=== PATIENT | female | born 1960 | race Caucasian/White ===

== ENCOUNTER 2016-05-26 11:54 | Emergency (ER) | payer OTHER ==
[2016-05-26 12:03] VITALS: RESP 18
[2016-05-26] MEDS ORDERED: MECLIZINE 12.5 MG TAB PO STA (12:47)
[2016-05-26] MEDS ORDERED: LORazepam 2 MG/ML SYRINGE IV STA (12:47)
[2016-05-26] MEDS ORDERED: SODIUM CHLORIDE 0.9% 500 ML IV STA (12:47)
--- NOTE | 2016-05-26 13:03 | ED ---
General Adult HPI - General Chief complaint: Dizziness Stated complaint: DIZZINESS, NAUSEA, BLURRY VISION Time Seen by Provider: 05/26/16 12:35 Source: patient, family, RN notes reviewed, old records reviewed Mode of arrival: ambulatory - History of Present Illness Initial comments: Chief complaint and history of present illness a 56-year-old female who reports that when she awakened this morning she was dizzy and felt spinning she gets that it isn't fuzzy nauseated and vomits. No headache or visual acuity changes no stiff neck. No injuries. Denies any recent problems with nasal congestion or sinusitis. She's never had vertigo in the past. - Related Data Home Medications Medication Instructions Recorded Confirmed Atorvastatin [Lipitor] 80 mg PO HS 05/26/16 05/26/16 Enalapril [Vasotec] 20 mg PO DAILY 05/26/16 05/26/16 Gluc/Joe-MSM#1/C/Eleazar/Eduardo/Bor 1 tab PO BID 05/26/16 05/26/16 [Glucosamine-Chondroitin Tablet] Loratadine [Claritin] 10 mg PO DAILY 05/26/16 05/26/16 Metoprolol Tartrate [Lopressor] 25 mg PO BID 05/26/16 05/26/16 Nitroglycerin Sl Tabs [Nitrostat] 0.4 mg SUBLINGUAL Q5M PRN 05/26/16 05/26/16 Blythe-3 Fatty Acids/Fish Oil [Fish 1 cap PO DAILY 05/26/16 05/26/16 Oil 1,000 mg Softgel] Ubidecarenone [Coenzyme Q10] 20 mg PO QAM 05/26/16 05/26/16 Previous Rx's Medication Instructions Recorded Meclizine [Antivert] 25 mg PO TID #30 tab 05/26/16 Allergies Allergy/AdvReac Type Severity Reaction Status Date / Time Penicillins Allergy Rash/Hives Verified 05/26/16 12:37 Review of Systems ROS Statement: Those systems with pertinent positive or pertinent negative responses have been documented in the HPI. Review of systems. No headache but when she moves her head she does get dizzy when she closes her eyes sits still she feels better. No stiff neck no chest pain no palpitations no GI/ problems other than that associated with the dizziness and nausea. No neuro deficits complained of. All systems were otherwise reviewed. Past medical problems significant for coronary artery disease and [place], hyperlipidemia. Her surgeries include 5 stents to the heart. She had an appendectomy tonsillectomy and tubal ligation. The patient's family history unknown she is adopted. She has ALLERGIES to penicillin. She quit smoking 3 years ago. Drinks 1 beer per night while cooking her dinner. ROS Other: All systems not noted in ROS Statement are negative. Past Medical History Past Medical History: Coronary Artery Disease (CAD), Hyperlipidemia, Myocardial Infarction ([place]) History of Any Multi-Drug Resistant Organisms: None Reported Past Surgical History: Appendectomy, Heart Catheterization With Stent, Tonsillectomy, Tubal Ligation Past Psychological History: No Psychological Hx Reported Smoking Status: Former smoker Past Alcohol Use History: Daily Past Drug Use History: None Reported General Exam - General Exam Comments Initial Comments: General: The patient is awake and alert, becomes dizzy when she moves quickly. This morning she had nausea and vomiting associated with it. No pain. Vital signs shows temperature 96.8 pulse 48 she is on Lopressor and enalapril., Her respiratory rate is 18 pulse ox 94% room air blood pressure elevated at 195/88. The patient is mildly distressed. This be repeated. Eye: Pupils are equal, round and reactive to light, extra-ocular movements are intact ; there is normal conjunctiva bilaterally. No signs of icterus. Ears, nose, mouth and throat: There are moist mucous membranes and no oral lesions. No headache Neck: The neck is supple, there is no tenderness , no carotid bruit, no stiff neck. Cardiovascular: Bradycardic rate proximally 50. No murmur, rub or gallop is appreciated. Respiratory: Lungs are clear to auscultation, respirations are non-labored, breath sounds are equal. No wheezes, stridor, rales, or rhonchi. Gastrointestinal: Soft, non-distended, non-tender abdomen without masses or organomegaly noted. There is no rebound or guarding present. No CVA tenderness. Bowel sounds are unremarkable. Back: There is no tenderness to palpation in the midline. There is no obvious deformity. No rashes noted. Musculoskeletal: Normal ROM, no tenderness, There is no pedal edema. There is no calf tenderness or swelling. Sensation intact. Neurological: CN II-XII intact, There are no obvious motor or sensory deficits. Coordination appears grossly intact. Speech is normal. No neuro deficits. Dizziness with rapid head movement and changes of position. Skin: Skin is warm and dry and no rashes or lesions are noted. Course Vital Signs 05/26/16 05/26/16 05/26/16 12:00 13:25 13:58 Temperature 96.8 F L 98.4 F Pulse Rate 48 L 50 L 45 L Respiratory 18 18 18 Rate Blood Pressure 195/88 186/79 153/72 O2 Sat by Pulse 94 L 94 L 98 Oximetry Medical Decision Making - Medical Decision Making The patient's feeling better. Blood pressure 130/80. Rate 55. We did discuss not taking Lopressor. This evening should be checking her blood pressure heart rate. Continues to remain low she's not to take her Lopressor. She'll call and follow up with family physician tomorrow. Told to recheck tomorrow. She' ll be given a prescription for meclizine 25 mg 3 times a day. Disposition Clinical Impression: Vertigo Disposition: HOME SELF-CARE Condition: Stable Instructions: Dizziness (ED), Vertigo (ED) Additional Instructions: Check a blood pressure and heart rate several times today , if you heart rate still low such as below 55 do not take your Lopressor. All your physician in the morning. Take meclizine 25 mg 3 times daily for dizziness and vertigo. Change positions slowly. Prescriptions: Meclizine [Antivert] 25 mg PO TID #30 tab Time of Disposition: 14:54
[2016-05-26 15:13] VITALS: BP 132/66; PULSE 47; TEMP 96.8
== END 2016-05-26 15:20 | disposition home or self-care (01) ==
LOC: EC 11:54
DX: R42 Dizziness and giddiness (principal); E78.5 Hyperlipidemia, unspecified; I25.2 Old myocardial infarction; I25.10 Atherosclerotic heart disease of native coronary artery without angina pectoris; Z95.5 Presence of coronary angioplasty implant and graft; Z88.0 Allergy status to penicillin; Z87.891 Personal history of nicotine dependence; Z79.899 Other long term (current) drug therapy
CPT/HCPCS: 99284; 96374; 96361; 93005; J2060

== ENCOUNTER → 2020-01-13 | Outpatient (CLI) | payer MEDICAID, OTHER ==
--- NOTE | 2020-01-13 08:57 | US ---
EXAMINATION TYPE: US venous doppler duplex LE RT DATE OF EXAM: 01/13/2020 8:41 AM COMPARISON: NONE CLINICAL HISTORY: I71.4 Abdominal aortic aneurysm. SIDE PERFORMED: Right TECHNIQUE: The lower extremity deep venous system is examined utilizing real time linear array sonog phuong with graded compression, doppler sonography and color-flow sonography. VESSELS IMAGED: External Iliac Vein (EIV) Common Femoral Vein Deep Femoral Vein Greater Saphenous Vein * Femoral Vein Popliteal Vein Small Saphenous Vein * Proximal Calf Veins (* superficial vessels) Right Leg: Negative for DVT IMPRESSION: Grayscale, color doppler, spectral doppler imaging performed of the deep veins of the lo wer extremities. There is normal flow, compressibility, vascular waveforms.
--- NOTE | 2020-01-13 09:05 | US ---
EXAMINATION TYPE: US duplex aorta DATE OF EXAM: 01/13/2020 COMPARISON: NONE CLINICAL HISTORY: I71.4 Abdominal aortic aneurysm. EXAM MEASUREMENTS: Abdominal Aorta: Proximal: 3.8cm Mid: 5.0 x 5.2 x 4.1cm aortic aneurysm Distal: 3.8cm Bifurcation: obscured by bowel gas/obesity atherosclerotic changes noted Patient of large body habitus, technically difficult study. Results phoned to Alexus Castillo H[employer] OPERATIONS DIRECTOR- immediately following exam. IMPRESSION: 1. Large 5.2 cm aortic aneurysm extending to at least the aortic bifurcation. Below aortic bifurcatio n obscured by bowel gas. Results called to referring clinician.
== END | disposition home or self-care (01) ==
LOC: RADUSWWP 07:47
PROVIDERS: ATTEND Nurse Practitioner Family
DX: I71.4 Abdominal aortic aneurysm, without rupture (principal); M25.561 Pain in right knee; G89.29 Other chronic pain; M25.461 Effusion, right knee; R60.0 Localized edema
CPT/HCPCS: 93979

== ENCOUNTER → 2020-02-21 | Outpatient (CLI) | payer OTHER, MEDICAID ==
--- NOTE | 2020-02-21 16:37 | MR ---
EXAMINATION TYPE: MR knee RT wo con DATE OF EXAM: 02/21/2020 COMPARISON: None HISTORY: RT knee pain TECHNIQUE: Multiplanar, multisequence imaging of the right knee is performed without IV contrast. FINDINGS: MEDIAL MENISCUS: Sterile horn of the medial meniscus shows diffuse abnormal signal consistent with co mplex tear, the posterior horn is attenuated. LATERAL MENISCUS: Anterior and posterior horns are intact without tear. CRUCIATE LIGAMENTS: The anterior and posterior cruciate ligaments are intact and unremarkable. COLLATERAL LIGAMENTS: The medial collateral ligament and lateral collateral ligament complex are inta ct and unremarkable. EXTENSOR MECHANISM: Visualized quadriceps and patellar tendons are intact. EFFUSION: Suprapatellar joint effusion is present POPLITEAL CYST: Small Quarles's cyst is present TRICOMPARTMENT SPACES: Joint space is decreased greatest in the medial compartment and marginal spurr ing is present in the medial and lateral compartments, patellofemoral joint CARTILAGE: Grade III chondromalacia present in the medial compartment, grade 3 to grade IV chondromal acia posterior patella. BONE MARROW SIGNAL: There are possible intraosseous geodes near the insertion of the posterior crucia te ligament, multilocular T2 bright foci are present, intermediate signal on T1 sequence weighted seq uences OTHER: Small loose bodies are present within a fluid collection posterior to the proximal fibula and tibia, sagittal image #21, axial image #8 suggesting synovial osteochondromatosis. Subcutaneous rivera a changes are present. IMPRESSION: Osteoarthritis. Probably chronic complex tear the posterior horn of the medial meniscus. Findings sug gest synovial ostial chondromatosis.
== END | disposition home or self-care (01) ==
LOC: RADMRIMAIN 15:10
PROVIDERS: ATTEND Orthopaedic Surgery
DX: M17.11 Unilateral primary osteoarthritis, right knee (principal); M23.91 Unspecified internal derangement of right knee

== ENCOUNTER 2021-09-28 21:01 | Inpatient (IN) | payer MEDICAID, OTHER ==
[2021-09-28 21:36] LABS: Basophils % (A) 0 %; Eosinophils # (A) 0.2 k/uL (0-0.7); Eosinophils % (A) 2 %; HCT 46.3 % (34.0-46.0); HGB 15.4 gm/dL (11.4-16.0); Lymphocytes # (A) 2.8 k/uL (1.0-4.8); Lymphocytes % (A) 22 %; MCH 29.5 pg (25.0-35.0); MCHC 33.3 g/dL (31.0-37.0); MCV 88.5 fL (80.0-100.0); Mean Platelet Volume 9.3; Monocytes # (A) 0.5 k/uL (0-1.0); Monocytes % (A) 4 %; Neutrophils # (A) 8.8 k/uL (1.3-7.7); Neutrophils % (A) 70 %; Platelet Count 212 k/uL (150-450); RBC 5.24 m/uL (3.80-5.40); RDW 14.8 % (11.5-15.5); WBC 12.5 k/uL (3.8-10.6)
[2021-09-28 21:38] LABS: ALT 27 U/L (4-34); AST 54 U/L (14-36); African American GFR (CKD) >90 (>60 ml/min/1.73 sqM); Albumin 4.5 g/dL (3.5-5.0); Alkaline Phosphatase 103 U/L (38-126); Anion Gap 9 mmol/L; Blood Urea Nitrogen 13 mg/dL (7-17); Calcium 9.5 mg/dL (8.4-10.2); Carbon Dioxide 26 mmol/L (22-30); Chloride 104 mmol/L (98-107); Glucose 139 mg/dL (74-99); INR 0.9 (<1.2); Magnesium 1.8 mg/dL (1.6-2.3); Non-African American GFR(CKD) >90 (>60 ml/min/1.73 sqM); Partial Thromboplastin Time 28.1 sec (22.0-30.0); Potassium 3.9 mmol/L (3.5-5.1); Prothrombin Time 10.2 sec (9.0-12.0); Sodium 139 mmol/L (137-145); Total Bilirubin 0.9 mg/dL (0.2-1.3); Total Protein 7.7 g/dL (6.3-8.2)
--- NOTE | 2021-09-28 21:53 | XR ---
EXAMINATION TYPE: XR chest 2V DATE OF EXAM: 09/28/2021 9:36 PM COMPARISON: None TECHNIQUE: XR chest 2V Frontal and lateral views of the chest. CLINICAL INDICATION:Female, 61 years old with history of Chest Pain; FINDINGS: Lungs/Pleura: Increased opacities projecting over the heart and lingula. No acute pneumothorax or ple ural effusion. Pulmonary vascularity: Unremarkable. Heart/mediastinum: Cardiomediastinal silhouette is unremarkable. Musculoskeletal: No acute osseous pathology. IMPRESSION: Opacities projecting over the heart/lingula and may represent atelectasis and/or pneumonia. No additi onal finding to correlate with patient's chest pain.
[2021-09-28] MEDS ORDERED: NITROGLYCERIN-D5W PMX 50 MG in DEXTROSE/WATER 1 250ML.BAG IV ONE (22:08)
--- NOTE | 2021-09-28 22:08 | ED ---
Chest Pain HPI - General Chief Complaint: Chest Pain Stated Complaint: high blood pressure Time Seen by Provider: 09/28/21 21:54 Source: patient Mode of arrival: ambulatory Limitations: no limitations - History of Present Illness Initial Comments: Leti is a pleasant 61-year-old female with known history of coronary artery disease status post stenting 5 most recent stent in 2012. Patient presents the ER today with complaint of 2 days of chest pain. Pain is pressure-like sensation across her chestassociated diaphoresis or lightheadedness. Mild sh ortness of breath reported. Patient reports she has been taking nitro multiple times over the past 2 days and does get transient relief of her pain. No recent fevers chills or coughs. 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 - Related Data Home Medications Medication Instructions Recorded Confirmed Atorvastatin [Lipitor] 80 mg PO HS 05/26/16 09/28/21 Glucosam/Joe-Msm1/C/Eleazar/Bosw 1 tab PO DAILY 05/26/16 09/28/21 [Glucosamine-Chondroitin Tablet] Loratadine [Claritin] 10 mg PO DAILY 05/26/16 09/28/21 Metoprolol Tartrate [Lopressor] 25 mg PO HS 05/26/16 09/28/21 Nitroglycerin Sl Tabs [Nitrostat] 0.4 mg SUBLINGUAL Q5M PRN 05/26/16 09/28/21 Aspirin EC [Ecotrin Low Dose] 81 mg PO BID 09/28/21 09/28/21 Ibuprofen [Motrin Ib] 400 mg PO BID 09/28/21 09/28/21 Turmeric Root Extract [Turmeric] 500 mg PO DAILY 09/28/21 09/28/21 lisinopriL [Zestril] 20 mg PO DAILY 09/28/21 09/28/21 Allergies Allergy/AdvReac Type Severity Reaction Status Date / Time Penicillins Allergy Rash/Hives Verified 09/28/21 22:38 Review of Systems ROS Statement: Those systems with pertinent positive or pertinent negative responses have been documented in the HPI. ROS Other: All systems not noted in ROS Statement are negative. EKG Findings - EKG Comments: EKG Findings:: Initial EKG obtained at 2105, rate is 78 rhythm is sinus there is a leftward axis, normal intervals, MT 167, QRS 99 QTC 432 there are no acute ST elevations or depressions no evidence of acute ischemia or infarction. Repeat EKG was obtained at 2205 rate is 58 rhythm is sinus bradycardia with left axis deviation, no acute ST elevations or depressions no evidence of acute ischemia or infarction. Past Medical History Past Medical History: Coronary Artery Disease (CAD), Hyperlipidemia, Myocardial Infarction ([place]) History of Any Multi-Drug Resistant Organisms: None Reported Past Surgical History: Appendectomy, Heart Catheterization With Stent, Tonsillectomy, Tubal Ligation Past Psychological History: No Psychological Hx Reported Smoking Status: Current every day smoker Past Alcohol Use History: Daily Past Drug Use History: None Reported General Exam - General Exam Comments Initial Comments: Physical Exam GENERAL: Patient is well-developed and well-nourished. Patient is nontoxic and well- hydrated and is in no distress. HENT: Normocephalic, Atraumatic. EYES: PERRL, EOMI PULMONARY: Unlabored respirations. No audible rales rhonchi or wheezing was noted. CARDIOVASCULAR: There is a regular rate and rhythm without any murmurs gallops or rubs. ABDOMEN: Soft and nontender with normal bowel sounds. SKIN: Skin is clear with no lesions or rashes and otherwise unremarkable. : Deferred NEUROLOGIC: Patient is alert and oriented x3. Moving all extremities spontaneously MUSCULOSKELETAL: Normal extremities with adequate strength and full range of motion. No lower extremity swelling or edema. No calf tenderness. PSYCHIATRIC: Normal psychiatric evaluation. Limitations: no limitations Course Vital Signs 09/28/21 21:04 Temperature 98 F Pulse Rate 79 Respiratory 18 Rate Blood Pressure 210/106 O2 Sat by Pulse 96 Oximetry Chest Pain [facility] Patient was seen and evaluated, history is obtained from patient, labs resulted with elevated troponin I suspect this is secondary to hypertension as there is profound hypertension and no ischemic changes on EKG Repeat EKG again had no ischemic changes Patient was started on nitro and heparin Patient care was discussed with cardiology Dr. Henry agrees with plan for nitro and heparin, admission to hospital and cardiology consult Patient care was discussed with Dr. Schwarz who accepts admission Disposition Clinical Impression: Acute non-ST elevation myocardial infarction (NSTEMI), Hypertensive emergency Disposition: ADMITTED IP TO THIS HOSP Condition: Serious
[2021-09-28] MEDS ORDERED: HEPARIN SODIUM 1,000 UN/ML (10ML VL) IV ONE (22:14)
[2021-09-28] MEDS ORDERED: HEPARIN SODIUM 1,000 UN/ML (10ML VL) IV PRN (22:14)
[2021-09-28] MEDS ORDERED: MORPHINE SULFATE 4 MG/ML SYRINGE IV PRN (22:15)
[2021-09-28] MEDS ORDERED: ASPIRIN 81 MG PO STA (22:15)
[2021-09-28] MEDS ORDERED: AZITHROMYCIN 500 MG TAB PO STA (22:19)
[2021-09-28] MEDS: NITROGLYCERIN-D5W PMX 50 MG in DEXTROSE/WATER 1 250ML.BAG IV SCH (23:35)
[2021-09-28] MEDS: HEPARIN SOD,PORK IN 0.45% NACL 25,000 UNIT in 0.45% NACL 1 250ML.BAG IV SCH (23:44)
[2021-09-29 05:13] LABS: Basophils # (A) 0.1 k/uL (0-0.2); Basophils % (A) 1 %; Eosinophils # (A) 0.2 k/uL (0-0.7); Eosinophils % (A) 2 %; HCT 44.7 % (34.0-46.0); HGB 14.2 gm/dL (11.4-16.0); Lymphocytes # (A) 2.6 k/uL (1.0-4.8); Lymphocytes % (A) 24 %; MCH 28.7 pg (25.0-35.0); MCHC 31.7 g/dL (31.0-37.0); MCV 90.4 fL (80.0-100.0); Mean Platelet Volume 9.6; Monocytes # (A) 0.6 k/uL (0-1.0); Monocytes % (A) 6 %; Neutrophils # (A) 7.3 k/uL (1.3-7.7); Neutrophils % (A) 66 %; Platelet Count 183 k/uL (150-450); RBC 4.94 m/uL (3.80-5.40); RDW 14.4 % (11.5-15.5)
[2021-09-29 05:35] LABS: Partial Thromboplastin Time 83.6 sec (22.0-30.0); Prothrombin Time 10.4 sec (9.0-12.0)
[2021-09-29] MEDS: lisinopriL 10 MG TAB PO SCH (08:55)
[2021-09-29] MEDS: METOPROLOL TARTRATE 50 MG TAB PO SCH ×2 (08:55→19:47)
[2021-09-29] MEDS ORDERED: ASPIRIN 325 MG TAB PO SCH (09:00)
--- NOTE | 2021-09-29 09:32 | P.CRDCN ---
History of Present Illness Consult date: 09/29/21 Chief complaint: Chest discomfort History of present illness: The patient is a pleasant 61-year-old female patient with a past medical history significant for coronary artery disease and prior angioplasty and stenting multiple times with the last one in 2012 the details on that are unavailable at this point and also she does have history of smoking where she continues to smoke as well as hypertension and dyslipidemia presented to the emergency department complaining of chest discomfort. The symptoms started about a week ago where she is describing a pressure kind of discomfort in the middle of the chest with radiation to both arms associated with shortness of breath and sweating. No dizziness or lightheadedness and no presyncope or syncope. She was ruled in for acute coronary syndrome with EKG showing ST changes inferiorly and cardiac enzymes consistent with acute coronary syndrome. Beside that she underwent a chest x-ray that came in to be unremarkable. Her pressure was severely elevated when she presented but currently her pressure has improved after she was started on nitro drip. She stated that she has been compliant with her medications but unfortunately she continues to smoke until yesterday. The rest of her blood work including CBC and BMP came in to be unremarkable and the chest x-ray did not show any acute abnormalities. I informed the patient that we need to pursue with a coronary angiogram to rule out severe CAD giving her multiple risk factors and a history as well as the workup. The patient is in full understanding and agreement. The procedure in details including the risks as well as benefits as well as of the length of discussed with the patient in details. Past Medical History Past Medical History: Coronary Artery Disease (CAD), Hyperlipidemia, Myocardial Infarction ([place]) Additional Past Medical History / Comment(s): AAA 08/2012 Last Myocardial Infarction Date:: 07/2007 History of Any Multi-Drug Resistant Organisms: None Reported Past Surgical History: Appendectomy, Heart Catheterization With Stent, Tonsillectomy, Tubal Ligation Date of Last Stent Placement:: 2007 Past Psychological History: No Psychological Hx Reported Smoking Status: Current every day smoker Past Alcohol Use History: Daily Past Drug Use History: None Reported - Past Family History Father Family Medical History: Unable to Obtain Additional Family Medical History / Comment(s): pt was adopted Mother Family Medical History: Unable to Obtain Additional Family Medical History / Comment(s): pt was adopted Medications and Allergies Home Medications Medication Instructions Recorded Confirmed Type Atorvastatin [Lipitor] 80 mg PO HS 05/26/16 09/28/21 History Glucosam/Joe-Msm1/C/Eleazar/Bosw 1 tab PO DAILY 05/26/16 09/28/21 History [Glucosamine-Chondroitin Tablet] Loratadine [Claritin] 10 mg PO DAILY 05/26/16 09/28/21 History Metoprolol Tartrate [Lopressor] 25 mg PO HS 05/26/16 09/28/21 History Nitroglycerin Sl Tabs [Nitrostat] 0.4 mg SUBLINGUAL Q5M PRN 05/26/16 09/28/21 History Aspirin EC [Ecotrin Low Dose] 81 mg PO BID 09/28/21 09/28/21 History Ibuprofen [Motrin Ib] 400 mg PO BID 09/28/21 09/28/21 History Turmeric Root Extract [Turmeric] 500 mg PO DAILY 09/28/21 09/28/21 History lisinopriL [Zestril] 20 mg PO DAILY 09/28/21 09/28/21 History Allergies Allergy/AdvReac Type Severity Reaction Status Date / Time Penicillins Allergy Rash/Hives Verified 09/28/21 22:38 Physical Exam Vitals: Vital Signs Temp Pulse Pulse Resp BP BP Pulse Ox 09/29/21 08:00 98 F 58 L 18 138/63 09/29/21 05:50 61 167/81 93 L 09/29/21 03:10 93 L 09/29/21 03:00 60 18 135/71 88 L 09/29/21 02:00 64 18 09/29/21 01:00 97.9 F 64 18 198/116 92 L 09/28/21 23:49 66 18 158/85 99 09/28/21 21:04 98 F 79 18 210/106 96 Intake and Output 09/28/21 09/29/21 09/29/21 22:59 06:59 14:59 Intake Total 64.292 Balance 64.292 Intake: Intake, IV Titration 64.292 Amount Heparin Sod,Pork in 0.45% 59.167 NaCl 25,000 unit In 0.45 % NaCl 1 250ml.bag @ 9. 5853 UNITS/KG/HR 10 mls/ hr IV .Q24H [facility] Rx#: [id number] Nitroglycerin-D5w Pmx 50 5.125 mg In Dextrose/Water 1 250ml.bag @ 5 MCG/MIN 1.5 mls/hr IV .Q24H [facility] Rx#: [id number] Other: Voiding Method Toilet # Voids 1 Weight 104.326 kg 104.326 kg - Constitutional General appearance: no acute distress - Respiratory Respiratory: bilateral: CTA - Cardiovascular Rhythm: regular Heart sounds: normal: S1, S2 Abnormal Heart Sounds: systolic murmur Results 09/29/21 04:05 09/28/21 21:08 Cardiac Enzymes 09/28/21 09/28/21 09/29/21 Range/Units 21:08 21:08 00:25 AST 54 H (14-36) U/L Troponin I 1.550 H* 2.140 H* (0.000-0.034) ng/mL 09/29/21 Range/Units 04:05 AST (14-36) U/L Troponin I 2.020 H* (0.000-0.034) ng/mL Coagulation 09/28/21 09/29/21 Range/Units 21:08 04:05 PT 10.2 10.4 (9.0-12.0) sec APTT 28.1 83.6 H (22.0-30.0) sec CBC 09/28/21 09/29/21 Range/Units 21:08 04:05 WBC 12.5 H 11.0 H (3.8-10.6) k/uL RBC 5.24 4.94 (3.80-5.40) m/uL Hgb 15.4 14.2 (11.4-16.0) gm/dL Hct 46.3 H 44.7 (34.0-46.0) % Plt Count 212 183 (150-450) k/uL Comprehensive Metabolic Panel 09/28/21 Range/Units 21:08 Sodium 139 (137-145) mmol/L Potassium 3.9 (3.5-5.1) mmol/L Chloride 104 (98-107) mmol/L Carbon Dioxide 26 (22-30) mmol/L BUN 13 (7-17) mg/dL Creatinine 0.65 (0.52-1.04) mg/dL Glucose 139 H (74-99) mg/dL Calcium 9.5 (8.4-10.2) mg/dL AST 54 H (14-36) U/L ALT 27 (4-34) U/L Alkaline Phosphatase 103 (38-126) U/L Total Protein 7.7 (6.3-8.2) g/dL Albumin 4.5 (3.5-5.0) g/dL Current Medications Generic Name Dose Route Start Last Admin Trade Name Freq PRN Reason Stop Dose Admin Aspirin 325 mg 09/29/21 09:00 09/29/21 08:55 Aspirin 325 Mg Tab PO 325 mg DAILY [facility] Administration Atorvastatin Calcium 40 mg 09/29/21 21:00 Atorvastatin 40 Mg Tab PO HS [facility] Heparin Sodium (Porcine) 0 unit 09/28/21 22:14 Heparin Sodium 1,000 Un/Ml (10ml Vl) IV PER PROTOCOL PRN Low PTT Protocol Heparin Sodium/Sodium Chloride 250 mls @ 10 mls/hr 09/28/21 22:15 09/29/21 05:39 25,000 unit/ Sodium Chloride IV 7.59 units/kg/hr .Q24H [facility] 7.918 mls/hr Titration Protocol 9.5853 UNITS/KG/HR Nitroglycerin/Dextrose 50 mg/ 250 mls @ 1.5 mls/hr 09/28/21 23:30 09/29/21 06:09 IV Solution IV 5 mcg/min .Q24H [facility] 1.5 mls/hr Titration Protocol 5 MCG/MIN Lisinopril 10 mg 09/29/21 09:00 09/29/21 08:55 Lisinopril 10 Mg Tab PO 10 mg DAILY [facility] Administration Metoprolol Tartrate 50 mg 09/29/21 09:00 09/29/21 08:55 Metoprolol Tartrate 50 Mg Tab PO 50 mg BID [facility] Administration Morphine Sulfate 4 mg 09/28/21 22:15 Morphine Sulfate 4 Mg/Ml Syringe IV Q5M PRN Chest Pain Intake and Output 09/28/21 09/29/21 09/29/21 22:59 06:59 14:59 Intake Total 64.292 Balance 64.292 Intake: Intake, IV Titration 64.292 Amount Heparin Sod,Pork in 0.45% 59.167 NaCl 25,000 unit In 0.45 % NaCl 1 250ml.bag @ 9. 5853 UNITS/KG/HR 10 mls/ hr IV .Q24H [facility] Rx#: [id number] Nitroglycerin-D5w Pmx 50 5.125 mg In Dextrose/Water 1 250ml.bag @ 5 MCG/MIN 1.5 mls/hr IV .Q24H [facility] Rx#: [id number] Other: Voiding Method Toilet # Voids 1 Weight 104.326 kg 104.326 kg 09/29/21 04:05 09/28/21 21:08 Assessment and Plan Assessment: Assessment #1 acute coronary syndrome #2 coronary artery disease with prior stenting #3 hypertension #4 dyslipidemia #5 hypertension emergency #6 history of smoking Plan #1 continue the current medical regimen #2 proceed with coronary angiogram #3 obtain an echocardiogram was Doppler #4 follow-up with the patient
[2021-09-29] MEDS ORDERED: IV FLUID CONTINUATION 900 ML IV ONE (10:32)
[2021-09-29] MEDS ORDERED: VERAPAMIL 2.5 MG/ML 2 ML AMP ONE (10:38)
[2021-09-29] MEDS ORDERED: HEPARIN SODIUM 1,000 UN/ML (10ML VL) ONE (10:38)
[2021-09-29] MEDS ORDERED: MIDAZOLAM 2 MG/2 ML VIAL IV ONE (10:45)
[2021-09-29] MEDS ORDERED: LIDOCAINE 1% INJ 10MG/ML (5 ML VIAL-PF) SQ ONE (10:50)
[2021-09-29] MEDS: VERAPAMIL SYRINGE (5 MG/10 ML) INTRAARTER ONE ×2 (10:52→11:05)
[2021-09-29 10:58] LABS: Chol/HDL Ratio 4.73 Ratio; LDL Cholesterol,Calculated 102.2 mg/dL (0.0-131.0)
[2021-09-29] MEDS ORDERED: IOPAMIDOL-370 125ML BTL INJ ONE (11:05)
[2021-09-29] MEDS ORDERED: SODIUM CHLORIDE 0.9% 1,000 ML IV SCH (11:15)
[2021-09-29] MEDS ORDERED: RX INFO: IV CONTRAST WAS GIVEN 1 EACH MISC MISCELLANE PRN (11:15)
--- NOTE | 2021-09-29 11:20 | P.PCN ---
Date of Procedure: 09/29/21 Operative Findings: CARDIAC CATHETERIZATION PERFORMING PHYSICIAN: Carl Maxwell MD, RPVI PROCEDURE PERFORMED: 1. Selective right and left coronary angiogram 2. Left heart catheterization INDICATION: Acute coronary syndrome this 61-year-old female patient with CAD and prior stenting in the past. COMPLICATION: None APPROACH: Right radial artery LEVEL OF SEDATION: Moderate with a sedation length of 20 minutes PROCEDURE DESCRIPTION: After obtaining an informed consent, the patient was brought to cardiac engineer geophysical laboratory. Local anesthesia was performed using lidocaine subcutaneously. The right radial artery was cannulated using Seldinger technique, the guidewire passed easily, following that we advanced a 5-Maltese sheath dilator assembly, the wire and dilator were removed and sheath was flushed. Following that, 2 mg of verapamil Selective right and left coronary angiogram using a 6-Maltese JR4 and JL 3.5 catheters. Following that we did left heart catheterization using 6-Maltese pigtail catheter. The procedure was completed there was no complication. SELECTIVE CORONARY ANGIOGRAM: The right coronary artery: Is a large caliber vessel and a dominant vessel. The RCA in the midportion has a critical lesion in the range of 90-95% with post stenotic aneurysmal dilated elevation. The RCA distally is chronically occluded and fills by collateral from the left coronary system. The RCA distally is a stented. Left main: Is a large caliber vessel. It has mild disease only. The left main appeared to be also mildly aneurysmal. Bifurcates into all CX and LAD The left circumflex: Is a large caliber vessel. The proximal LCx gives rises into a large OM branch which has long tubular lesion appears to be in the range of 90-95%. The left circumflex in the AV groove appears to have critical lesion distally. The LCx is diffusely diseased. The left anterior descending artery: The LAD is a large caliber vessel. The very proximal LAD appeared to have a tight lesion in the range of 80%. After that the LAD either aneurysmal or gives rises into a large diagonal branch which seems to be occluded. The LAD has mild disease in the mid and distal portion. HEMODYNAMICS: The LVEDP is elevated at 20 mmHg CONCLUSION: 1. Chronic total occlusion of the RCA distally with aneurysmal dilation of the RCA in the midportion 2. Critical disease with a long tubular lesion involving the first OM of the LCx 3. Severe disease with a focal lesion involving the proximal LAD 4. Elevated left-sided filling pressure POSTPROCEDURE MANAGEMENT: With the above anatomy I advised the patient to be seen by cardiothoracic surgeon to be evaluated for coronary artery bypass grafting
--- NOTE | 2021-09-29 13:35 | US ---
EXAMINATION TYPE: US carotid duplex BILAT DATE OF EXAM: 09/29/2021 COMPARISON: NONE CLINICAL HISTORY: preop cardiac surgery. Pre-OP CABG EXAM MEASUREMENTS: RIGHT: Peak Systolic Velocity (PSV) cm/sec ----- Right CCA: 73.5 ----- Right ICA: 462.0 ----- Right ECA: 151.6 ICA/CCA ratio: 6.3 RIGHT: End Diastole cm/sec ----- Right CCA: 16.4 ----- Right ICA: 186.8 ----- Right ECA: 19.5 LEFT: Peak Systolic Velocity (PSV) cm/sec ----- Left CCA: 75.7 ----- Left ICA: 114.1 ----- Left ECA: 287.4 ICA/CCA ratio: 1.5 LEFT: End Diastole cm/sec ----- Left CCA: 21.9 ----- Left ICA: 31.3 ----- Left ECA: 25.5 VERTEBRALS (direction of flow): Right Vertebral: Antegrade Left Vertebral: Antegrade Rhythm: Normal Heterogeneous plaque bilaterally- elevated velocities bilateral ECA's/ Significant stenosis with hi gh velocities and abnormal ratio right ICA IMPRESSION: 1. Severe right internal carotid artery stenosis, greater than 70%. 2. Mild, less than 50% stenosis of the left internal carotid artery. Criteria for Assigning % of Stenosis / Diameter reduction (Estimation based on the indirect measurements of the internal carotid artery velocities (ICA PSV). 1. Normal (no stenosis)=ICA PSV < 125 cm/s: ratio < 2.0: ICA EDV<40 cm/s. 2. Less than 50% stenosis=ICA PSV < 125 cm/s: ratio < 2.0: ICA EDV<40 cm/s. 3. 50 to 69% stenosis=ICA PSV of 125 to 230 cm/s: ration 2.0 ? 4.0: ICA EDV 40-100 cm/s. 4. Greater than 70% stenosis to near occlusion= ICA PSV > 230 cm/s: ratio > 4.0: ICA EDV > 100 cm/s. 5. Near occlusion= ICA PSV velocities may be low or undetectable: variable ratio and ICA EDV. 6. Total occlusion=unable to detect flow.
--- NOTE | 2021-09-29 14:56 | CA ---
Transthoracic Echo Report Name: Leti Lacy Age: 61 Gender: F : 1960 Exam Date: 09/29/2021 08:38 Exam Location: [facility] Ht (in): 63 Wt (lb): 230 Ordering Physician: Larisa Kiran DO Attending/Referring Phys: [id number], Magno Sorter Packer Екатерина Adan, IWONA Procedure CPT: Indications: hypertensive emergency Cardiac Hx: Technical Quality: Fair Contrast 1: Total Dose (mL): Contrast 2: Total Dose (mL): MEASUREMENTS (Male / Female) Normal Values 2D ECHO LV Diastolic Diameter PLAX 4.5 cm 4.2 - 5.9 / 3.9 - 5.3 cm LV Systolic Diameter PLAX 2.8 cm IVS Diastolic Thickness 1.5 cm 0.6 - 1.0 / 0.6 - 0.9 cm LVPW Diastolic Thickness 1.4 cm 0.6 - 1.0 / 0.6 - 0.9 cm LV Relative Wall Thickness 0.7 RV Internal Dim ED PLAX 3.1 cm LA Systolic Diameter LX 3.8 cm 3.0 - 4.0 / 2.7 - 3.8 cm LA Volume 42.3 cm??? 18 - 58 / 22 - 52 cm??? M-MODE Aortic Root Diameter MM 3.5 cm MV E Point Septal Separation 1.0 cm AV Cusp Separation MM 1.9 cm DOPPLER AV Peak Velocity 131.0 cm/s AV Peak Gradient 6.9 mmHg AI Peak Velocity 342.1 cm/s AI Peak Gradient 46.8 mmHg AI Pressure Half Time 1456.4 ms MV Area PHT 3.6 cm??? Mitral E Point Velocity 91.8 cm/s Mitral A Point Velocity 69.7 cm/s Mitral E to A Ratio 1.3 MV Deceleration Time 212.5 ms FINDINGS Left Ventricle Left ventricular ejection fraction is estimated at 50-55 %. Left ventricular cavity size normal. Moderate concentric left ventricular hypertrophy. Infero basel wall hypokinesis Right Ventricle Normal right ventricular size. Unable to estimate the right ventricular systolic pressure. Right Atrium Normal right atrial size. Left Atrium Normal left atrial size. No evidence for an atrial septal defect. Mitral Valve Structurally normal mitral valve. No mitral stenosis, regurgitation or prolapse. Aortic Valve Trileaflet aortic valve. Thickened aortic valve without stenosis. Mild aortic regurgitation. Tricuspid Valve Structurally normal tricuspid valve. Pulmonic Valve Pulmonic valve not well visualized. Pericardium Normal pericardium. Aorta Aortic annulus normal. CONCLUSIONS Normal left ventricular dimension and systolic function. Moderate concentric LVH. Inferobasal hypokinesia Poorly visualized aortic valve. Mild aortic regurgitation without stenosis Normal mitral valve leaflets with mild MR Previewed by: Dr. Carl Maxwell MD (Electronically Signed) Final Date: 29 Sep 2021 14:55
[2021-09-29 17:19] LABS: Appearance,Urine Clear (Clear); Bilirubin,Urine Negative (Negative); Blood,Urine Negative (Negative); Color,Urine Light Yellow; Glucose,Urine (UA) Negative (Negative); Ketones,Urine Negative (Negative); Leukocyte Esterase,Urine Negative (Negative); Nitrite,Urine Negative (Negative); PH, Urine 5.5 (5.0-8.0); Protein,Urine Negative (Negative); Specific Gravity,Urine 1.011 (1.001-1.035); Urobilinogen,Urine <2.0 mg/dL (<2.0)
--- NOTE | 2021-09-29 19:30 | P.HPIM ---
History of Present Illness H&P Date: 09/29/21 Chief Complaint: Chest pain 61-year-old female patient with a past medical history significant for coronary artery disease and prior angioplasty and stenting multiple times with the last one in 2012 the details on that are unavailable at this point and also she does have history of smoking where she continues to smoke as well as hypertension and dyslipidemia presented to the emergency department complaining of chest discomfort. The symptoms started about a week ago where she is describing a pressure kind of discomfort in the middle of the chest with radiation to both arms associated with shortness of breath and sweating. No dizziness or lightheadedness and no presyncope or syncope. Lab review shows a WBC of 11.0, hemoglobin of 14.2). Count of 183, sodium 139, potassium 3.9, BUN/creatinine of 13/0.6; troponin is elevated at 1.55 trending up to 2.02 Review of Systems REVIEW OF SYSTEMS: CONSTITUTIONAL: No fever, no malaise, no fatigue. HEENT: No recent visual problems or hearing problems. Denied any sore throat. CARDIOVASCULAR: No chest pain, orthopnea, PND, no palpitations, no syncope. PULMONARY: No shortness of breath, no cough, no hemoptysis. GASTROINTESTINAL: No diarrhea, no nausea, no vomiting, no abdominal pain. NEUROLOGICAL: No headaches, no weakness, no numbness. HEMATOLOGICAL: Denies any bleeding or petechiae. GENITOURINARY: Denies any burning micturition, frequency, or urgency. MUSCULOSKELETAL/RHEUMATOLOGICAL: Denies any joint pain, swelling, or any muscle pain. ENDOCRINE: Denies any polyuria or polydipsia. The rest of the 14-point review of systems is negative. . Past Medical History Past Medical History: Coronary Artery Disease (CAD), Hyperlipidemia, Myocardial Infarction ([place]) Additional Past Medical History / Comment(s): AAA 08/2012 Last Myocardial Infarction Date:: 07/2007 History of Any Multi-Drug Resistant Organisms: None Reported Past Surgical History: Appendectomy, Heart Catheterization With Stent, [place]ons[place] ctomy, Tubal Ligation Date of Last Stent Placement:: 2007 Past Psychological History: No Psychological Hx Reported Smoking Status: Current every day smoker Past Alcohol Use History: Daily Past Drug Use History: None Reported - Past Family History Father Family Medical History: Unable to Obtain Additional Family Medical History / Comment(s): pt was adopted Mother Family Medical History: Unable to Obtain Additional Family Medical History / Comment(s): pt was adopted Medications and Allergies Home Medications Medication Instructions Recorded Confirmed Type Atorvastatin [Lipitor] 80 mg PO HS 05/26/16 09/28/21 History Glucosam/Joe-Msm1/C/Eleazar/Bosw 1 tab PO DAILY 05/26/16 09/28/21 History [Glucosamine-Chondroitin Tablet] Loratadine [Claritin] 10 mg PO DAILY 05/26/16 09/28/21 History Metoprolol Tartrate [Lopressor] 25 mg PO HS 05/26/16 09/28/21 History Nitroglycerin Sl Tabs [Nitrostat] 0.4 mg SUBLINGUAL Q5M PRN 05/26/16 09/28/21 History Aspirin EC [Ecotrin Low Dose] 81 mg PO BID 09/28/21 09/28/21 History Ibuprofen [Motrin Ib] 400 mg PO BID 09/28/21 09/28/21 History Turmeric Root Extract [Turmeric] 500 mg PO DAILY 09/28/21 09/28/21 History lisinopriL [Zestril] 20 mg PO DAILY 09/28/21 09/28/21 History Allergies Allergy/AdvReac Type Severity Reaction Status Date / Time Penicillins Allergy Rash/Hives Verified 09/28/21 22:38 Physical Exam Vitals: Vital Signs Temp Pulse Pulse Resp BP BP Pulse Ox 09/29/21 08:00 98 F 58 L 18 138/63 09/29/21 05:50 61 167/81 93 L 09/29/21 03:10 93 L 09/29/21 03:00 60 18 135/71 88 L 09/29/21 02:00 64 18 09/29/21 01:00 97.9 F 64 18 198/116 92 L 09/28/21 23:49 66 18 158/85 99 09/28/21 21:04 98 F 79 18 210/106 96 Intake and Output 09/28/21 09/29/21 09/29/21 22:59 06:59 14:59 Intake Total 64.292 Balance 64.292 Intake: Intake, IV Titration 64.292 Amount Heparin Sod,Pork in 0.45% 59.167 NaCl 25,000 unit In 0.45 % NaCl 1 250ml.bag @ 9. 5853 UNITS/KG/HR 10 mls/ hr IV .Q24H [facility] Rx#: [id number] Nitroglycerin-D5w Pmx 50 5.125 mg In Dextrose/Water 1 250ml.bag @ 5 MCG/MIN 1.5 mls/hr IV .Q24H [facility] Rx#: [id number] Other: Voiding Method Toilet # Voids 1 Weight 104.326 kg 104.326 kg PHYSICAL EXAMINATION: GENERAL: The patient is alert and oriented x3, not in any acute distress. Well developed, well nourished. HEENT: Pupils are round and equally reacting to light. EOMI. No scleral icterus. No conjunctival pallor. Normocephalic, atraumatic. No pharyngeal erythema. No thyromegaly. CARDIOVASCULAR: S1 and S2 present. No murmurs, rubs, or gallops. PULMONARY: Chest is clear to auscultation, no wheezing or crackles. ABDOMEN: Soft, nontender, nondistended, normoactive bowel sounds. No palpable organomegaly. MUSCULOSKELETAL: No joint swelling or deformity. EXTREMITIES: No cyanosis, clubbing, or pedal edema. NEUROLOGICAL: Gross neurological examination did not reveal any focal deficits. SKIN: No rashes Results CBC & Chem 7: 09/29/21 04:05 09/28/21 21:08 Labs: Abnormal Lab Results - Last 24 Hours (Table) 09/28/21 09/28/21 09/28/21 Range/Units 21:08 21:08 21:08 WBC 12.5 H (3.8-10.6) k/uL Hct 46.3 H (34.0-46.0) % Neutrophils # 8.8 H (1.3-7.7) k/uL APTT (22.0-30.0) sec Glucose 139 H (74-99) mg/dL AST 54 H (14-36) U/L Troponin I 1.550 H* (0.000-0.034) ng/mL 09/29/21 09/29/21 09/29/21 Range/Units 00:25 04:05 04:05 WBC 11.0 H (3.8-10.6) k/uL Hct (34.0-46.0) % Neutrophils # (1.3-7.7) k/uL APTT 83.6 H (22.0-30.0) sec Glucose (74-99) mg/dL AST (14-36) U/L Troponin I 2.140 H* (0.000-0.034) ng/mL 09/29/21 Range/Units 04:05 WBC (3.8-10.6) k/uL Hct (34.0-46.0) % Neutrophils # (1.3-7.7) k/uL APTT (22.0-30.0) sec Glucose (74-99) mg/dL AST (14-36) U/L Troponin I 2.020 H* (0.000-0.034) ng/mL Thrombosis Risk Factor Assmnt - Choose All That Apply Each Factor Represents 1 point: Age 41-60 years Thrombosis Risk Factor Assessment Total Risk Factor Score: 1 Thrombosis Risk Factor Assessment Level: Low Risk Assessment and Plan Assessment: 1. Non-ST elevation [place]; patient has history of coronary artery disease with prior stenting - We will monitor EKG and trend troponin; 2-D echo; patient has been evaluated and is recommended cardiac catheterization 2. Hypertension/hypertensive emergency; patient has been placed on IV nitroglycerin infusion resulting in blood pressure improved since admission; continue with lisinopril 20 mg daily and metoprolol 25 mg by mouth daily at bedtime 3. Hyperlipidemia; Lipitor 80 mg by mouth daily at bedtime 4. Seasonal ALLERGY; loratadine 10 mg daily DVT prophylaxis SCDs CODE STATUS; full code
[2021-09-29] MEDS: FUROSEMIDE 10 MG/ML 2 ML VIAL IV SCH (19:47)
[2021-09-29] MEDS: ATORVASTATIN 80 MG TAB PO SCH (19:47)
[2021-09-29] MEDS ORDERED: ATORVASTATIN 40 MG TAB PO SCH (21:00)
[2021-09-29] MEDS: NICOTINE 14MG/24HR PATCH TRANSDERM SCH (21:26)
[2021-09-30] MEDS: HEPARIN SOD,PORK IN 0.45% NACL 25,000 UNIT in 0.45% NACL 1 250ML.BAG IV SCH ×2 (00:12→04:08)
[2021-09-30 04:10] LABS: Basophils % (A) 1 %; Eosinophils # (A) 0.2 k/uL (0-0.7); Eosinophils % (A) 3 %; HCT 45.3 % (34.0-46.0); HGB 14.4 gm/dL (11.4-16.0); Lymphocytes # (A) 2.3 k/uL (1.0-4.8); Lymphocytes % (A) 27 %; MCH 28.9 pg (25.0-35.0); MCHC 31.9 g/dL (31.0-37.0); MCV 90.7 fL (80.0-100.0); Mean Platelet Volume 9.5; Monocytes # (A) 0.4 k/uL (0-1.0); Monocytes % (A) 5 %; Neutrophils # (A) 5.2 k/uL (1.3-7.7); Neutrophils % (A) 63 %; Platelet Count 167 k/uL (150-450); RBC 4.99 m/uL (3.80-5.40); RDW 14.5 % (11.5-15.5); WBC 8.3 k/uL (3.8-10.6)
[2021-09-30 04:22] LABS: INR 0.9 (<1.2); Partial Thromboplastin Time 73.4 sec (22.0-30.0); Prothrombin Time 10.2 sec (9.0-12.0)
[2021-09-30 04:38] LABS: ALT 23 U/L (4-34); AST 41 U/L (14-36); African American GFR (CKD) >90 (>60 ml/min/1.73 sqM); Albumin 3.5 g/dL (3.5-5.0); Alkaline Phosphatase 96 U/L (38-126); Anion Gap 4 mmol/L; Blood Urea Nitrogen 12 mg/dL (7-17); Calcium 8.6 mg/dL (8.4-10.2); Carbon Dioxide 29 mmol/L (22-30); Chloride 107 mmol/L (98-107); Glucose 92 mg/dL (74-99); Magnesium 1.9 mg/dL (1.6-2.3); Non-African American GFR(CKD) >90 (>60 ml/min/1.73 sqM); Potassium 3.9 mmol/L (3.5-5.1); Sodium 140 mmol/L (137-145); Total Bilirubin 0.8 mg/dL (0.2-1.3); Total Protein 6.3 g/dL (6.3-8.2)
[2021-09-30] MEDS: NITROGLYCERIN-D5W PMX 50 MG in DEXTROSE/WATER 1 250ML.BAG IV SCH (05:49)
--- NOTE | 2021-09-30 08:08 | P.GSCN ---
History of Present Illness Consult date: 09/30/21 Reason for Consult: Triple-vessel coronary artery disease Requesting physician: Carl Maxwell History of present illness: This is a 61-year-old female patient who follows on an outpatient basis with Dr. Conn for primary care. She has a previous medical history of coronary artery disease with myocardial infarction and stent placement to the distal RCA in 2007, hypertension, hyperlipidemia, obesity, AAA last measured at 3.4 cm here in 2013, daily EtOH use, and current tobacco dependence. The patient reports th at she has been noticing her blood pressure climbing over the last week which she has been medicating with sublingual nitroglycerin. On Friday she noticed that she was having chest tightness that was across her entire chest and was not relieved with sublingual nitro, she decided to present to [facility] for evaluation and treatment. In the emergency room her blood pressure was noted to be 210/106. Lab work revealed WBC 12.5, hemoglobin 15.4, creatinine 0.65, troponin 1.55. Chest x-ray was unremarkable. EKG demonstrated ST changes inferiorly and patient was ruled in for non-STEMI. She was placed on IV heparin and nitro and admitted for cardiology workup. She had a transthoracic echocardiogram demonstrating EF 50-55% with mild aortic insufficiency. Yesterday she underwent heart catheterization demonstrating right dominant system with mid RCA 90-95% occluded, distal RCA with chronic total occlusion with previous stent present, obtuse marginal branch of the circumflex coronary artery with 90-95% stenosis, and proximal LAD stenosis 80%. Due to these findings consultation was placed to Dr. Morse from cardiothoracic surgery for surgical revascularization recommendations. Review of Systems - Cardiovascular Reports as per HPI, Reports chest pain, Reports high blood pressure Past Medical History Past Medical History: Coronary Artery Disease (CAD), Chest Pain / Angina, Hyperlipidemia, Hypertension, Myocardial Infarction ([place]) Additional Past Medical History / Comment(s): AAA 11/2013 measuring 3.4 cm Last Myocardial Infarction Date:: 07/2007 History of Any Multi-Drug Resistant Organisms: None Reported Past Surgical History: Appendectomy, Heart Catheterization With Stent, Tons illectomy, Tubal Ligation Date of Last Stent Placement:: 2007 Past Psychological History: No Psychological Hx Reported Smoking Status: Current every day smoker Past Alcohol Use History: Daily Past Drug Use History: None Reported - Past Family History Father Family Medical History: Unable to Obtain Additional Family Medical History / Comment(s): pt was adopted Mother Family Medical History: Unable to Obtain Additional Family Medical History / Comment(s): pt was adopted Medications and Allergies Home Medications Medication Instructions Recorded Confirmed Type Atorvastatin [Lipitor] 80 mg PO HS 05/26/16 09/28/21 History Glucosam/Joe-Msm1/C/Eleazar/Bosw 1 tab PO DAILY 05/26/16 09/28/21 History [Glucosamine-Chondroitin Tablet] Loratadine [Claritin] 10 mg PO DAILY 05/26/16 09/28/21 History Metoprolol Tartrate [Lopressor] 25 mg PO HS 05/26/16 09/28/21 History Nitroglycerin Sl Tabs [Nitrostat] 0.4 mg SUBLINGUAL Q5M PRN 05/26/16 09/28/21 History Aspirin EC [Ecotrin Low Dose] 81 mg PO BID 09/28/21 09/28/21 History Ibuprofen [Motrin Ib] 400 mg PO BID 09/28/21 09/28/21 History Turmeric Root Extract [Turmeric] 500 mg PO DAILY 09/28/21 09/28/21 History lisinopriL [Zestril] 20 mg PO DAILY 09/28/21 09/28/21 History Allergies Allergy/AdvReac Type Severity Reaction Status Date / Time Penicillins Allergy Rash/Hives Verified 09/28/21 22:38 Surgical - Exam Vital Signs Temp Pulse Resp BP Pulse Ox 98 F 79 18 210/106 96 09/28/21 21:04 09/28/21 21:04 09/28/21 21:04 09/28/21 21:04 09/28/21 21:04 CONSTITUTIONAL: Awake and alert, appears comfortable, cooperative, well- developed, well-nourished, no pain, no acute distress EYES: Pupils equal, round, reactive to light, normal ocular movement ENT: Moist mucous membranes without oral lesions present NECK: No masses, no bruits, trachea midline RESPIRATORY: Lungs sounds clear to auscultation bilaterally. Respirations even, nonlabored. Currently on room air with oxygen saturation 95%. Strong cough. No chest wall deformities. No clubbing or cyanosis present CARDIOVASCULAR: S1, S2 present. Regular rate and rhythm, sinus rhythm on telemetry. Palpable peripheral pulses bilaterally. No edema present. No calf pain or tenderness noted. No significant lower extremity varicosities noted. Left radial Nuno's test less than 8 seconds. GASTROINTESTINAL: Abdomen soft, nontender, nondistended, obese without masses or organomegaly noted. There is no rebound or guarding present. Active bowel sounds present 4 quadrants. GENITOURINARY: Deferred INTEGUMENTARY: Skin is warm and dry with evidence of good perfusion. NEUROLOGIC: Cranial nerves II through XII intact, normal coordination, no obvious motor or sensory deficits, speech is normal MUSKULOSKELETAL: Able to move all extremities, strength equal bilaterally, normal posture PSYCHIATRIC: Alert and oriented to person place and time, appropriate affect, intact judgment and insight Results - Labs 10/02/21 06:13 10/02/21 06:13 Abnormal Lab Results - Last 24 Hours (Table) 09/29/21 09/29/21 09/30/21 Range/Units 04:05 20:43 03:32 APTT 42.0 H 73.4 H (22.0-30.0) sec AST (14-36) U/L Triglycerides 175.00 H (0.00-149.00) mg/dL HDL Cholesterol 36.80 L (40.00-60.00) mg/dL 09/30/21 Range/Units 03:32 APTT (22.0-30.0) sec AST 41 H (14-36) U/L Triglycerides (0.00-149.00) mg/dL HDL Cholesterol (40.00-60.00) mg/dL Diabetes panel 09/29/21 09/30/21 Range/Units 04:05 03:32 Sodium 140 (137-145) mmol/L Potassium 3.9 (3.5-5.1) mmol/L Chloride 107 (98-107) mmol/L Carbon Dioxide 29 (22-30) mmol/L BUN 12 (7-17) mg/dL Creatinine 0.59 (0.52-1.04) mg/dL Glucose 92 (74-99) mg/dL Calcium 8.6 (8.4-10.2) mg/dL AST 41 H (14-36) U/L ALT 23 (4-34) U/L Alkaline Phosphatase 96 (38-126) U/L Total Protein 6.3 (6.3-8.2) g/dL Albumin 3.5 (3.5-5.0) g/dL Triglycerides 175.00 H (0.00-149.00) mg/dL HDL Cholesterol 36.80 L (40.00-60.00) mg/dL Thyroid panel 09/30/21 Range/Units 03:32 TSH 2.260 (0.465-4.680) mIU/L Calcium panel 09/30/21 Range/Units 03:32 Calcium 8.6 (8.4-10.2) mg/dL Albumin 3.5 (3.5-5.0) g/dL Pituitary panel 09/30/21 Range/Units 03:32 Sodium 140 (137-145) mmol/L Potassium 3.9 (3.5-5.1) mmol/L Chloride 107 (98-107) mmol/L Carbon Dioxide 29 (22-30) mmol/L BUN 12 (7-17) mg/dL Creatinine 0.59 (0.52-1.04) mg/dL Glucose 92 (74-99) mg/dL Calcium 8.6 (8.4-10.2) mg/dL TSH 2.260 (0.465-4.680) mIU/L Adrenal panel 09/30/21 Range/Units 03:32 Sodium 140 (137-145) mmol/L Potassium 3.9 (3.5-5.1) mmol/L Chloride 107 (98-107) mmol/L Carbon Dioxide 29 (22-30) mmol/L BUN 12 (7-17) mg/dL Creatinine 0.59 (0.52-1.04) mg/dL Glucose 92 (74-99) mg/dL Calcium 8.6 (8.4-10.2) mg/dL Total Bilirubin 0.8 (0.2-1.3) mg/dL AST 41 H (14-36) U/L ALT 23 (4-34) U/L Alkaline Phosphatase 96 (38-126) U/L Total Protein 6.3 (6.3-8.2) g/dL Albumin 3.5 (3.5-5.0) g/dL - Imaging Chest x-ray: report reviewed, image reviewed EKG: image reviewed Additional studies: Her catheterization films reviewed, results of carotid Doppler/pulmonary function test, echocardiogram reviewed Assessment and Plan Assessment: 1. Triple-vessel coronary artery disease, previous myocardial infarction and stent placement to the distal RCA in 2008, non-STEMI this admission 2. Hypertension with hypertensive urgency upon admission 3. Hyperlipidemia, treated, cholesterol 174, LDL 102, triglycerides 175 4. Obesity 5. AAA last measured at 3.4 cm here in 2013, measured 4.8 cm with suspicion of impending rupture in 2020 according to Josefina's report 6. Daily EtOH use 7. Current tobacco dependence with current FEV1 44% of predicted 8. Right internal carotid stenosis greater than 70% Plan: The patient was seen and examined in the cardiac stepdown unit sitting up in bed in no acute distress. Chart/diagnostics reviewed and discussed with Dr. Maxwell and Dr. Morse. The usual perioperative course of coronary artery bypass surgery was discussed in detail with the patient, risks and benefits were reviewed, all questions were answered. In order to complete workup due to her history of AAA as well as newly found right ICA stenosis patient will need CT of the chest/abdomen/pelvis with contrast as well as extracerebral CTA of the head and neck. Continue aspirin, statin, beta tierney therapy. Encourage incentive spirometry use. Smoking cessation counseling offered and encouraged. Increase activity as tolerated, will complete 5 m walk test. Pulmonology consulted for preop clearance and recommendations. Medical management of other comorbidities per primary care service. More recommendations to follow. Thank you Dr. Maxwell for this consult, we look forward to working with you in the care of your patient. I have personally seen and examined the patient, performed the documentation and the assessment and plan as written. Number of minutes spent on the visit: 30. MARTÍN Nguyen I have personally seen and examined the patient, reviewed the documentation and agree with the assessment and plan as written. Number of minutes spent on the visit: 35. Huang Morse MD
[2021-09-30] MEDS: METOPROLOL TARTRATE 50 MG TAB PO SCH ×2 (08:18→20:46)
[2021-09-30] MEDS: lisinopriL 10 MG TAB PO SCH (08:18)
[2021-09-30] MEDS: NICOTINE 14MG/24HR PATCH TRANSDERM SCH (08:18)
[2021-09-30] MEDS: FUROSEMIDE 10 MG/ML 2 ML VIAL IV SCH ×2 (08:18→20:46)
[2021-09-30] MEDS: ISOSORBIDE MONONITRATE ER 30 MG TAB.ER.24H PO SCH (08:18)
[2021-09-30] MEDS: ASPIRIN 81 MG PO SCH (08:18)
[2021-09-30 09:27] LABS: Hepatitis A Antibody IgM Nonreactive (Nonreactive); Hepatitis B Core IgM Nonreactive (Nonreactive); Hepatitis B Surface Antigen Nonreactive (Nonreactive); Hepatitis C IgG Antibody Nonreactive (Nonreactive)
--- NOTE | 2021-09-30 10:16 | P.PN ---
Subjective Progress Note Date: 09/30/21 Principal diagnosis: Acute coronary syndrome The patient is a 61-year-old female patient with CAD and prior stenting of the RCA as well as hypertension and dyslipidemia and smoking presented to the emergency department complaining of chest discomfort and she was ruled in for acute coronary syndrome beach she underwent a heart catheterization and that revealed severe triple-vessel CAD. Cardiothoracic surgical consult was placed for an evaluation for CABG The patient was seen this morning. She is chest pain-free. The pressure continues to be severely elevated. I'm going to add oral nitrates to the current medical regimen and increase the dose of lisinopril. She underwent an echo which revealed overall preserved left ventricular systolic function. Surgical consult still pending. She underwent an investigation for her carotid and she was found to have severe disease involving the right internal carotid artery. Beside that the patient is antiplatelet with aspirin and she is on high intensity statin and also she is on beta tierney. Objective - Vital Signs Vital signs: Vital Signs Temp 98.3 F 09/30/21 08:00 Pulse 85 09/30/21 08:00 Resp 18 09/30/21 08:00 BP 204/128 09/30/21 08:00 Pulse Ox 94 L 09/30/21 08:00 Intake & Output 09/29/21 09/30/21 09/30/21 18:59 06:59 18:59 Intake Total 418 314.836 Balance 418 314.836 Weight 108.4 kg Intake: IV 300 Intake, IV Titration 196.836 Amount Heparin Sod,Pork in 0.45% 196.836 NaCl 25,000 unit In 0.45 % NaCl 1 250ml.bag @ 9. 5853 UNITS/KG/HR 10 mls/ hr IV .Q24H [facility] Rx#: [id number] Oral 118 118 Other: Voiding Method Toilet Toilet # Voids 5 - Constitutional General appearance: Present: no acute distress - Respiratory Respiratory: bilateral: diminished - Cardiovascular Rhythm: regular Heart sounds: normal: S1, S2 - Labs CBC & Chem 7: 09/30/21 03:32 09/30/21 03:32 Labs: Abnormal Lab Results - Last 24 Hours (Table) 09/29/21 09/29/21 09/30/21 Range/Units 04:05 20:43 03:32 APTT 42.0 H 73.4 H (22.0-30.0) sec AST (14-36) U/L Triglycerides 175.00 H (0.00-149.00) mg/dL HDL Cholesterol 36.80 L (40.00-60.00) mg/dL 09/30/21 Range/Units 03:32 APTT (22.0-30.0) sec AST 41 H (14-36) U/L Triglycerides (0.00-149.00) mg/dL HDL Cholesterol (40.00-60.00) mg/dL Assessment and Plan Assessment: Assessment #1 acute coronary syndrome #2 severe triple-vessel CAD #3 preserved LV function #4 hypertension emergency #5 carotid disease #6 infrarenal abdominal aortic aneurysm Plan #1 continue the current medical regimen #2 continue heparin for additional 24 hours #3 continue high intensity statin #4 continue aspirin #5 increase the dose of lisinopril #6 add oral nitrates to the current medical regimen #7 follow-up with the patient after the surgical consult
--- NOTE | 2021-09-30 13:24 | P.CNPUL ---
History of Present Illness Consult date: 09/30/21 Requesting physician: Abraham Garcia Reason for consult: COPD Chief complaint: Chest discomfort, shortness of breath History of present illness: This is a very pleasant 61-year-old female patient who has a known history of chronic and ongoing tobacco dependence, daily alcohol use, abdominal aortic aneurysm, hypertension, hyperlipidemia, coronary artery disease with previous stent placement to the RCA in 2007. She had presented to the emergency room on 09/28/2021 with complaints of increasing shortness of breath, chest discomfort and achy feeling with a pain of about a 3. She is also states her blood pressure was reading greater than 200 at home. She was using sublingual nitroglycerin without much improvement and presented here to the emergency room for the same. She was found to have an acute coronary syndrome and had undergone cardiac catheterization and was found to have a chronic total occlusion of the RCA distally with aneurysmal dilatation of the RCA in the midportion. Critical disease with a long tubular lesion involving the first OM of the left circumflex. Severe disease with a focal lesion involving the proximal LAD and elevated left-sided filling pressures. Echocardiogram revealed preserved left ventricular systolic function with ejection fraction 50-55%. No significant valvular disease. She was advised coronary artery bypass grafting. We're consulted for postop management. She is seen today in consultation on the selective care unit. She's been up ambulating in the hallway. No further chest discomfort. No worsening shortness of breath cough or congestion. Pulmonary function testing reveals an FEV1 value of 44% of predicted. She has been smoki ng a pack per day for 40 years. She has not been seen by a ventilator specialist in the past. Not on home oxygen. Not on any inhalers. Asked x-ray revealed opacities projecting over the hard/lingula may represent atelectasis. She is maintaining O2 saturation in the 90s on room air. She's been afebrile. Remains hypertensive. White count 8.3. Hemoglobin 14.4. Platelet count 167. INR 0.9. Sodium 140. Potassium 3.9. BUN 12. Creatinine 0.59. TSH 2.26. Urinalysis negative. Hepatitis screen negative. She remains on a heparin drip. She's been initiated on statins, aspirin, beta blockers. She was receiving Lasix 20 mg IV every [address] patch and place. Review of Systems REVIEW OF SYSTEMS: CONSTITUTIONAL: Denies any recent significant weight loss or weight gain. EYES: Denies change in vision. EARS, NOSE, MOUTH, THROAT: Denies headaches, denies sore throat. CARDIOVASCULAR: Positive for chest pressure, no palpitations or syncopal episodes. RESPIRATORY: Denies shortness of breath, cough, congestion or hemoptysis. GASTROINTESTINAL: Denies change in appetite, denies abdominal pain GENITOURINARY: Denies hematuria, denies infections. MUSKULOSKELETAL: Denies pain, denies swelling. INTEGUMENTARY: Denies rash, denies eczema. NEUROLOGICAL: Denies recent memory loss, no recent seizure activity. PSYCHIATRIC: Denies anxiety, denies depression. HEMATOLOGIC/LYMPHATIC: Denies anemia, denies enlarged lymph nodes. Past Medical History Past Medical History: Coronary Artery Disease (CAD), Chest Pain / Angina, Hyp erlipidemia, Hypertension, Myocardial Infarction (SD) Additional Past Medical History / Comment(s): AAA 11/2013 measuring 3.4 cm Last Myocardial Infarction Date:: 07/2007 History of Any Multi-Drug Resistant Organisms: None Reported Past Surgical History: Appendectomy, Heart Catheterization With Stent, Tonsillectomy, Tubal Ligation Date of Last Stent Placement:: 2007 Past Psychological History: No Psychological Hx Reported Smoking Status: Current every day smoker Past Alcohol Use History: Daily Past Drug Use History: None Reported - Past Family History Father Family Medical History: Unable to Obtain Additional Family Medical History / Comment(s): pt was adopted Mother Family Medical History: Unable to Obtain Additional Family Medical History / Comment(s): pt was adopted Medications and Allergies Home Medications Medication Instructions Recorded Confirmed Type Atorvastatin [Lipitor] 80 mg PO HS 05/26/16 09/28/21 History Glucosam/Joe-Msm1/C/Eleazar/Bosw 1 tab PO DAILY 05/26/16 09/28/21 History [Glucosamine-Chondroitin Tablet] Loratadine [Claritin] 10 mg PO DAILY 05/26/16 09/28/21 History Metoprolol Tartrate [Lopressor] 25 mg PO HS 05/26/16 09/28/21 History Nitroglycerin Sl Tabs [Nitrostat] 0.4 mg SUBLINGUAL Q5M PRN 05/26/16 09/28/21 History Aspirin EC [Ecotrin Low Dose] 81 mg PO BID 09/28/21 09/28/21 History Ibuprofen [Motrin Ib] 400 mg PO BID 09/28/21 09/28/21 History Turmeric Root Extract [Turmeric] 500 mg PO DAILY 09/28/21 09/28/21 History lisinopriL [Zestril] 20 mg PO DAILY 09/28/21 09/28/21 History Allergies Allergy/AdvReac Type Severity Reaction Status Date / Time Penicillins Allergy Rash/Hives Verified 09/28/21 22:38 Physical Exam Vitals: Vital Signs Temp Pulse Resp BP Pulse Ox 09/30/21 12:00 98.1 F 59 L 18 203/95 94 L 09/30/21 10:19 85 18 09/30/21 08:00 98.3 F 85 18 204/128 94 L 09/30/21 07:37 95 09/30/21 04:00 98.1 F 58 L 14 164/71 93 L 09/30/21 00:00 98.1 F 47 L 12 118/70 98 09/29/21 22:07 172/80 09/29/21 20:40 190/92 09/29/21 19:52 97.9 F 60 14 192/101 93 L 09/29/21 16:00 98.2 F 56 L 18 164/92 09/29/21 14:00 18 Intake and Output 09/29/21 09/30/21 09/30/21 22:59 06:59 14:59 Intake Total 360.049 72.787 Balance 360.049 72.787 Intake: Intake, IV Titration 124.049 72.787 Amount Heparin Sod,Pork in 0.45% 124.049 72.787 NaCl 25,000 unit In 0.45 % NaCl 1 250ml.bag @ 9. 5853 UNITS/KG/HR 10 mls/ hr IV .Q24H [facility] Rx#: [id number] Oral 236 Other: Voiding Method Toilet Toilet Toilet # Voids 4 5 Weight 108.4 kg GENERAL EXAM: Alert, active, very pleasant 61-year-old female patient, on room air, comfortable in no apparent distress. HEAD: Normocephalic. EYES: Normal reaction of pupils, equal size. NOSE: Clear with pink turbinates. THROAT: No erythema or exudates. NECK: No masses, no JVD. CHEST: No chest wall deformity. LUNGS: Equal air entry with no crackles, wheeze, rhonchi or dullness. Diminished. CVS: S1 and S2 normal with no audible murmur, regular rhythm. ABDOMEN: No hepatosplenomegaly, normal bowel sounds, no guarding or rigidity. SPINE: No scoliosis or deformity SKIN: No rashes CENTRAL NERVOUS SYSTEM: No focal deficits, tone is normal in all 4 extremities. EXTREMITIES: There is no peripheral edema. No clubbing, no cyanosis. Peripheral pulses are intact. Results - Laboratory Findings CBC and BMP: 09/30/21 03:32 09/30/21 03:32 PT/INR, D-dimer PT 10.2 sec (9.0-12.0) 09/30/21 03:32 INR 0.9 (<1.2) 09/30/21 03:32 Abnormal lab findings: Abnormal Labs 09/28/21 09/28/21 09/28/21 21:08 21:08 21:08 WBC 12.5 H Hct 46.3 H Neutrophils # 8.8 H APTT Glucose 139 H AST 54 H Troponin I 1.550 H* Triglycerides HDL Cholesterol 09/29/21 09/29/21 09/29/21 00:25 04:05 04:05 WBC 11.0 H Hct Neutrophils # APTT 83.6 H Glucose AST Troponin I 2.140 H* Triglycerides HDL Cholesterol 09/29/21 09/29/21 09/29/21 04:05 04:05 20:43 WBC Hct Neutrophils # APTT 42.0 H Glucose AST Troponin I 2.020 H* Triglycerides 175.00 H HDL Cholesterol 36.80 L 09/30/21 09/30/21 09/30/21 03:32 03:32 10:00 WBC Hct Neutrophils # APTT 73.4 H 51.2 H Glucose AST 41 H Troponin I Triglycerides HDL Cholesterol - Diagnostic Findings Chest x-ray: image reviewed Assessment and Plan Assessment: 1 Acute coronary syndrome, non-ST segment elevation myocardial infarction. Found to have severe triple-vessel coronary artery disease and the plan is for coronary artery bypass grafting 2 Prior history of coronary artery disease with previous stent placement to the RCA in 2007 3 Chronic and ongoing tobacco dependence 4 Daily alcohol use 5 Chronic obstructive pulmonary disease with an FEV1 value 44% of predicted, not on treatment in the outpatient setting 6 Hypertensive emergency on presentation 7 History of hypertension 8 History of abdominal aortic aneurysm 9 Right carotid stenosis greater than 70% Plan: The patient was seen and evaluated Chest x-ray, labs and medications reviewed FEV1 value of 44% of predicted Initiate Symbicort, albuterol inhalations Cleared for surgery with an increased operative risk Educated regarding the importance of complete smoking cessation Educated regarding the importance of the incentive spirometer Remains on heparin drip for now Initiated on aspirin and statin beta blockers CTA of the head and neck pending CT chest abdomen pelvis pending We will continue to follow and make further recommendations based on her clinical status I have personally seen and examined the patient, performed the documentation and the assessment and plan as written. Number of minutes spent on the visit: 20.
[2021-09-30] MEDS ORDERED: ALBUTEROL NEBULIZED 2.5 MG/3 ML INHALATION PRN (13:25)
[2021-09-30] MEDS: hydrALAZINE HCL 50 MG TAB PO SCH ×3 (14:41→20:46)
--- NOTE | 2021-09-30 17:02 | P.PN ---
Subjective Progress Note Date: 09/30/21 Principal diagnosis: Chest pain/NSTEMI; status post cardiac catheterization Triple-vessel coronary artery disease 61-year-old female patient with a past medical history significant for coronary artery disease and prior angioplasty and stenting multiple times with the last one in 2012 the details on that are unavailable at this point and also she does have history of smoking where she continues to smoke as well as hypertension and dyslipidemia presented to the emergency department complaining of chest discomfort. The symptoms started about a week ago where she is describing a pressure kind of discomfort in the middle of the chest with radiation to both arms associated with shortness of breath and sweating. No dizziness or lightheadedness and no presyncope or syncope. Lab review shows a WBC of 11.0, hemoglobin of 14.2). Count of 183, sodium 139, potassium 3.9, BUN/creatinine of 13/0.6; troponin is elevated at 1.55 trending up to 2.02 She had a transthoracic echocardiogram demonstrating EF 50-55% with mild aortic insufficiency. Yesterday she underwent heart catheterization demonstrating right dominant system with mid RCA 90-95% occluded, distal RCA with chronic total occlusion with previous stent present, obtuse marginal branch of the circumflex coronary artery with 90-95% stenosis, and proximal LAD stenosis 80%. Due to these findings consultation was placed to Dr. Morse from cardiothoracic surgery for surgical revascularization recommendations. Objective - Vital Signs Vital signs: Vital Signs Temp 98.3 F 09/30/21 08:00 Pulse 85 09/30/21 10:19 Resp 18 09/30/21 10:19 BP 204/128 09/30/21 08:00 Pulse Ox 94 L 09/30/21 08:00 Intake & Output 09/29/21 09/30/21 09/30/21 18:59 06:59 18:59 Intake Total 418 314.836 Balance 418 314.836 Weight 108.4 kg Intake: IV 300 Intake, IV Titration 196.836 Amount Heparin Sod,Pork in 0.45% 196.836 NaCl 25,000 unit In 0.45 % NaCl 1 250ml.bag @ 9. 5853 UNITS/KG/HR 10 mls/ hr IV .Q24H [facility] Rx#: [id number] Oral 118 118 Other: Voiding Method Toilet Toilet # Voids 5 - Exam PHYSICAL EXAMINATION: GENERAL: The patient is alert and oriented x3, not in any acute distress. Well developed, well nourished. HEENT: Pupils are round and equally reacting to light. EOMI. No scleral icterus. No conjunctival pallor. Normocephalic, atraumatic. No pharyngeal erythema. No thyromegaly. CARDIOVASCULAR: S1 and S2 present. No murmurs, rubs, or gallops. PULMONARY: Chest is clear to auscultation, no wheezing or crackles. ABDOMEN: Soft, nontender, nondistended, normoactive bowel sounds. No palpable organomegaly. MUSCULOSKELETAL: No joint swelling or deformity. EXTREMITIES: No cyanosis, clubbing, or pedal edema. NEUROLOGICAL: Gross neurological examination did not reveal any focal deficits. SKIN: No rashes. - Labs CBC & Chem 7: 09/30/21 03:32 09/30/21 03:32 Labs: Abnormal Lab Results - Last 24 Hours (Table) 09/29/21 09/30/21 09/30/21 Range/Units 20:43 03:32 03:32 APTT 42.0 H 73.4 H (22.0-30.0) sec AST 41 H (14-36) U/L 09/30/21 Range/Units 10:00 APTT 51.2 H (22.0-30.0) sec AST (14-36) U/L Assessment and Plan Assessment: 1. Non-ST elevation MT; patient has history of coronary artery disease with prior stenting - We will monitor EKG and trend troponin; 2-D echo; patient has been evaluated and is recommended cardiac catheterization 2. Hypertension/hypertensive emergency; patient has been placed on IV nitroglycerin infusion resulting in blood pressure improved since admission; continue with lisinopril 20 mg daily and metoprolol 25 mg by mouth daily at bedt jason 3. Hyperlipidemia; Lipitor 80 mg by mouth daily at bedtime 4. Seasonal ALLERGY; loratadine 10 mg daily DVT prophylaxis SCDs CODE STATUS; full code
[2021-09-30] MEDS: SYMBICORT 160-4.5 MCG INHALER INHALATION SCH (20:19)
[2021-09-30] MEDS: ATORVASTATIN 80 MG TAB PO SCH (20:46)
[2021-10-01] MEDS: hydrALAZINE HCL 20 MG/ML 1 ML VIAL IV PRN ×2 (04:03→23:41)
[2021-10-01 08:28] LABS: HCT 45.1 % (34.0-46.0); HGB 14.8 gm/dL (11.4-16.0); MCH 29.4 pg (25.0-35.0); MCHC 32.8 g/dL (31.0-37.0); MCV 89.4 fL (80.0-100.0); Mean Platelet Volume 9.5; Platelet Count 208 k/uL (150-450); RBC 5.05 m/uL (3.80-5.40); RDW 14.9 % (11.5-15.5); WBC 9.2 k/uL (3.8-10.6)
[2021-10-01 08:45] LABS: African American GFR (CKD) >90 (>60 ml/min/1.73 sqM); Anion Gap 9 mmol/L; Blood Urea Nitrogen 14 mg/dL (7-17); Calcium 9.4 mg/dL (8.4-10.2); Carbon Dioxide 28 mmol/L (22-30); Chloride 103 mmol/L (98-107); Glucose 92 mg/dL (74-99); Non-African American GFR(CKD) >90 (>60 ml/min/1.73 sqM); Potassium 4.2 mmol/L (3.5-5.1); Sodium 140 mmol/L (137-145)
[2021-10-01] MEDS ORDERED: lisinopriL 20 MG TAB PO SCH (09:00)
[2021-10-01] MEDS: METOPROLOL TARTRATE 50 MG TAB PO SCH ×2 (09:02→21:19)
[2021-10-01] MEDS: hydrALAZINE HCL 50 MG TAB PO SCH ×4 (09:02→21:19)
[2021-10-01] MEDS: ASPIRIN 81 MG PO SCH (09:02)
[2021-10-01] MEDS: ISOSORBIDE MONONITRATE ER 30 MG TAB.ER.24H PO SCH (09:03)
[2021-10-01] MEDS: FUROSEMIDE 10 MG/ML 2 ML VIAL IV SCH (09:03)
[2021-10-01] MEDS: NICOTINE 14MG/24HR PATCH TRANSDERM SCH (09:04)
[2021-10-01] MEDS: SYMBICORT 160-4.5 MCG INHALER INHALATION SCH (09:09)
--- NOTE | 2021-10-01 09:59 | CT ---
EXAMINATION TYPE: CT ChestAbdPelvis w con DATE OF EXAM: 10/01/2021 COMPARISON: CT dated 11/24/2013 HISTORY: History of AAA CT DLP: 2399.3 mGycm Automated exposure control for dose reduction was used. CONTRAST: CT scan of the chest, abdomen and pelvis is performed without Oral Contrast and with IV Contrast, pat ient injected with 65 ml mL of Isovue 370. FINDINGS: CTA angiogram was not performed. LUNGS: Bilateral basal subsegmental pulmonary atelectasis with left upper lobe linear pulmonary atele ctasis. Right lower lobe dependent densities and subpleural reticulations. Patent trachea and main br onchi. No pleural effusion. MEDIASTINUM: The ascending aorta measures 4 cm. Extensive arterial atherosclerotic calcifications and atheromatous plaques most evident involving the descending aorta. The pulmonary trunk measures 3.3 c m. Aortic valve and coronary calcifications. Slightly increased cardiac transverse diameter, please c orrelate with echocardiographic results. No pericardial effusion. Subcentimeter mediastinal and axill jacqueline lymph nodes. No pathologically enlarged lymph nodes in the chest. OTHER: Degenerative changes of the thoracic spine. No aggressive bone lesion. LIVER/GB: No significant abnormality is appreciated. PANCREAS: No significant abnormality is seen. SPLEEN: No significant abnormality is seen. ADRENALS: No significant abnormality is seen. KIDNEYS: No significant abnormality is seen. BOWEL: Unremarkable nondistended stomach. Small second part of the duodenum diverticulum. Grossly un remarkable small bowel. No gross colonic mass. REPRODUCTIVE ORGANS: No gross uterine or adnexal mass yet suboptimally assessed. LYMPH NODES: No greater than 1 cm abdominal or pelvic lymph nodes are appreciated. OSSEOUS STRUCTURES: Bilateral L5 pars break with grade 1 anterolisthesis of L5 over S1. Degenerative changes of the lumbar spine most evident at L5-S1 level. No aggressive bone lesion. OTHER: Interval enlargement of the previously seen infrarenal abdominal aortic aneurysm measuring up to 5.3 cm compared to 4 cm previously. The surrounding soft tissue thickening has improved in the int erim yet still appreciated. Progressive atheromatous plaques and calcifications within the abdominal aorta causing about 50-60% stenosis just inferior to the origins of the renal arteries yet the aorta is patent distally. No extension of aneurysm into the common iliac arteries. Dilated upper abdominal aorta measuring up to 3.6 cm compared to 3.1 cm previously. Retroaortic renal vein. Fat-containing um bilical hernia. No sizable ascites. IMPRESSION: Interval progression of the abdominal aortic aneurysm with progressive atheromatous plaques and calci fications as detailed above. Recommend vascular surgery consultation. Other interval changes and inci dental findings as detailed above.
[2021-10-01] MEDS ORDERED: IPRATROPIUM-ALBUTEROL 3 ML NEB INHALATION PRN (10:34)
--- NOTE | 2021-10-01 10:39 | CT ---
EXAMINATION TYPE: CT angio head neck DATE OF EXAM: 10/01/2021 HISTORY: History of AAA COMPARISON: None available CT DLP: 1864.3 mGycm. Automated Exposure Control for Dose Reduction was Utilized. TECHNIQUE: CTA scan of the head and neck is performed without and with IV Contrast, patient injected with 65 ml mL of Isovue 370, axial images are obtained, coronal and sagittal reformatted images are reviewed. 3D reconstructed images are created on an independent workstation and reviewed. FINDINGS: Carotid/Vascular Structures: Suboptimal CTA. Scattered arterial atherosclerotic calcifications. Media lization of the common carotid arteries seen posterior to the pharynx. Severe focal stenosis of the o rigin of the right internal carotid artery by a partially calcified atheromatous plaque yet patent di stally. Otherwise normal caliber and enhancement of the neck arteries and intracranial arteries witho ut other significant stenosis, occlusion, dissection, aneurysm or AV malformation. Other: 2 mm right parieto-occipital cortical calcification, nonspecific. No acute intracranial hemorr malinda or gross acute cortical infarct. No midline shift, herniation or ventriculomegaly. Unremarkable basal cisterns, sella and CP angles. No gross space-occupying lesion, vasogenic edema or mass effect. Unremarkable orbits. Clear visualized paranasal sinuses and mastoid air cells. Degenerative changes of the cervical spine. IMPRESSION: Suboptimal CTA. Severe stenosis of the origin of the right internal carotid artery as described above . No other significant arterial stenosis, occlusion, dissection or aneurysm. Incidental findings as d escribed above.
--- NOTE | 2021-10-01 10:49 | P.PN ---
Subjective Progress Note Date: 10/01/21 Principal diagnosis: Chest pain, shortness of breath This is a very pleasant 61-year-old female patient who has a known history of chronic and ongoing tobacco dependence, daily alcohol use, abdominal aortic aneurysm, hypertension, hyperlipidemia, coronary artery disease with previous stent placement to the RCA in 2007. She had presented to the emergency room on 09/28/2021 with complaints of increasing shortness of breath, chest discomfort and achy feeling with a pain of about a 3. She is also states her blood pressure was reading greater than 200 at home. She was using sublingual nitroglycerin without much improvement and presented here to the emergency room for the same. She was found to have an acute coronary syndrome and had undergone cardiac catheterization and was found to have a chronic total occlusion of the RCA distally with aneurysmal dilatation of the RCA in the midportion. Critical disease with a long tubular lesion involving the first OM of the left circumflex. Severe disease with a focal lesion involving the proximal LAD and elevated left-sided filling pressures. Echocardiogram revealed preserved left ventricular systolic function with ejection fraction 50-55%. No significant valvular disease. She was advised coronary artery bypass grafting. We're consulted for postop management. She is seen today in consultation on the selective care unit. She's been up ambulating in the hallway. No further chest discomfort. No worsening shortness of breath cough or congestion. Pulmonary function testing reveals an FEV1 value of 44% of predicted. She has been smoking a pack per day for 40 years. She has not been seen by a ham smoker in the past. Not on home oxygen. Not on any inhalers. Asked x-ray revealed opacities projecting over the hard/lingula may represent atelectasis. She is maintaining O2 saturation in the 90s on room air. She's been afebrile. Remains hypertensive. White count 8.3. Hemoglobin 14.4. Platelet count 167. INR 0.9. Sodium 140. Potassium 3.9. BUN 12. Creatinine 0.59. TSH 2.26. Urinalysis negative. Hepatitis screen negative. She remains on a heparin drip. She's been initiated on statins, aspirin, beta blockers. She was receiving Lasix 20 mg IV every [address] patch and place. On 10/01/2021 patient is seen in follow-up on selective care unit. Patient sitting up in bed, does not appear to be in any acute distress. She is on room air pulse ox of 91%, afebrile, breathing is nonlabored. Denies any chest discomfort, no cough, lung sounds are diminished. She is on heparin infusion. She is undergoing preop evaluation for triple-vessel coronary artery disease. Her preop FEV1 was 1.09 L or 44% of predicted, with MVV of 40.9, consistent with moderate surgical risk. Patient will be started on Pulmicort and Perforomist, she'll be started on IV steroids. CT of the chest, abdomen and pelvis showed interval progression of the abdominal aortic aneurysm with progressive at heromatous plaque and calcifications with a recommendation of vascular surgery consultation. Patient was also found to have carotid artery stenosis that showed severe right ICA stenosis of greater than 70%, and mild less than 50% stenosis of the left ICA. Echocardiogram showed EF of 50-55%. There was moderate concentric LVH, inferobasilar hypokinesia. Mild aortic regurgitation, normal mitral valve with mild MR Objective - Vital Signs Vital signs: Vital Signs Temp 98.1 F 10/01/21 08:00 Pulse 73 10/01/21 08:00 Resp 17 10/01/21 08:00 BP 189/88 10/01/21 08:00 Pulse Ox 91 L 10/01/21 08:00 Intake & Output 09/30/21 10/01/21 10/01/21 18:59 06:59 18:59 Intake Total 240 Balance 240 Weight 107.3 kg Intake: Oral 240 Other: Voiding Method Toilet Toilet Toilet # Voids 2 - Exam GENERAL EXAM: Alert, very pleasant, 61-year-old white female, on room air with a pulse ox of 91% comfortable in no apparent distress. HEAD: Normocephalic/atraumatic. EYES: Normal reaction of pupils, equal size. Conjunctiva pink, sclera white. NOSE: Clear with pink turbinates. THROAT: No erythema or exudates. NECK: No masses, no JVD, no thyroid enlargement, no adenopathy. CHEST: No chest wall deformity. Symmetrical expansion. LUNGS: Equal air entry with no crackles, wheeze, rhonchi or dullness. CVS: Regular rate and rhythm, normal S1 and S2, no gallops, no murmurs, no rubs ABDOMEN: Soft, nontender. No hepatosplenomegaly, normal bowel sounds, no guarding or rigidity. EXTREMITIES: No clubbing, no edema, no cyanosis, 2+ pulses and upper and lower extremities. MUSCULOSKELETAL: Muscle strength and tone normal. SPINE: No scoliosis or deformity SKIN: No rashes CENTRAL NERVOUS SYSTEM: Alert and oriented -3. No focal deficits, tone is normal in all 4 extremities. PSYCHIATRIC: Alert and oriented -3. Appropriate affect. Intact judgment and insight. - Labs CBC & Chem 7: 10/01/21 06:53 10/01/21 06:53 Labs: Abnormal Lab Results - Last 24 Hours (Table) 10/01/21 Range/Units 06:53 APTT 42.0 H (22.0-30.0) sec Microbiology - Last 24 Hours (Table) 09/29/21 17:00 Nasal Screen MRSA/MSSA - Preliminary Nasal Swab Assessment and Plan Plan: Assessment: #1. Acute coronary syndrome, acute non-ST elevated myocardial infarction #2. Severe triple-vessel coronary artery disease undergoing evaluation for coronary artery bypass grafting #3. COPD, stage III, with preop FEV1 of 1.09 L or 44% of predicted, and MVV of 40 L/m, consistent with moderate operative risk #4. Right carotid stenosis of 70% #5. History of abdominal aortic aneurysm, with interval enlargement of the pr eviously seen infrarenal abdominal aortic aneurysm measuring up to 5.3 cm compared to 4 cm previously on the follow-up computed tomography scan of the chest abdomen and pelvis on 10/01/2021 #6. Daily alcohol use and chronic and ongoing tobacco dependence #7. Hypertension Plan: We'll add Pulmicort and Perforomist breathing treatments Continue DuoNeb We'll add IV Solu-Medrol Optimize pulmonary status for surgery, we'll do follow-up PFT later on this week Preop FEV1 reviewed and is consistent with moderate increase in operative risk Continue to follow I have personally seen and examined the patient, performed the documentation and the assessment and plan as written. Number of minutes spent on the visit: [10] Time with Patient: Less than 30
--- NOTE | 2021-10-01 10:56 | P.PN ---
Subjective Progress Note Date: 10/01/21 Principal diagnosis: Triple-vessel coronary artery disease, NSTEMI, hypertensive urgency. History of previous myocardial infarction and stent placement to the distal RCA in 2007, hypertension, hyperlipidemia, obesity, AAA, daily EtOH use, current tobacco dependence, severe COPD, right internal carotid stenosis The patient was seen and examined this morning on the cardiac step-down unit sitting up in bed in no acute distress. Denies chest pain/discomfort/shortness of breath currently. Does admit to feeling stressed about her financial situation and the possibility of losing her house and car if she's not able to work due to her disease process. Her films were reviewed with Dr. Olivares. STS risk for mortality was calculated to be 3.324%. Despite her increased risk she is recommended to undergo coronary bypass surgery although she will need some time for pulmonary optimization. In addition she will need carotid stenting prior to surgery which may be completed the morning of surgery, this was discussed between Dr. Olivares and Dr. Maxwell. All plans were discussed with the patient and she is in agreement. Patient has been ambulatory in the hallway without difficulty, 5 meter walk test was completed this morning, 3.67 sec, 4.07 sec, 3.78 sec. No other new concerns. Objective - Vital Signs Vital signs: Vital Signs Temp 98.1 F 10/01/21 08:00 Pulse 73 10/01/21 08:00 Resp 17 10/01/21 08:00 BP 189/88 10/01/21 08:00 Pulse Ox 91 L 10/01/21 08:00 Intake & Output 09/30/21 10/01/21 10/01/21 18:59 06:59 18:59 Intake Total 240 Balance 240 Weight 107.3 kg Intake: Oral 240 Other: Voiding Method Toilet Toilet Toilet # Voids 2 - Exam CONSTITUTIONAL: Awake and alert, appears comfortable, cooperative, well- developed, well-nourished, no pain, no acute distress RESPIRATORY: Lungs sounds clear to auscultation bilaterally. Respirations even, nonlabored. Currently on room air with oxygen saturation 91%. Strong loose cough. Able to achieve 1500 mL on incentive spirometry CARDIOVASCULAR: S1, S2 present. Regular rate and rhythm, sinus rhythm on telemetry with heart rate in the 70s. Palpable peripheral pulses bilaterally. No edema present. No calf pain or tenderness noted. GASTROINTESTINAL: Abdomen soft, nontender, nondistended, obese. Active bowel sounds present 4 quadrants. GENITOURINARY: Continues to void INTEGUMENTARY: Skin is warm and dry with evidence of good perfusion. NEUROLOGIC: Cranial nerves II through XII intact MUSKULOSKELETAL: Able to move all extremities, strength equal bilaterally PSYCHIATRIC: Alert and oriented to person place and time, appropriate affect, intact judgment and insight - Allied health notes Allied health notes reviewed: nursing - Labs CBC & Chem 7: 10/01/21 06:53 10/01/21 06:53 Labs: Abnormal Lab Results - Last 24 Hours (Table) 09/30/21 10/01/21 Range/Units 10:00 06:53 APTT 51.2 H 42.0 H (22.0-30.0) sec Microbiology - Last 24 Hours (Table) 09/29/21 17:00 Nasal Screen MRSA/MSSA - Preliminary Nasal Swab - Imaging and Cardiology Chest x-ray: report reviewed, image reviewed CT scan - abdomen: report reviewed, image reviewed CT scan - chest: report reviewed, image reviewed CT Scan - head: report reviewed, image reviewed CTA of head and neck reviewed Assessment and Plan Assessment: 1. Triple-vessel coronary artery disease, previous myocardial infarction and stent placement to the distal RCA in 2007, non-STEMI this admission 2. Hypertension with hypertensive urgency upon admission 3. Hyperlipidemia, treated, cholesterol 174, LDL 102, triglycerides 175 4. Obesity 5. AAA last measured at 3.4 cm here in 2013, measured 4.8 cm with suspicion of impending rupture in 2020 according to [place]'s report, measures 5.3 cm on today's CTA 6. Daily EtOH use 7. Current tobacco dependence 8. Severe COPD with current FEV1 44% of predicted 9. Right internal carotid stenosis greater than 70% by doppler, severe focal stenosis at the origin per today's CTA Plan: 1. Continue to optimize medical management with ASA, statin, beta tierney and other anti-hypertensives. Patient still needs better blood pressure control 2. Increase activity as tolerated 3. Bronchodilators, pulmonary optimization per Dr. Aguirre. Encouraged incentive spirometry use 4. Our plan is for coronary artery bypass surgery once medically optimized. Patient will need right carotid stenting prior 5. Smoking cessation again encouraged 6. Case management updated with patient's financial concerns for possible community resources 7. Medical management of other comorbidities per primary care 8. More recommendations to follow. Will call this afternoon to update the patient's son per her request
[2021-10-01] MEDS: IPRATROPIUM-ALBUTEROL 3 ML NEB INHALATION SCH ×3 (12:31→19:22)
[2021-10-01] MEDS: methylPREDNISolone SOD SUCCI 40 MG/ML 1 ML VIAL IV SCH ×3 (13:07→23:38)
[2021-10-01] MEDS: hydroCHLOROthiazide 25 MG TAB PO SCH (13:07)
[2021-10-01] MEDS: HEPARIN SOD,PORK IN 0.45% NACL 25,000 UNIT in 0.45% NACL 1 250ML.BAG IV SCH (13:08)
--- NOTE | 2021-10-01 14:30 | US ---
EXAMINATION TYPE: US vein mapping BIL DATE OF EXAM: 09/29/2021 12:54 PM COMPARISON: NONE CLINICAL HISTORY: preop cardiac surgery. Pre-Op CABG SIDE PERFORMED: Bilateral TECHNIQUE: Lower extremity saphenous vein is examined and measured utilizing real time linear array sonography. Patient History: Smoker: Yes Heart Disease: Yes Previous DVT: No Vascular Surgery: Prev Heart Stent x 5 Discoloration: No Hypertension: Yes Diabetes: No Paralysis: No Varicosities: No Edema: No DUPLEX FINDINGS: Greater Saphenous: Color flow seen Lesser Saphenous: Color flow seen Measurements in mm: Right Greater Saphenous: Groin: 5.2 x 6.2 mm High Thigh: 4.8 x 5.0 mm Mid Thigh: 4.6 x 4.4 mm Above Knee: 4.6 x 4.5 mm Knee: 3.0 x 3.5 mm Below Knee: 2.9 x 3.5 mm Mid Calf: 3.2 x 2.7 mm At Ankle: 2.9 x 3.2 mm Left Greater Saphenous: Groin: 4.7 x 5.4 mm High Thigh: 4.9 x 4.5 mm Mid Thigh: 4.1 x 4.5 mm Above Knee: 4.1 x 4.4 mm Knee: 3.7 x 3.5 mm Below Knee: 3.6 x 3.8 mm Mid Calf: 2.8 x 3.9 mm At Ankle: 3.7 x 3.6 mm IMPRESSION: 1. Bilateral GSV measurements listed above. 2. Performing surgeon to determine viability as conduit.
--- NOTE | 2021-10-01 14:31 | US ---
EXAMINATION TYPE: Pre-Operative Non-Invasive Evaluation of the hand for Potential Radial Artery Kayleigh taveras, Measurements only DATE OF EXAM: 09/30/2021 9:07 AM CLINICAL HISTORY: preop cabg. SIDE PERFORMED: Left TECHNIQUE: Radial artery is measured utilizing real time linear array sonography. Radial Artery: Color flow seen Measurements in mm, transverse view: Left Radial: mm Proximal: 3.6 x 3.5 mm Mid: 3.7 x 2.8 mm Distal: 3.8 x 3.8 mm IMPRESSION: 1. Performing surgeon to determine viability as conduit.
--- NOTE | 2021-10-01 14:48 | P.PN ---
Subjective This is a 61-year-old female with a past medical history of coronary artery disease with myocardial infarction, coronary artery disease status post prior PCI to the distal and proximal RCA in 2007, hypertension, hyperlipidemia, obesity, abdominal aortic aneurysm, daily EtOH use, and current tobacco dependence. She did fall in the office with Dr. Johnson, last seen in 2019. She presents to the emergency department with chest Discomfort and hypertension, Diagnosed with non-STEMI. 2D echocardiogram revealed EF 50-55% with mild aortic insufficiency. On 09/29/2021 She underwent cardiac catheterization with Dr. Maxwell which revealed right dominant system with mid RCA 90-95% occluded, distal RCA with chronic total occlusion with previous stent present, obtuse marginal branch of the circumflex coronary artery with 90-95% stenosis, and proximal LAD stenosis 80%. CT Surgery was consulted for surgical revascularization recommendations. Patient seen and examined at bedside, no acute distress. She denies chest pain or shortness of breath. Blood pressure 189/88, heart rate 73, afebrile, saturations 92% on room air. Labs, WBC 9.2, hemoglobin 14.8, platelets 208, sodium 140, potassium 4.6, BUN 14, serum crit 0.6 She's currently maintained on aspirin 80 mg daily, atorvastatin 80 mg nightly, IV heparin, hydralazine 50 mg 4 times a day, hydrochlorothiazide 25 mg daily, Imdur 30 mg daily, lisinopril 20 mg daily, metoprolol titrate 50 mg twice a day GENERAL: Well-appearing, well-nourished and in no acute distress. NECK: Supple without JVD or thyromegaly. LUNGS: Breath sounds clear to auscultation bilaterally. Respiration equal and unlabored. No wheezes, rales or rhonchi. HEART: Regular rate and rhythm without murmurs, rubs or gallops. S1 and S2 heard. EXTREMITIES: Normal range of motion, no edema. No clubbing or cyanosis. Peripheral pulses intact. ASSESSMENT NSTEMI Severe triple-vessel coronary artery disease Prior PCI to distal and proximal RCA in 2007 Hypertension Hyperlipidemia Severe COPD Carotid disease, Right internal carotid stenosis >70% by doppler, severe focal stenosis seen on CTA Infrarenal abdominal aortic aneurysm Daily alcohol use Chronic nicotine dependence PLAN Continue IV Heparin drio Increase lisinopril 40mg daily Continue aspirin, statin, beta tierney Pulmonary following CT Surgery following, plan for coronary artery bypass surgery once medically optimized Smoking and alcohol cessation discussed and encouraged. Further recommendations based on clinical course Nurse Practitioner note has been reviewed, I agree with a documented findings and plan of care. Patient was seen and examined. Objective - Vital Signs Vital signs: Vital Signs Temp 97.8 F 10/01/21 11:50 Pulse 64 10/01/21 11:50 Resp 18 10/01/21 11:50 BP 124/75 10/01/21 11:50 Pulse Ox 92 L 10/01/21 11:50 Intake & Output 09/30/21 10/01/21 10/01/21 18:59 06:59 18:59 Intake Total 240 243.997 Balance 240 243.997 Weight 107.3 kg Intake: Intake, IV Titration 243.997 Amount Heparin Sod,Pork in 0.45% 243.997 NaCl 25,000 unit In 0.45 % NaCl 1 250ml.bag @ 9. 5853 UNITS/KG/HR 10 mls/ hr IV .Q24H [facility] Rx#: [id number] Oral 240 Other: Voiding Method Toilet Toilet Toilet # Voids 2 - Labs CBC & Chem 7: 10/01/21 06:53 10/01/21 06:53 Labs: Abnormal Lab Results - Last 24 Hours (Table) 10/01/21 Range/Units 06:53 APTT 42.0 H (22.0-30.0) sec Microbiology - Last 24 Hours (Table) 09/29/21 17:00 Nasal Screen MRSA/MSSA - Preliminary Nasal Swab
--- NOTE | 2021-10-01 18:44 | P.PN ---
Subjective 61-year-old female patient with a past medical history significant for coronary artery disease and prior angioplasty and stenting multiple times with the last one in 2013 the details on that are unavailable at this point and also she does have history of smoking where she continues to smoke as well as hypertension and dyslipidemia presented to the emergency department complaining of chest discomfort. The symptoms started about a week ago where she is describing a pressure kind of discomfort in the middle of the chest with radiation to both a avelina associated with shortness of breath and sweating. No dizziness or lightheadedness and no presyncope or syncope. Lab review shows a WBC of 11.0, hemoglobin of 14.2). Count of 183, sodium 139, potassium 3.9, BUN/creatinine of 13/0.6; troponin is elevated at 1.55 trending up to 2.02 She had a transthoracic echocardiogram demonstrating EF 50-55% with mild aortic insufficiency. Yesterday she underwent heart catheterization demonstrating right dominant system with mid RCA 90-95% occluded, distal RCA with chronic total occlusion with previous stent present, obtuse marginal branch of the circ umflex coronary artery with 90-95% stenosis, and proximal LAD stenosis 80%. Due to these findings consultation was placed to Dr. Morse from cardiothoracic surgery for surgical revascularization recommendations. 10/01/2021 Apparently patient with none STEMI and cardiac catheterization showing triple coronary artery disease. Patient has been evaluated by cardiothoracic surgery with planned to undergo bypass surgery later on during this admission. Also cartilage and pulmonary team of the case. Patient currently on heparin drip, Solu-Medrol 60 mg, inhaled steroids. Aspirin. Hydralazine, Imdur, lisinopril and metoprolol and hydrochlorothiazide. Also she tells abdomen showing increased aortic aneurysm 4 cm up to 5.3 cm. While CTA of the head and neck showing severe stenosis of the right internal carotid artery Objective - Vital Signs Vital signs: Vital Signs Temp 98.1 F 10/01/21 08:00 Pulse 73 10/01/21 08:00 Resp 17 10/01/21 08:00 BP 189/88 10/01/21 08:00 Pulse Ox 91 L 10/01/21 08:00 Intake & Output 09/30/21 10/01/21 10/01/21 18:59 06:59 18:59 Intake Total 240 Balance 240 Weight 107.3 kg Intake: Oral 240 Other: Voiding Method Toilet Toilet Toilet # Voids 2 - Exam - GENERAL: The patient is alert and oriented x3, not in any acute distress. Morbidly obese HEENT: Pupils are round and equally reacting to light. EOMI. No scleral icterus. No conjunctival pallor. Normocephalic, atraumatic. No pharyngeal erythema. No thyromegaly. CARDIOVASCULAR: S1 and S2 present. No murmurs, rubs, or gallops. PULMONARY: Chest is clear to auscultation, no wheezing or crackles. ABDOMEN: Soft, nontender, nondistended, normoactive bowel sounds. No palpable organomegaly. MUSCULOSKELETAL: No joint swelling or deformity. EXTREMITIES: No cyanosis, clubbing, or pedal edema. NEUROLOGICAL: Gross neurological examination did not reveal any focal deficits. SKIN: No rashes. no petechiae. - Labs CBC & Chem 7: 10/01/21 06:53 10/01/21 06:53 Labs: Abnormal Lab Results - Last 24 Hours (Table) 10/01/21 Range/Units 06:53 APTT 42.0 H (22.0-30.0) sec Microbiology - Last 24 Hours (Table) 09/29/21 17:00 Nasal Screen MRSA/MSSA - Preliminary Nasal Swab Assessment and Plan Assessment: Non-ST elevation myocardial infarction secondary to severe triple coronary artery disease on cardiac cath planned for bypass surgery Right internal carotid artery stenosis A large aortic abdominal aneurysm 4 cm up to 5.3 cm COPD exacerbation Hypertensive urgency, breast on admission improved Morbid obesity Plan: This is a pleasant 61 years old female with triple coronary artery disease, COPD. Continue with steroids Continue with heparin drip Continue with aspirin and other blood pressure medication. [facility] Cardiology and pulmonary team on the case. Cardiothoracic surgery team planned for bypass surgery Labs and medication were reviewed.. Continue same treatment. Continue with symptomatic treatment. Resume home medication. Monitor lytes and vitals. DVT and GI prophylaxis. Further recommendations as per clinical course of the patient DVT prophylaxis: Subcutaneous heparin GI Prophylaxis: pepcid Prognosis is guarded
[2021-10-01] MEDS: FORMOTEROL FUMARATE 20 MCG/2 ML NEBU INHALATION SCH (19:22)
[2021-10-01] MEDS: BUDESONIDE 1 MG/2 ML NEBU INHALATION SCH (19:22)
[2021-10-01] MEDS: ATORVASTATIN 80 MG TAB PO SCH (21:19)
[2021-10-01] MEDS: FAMOTIDINE 20 MG/2 ML VIAL IV SCH (21:19)
[2021-10-02] MEDS: hydrALAZINE HCL 20 MG/ML 1 ML VIAL IV PRN (05:53)
[2021-10-02] MEDS: methylPREDNISolone SOD SUCCI 40 MG/ML 1 ML VIAL IV SCH ×4 (05:53→23:40)
[2021-10-02 07:55] LABS: HCT 46.3 % (34.0-46.0); HGB 14.8 gm/dL (11.4-16.0); MCH 28.8 pg (25.0-35.0); Mean Platelet Volume 10.8; Platelet Count 224 k/uL (150-450); RBC 5.15 m/uL (3.80-5.40); RDW 14.3 % (11.5-15.5); WBC 14.5 k/uL (3.8-10.6)
[2021-10-02 08:09] LABS: Calcium 9.7 mg/dL (8.4-10.2); Potassium 4.1 mmol/L (3.5-5.1)
[2021-10-02] MEDS: IPRATROPIUM-ALBUTEROL 3 ML NEB INHALATION SCH ×4 (08:34→19:23)
[2021-10-02] MEDS: FORMOTEROL FUMARATE 20 MCG/2 ML NEBU INHALATION SCH ×2 (08:34→19:34)
[2021-10-02] MEDS: BUDESONIDE 1 MG/2 ML NEBU INHALATION SCH ×2 (08:34→19:23)
[2021-10-02] MEDS: ISOSORBIDE MONONITRATE ER 30 MG TAB.ER.24H PO SCH (08:55)
[2021-10-02] MEDS: FAMOTIDINE 20 MG/2 ML VIAL IV SCH (08:55)
[2021-10-02] MEDS: hydroCHLOROthiazide 25 MG TAB PO SCH (08:55)
[2021-10-02] MEDS: METOPROLOL TARTRATE 50 MG TAB PO SCH ×2 (08:55→20:33)
[2021-10-02] MEDS: NICOTINE 14MG/24HR PATCH TRANSDERM SCH (08:55)
[2021-10-02] MEDS: hydrALAZINE HCL 50 MG TAB PO SCH ×4 (08:56→20:33)
[2021-10-02] MEDS: ASPIRIN 81 MG PO SCH (08:56)
[2021-10-02] MEDS: lisinopriL 20 MG TAB PO SCH (08:56)
--- NOTE | 2021-10-02 09:06 | P.PN ---
Subjective Progress Note Date: 10/02/21 Principal diagnosis: Triple-vessel coronary artery disease, NSTEMI, hypertensive urgency. History of previous myocardial infarction and stent placement to the distal RCA in 2007, hypertension, hyperlipidemia, obesity, AAA, daily EtOH use, current tobacco dependence, severe COPD, right internal carotid stenosis The patient was seen and examined this morning on the cardiac step-down unit sitting up in bed in no acute distress. Denies chest pain/discomfort/shortness of breath currently. Undergoing pulmonary optimization in anticipation for carotid stenting and CABG soon. Discussed plan in detail with patient and family and they are in agreement. No other new concerns Objective - Vital Signs Vital signs: Vital Signs Temp 98.3 F 10/02/21 08:00 Pulse 70 10/02/21 08:55 Resp 18 10/02/21 08:00 BP 152/79 10/02/21 08:00 Pulse Ox 93 L 10/02/21 08:00 Intake & Output 10/01/21 10/02/21 10/02/21 18:59 06:59 18:59 Intake Total 284.247 67.65 240 Balance 284.247 67.65 240 Weight 107.6 kg Intake: Intake, IV Titration 284.247 67.65 Amount Heparin Sod,Pork in 0.45% 284.247 67.65 NaCl 25,000 unit In 0.45 % NaCl 1 250ml.bag @ 9. 5853 UNITS/KG/HR 10 mls/ hr IV .Q24H [facility] Rx#: [id number] Oral 240 Other: Voiding Method Toilet Toilet Toilet # Voids 5 2 - Exam CONSTITUTIONAL: Awake and alert, appears comfortable, cooperative, well- developed, well-nourished, no pain, no acute distress RESPIRATORY: Lungs sounds clear to auscultation bilaterally. Respirations even, nonlabored. Currently on room air with oxygen saturation 93%. Strong loose cough. Able to achieve 5031-2877 mL on incentive spirometry CARDIOVASCULAR: S1, S2 present. Regular rate and rhythm, sinus rhythm on telemetry with heart rate in the 70s. Palpable peripheral pulses bilaterally. No edema present. No calf pain or tenderness noted. GASTROINTESTINAL: Abdomen soft, nontender, nondistended, obese. Active bowel sounds present 4 quadrants. GENITOURINARY: Continues to void INTEGUMENTARY: Skin is warm and dry with evidence of good perfusion. NEUROLOGIC: Cranial nerves II through XII intact MUSKULOSKELETAL: Able to move all extremities, strength equal bilaterally PSYCHIATRIC: Alert and oriented to person place and time, appropriate affect, intact judgment and insight - Allied health notes Allied health notes reviewed: nursing - Labs CBC & Chem 7: 10/02/21 06:13 10/02/21 06:13 Labs: Abnormal Lab Results - Last 24 Hours (Table) 10/02/21 10/02/21 10/02/21 Range/Units 00:25 06:13 06:13 WBC 14.5 H (3.8-10.6) k/uL Hct 46.3 H (34.0-46.0) % APTT 55.8 H (22.0-30.0) sec Carbon Dioxide 20 L (22-30) mmol/L BUN 21 H (7-17) mg/dL Glucose 185 H (74-99) mg/dL 10/02/21 Range/Units 06:13 WBC (3.8-10.6) k/uL Hct (34.0-46.0) % APTT 57.3 H (22.0-30.0) sec Carbon Dioxide (22-30) mmol/L BUN (7-17) mg/dL Glucose (74-99) mg/dL Assessment and Plan Assessment: 1. Triple-vessel coronary artery disease, previous myocardial infarction and stent placement to the distal RCA in 2007, non-STEMI this admission 2. Hypertension with hypertensive urgency upon admission 3. Hyperlipidemia, treated, cholesterol 174, LDL 102, triglycerides 175 4. Obesity 5. AAA last measured at 3.4 cm here in 2013, measured 4.8 cm with suspicion of impending rupture in 2020 according to [place]'s report, measures 5.3 cm on today's CTA 6. Daily EtOH use 7. Current tobacco dependence 8. Severe COPD with current FEV1 44% of predicted 9. Right internal carotid stenosis greater than 70% by doppler, severe focal stenosis at the origin per today's CTA Plan: 1. Continue to optimize medical management with ASA, statin, beta tierney and other anti-hypertensives. Patient still needs better blood pressure control 2. Increase activity as tolerated 3. Bronchodilators, steroids, pulmonary optimization per Dr. Aguirre. Encouraged incentive spirometry use. Patient to have repeat bedside spirometry tomorrow 4. Our plan is for coronary artery bypass surgery once medically optimized. Patient will need right carotid stenting prior 5. Smoking cessation again encouraged 6. Case management updated with patient's financial concerns for possible community resources 7. Medical management of other comorbidities per primary care 8. More recommendations to follow.
--- NOTE | 2021-10-02 10:51 | P.PN ---
Subjective This is a 61-year-old female with a past medical history of coronary artery disease with myocardial infarction, coronary artery disease status post prior PCI to the distal and proximal RCA in 2007, hypertension, hyperlipidemia, obesity, abdominal aortic aneurysm, daily EtOH use, and current tobacco dependence. She did fall in the office with Dr. Johnson, last seen in 2019. She presents to the emergency department with chest Discomfort and hypertension, Diagnosed with non-STEMI. 2D echocardiogram revealed EF 50-55% with mild aortic insufficiency. On 09/29/2021 She underwent cardiac catheterization with Dr. Maxwell which revealed right dominant system with mid RCA 90-95% occluded, distal RCA with chronic total occlusion with previous stent present, obtuse marginal branch of the circumflex coronary artery with 90-95% stenosis, and proximal LAD stenosis 80%. CT Surgery was consulted for surgical revascularization recommendations. 10/02/2021 Patient seen and examined at bedside, no acute distress. She denies chest pain or shortness of breath. BP has improved, Blood pressure 152/79, heart rate 61, afebrile, saturations 93% on room air. Labs, WBC 14.5, hemoglobin 14.8, platelets 224, sodium 137, potassium 4.1, BUN 21, serum creatinine 0.8 She's currently maintained on aspirin 81 mg daily, atorvastatin 80 mg nightly, IV heparin, hydralazine 50 mg QID, hydrochlorothiazide 25 mg daily, Imdur 30 mg daily, lisinopril 40 mg daily, metoprolol tartrate 50 mg twice a day GENERAL: Well-appearing, well-nourished and in no acute distress. NECK: Supple without JVD or thyromegaly. LUNGS: Breath sounds clear to auscultation bilaterally. Respiration equal and unlabored. No wheezes, rales or rhonchi. HEART: Regular rate and rhythm without murmurs, rubs or gallops. S1 and S2 heard. EXTREMITIES: Normal range of motion, no edema. No clubbing or cyanosis. Peripheral pulses intact. ASSESSMENT NSTEMI Severe triple-vessel coronary artery disease Prior PCI to distal and proximal RCA in 2007 Hypertension Hyperlipidemia Severe COPD Carotid disease, Right internal carotid stenosis >70% by doppler, severe focal stenosis seen on CTA Infrarenal abdominal aortic aneurysm Daily alcohol use Chronic nicotine dependence PLAN Continue IV Heparin drip Continue lisinopril 40mg daily, aspirin, statin, beta tierney Pulmonary following CT Surgery following, plan for coronary artery bypass surgery once medically optimized Patient will need right carotid stenting prior Smoking and alcohol cessation discussed and encouraged. Further recommendations based on clinical course Nurse Practitioner note has been reviewed, I agree with a documented findings and plan of care. Patient was seen and examined. Objective - Vital Signs Vital signs: Vital Signs Temp 98.3 F 10/02/21 08:00 Pulse 70 10/02/21 08:55 Resp 18 10/02/21 08:00 BP 152/79 10/02/21 08:00 Pulse Ox 93 L 10/02/21 08:00 Intake & Output 10/01/21 10/02/21 10/02/21 18:59 06:59 18:59 Intake Total 284.247 67.65 240 Balance 284.247 67.65 240 Weight 107.6 kg Intake: Intake, IV Titration 284.247 67.65 Amount Heparin Sod,Pork in 0.45% 284.247 67.65 NaCl 25,000 unit In 0.45 % NaCl 1 250ml.bag @ 9. 5853 UNITS/KG/HR 10 mls/ hr IV .Q24H [facility] Rx#: [id number] Oral 240 Other: Voiding Method Toilet Toilet Toilet # Voids 5 2 - Labs CBC & Chem 7: 10/02/21 06:13 10/02/21 06:13 Labs: Abnormal Lab Results - Last 24 Hours (Table) 10/02/21 10/02/21 10/02/21 Range/Units 00:25 06:13 06:13 WBC 14.5 H (3.8-10.6) k/uL Hct 46.3 H (34.0-46.0) % APTT 55.8 H (22.0-30.0) sec Carbon Dioxide 20 L (22-30) mmol/L BUN 21 H (7-17) mg/dL Glucose 185 H (74-99) mg/dL 10/02/21 Range/Units 06:13 WBC (3.8-10.6) k/uL Hct (34.0-46.0) % APTT 57.3 H (22.0-30.0) sec Carbon Dioxide (22-30) mmol/L BUN (7-17) mg/dL Glucose (74-99) mg/dL
--- NOTE | 2021-10-02 13:38 | P.PN ---
Subjective Progress Note Date: 10/02/21 Principal diagnosis: Coronary artery disease. This is a very pleasant 61-year-old female patient who has a known history of chronic and ongoing tobacco dependence, daily alcohol use, abdominal aortic aneurysm, hypertension, hyperlipidemia, coronary artery disease with previous s tent placement to the RCA in 2007. She had presented to the emergency room on 09/28/2021 with complaints of increasing shortness of breath, chest discomfort and achy feeling with a pain of about a 3. She is also states her blood pressure was reading greater than 200 at home. She was using sublingual nitroglycerin without much improvement and presented here to the emergency room for the same. She was found to have an acute coronary syndrome and had undergone cardiac catheterization and was found to have a chronic total occlusion of the RCA distally with aneurysmal dilatation of the RCA in the midportion. Critical disease with a long tubular lesion involving the first OM of the left circumflex. Severe disease with a focal lesion involving the proximal LAD and elevated left-sided filling pressures. Echocardiogram revealed preserved left ventricular systolic function with ejection fraction 50-55%. No significant valvular disease. She was advised coronary artery bypass grafting. We're consulted for postop management. She is seen today in consultation on the selective care unit. She's been up ambulating in the hallway. No further chest discomfort. No worsening shortness of breath cough or congestion. Pulmonary function testing reveals an FEV1 value of 44% of predicted. She has been smoking a pack per day for 40 years. She has not been seen by a [employer] in the past. Not on home oxygen. Not on any inhalers. Asked x-ray revealed opacities projecting over the hard/lingula may represent atelectasis. She is maintaining O2 saturation in the 90s on room air. She's been afebrile. Remains hypertensive. White count 8.3. Hemoglobin 14.4. Platelet count 167. INR 0.9. Sodium 140. Potassium 3.9. BUN 12. Creatinine 0.59. TSH 2.26. Urinalysis negative. Hepatitis screen negative. She remains on a heparin drip. She's been initiated on statins, aspirin, beta blockers. She was receiving Lasix 20 mg IV every [address] patch and place. On 10/01/2021 patient is seen in follow-up on selective care unit. Patient sitting up in bed, does not appear to be in any acute distress. She is on room air pulse ox of 91%, afebrile, breathing is nonlabored. Denies any chest discomfort, no cough, lung sounds are diminished. She is on heparin infusion. She is undergoing preop evaluation for triple-vessel coronary artery disease. Her preop FEV1 was 1.09 L or 44% of predicted, with MVV of 40.9, consistent with moderate surgical risk. Patient will be started on Pulmicort and Perforomist, she'll be started on IV steroids. CT of the chest, abdomen and pelvis showed interval progression of the abdominal aortic aneurysm with progressive atheromat ous plaque and calcifications with a recommendation of vascular surgery consultation. Patient was also found to have carotid artery stenosis that showed severe right ICA stenosis of greater than 70%, and mild less than 50% stenosis of the left ICA. Echocardiogram showed EF of 50-55%. There was mo derate concentric LVH, inferobasilar hypokinesia. Mild aortic regurgitation, normal mitral valve with mild MR Progress note dated 10/02/2021. The patient will have a repeat breathing test tomorrow. We placed the patient on DuoNeb, Pulmicort, formoterol, and corticosteroids. The hope is that her lung function are improved, and she can undergo surgery more safely. On her initial bedside spirometry, her FEV1 was 1.09 L which is 44% of predicted. Her MVV was 41 L/m. Clinically, she states that she's feeling much better. She continues on IV heparin. White count 14.5, hemoglobin 14.8, hematocrit 46.3, and platelet count 224,000. PTT is 57.3. Sodium 137, potassium 4.1, chlorides 103, CO2 20, anion gap 14, BUN 21, creatinine 0.83. Objective - Vital Signs Vital signs: Vital Signs Temp 98.3 F 10/02/21 08:00 Pulse 72 10/02/21 12:02 Resp 18 10/02/21 08:00 BP 152/79 10/02/21 08:00 Pulse Ox 93 L 10/02/21 08:00 Intake & Output 10/01/21 10/02/21 10/02/21 18:59 06:59 18:59 Intake Total 284.247 67.65 240 Balance 284.247 67.65 240 Weight 107.6 kg Intake: Intake, IV Titration 284.247 67.65 Amount Heparin Sod,Pork in 0.45% 284.247 67.65 NaCl 25,000 unit In 0.45 % NaCl 1 250ml.bag @ 9. 5853 UNITS/KG/HR 10 mls/ hr IV .Q24H [facility] Rx#: [id number] Oral 240 Other: Voiding Method Toilet Toilet Toilet # Voids 5 2 - Exam No acute distress, oriented 3. Currently on room air. No respiratory distress. HEENT examination is grossly unremarkable. Neck supple. Full range of motion. No adenopathy thyromegaly or neck vein distention. Cardiovascular examination reveals regular rhythm rate. S1-S2 normal. No S3 or S4. No discernible murmur noted. Heart rate 72 bpm. Lungs reveal mild scattered rhonchi. No wheezes. No crackles. Breath sounds equal bilaterally. Room air saturation 93%. Abdomen soft bowel sounds are heard. No masses or tenderness. Extremities are intact. No cyanosis clubbing or edema. Skin is without rash or lesion. Neurologic examination is brief but nonfocal. - Labs CBC & Chem 7: 10/02/21 06:13 10/02/21 06:13 Labs: Abnormal Lab Results - Last 24 Hours (Table) 10/02/21 10/02/21 10/02/21 Range/Units 00:25 06:13 06:13 WBC 14.5 H (3.8-10.6) k/uL Hct 46.3 H (34.0-46.0) % APTT 55.8 H (22.0-30.0) sec Carbon Dioxide 20 L (22-30) mmol/L BUN 21 H (7-17) mg/dL Glucose 185 H (74-99) mg/dL 10/02/21 Range/Units 06:13 WBC (3.8-10.6) k/uL Hct (34.0-46.0) % APTT 57.3 H (22.0-30.0) sec Carbon Dioxide (22-30) mmol/L BUN (7-17) mg/dL Glucose (74-99) mg/dL Assessment and Plan Assessment: Acute coronary syndrome, acute non-ST segment elevation myocardial infarction. Severe triple-vessel coronary disease, currently being evaluated for bypass grafting. Stage III COPD, with a preoperative FEV1 of 1.09 L or 44% of predicted, an MVV of 40 L/m, consistent with a moderate increased operative risk. Right carotid stenosis, 70%. History of abdominal aortic aneurysm. Daily alcohol use. Chronic and ongoing tobacco dependence. History of hypertension. Plan: Plan dated 10/02/2021. The patient will have a repeat breathing test tomorrow. Additional recommendations and suggestions are forthcoming. I'm hoping that her lung function are improved with the treatments that we have been giving her. She certainly clinically feels much better. Additional recommendations and sugges tions are forthcoming. We will communicate with the surgeons after the test tomorrow. Time with Patient: Less than 30
[2021-10-02] MEDS: HEPARIN SOD,PORK IN 0.45% NACL 25,000 UNIT in 0.45% NACL 1 250ML.BAG IV SCH (17:17)
[2021-10-02 18:10] LABS: Glucose,Whole Blood 232 mg/dL (75-99)
--- NOTE | 2021-10-02 18:42 | P.PN ---
Subjective 61-year-old female patient with a past medical history significant for coronary artery disease and prior angioplasty and stenting multiple times with the last one in 2013 the details on that are unavailable at this point and also she does have history of smoking where she continues to smoke as well as hypertension and dyslipidemia presented to the emergency department complaining of chest discomfort. The symptoms started about a week ago where she is describing a pressure kind of discomfort in the middle of the chest with radiation to both a avelina associated with shortness of breath and sweating. No dizziness or lightheadedness and no presyncope or syncope. Lab review shows a WBC of 11.0, hemoglobin of 14.2). Count of 183, sodium 139, potassium 3.9, BUN/creatinine of 13/0.6; troponin is elevated at 1.55 trending up to 2.02 She had a transthoracic echocardiogram demonstrating EF 50-55% with mild aortic insufficiency. Yesterday she underwent heart catheterization demonstrating right dominant system with mid RCA 90-95% occluded, distal RCA with chronic total occlusion with previous stent present, obtuse marginal branch of the circ umflex coronary artery with 90-95% stenosis, and proximal LAD stenosis 80%. Due to these findings consultation was placed to Dr. Morse from cardiothoracic surgery for surgical revascularization recommendations. 10/01/2021 Apparently patient with none STEMI and cardiac catheterization showing triple coronary artery disease. Patient has been evaluated by cardiothoracic surgery with planned to undergo bypass surgery later on during this admission. Also cartilage and pulmonary team of the case. Patient currently on heparin drip, Solu-Medrol 60 mg, inhaled steroids. Aspirin. Hydralazine, Imdur, lisinopril and metoprolol and hydrochlorothiazide. Also she tells abdomen showing increased aortic aneurysm 4 cm up to 5.3 cm. While CTA of the head and neck showing severe stenosis of the right internal carotid artery 10/02/2021 Patient is a started on steroids and breathing treatment. She is sitting in chair fully awake and oriented, no chest pain or dyspnea at rest. 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 Currently she is chest pain-free. Continue with heparin drip. Also she is on aspirin. Plan for bypass by surgery team Objective - Vital Signs Vital signs: Vital Signs Temp 98.3 F 10/02/21 08:00 Pulse 72 10/02/21 12:02 Resp 18 10/02/21 08:00 BP 152/79 10/02/21 08:00 Pulse Ox 93 L 10/02/21 08:00 Intake & Output 10/01/21 10/02/21 10/02/21 18:59 06:59 18:59 Intake Total 284.247 67.65 240 Balance 284.247 67.65 240 Weight 107.6 kg Intake: Intake, IV Titration 284.247 67.65 Amount Heparin Sod,Pork in 0.45% 284.247 67.65 NaCl 25,000 unit In 0.45 % NaCl 1 250ml.bag @ 9. 5853 UNITS/KG/HR 10 mls/ hr IV .Q24H [facility] Rx#: [id number] Oral 240 Other: Voiding Method Toilet Toilet Toilet # Voids 5 2 - Exam - GENERAL: The patient is alert and oriented x3, not in any acute distress. Morbidly obese HEENT: Pupils are round and equally reacting to light. EOMI. No scleral icterus. No conjunctival pallor. Normocephalic, atraumatic. No pharyngeal erythema. No thyromegaly. CARDIOVASCULAR: S1 and S2 present. No murmurs, rubs, or gallops. PULMONARY: Chest is clear to auscultation, no wheezing or crackles. ABDOMEN: Soft, nontender, nondistended, normoactive bowel sounds. No palpable organomegaly. MUSCULOSKELETAL: No joint swelling or deformity. EXTREMITIES: No cyanosis, clubbing, or pedal edema. NEUROLOGICAL: Gross neurological examination did not reveal any focal deficits. SKIN: No rashes. no petechiae. - Labs CBC & Chem 7: 10/02/21 06:13 10/02/21 06:13 Labs: Abnormal Lab Results - Last 24 Hours (Table) 10/02/21 10/02/21 10/02/21 Range/Units 00:25 06:13 06:13 WBC 14.5 H (3.8-10.6) k/uL Hct 46.3 H (34.0-46.0) % APTT 55.8 H (22.0-30.0) sec Carbon Dioxide 20 L (22-30) mmol/L BUN 21 H (7-17) mg/dL Glucose 185 H (74-99) mg/dL 10/02/21 Range/Units 06:13 WBC (3.8-10.6) k/uL Hct (34.0-46.0) % APTT 57.3 H (22.0-30.0) sec Carbon Dioxide (22-30) mmol/L BUN (7-17) mg/dL Glucose (74-99) mg/dL Assessment and Plan Assessment: Non-ST elevation myocardial infarction secondary to severe triple coronary artery disease on cardiac cath planned for bypass surgery Right internal carotid artery stenosis A large aortic abdominal aneurysm 4 cm up to 5.3 cm COPD exacerbation Hypertensive urgency, breast on admission improved Morbid obesity Plan: This is a pleasant 61 years old female with triple coronary artery disease, COPD. Continue with steroids Continue with heparin drip Continue with aspirin and other blood pressure medication. [employer] Cardiology and pulmonary team on the case. Cardiothoracic surgery team planned for bypass surgery Labs and medication were reviewed.. Continue same treatment. Continue with symptomatic treatment. Resume home medication. Monitor lytes and vitals. DVT and GI prophylaxis. Further recommendations as per clinical course of the patient DVT prophylaxis: Subcutaneous heparin GI Prophylaxis: pepcid Prognosis is guarded
[2021-10-02 20:30] LABS: Glucose,Whole Blood 205 mg/dL (75-99)
[2021-10-02] MEDS: INSULIN ASPART (NovoLOG) 100 UNIT/ML VIAL SQ SCH (20:33)
[2021-10-02] MEDS: FAMOTIDINE 20 MG TAB PO SCH (20:33)
[2021-10-02] MEDS: ATORVASTATIN 80 MG TAB PO SCH (20:33)
[2021-10-03] MEDS: hydrALAZINE HCL 20 MG/ML 1 ML VIAL IV PRN (05:14)
[2021-10-03 06:18] LABS: Glucose,Whole Blood 158 mg/dL (75-99)
[2021-10-03] MEDS: methylPREDNISolone SOD SUCCI 40 MG/ML 1 ML VIAL IV SCH (06:20)
[2021-10-03] MEDS: INSULIN ASPART (NovoLOG) 100 UNIT/ML VIAL SQ SCH ×4 (06:41→20:35)
--- NOTE | 2021-10-03 08:12 | XR ---
EXAMINATION TYPE: XR chest 2V DATE OF EXAM: 10/03/2021 COMPARISON: X-ray dated 09/28/2021 HISTORY: Preoperative TECHNIQUE: Frontal and lateral views of the chest are obtained. FINDINGS: Right basal linear pulmonary atelectasis. Grossly unremarkable lungs otherwise. No sizable pleural ef fusion or definite pneumothorax. Slightly increased cardiac transverse diameter. Tortuous descending thoracic aorta. Degenerative perez ges of the thoracic spine. IMPRESSION: As above.
[2021-10-03] MEDS: NICOTINE 14MG/24HR PATCH TRANSDERM SCH (08:46)
[2021-10-03] MEDS: FAMOTIDINE 20 MG TAB PO SCH ×2 (08:46→20:35)
[2021-10-03] MEDS: lisinopriL 20 MG TAB PO SCH (08:46)
[2021-10-03] MEDS: ASPIRIN 81 MG PO SCH (08:46)
[2021-10-03] MEDS: hydroCHLOROthiazide 25 MG TAB PO SCH (08:46)
[2021-10-03] MEDS: ISOSORBIDE MONONITRATE ER 30 MG TAB.ER.24H PO SCH (08:46)
[2021-10-03] MEDS: hydrALAZINE HCL 50 MG TAB PO SCH ×4 (08:46→20:35)
[2021-10-03] MEDS: METOPROLOL TARTRATE 50 MG TAB PO SCH ×2 (08:46→20:35)
[2021-10-03] MEDS: IPRATROPIUM-ALBUTEROL 3 ML NEB INHALATION SCH ×4 (09:43→21:23)
[2021-10-03] MEDS: BUDESONIDE 1 MG/2 ML NEBU INHALATION SCH ×2 (09:43→21:22)
--- NOTE | 2021-10-03 10:39 | P.PN ---
Subjective 61-year-old female patient with a past medical history significant for coronary artery disease and prior angioplasty and stenting multiple times with the last one in 2013 the details on that are unavailable at this point and also she does have history of smoking where she continues to smoke as well as hypertension and dyslipidemia presented to the emergency department complaining of chest discomfort. The symptoms started about a week ago where she is describing a pressure kind of discomfort in the middle of the chest with radiation to both a avelina associated with shortness of breath and sweating. No dizziness or lightheadedness and no presyncope or syncope. Lab review shows a WBC of 11.0, hemoglobin of 14.2). Count of 183, sodium 139, potassium 3.9, BUN/creatinine of 13/0.6; troponin is elevated at 1.55 trending up to 2.02 She had a transthoracic echocardiogram demonstrating EF 50-55% with mild aortic insufficiency. Yesterday she underwent heart catheterization demonstrating right dominant system with mid RCA 90-95% occluded, distal RCA with chronic total occlusion with previous stent present, obtuse marginal branch of the circ umflex coronary artery with 90-95% stenosis, and proximal LAD stenosis 80%. Due to these findings consultation was placed to Dr. Morse from cardiothoracic surgery for surgical revascularization recommendations. 10/01/2021 Apparently patient with none STEMI and cardiac catheterization showing triple coronary artery disease. Patient has been evaluated by cardiothoracic surgery with planned to undergo bypass surgery later on during this admission. Also cartilage and pulmonary team of the case. Patient currently on heparin drip, Solu-Medrol 60 mg, inhaled steroids. Aspirin. Hydralazine, Imdur, lisinopril and metoprolol and hydrochlorothiazide. Also she tells abdomen showing increased aortic aneurysm 4 cm up to 5.3 cm. While CTA of the head and neck showing severe stenosis of the right internal carotid artery 10/02/2021 Patient is a started on steroids and breathing treatment. She is sitting in chair fully awake and oriented, no chest pain or dyspnea at rest. 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 Currently she is chest pain-free. Continue with heparin drip. Also she is on aspirin. Plan for bypass by surgery team 10/03/2021 Patient with no chest pain or dyspnea today. No other complaints. She feels little congested with little headache and flushing to the face. Patient remains on heparin drip and IV Solu-Medrol Patient planned to get cardiac bypass surgery We will check for viral testing included an influenza , Covid and SVT Objective - Vital Signs Vital signs: Vital Signs Temp 97.8 F 10/03/21 04:50 Pulse 59 L 10/03/21 04:50 Resp 20 10/03/21 04:50 BP 159/60 10/03/21 06:42 Pulse Ox 92 L 10/03/21 04:50 Intake & Output 10/02/21 10/03/21 10/03/21 18:59 06:59 18:59 Intake Total 1942.1 240 Balance 1942.1 240 Weight 109.3 kg Intake: Intake, IV Titration 142.1 Amount Heparin Sod,Pork in 0.45% 142.1 NaCl 25,000 unit In 0.45 % NaCl 1 250ml.bag @ 9. 5853 UNITS/KG/HR 10 mls/ hr IV .Q24H [facility] Rx#: [id number] Oral 1800 240 Other: Voiding Method Toilet Toilet # Voids 3 1 - Exam - GENERAL: The patient is alert and oriented x3, not in any acute distress. Morbidly obese HEENT: Pupils are round and equally reacting to light. EOMI. No scleral icterus. No conjunctival pallor. Normocephalic, atraumatic. No pharyngeal erythema. No thyromegaly. CARDIOVASCULAR: S1 and S2 present. No murmurs, rubs, or gallops. PULMONARY: Chest is clear to auscultation, no wheezing or crackles. ABDOMEN: Soft, nontender, nondistended, normoactive bowel sounds. No palpable organomegaly. MUSCULOSKELETAL: No joint swelling or deformity. EXTREMITIES: No cyanosis, clubbing, or pedal edema. NEUROLOGICAL: Gross neurological examination did not reveal any focal deficits. SKIN: No rashes. no petechiae. - Labs CBC & Chem 7: 10/02/21 06:13 10/02/21 06:13 Labs: Abnormal Lab Results - Last 24 Hours (Table) 10/02/21 10/02/21 10/03/21 Range/Units 18:07 20:30 05:48 APTT 61.2 H (22.0-30.0) sec POC Glucose (mg/dL) 232 H 205 H (75-99) mg/dL 10/03/21 Range/Units 06:16 APTT (22.0-30.0) sec POC Glucose (mg/dL) 158 H (75-99) mg/dL Microbiology - Last 24 Hours (Table) 09/29/21 17:00 Nasal Screen MRSA/MSSA - Final Nasal Swab Assessment and Plan Assessment: Non-ST elevation myocardial infarction secondary to severe triple coronary artery disease on cardiac cath planned for bypass surgery Right internal carotid artery stenosis A large aortic abdominal aneurysm 4 cm up to 5.3 cm COPD exacerbation Hypertensive urgency, breast on admission improved Morbid obesity Plan: This is a pleasant 61 years old female with triple coronary artery disease, COPD. Continue with steroids Continue with heparin drip Continue with aspirin and other blood pressure medication. [facility] Coordinator Cardiology and pulmonary team on the case. Cardiothoracic surgery team planned for bypass surgery Labs and medication were reviewed.. Continue same treatment. Continue with symptomatic treatment. Resume home medication. Monitor lytes and vitals. DVT and GI prophylaxis. Further recommendations as per clinical course of the patient DVT prophylaxis: Subcutaneous heparin GI Prophylaxis: pepcid Prognosis is guarded
[2021-10-03 12:17] LABS: Glucose,Whole Blood 91 mg/dL (75-99)
--- NOTE | 2021-10-03 12:21 | P.PN ---
Subjective This is a 61-year-old female with a past medical history of coronary artery disease with myocardial infarction, coronary artery disease status post prior PCI to the distal and proximal RCA in 2007, hypertension, hyperlipidemia, obesity, abdominal aortic aneurysm, daily EtOH use, and current tobacco dependence. She did fall in the office with Dr. Johnson, last seen in 2019. She presents to the emergency department with chest Discomfort and hypertension, Diagnosed with non-STEMI. 2D echocardiogram revealed EF 50-55% with mild aortic insufficiency. On 09/29/2021 She underwent cardiac catheterization with Dr. Maxwell which revealed right dominant system with mid RCA 90-95% occluded, distal RCA with chronic total occlusion with previous stent present, obtuse marginal branch of the circumflex coronary artery with 90-95% stenosis, and proximal LAD stenosis 80%. CT Surgery was consulted for surgical revascularization recommendations. 10/03/2021 Patient seen and examined at bedside, no acute distress. She denies chest pain or shortness of breath. BP has improved, Blood pressure 159/81, heart rate 73, afebrile, saturations 96% on room air. Labs From yesterday: WBC 14.5, hemoglobin 14.8, platelets 224, sodium 137, p otassium 4.1, BUN 21, serum creatinine 0.8 She's currently maintained on aspirin 81 mg daily, atorvastatin 80 mg nightly, IV heparin, hydralazine 50 mg QID, hydrochlorothiazide 25 mg daily, Imdur 30 mg daily, lisinopril 40 mg daily, metoprolol tartrate 50 mg twice a day GENERAL: Well-appearing, well-nourished and in no acute distress. NECK: Supple without JVD or thyromegaly. LUNGS: Breath sounds clear to auscultation bilaterally. Respiration equal and unlabored. No wheezes, rales or rhonchi. HEART: Regular rate and rhythm without murmurs, rubs or gallops. S1 and S2 heard. EXTREMITIES: Normal range of motion, no edema. No clubbing or cyanosis. Peripheral pulses intact. ASSESSMENT NSTEMI Severe triple-vessel coronary artery disease Prior PCI to distal and proximal RCA in 2007 Hypertension Hyperlipidemia Severe COPD Carotid disease, Right internal carotid stenosis >70% by doppler, severe focal stenosis seen on CTA Infrarenal abdominal aortic aneurysm Daily alcohol use Chronic nicotine dependence PLAN Continue IV Heparin drip Continue lisinopril 40mg daily, aspirin, statin, beta tierney Pulmonary following CT Surgery following, plan for coronary artery bypass surgery once medically optimized Patient will need right carotid stenting prior Smoking and alcohol cessation discussed and encouraged. Further recommendations based on clinical course Nurse Practitioner note has been reviewed, I agree with a documented findings and plan of care. Patient was seen and examined. Objective - Vital Signs Vital signs: Vital Signs Temp 97.9 F 10/03/21 08:00 Pulse 73 10/03/21 08:00 Resp 18 10/03/21 08:00 BP 159/81 10/03/21 08:00 Pulse Ox 96 10/03/21 08:00 Intake & Output 10/02/21 10/03/21 10/03/21 18:59 06:59 18:59 Intake Total 1942.1 240 Balance 1942.1 240 Weight 109.3 kg Intake: Intake, IV Titration 142.1 Amount Heparin Sod,Pork in 0.45% 142.1 NaCl 25,000 unit In 0.45 % NaCl 1 250ml.bag @ 9. 5853 UNITS/KG/HR 10 mls/ hr IV .Q24H [facility] Rx#: [id number] Oral 1800 240 Other: Voiding Method Toilet Toilet Toilet # Voids 3 1 - Labs CBC & Chem 7: 10/02/21 06:13 10/02/21 06:13 Labs: Abnormal Lab Results - Last 24 Hours (Table) 10/02/21 10/02/21 10/03/21 Range/Units 18:07 20:30 05:48 APTT 61.2 H (22.0-30.0) sec POC Glucose (mg/dL) 232 H 205 H (75-99) mg/dL 10/03/21 Range/Units 06:16 APTT (22.0-30.0) sec POC Glucose (mg/dL) 158 H (75-99) mg/dL Microbiology - Last 24 Hours (Table) 09/29/21 17:00 Nasal Screen MRSA/MSSA - Final Nasal Swab
[2021-10-03] MEDS: FORMOTEROL FUMARATE 20 MCG/2 ML NEBU INHALATION SCH ×2 (12:57→21:22)
--- NOTE | 2021-10-03 13:18 | P.PN ---
Subjective Progress Note Date: 10/03/21 Principal diagnosis: Triple-vessel coronary artery disease, NSTEMI, hypertensive urgency. History of previous myocardial infarction and stent placement to the distal RCA in 2007, hypertension, hyperlipidemia, obesity, AAA, daily EtOH use, current tobacco dependence, severe COPD, right internal carotid stenosis The patient was seen and examined on the cardiac step-down unit ambulating in her room in no acute distress. Denies chest pain/discomfort/shortness of breath currently. Repeat pulmonary function test shows improvement, patient cleared for surgery by Dr. Aguirre. Plan for surgery this Friday. Discussed with patient and she is in agreement. No other new concerns Objective - Vital Signs Vital signs: Vital Signs Temp 97.9 F 10/03/21 08:00 Pulse 64 10/03/21 13:08 Resp 18 10/03/21 08:00 BP 159/81 10/03/21 08:00 Pulse Ox 96 10/03/21 08:00 Intake & Output 10/02/21 10/03/21 10/03/21 18:59 06:59 18:59 Intake Total 1942.1 240 Balance 1942.1 240 Weight 109.3 kg Intake: Intake, IV Titration 142.1 Amount Heparin Sod,Pork in 0.45% 142.1 NaCl 25,000 unit In 0.45 % NaCl 1 250ml.bag @ 9. 5853 UNITS/KG/HR 10 mls/ hr IV .Q24H [facility] Rx#: [id number] Oral 1800 240 Other: Voiding Method Toilet Toilet Toilet # Voids 3 1 - Exam CONSTITUTIONAL: Awake and alert, appears comfortable, cooperative, well- developed, well-nourished, no pain, no acute distress RESPIRATORY: Lungs sounds clear to auscultation bilaterally. Respirations even, nonlabored. Currently on room air with oxygen saturation 96%. Strong loose cough. Able to achieve 1500 mL on incentive spirometry CARDIOVASCULAR: S1, S2 present. Regular rate and rhythm, sinus rhythm on telemetry with heart rate in the 70s. Palpable peripheral pulses bilaterally. No edema present. No calf pain or tenderness noted. GASTROINTESTINAL: Abdomen soft, nontender, nondistended, obese. Active bowel sounds present 4 quadrants. GENITOURINARY: Continues to void INTEGUMENTARY: Skin is warm and dry with evidence of good perfusion. NEUROLOGIC: Cranial nerves II through XII intact MUSKULOSKELETAL: Able to move all extremities, strength equal bilaterally PSYCHIATRIC: Alert and oriented to person place and time, appropriate affect, intact judgment and insight - Allied health notes Allied health notes reviewed: nursing - Labs CBC & Chem 7: 10/02/21 06:13 10/02/21 06:13 Labs: Abnormal Lab Results - Last 24 Hours (Table) 10/02/21 10/02/21 10/03/21 Range/Units 18:07 20:30 05:48 APTT 61.2 H (22.0-30.0) sec POC Glucose (mg/dL) 232 H 205 H (75-99) mg/dL 10/03/21 Range/Units 06:16 APTT (22.0-30.0) sec POC Glucose (mg/dL) 158 H (75-99) mg/dL Microbiology - Last 24 Hours (Table) 09/29/21 17:00 Nasal Screen MRSA/MSSA - Final Nasal Swab Assessment and Plan Assessment: 1. Triple-vessel coronary artery disease, previous myocardial infarction and stent placement to the distal RCA in 2007, non-STEMI this admission 2. Hypertension with hypertensive urgency upon admission 3. Hyperlipidemia, treated, cholesterol 174, LDL 102, triglycerides 175 4. Obesity 5. AAA last measured at 3.4 cm here in 2013, measured 4.8 cm with suspicion of impending rupture in 2019 according to Josefina's report, measures 5.3 cm on CTA from 10/01/21 6. Daily EtOH use 7. Current tobacco dependence 8. Severe COPD with current FEV1 44% of predicted 9. Right internal carotid stenosis greater than 70% by doppler, severe focal stenosis at the origin per CTA 10/01/21 Plan: 1. Continue to optimize medical management with ASA, statin, beta tierney, anti-hypertensives 2. Increase activity as tolerated 3. Bronchodilators, steroids, pulmonary optimization per Dr. Aguirre. Encouraged incentive spirometry use. 4. Our plan is for coronary artery bypass surgery with left internal mammary artery, endoscopic vein harvest, left radial artery harvest, ligation of left atrial appendage on Friday10/05/[address] Morse, patient will have right carotid stenting immediately prior to surgery by Dr. Maxwell in the microbiology lab manager 5. Smoking cessation again encouraged 6. Case management updated with patient's financial concerns for possible community resources 7. Medical management of other comorbidities per primary care 8. More recommendations to follow.
[2021-10-03 14:38] VITALS: BMI 42.7
--- NOTE | 2021-10-03 14:54 | P.PN ---
Subjective Progress Note Date: 10/03/21 Principal diagnosis: Coronary artery disease. This is a very pleasant 61-year-old female patient who has a known history of chronic and ongoing tobacco dependence, daily alcohol use, abdominal aortic aneurysm, hypertension, hyperlipidemia, coronary artery disease with previous s tent placement to the RCA in 2007. She had presented to the emergency room on 09/28/2021 with complaints of increasing shortness of breath, chest discomfort and achy feeling with a pain of about a 3. She is also states her blood pressure was reading greater than 200 at home. She was using sublingual nitroglycerin without much improvement and presented here to the emergency room for the same. She was found to have an acute coronary syndrome and had undergone cardiac catheterization and was found to have a chronic total occlusion of the RCA distally with aneurysmal dilatation of the RCA in the midportion. Critical disease with a long tubular lesion involving the first OM of the left circumflex. Severe disease with a focal lesion involving the proximal LAD and elevated left-sided filling pressures. Echocardiogram revealed preserved left ventricular systolic function with ejection fraction 50-55%. No significant valvular disease. She was advised coronary artery bypass grafting. We're consulted for postop management. She is seen today in consultation on the selective care unit. She's been up ambulating in the hallway. No further chest discomfort. No worsening shortness of breath cough or congestion. Pulmonary function testing reveals an FEV1 value of 44% of predicted. She has been smoking a pack per day for 40 years. She has not been seen by a windows mobile developer in the past. Not on home oxygen. Not on any inhalers. Asked x-ray revealed opacities projecting over the hard/lingula may represent atelectasis. She is maintaining O2 saturation in the 90s on room air. She's been afebrile. Remains hypertensive. White count 8.3. Hemoglobin 14.4. Platelet count 167. INR 0.9. Sodium 140. Potassium 3.9. BUN 12. Creatinine 0.59. TSH 2.26. Urinalysis negative. Hepatitis screen negative. She remains on a heparin drip. She's been initiated on statins, aspirin, beta blockers. She was receiving Lasix 20 mg IV every [address] patch and place. On 10/01/2021 patient is seen in follow-up on selective care unit. Patient sitting up in bed, does not appear to be in any acute distress. She is on room air pulse ox of 91%, afebrile, breathing is nonlabored. Denies any chest discomfort, no cough, lung sounds are diminished. She is on heparin infusion. She is undergoing preop evaluation for triple-vessel coronary artery disease. Her preop FEV1 was 1.09 L or 44% of predicted, with MVV of 40.9, consistent with moderate surgical risk. Patient will be started on Pulmicort and Perforomist, she'll be started on IV steroids. CT of the chest, abdomen and pelvis showed interval progression of the abdominal aortic aneurysm with progressive atheromat ous plaque and calcifications with a recommendation of vascular surgery consultation. Patient was also found to have carotid artery stenosis that showed severe right ICA stenosis of greater than 70%, and mild less than 50% stenosis of the left ICA. Echocardiogram showed EF of 50-55%. There was mo derate concentric LVH, inferobasilar hypokinesia. Mild aortic regurgitation, normal mitral valve with mild MR Progress note dated 10/02/2021. The patient will have a repeat breathing test tomorrow. We placed the patient on DuoNeb, Pulmicort, formoterol, and corticosteroids. The hope is that her lung function are improved, and she can undergo surgery more safely. On her initial bedside spirometry, her FEV1 was 1.09 L which is 44% of predicted. Her MVV was 41 L/m. Clinically, she states that she's feeling much better. She continues on IV heparin. White count 14.5, hemoglobin 14.8, hematocrit 46.3, and platelet count 224,000. PTT is 57.3. Sodium 137, potassium 4.1, chlorides 103, CO2 20, anion gap 14, BUN 21, creatinine 0.83. Progress note dated 10/03/2021. The patient did much better on her repeat pulmonary function test. In my opinion, she has been optimized for surgery. I did discontinue the corticosteroids today. She remains on DuoNeb, Pulmicort, and formoterol. Her FEV1 was 1.57 L, compared to 1.09 L. In addition, her FEV1 and MVV, were much improved. Clinically, she's feeling much improved. No new laboratory data today other than a PTT of 61.2, and a glucose of 91. Chest x-ray shows some minimal atelectasis at the bases, right greater than left. Objective - Vital Signs Vital signs: Vital Signs Temp 97.9 F 10/03/21 08:00 Pulse 66 10/03/21 13:15 Resp 18 10/03/21 08:00 BP 159/81 10/03/21 08:00 Pulse Ox 96 10/03/21 08:00 Intake & Output 10/02/21 10/03/21 10/03/21 18:59 06:59 18:59 Intake Total 1942.1 240 Balance 1942.1 240 Weight 109.3 kg Intake: Intake, IV Titration 142.1 Amount Heparin Sod,Pork in 0.45% 142.1 NaCl 25,000 unit In 0.45 % NaCl 1 250ml.bag @ 9. 5853 UNITS/KG/HR 10 mls/ hr IV .Q24H [facility] Rx#: [id number] Oral 1800 240 Other: Voiding Method Toilet Toilet Toilet # Voids 3 1 - Exam No acute distress, oriented 3. Currently on room air. No respiratory distress. HEENT examination is grossly unremarkable. Neck supple. Full range of motion. No adenopathy thyromegaly or neck vein distention. Cardiovascular examination reveals regular rhythm rate. S1-S2 normal. No S3 or S4. No discernible murmur noted. Heart rate 66 bpm. Lungs reveal mild scattered rhonchi. No wheezes. No crackles. Breath sounds equal bilaterally. Room air saturation 96%. Abdomen soft bowel sounds are heard. No masses or tenderness. Extremities are intact. No cyanosis clubbing or edema. Skin is without rash or lesion. Neurologic examination is brief but nonfocal. - Labs CBC & Chem 7: 10/02/21 06:13 10/02/21 06:13 Labs: Abnormal Lab Results - Last 24 Hours (Table) 10/02/21 10/02/21 10/03/21 Range/Units 18:07 20:30 05:48 APTT 61.2 H (22.0-30.0) sec POC Glucose (mg/dL) 232 H 205 H (75-99) mg/dL 10/03/21 Range/Units 06:16 APTT (22.0-30.0) sec POC Glucose (mg/dL) 158 H (75-99) mg/dL Microbiology - Last 24 Hours (Table) 09/29/21 17:00 Nasal Screen MRSA/MSSA - Final Nasal Swab Assessment and Plan Assessment: Acute coronary syndrome, acute non-ST segment elevation myocardial infarction. Severe triple-vessel coronary disease, currently being evaluated for bypass grafting. Stage III COPD, with a preoperative FEV1 of 1.09 L or 44% of predicted, an MVV of 40 L/m, consistent with a moderate increased operative risk. Right carotid stenosis, 70%. History of abdominal aortic aneurysm. Daily alcohol use. Chronic and ongoing tobacco dependence. History of hypertension. Plan: Plan dated 10/02/2021. The patient will have a repeat breathing test tomorrow. Additional recommendations and suggestions are forthcoming. I'm hoping that her lung function are improved with the treatments that we have been giving her. She certainly clinically feels much better. Additional recommendations and suggestions are forthcoming. We will communicate with the surgeons after the test tomorrow. Plan dated 10/03/2021. The patient's repeat lung function much improved. The patient's operative risk category went from moderately increased operative risk, to low increased operative risk, based on the changes in the FEV1, and MVV. The patient is clinically feeling much better. We will continue to follow make recommendations were appropriate. Surgery will decide when in if to do the surgery. We will continue to follow. Prognosis is guarded. Time with Patient: Less than 30
[2021-10-03 16:36] LABS: Glucose,Whole Blood 124 mg/dL (75-99)
[2021-10-03 20:08] LABS: Glucose,Whole Blood 202 mg/dL (75-99)
[2021-10-03] MEDS: ATORVASTATIN 80 MG TAB PO SCH (20:35)
[2021-10-03] MEDS: MUPIROCIN 2% OINT 22 GM TUBE NASAL SCH (20:35)
[2021-10-03] MEDS: HEPARIN SOD,PORK IN 0.45% NACL 25,000 UNIT in 0.45% NACL 1 250ML.BAG IV SCH (23:24)
[2021-10-04 06:02] LABS: Glucose,Whole Blood 136 mg/dL (75-99)
[2021-10-04] MEDS: INSULIN ASPART (NovoLOG) 100 UNIT/ML VIAL SQ SCH ×4 (06:43→20:28)
[2021-10-04] MEDS: FORMOTEROL FUMARATE 20 MCG/2 ML NEBU INHALATION SCH ×2 (07:39→20:31)
[2021-10-04] MEDS: BUDESONIDE 1 MG/2 ML NEBU INHALATION SCH ×2 (07:39→20:31)
[2021-10-04] MEDS: IPRATROPIUM-ALBUTEROL 3 ML NEB INHALATION SCH ×4 (07:39→20:31)
[2021-10-04 08:04] LABS: INR 0.9 (<1.2); Partial Thromboplastin Time 68.8 sec (22.0-30.0); Prothrombin Time 10.2 sec (9.0-12.0)
[2021-10-04 08:10] LABS: Albumin 4.2 g/dL (3.5-5.0); Calcium 9.5 mg/dL (8.4-10.2); Potassium 4.3 mmol/L (3.5-5.1); Total Bilirubin 0.7 mg/dL (0.2-1.3)
[2021-10-04 08:41] LABS: Basophils % (A) 0 %; Eosinophils % (A) 0 %; HCT 45.9 % (34.0-46.0); HGB 14.8 gm/dL (11.4-16.0); Lymphocytes % (A) 21 %; MCH 29.3 pg (25.0-35.0); MCHC 32.2 g/dL (31.0-37.0); MCV 91.1 fL (80.0-100.0); Mean Platelet Volume 10.7; Monocytes # (A) 0.8 k/uL (0-1.0); Monocytes % (A) 6 %; Neutrophils # (A) 10.1 k/uL (1.3-7.7); Neutrophils % (A) 71 %; Platelet Count 232 k/uL (150-450); RBC 5.04 m/uL (3.80-5.40); RDW 15.5 % (11.5-15.5); WBC 14.2 k/uL (3.8-10.6)
[2021-10-04] MEDS: NICOTINE 14MG/24HR PATCH TRANSDERM SCH (09:36)
[2021-10-04] MEDS: hydrALAZINE HCL 50 MG TAB PO SCH ×4 (09:37→20:30)
[2021-10-04] MEDS: FAMOTIDINE 20 MG TAB PO SCH ×2 (09:37→20:30)
[2021-10-04] MEDS: ISOSORBIDE MONONITRATE ER 30 MG TAB.ER.24H PO SCH (09:37)
[2021-10-04] MEDS: METOPROLOL TARTRATE 50 MG TAB PO SCH ×2 (09:37→20:30)
[2021-10-04] MEDS: lisinopriL 20 MG TAB PO SCH (09:37)
[2021-10-04] MEDS: ASPIRIN 81 MG PO SCH (09:37)
[2021-10-04] MEDS: hydroCHLOROthiazide 25 MG TAB PO SCH (09:37)
[2021-10-04] MEDS: MUPIROCIN 2% OINT 22 GM TUBE NASAL SCH ×2 (09:41→20:30)
--- NOTE | 2021-10-04 10:16 | P.PN ---
Subjective Progress Note Date: 10/04/21 Principal diagnosis: Triple-vessel coronary artery disease, NSTEMI, hypertensive urgency. History of previous myocardial infarction and stent placement to the distal RCA in 2007, hypertension, hyperlipidemia, obesity, AAA, daily EtOH use, current tobacco dependence, COPD, right internal carotid stenosis The patient was seen and examined on the cardiac step-down sitting up in bed in no acute distress. Denies chest pain/discomfort/shortness of breath currently. Repeat pulmonary function test shows improvement, patient cleared for surgery by Dr. Aguirre. Plan for surgery this Friday. Discussed with patient and she is in agreement. She asked appropriate questions about discharge planning, lifestyle modifications. Answered her questions to the best of my ability. No other new concerns Objective - Vital Signs Vital signs: Vital Signs Temp 97.9 F 10/04/21 04:30 Pulse 62 10/04/21 07:58 Resp 18 10/04/21 04:30 BP 118/70 10/04/21 04:30 Pulse Ox 93 L 10/04/21 04:30 Intake & Output 10/03/21 10/04/21 10/04/21 18:59 06:59 18:59 Intake Total 830 480 Balance 830 480 Weight 109.3 kg 108.4 kg Intake: Intake, IV Titration 250 Amount Heparin Sod,Pork in 0.45% 250 NaCl 25,000 unit In 0.45 % NaCl 1 250ml.bag @ 9. 5853 UNITS/KG/HR 10 mls/ hr IV .Q24H [facility] Rx#: [id number] Oral 580 480 Other: Voiding Method Toilet Toilet # Voids 1 - Exam CONSTITUTIONAL: Awake and alert, appears comfortable, cooperative, well- developed, well-nourished, no pain, no acute distress RESPIRATORY: Lungs sounds clear to auscultation bilaterally. Respirations even, nonlabored. Currently on room air with oxygen saturation 97%. Strong loose cough. Able to achieve 2750 mL this morning on incentive spirometry CARDIOVASCULAR: S1, S2 present. Regular rate and rhythm, sinus rhythm on telemetry with heart rate in the 60s. Palpable peripheral pulses bilaterally. No edema present. No calf pain or tenderness noted. GASTROINTESTINAL: Abdomen soft, nontender, nondistended, obese. Active bowel sounds present 4 quadrants. GENITOURINARY: Continues to void INTEGUMENTARY: Skin is warm and dry with evidence of good perfusion. NEUROLOGIC: Cranial nerves II through XII intact MUSKULOSKELETAL: Able to move all extremities, strength equal bilaterally PSYCHIATRIC: Alert and oriented to person place and time, appropriate affect, intact judgment and insight - Labs CBC & Chem 7: 10/04/21 07:04 10/04/21 07:04 Labs: Abnormal Lab Results - Last 24 Hours (Table) 10/03/21 10/03/21 10/04/21 Range/Units 16:34 20:07 06:00 WBC (3.8-10.6) k/uL Neutrophils # (1.3-7.7) k/uL APTT (22.0-30.0) sec BUN (7-17) mg/dL POC Glucose (mg/dL) 124 H 202 H 136 H (75-99) mg/dL AST (14-36) U/L ALT (4-34) U/L Crossmatch 10/04/21 10/04/21 10/04/21 Range/Units 07:04 07:04 07:04 WBC 14.2 H (3.8-10.6) k/uL Neutrophils # 10.1 H (1.3-7.7) k/uL APTT 68.8 H (22.0-30.0) sec BUN (7-17) mg/dL POC Glucose (mg/dL) (75-99) mg/dL AST (14-36) U/L ALT (4-34) U/L Crossmatch See Detail 10/04/21 Range/Units 07:04 WBC (3.8-10.6) k/uL Neutrophils # (1.3-7.7) k/uL APTT (22.0-30.0) sec BUN 31 H (7-17) mg/dL POC Glucose (mg/dL) (75-99) mg/dL AST 37 H (14-36) U/L ALT 68 H (4-34) U/L Crossmatch Assessment and Plan Assessment: 1. Triple-vessel coronary artery disease, previous myocardial infarction and stent placement to the distal RCA in 2007, non-STEMI this admission 2. Hypertension with hypertensive urgency upon admission 3. Hyperlipidemia, treated, cholesterol 174, LDL 102, triglycerides 175 4. Obesity 5. AAA last measured at 3.4 cm here in 2013, measured 4.8 cm with suspicion of impending rupture in 2020 according to Josefina's report, measures 5.3 cm on CTA from 10/01/21 6. Daily EtOH use 7. Current tobacco dependence 8. COPD with initial FEV1 44% of predicted, improved to 64% of predicted 9. Right internal carotid stenosis greater than 70% by doppler, severe focal stenosis at the origin per CTA 10/01/21 Plan: 1. Continue to optimize medical management with ASA, statin, beta tierney, anti-hypertensives 2. Increase activity as tolerated 3. Bronchodilators, steroids, pulmonary optimization per Dr. Aguirre. Encouraged incentive spirometry use. 4. Our plan is for coronary artery bypass surgery with left internal mammary artery, endoscopic vein harvest, left radial artery harvest, ligation of left atrial appendage on Friday10/05/[address] Morse, patient will have right carotid stenting immediately prior to surgery by Dr. 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 Smoking cessation again encouraged 6. Medical management of other comorbidities per primary care 7. More recommendations to follow.
[2021-10-04] MEDS ORDERED: MD COMMUNICATION TO PHARMACY 1 EACH MISC PO ONE (10:23)
--- NOTE | 2021-10-04 10:52 | P.PN ---
Subjective 61-year-old female patient with a past medical history significant for coronary artery disease and prior angioplasty and stenting multiple times with the last one in 2013 the details on that are unavailable at this point and also she does have history of smoking where she continues to smoke as well as hypertension and dyslipidemia presented to the emergency department complaining of chest discomfort. The symptoms started about a week ago where she is describing a pressure kind of discomfort in the middle of the chest with radiation to both a avelina associated with shortness of breath and sweating. No dizziness or lightheadedness and no presyncope or syncope. Lab review shows a WBC of 11.0, hemoglobin of 14.2). Count of 183, sodium 139, potassium 3.9, BUN/creatinine of 13/0.6; troponin is elevated at 1.55 trending up to 2.02 She had a transthoracic echocardiogram demonstrating EF 50-55% with mild aortic insufficiency. Yesterday she underwent heart catheterization demonstrating right dominant system with mid RCA 90-95% occluded, distal RCA with chronic total occlusion with previous stent present, obtuse marginal branch of the circ umflex coronary artery with 90-95% stenosis, and proximal LAD stenosis 80%. Due to these findings consultation was placed to Dr. Morse from cardiothoracic surgery for surgical revascularization recommendations. 10/01/2021 Apparently patient with none STEMI and cardiac catheterization showing triple coronary artery disease. Patient has been evaluated by cardiothoracic surgery with planned to undergo bypass surgery later on during this admission. Also cartilage and pulmonary team of the case. Patient currently on heparin drip, Solu-Medrol 60 mg, inhaled steroids. Aspirin. Hydralazine, Imdur, lisinopril and metoprolol and hydrochlorothiazide. Also she tells abdomen showing increased aortic aneurysm 4 cm up to 5.3 cm. While CTA of the head and neck showing severe stenosis of the right internal carotid artery 10/02/2021 Patient is a started on steroids and breathing treatment. She is sitting in chair fully awake and oriented, no chest pain or dyspnea at rest. 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 Currently she is chest pain-free. Continue with heparin drip. Also she is on aspirin. Plan for bypass by surgery team 10/03/2021 Patient with no chest pain or dyspnea today. No other complaints. She feels little congested with little headache and flushing to the face. Patient remains on heparin drip and IV Solu-Medrol Patient planned to get cardiac bypass surgery We will check for viral testing included an influenza , Covid and SVT 10/04/2021 Patient still with no chest pain or dyspnea. Sitting in bed with no distress. She remains on heparin drip Sinusitis symptoms improving. Patient is getting a workup by surgery team, with planned to undergo bypass surgery. We will follow up with surgery team about when to do surgery Objective - Vital Signs Vital signs: Vital Signs Temp 97.9 F 10/04/21 04:30 Pulse 62 10/04/21 07:58 Resp 18 10/04/21 04:30 BP 118/70 10/04/21 04:30 Pulse Ox 93 L 10/04/21 04:30 Intake & Output 10/03/21 10/04/21 10/04/21 18:59 06:59 18:59 Intake Total 830 480 Balance 830 480 Weight 109.3 kg 108.4 kg Intake: Intake, IV Titration 250 Amount Heparin Sod,Pork in 0.45% 250 NaCl 25,000 unit In 0.45 % NaCl 1 250ml.bag @ 9. 5853 UNITS/KG/HR 10 mls/ hr IV .Q24H [facility] Rx#: [id number] Oral 580 480 Other: Voiding Method Toilet Toilet # Voids 1 - Exam - GENERAL: The patient is alert and oriented x3, not in any acute distress. Morbidly obese HEENT: Pupils are round and equally reacting to light. EOMI. No scleral icterus. No conjunctival pallor. Normocephalic, atraumatic. No pharyngeal erythema. No thyromegaly. CARDIOVASCULAR: S1 and S2 present. No murmurs, rubs, or gallops. PULMONARY: Chest is clear to auscultation, no wheezing or crackles. ABDOMEN: Soft, nontender, nondistended, normoactive bowel sounds. No palpable organomegaly. MUSCULOSKELETAL: No joint swelling or deformity. EXTREMITIES: No cyanosis, clubbing, or pedal edema. NEUROLOGICAL: Gross neurological examination did not reveal any focal deficits. SKIN: No rashes. no petechiae. - Labs CBC & Chem 7: 10/04/21 07:04 10/04/21 07:04 Labs: Abnormal Lab Results - Last 24 Hours (Table) 10/03/21 10/03/21 10/04/21 Range/Units 16:34 20:07 06:00 WBC (3.8-10.6) k/uL Neutrophils # (1.3-7.7) k/uL APTT (22.0-30.0) sec BUN (7-17) mg/dL POC Glucose (mg/dL) 124 H 202 H 136 H (75-99) mg/dL AST (14-36) U/L ALT (4-34) U/L Crossmatch 10/04/21 10/04/21 10/04/21 Range/Units 07:04 07:04 07:04 WBC 14.2 H (3.8-10.6) k/uL Neutrophils # 10.1 H (1.3-7.7) k/uL APTT 68.8 H (22.0-30.0) sec BUN (7-17) mg/dL POC Glucose (mg/dL) (75-99) mg/dL AST (14-36) U/L ALT (4-34) U/L Crossmatch See Detail 10/04/21 Range/Units 07:04 WBC (3.8-10.6) k/uL Neutrophils # (1.3-7.7) k/uL APTT (22.0-30.0) sec BUN 31 H (7-17) mg/dL POC Glucose (mg/dL) (75-99) mg/dL AST 37 H (14-36) U/L ALT 68 H (4-34) U/L Crossmatch Assessment and Plan Assessment: Non-ST elevation myocardial infarction secondary to severe triple coronary artery disease on cardiac cath planned for bypass surgery Right internal carotid artery stenosis A large aortic abdominal aneurysm 4 cm up to 5.3 cm COPD exacerbation Hypertensive urgency, breast on admission improved Morbid obesity Plan: This is a pleasant 61 years old female with triple coronary artery disease, COPD. Continue with steroids Continue with heparin drip Continue with aspirin and other blood pressure medication. [employer] Cardiology and pulmonary team on the case. Cardiothoracic surgery team planned for bypass surgery Labs and medication were reviewed.. Continue same treatment. Continue with symptomatic treatment. Resume home medication. Monitor lytes and vitals. DVT and GI prophylaxis. Further recommendations as per clinical course of the patient DVT prophylaxis: Subcutaneous heparin GI Prophylaxis: pepcid Prognosis is guarded
[2021-10-04 11:42] LABS: Glucose,Whole Blood 104 mg/dL (75-99)
--- NOTE | 2021-10-04 12:09 | P.PN ---
Subjective This is a 61-year-old female with a past medical history of coronary artery disease with myocardial infarction, coronary artery disease status post prior PCI to the distal and proximal RCA in 2007, hypertension, hyperlipidemia, obesity, abdominal aortic aneurysm, daily EtOH use, and current tobacco dependence. She did fall in the office with Dr. Johnson, last seen in 2019. She presents to the emergency department with chest Discomfort and hypertension, Diagnosed with non-STEMI. 2D echocardiogram revealed EF 50-55% with mild aortic insufficiency. On 09/29/2021 She underwent cardiac catheterization with Dr. Maxwell which revealed right dominant system with mid RCA 90-95% occluded, distal RCA with chronic total occlusion with previous stent present, obtuse marginal branch of the circumflex coronary artery with 90-95% stenosis, and proximal LAD stenosis 80%. CT Surgery was consulted for surgical revascularization recommendations. 10/04/2021 Patient seen and examined at bedside, Sitting in the bedside chair. No acute distress. She denies chest pain or shortness of breath. BP has improved, Blood pressure 125/77, heart rate 53, afebrile, saturations 89-94% on room air. Telemetry reviewed, patient in sinus mechanism HR 50-60s, PVCs noted on 10/03. Labs WBC 14.2, hemoglobin 14.8, platelets 232, sodium 138, potassium 4.3, BUN 31, serum creatinine 0.9, AST 37, ALT 68 She's currently maintained on aspirin 81 mg daily, atorvastatin 80 mg nightly, IV heparin, hydralazine 50 mg QID, hydrochlorothiazide 25 mg daily, Imdur 30 mg daily, lisinopril 40 mg daily, metoprolol tartrate 50 mg twice a day GENERAL: Well-appearing, well-nourished and in no acute distress. NECK: Supple without JVD or thyromegaly. LUNGS: Breath sounds clear to auscultation bilaterally. Respiration equal and unlabored. No wheezes, rales or rhonchi. HEART: Regular rate and rhythm without murmurs, rubs or gallops. S1 and S2 heard. EXTREMITIES: Normal range of motion, no edema. No clubbing or cyanosis. Peripheral pulses intact. ASSESSMENT NSTEMI Severe triple-vessel coronary artery disease Prior PCI to distal and proximal RCA in 2007 Hypertension Hyperlipidemia Severe COPD Carotid disease, Right internal carotid stenosis >70% by doppler, severe focal stenosis seen on CTA Infrarenal abdominal aortic aneurysm Daily alcohol use Chronic nicotine dependence PLAN Continue IV Heparin drip Continue lisinopril 40mg daily, aspirin, statin, beta tierney Pulmonary following CT Surgery following, plan is for coronary artery bypass surgery with left internal mammary artery, endoscopic vein harvest, left radial artery harvest, ligation of left atrial appendage tomorrow, on Friday10/05/[address] Morse Patient will have right carotid stenting immediately prior to surgery by Dr. 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 Patient was seen and examined. Objective - Vital Signs Vital signs: Vital Signs Temp 97.9 F 10/04/21 04:30 Pulse 62 10/04/21 07:58 Resp 18 10/04/21 04:30 BP 118/70 10/04/21 04:30 Pulse Ox 93 L 10/04/21 04:30 Intake & Output 10/03/21 10/04/21 10/04/21 18:59 06:59 18:59 Intake Total 830 480 Balance 830 480 Weight 109.3 kg 108.4 kg Intake: Intake, IV Titration 250 Amount Heparin Sod,Pork in 0.45% 250 NaCl 25,000 unit In 0.45 % NaCl 1 250ml.bag @ 9. 5853 UNITS/KG/HR 10 mls/ hr IV .Q24H [facility] Rx#: [id number] Oral 580 480 Other: Voiding Method Toilet Toilet # Voids 1 - Labs CBC & Chem 7: 10/04/21 07:04 10/04/21 07:04 Labs: Abnormal Lab Results - Last 24 Hours (Table) 10/03/21 10/03/21 10/04/21 Range/Units 16:34 20:07 06:00 WBC (3.8-10.6) k/uL Neutrophils # (1.3-7.7) k/uL APTT (22.0-30.0) sec BUN (7-17) mg/dL POC Glucose (mg/dL) 124 H 202 H 136 H (75-99) mg/dL AST (14-36) U/L ALT (4-34) U/L Crossmatch 10/04/21 10/04/21 10/04/21 Range/Units 07:04 07:04 07:04 WBC 14.2 H (3.8-10.6) k/uL Neutrophils # 10.1 H (1.3-7.7) k/uL APTT 68.8 H (22.0-30.0) sec BUN (7-17) mg/dL POC Glucose (mg/dL) (75-99) mg/dL AST (14-36) U/L ALT (4-34) U/L Crossmatch See Detail 10/04/21 Range/Units 07:04 WBC (3.8-10.6) k/uL Neutrophils # (1.3-7.7) k/uL APTT (22.0-30.0) sec BUN 31 H (7-17) mg/dL POC Glucose (mg/dL) (75-99) mg/dL AST 37 H (14-36) U/L ALT 68 H (4-34) U/L Crossmatch
--- NOTE | 2021-10-04 13:00 | P.PN ---
Subjective Progress Note Date: 10/04/21 Principal diagnosis: Coronary artery disease. This is a very pleasant 61-year-old female patient who has a known history of chronic and ongoing tobacco dependence, daily alcohol use, abdominal aortic aneurysm, hypertension, hyperlipidemia, coronary artery disease with previous s tent placement to the RCA in 2007. She had presented to the emergency room on 09/28/2021 with complaints of increasing shortness of breath, chest discomfort and achy feeling with a pain of about a 3. She is also states her blood pressure was reading greater than 200 at home. She was using sublingual nitroglycerin without much improvement and presented here to the emergency room for the same. She was found to have an acute coronary syndrome and had undergone cardiac catheterization and was found to have a chronic total occlusion of the RCA distally with aneurysmal dilatation of the RCA in the midportion. Critical disease with a long tubular lesion involving the first OM of the left circumflex. Severe disease with a focal lesion involving the proximal LAD and elevated left-sided filling pressures. Echocardiogram revealed preserved left ventricular systolic function with ejection fraction 50-55%. No significant valvular disease. She was advised coronary artery bypass grafting. We're consulted for postop management. She is seen today in consultation on the selective care unit. She's been up ambulating in the hallway. No further chest discomfort. No worsening shortness of breath cough or congestion. Pulmonary function testing reveals an FEV1 value of 44% of predicted. She has been smoking a pack per day for 40 years. She has not been seen by a auto service dispatcher in the past. Not on home oxygen. Not on any inhalers. Asked x-ray revealed opacities projecting over the hard/lingula may represent atelectasis. She is maintaining O2 saturation in the 90s on room air. She's been afebrile. Remains hypertensive. White count 8.3. Hemoglobin 14.4. Platelet count 167. INR 0.9. Sodium 140. Potassium 3.9. BUN 12. Creatinine 0.59. TSH 2.26. Urinalysis negative. Hepatitis screen negative. She remains on a heparin drip. She's been initiated on statins, aspirin, beta blockers. She was receiving Lasix 20 mg IV every [address] patch and place. On 10/01/2021 patient is seen in follow-up on selective care unit. Patient sitting up in bed, does not appear to be in any acute distress. She is on room air pulse ox of 91%, afebrile, breathing is nonlabored. Denies any chest discomfort, no cough, lung sounds are diminished. She is on heparin infusion. She is undergoing preop evaluation for triple-vessel coronary artery disease. Her preop FEV1 was 1.09 L or 44% of predicted, with MVV of 40.9, consistent with moderate surgical risk. Patient will be started on Pulmicort and Perforomist, she'll be started on IV steroids. CT of the chest, abdomen and pelvis showed interval progression of the abdominal aortic aneurysm with progressive atheromat ous plaque and calcifications with a recommendation of vascular surgery consultation. Patient was also found to have carotid artery stenosis that showed severe right ICA stenosis of greater than 70%, and mild less than 50% stenosis of the left ICA. Echocardiogram showed EF of 50-55%. There was mo derate concentric LVH, inferobasilar hypokinesia. Mild aortic regurgitation, normal mitral valve with mild MR Progress note dated 10/02/2021. The patient will have a repeat breathing test tomorrow. We placed the patient on DuoNeb, Pulmicort, formoterol, and corticosteroids. The hope is that her lung function are improved, and she can undergo surgery more safely. On her initial bedside spirometry, her FEV1 was 1.09 L which is 44% of predicted. Her MVV was 41 L/m. Clinically, she states that she's feeling much better. She continues on IV heparin. White count 14.5, hemoglobin 14.8, hematocrit 46.3, and platelet count 224,000. PTT is 57.3. Sodium 137, potassium 4.1, chlorides 103, CO2 20, anion gap 14, BUN 21, creatinine 0.83. Progress note dated 10/03/2021. The patient did much better on her repeat pulmonary function test. In my opinion, she has been optimized for surgery. I did discontinue the corticosteroids today. She remains on DuoNeb, Pulmicort, and formoterol. Her FEV1 was 1.57 L, compared to 1.09 L. In addition, her FEV1 and MVV, were much improved. Clinically, she's feeling much improved. No new laboratory data today other than a PTT of 61.2, and a glucose of 91. Chest x-ray shows some minimal atelectasis at the bases, right greater than left. Progress note dated 10/04/2021. 61-year-old female, who is planning to undergo surgery, possibly tomorrow. The patient is to have a right carotid artery stent placed. Her lung function is much improved. She's on room air. She's feeling much better. Breathing medications are continued. Corticosteroids were discontinued. Her white count was 14.2, hemoglobin 14.8, hematocrit 45.9, platelet count 232,000. Sodium 138, potassium 4.3, chlorides 103, CO2 29, BUN 31, and creatinine 0.91. Labs, x- rays, medications are all reviewed. Objective - Vital Signs Vital signs: Vital Signs Temp 97.9 F 10/04/21 04:30 Pulse 48 L 10/04/21 12:00 Resp 18 10/04/21 08:00 BP 134/76 10/04/21 12:00 Pulse Ox 92 L 10/04/21 12:00 Intake & Output 10/03/21 10/04/21 10/04/21 18:59 06:59 18:59 Intake Total 830 480 Balance 830 480 Weight 109.3 kg 108.4 kg Intake: Intake, IV Titration 250 Amount Heparin Sod,Pork in 0.45% 250 NaCl 25,000 unit In 0.45 % NaCl 1 250ml.bag @ 9. 5853 UNITS/KG/HR 10 mls/ hr IV .Q24H [facility] Rx#: [id number] Oral 580 480 Other: Voiding Method Toilet Toilet Toilet # Voids 1 - Exam No acute distress, oriented 3. Currently on room air. No respiratory dist ress. HEENT examination is grossly unremarkable. Neck supple. Full range of motion. No adenopathy thyromegaly or neck vein distention. Cardiovascular examination reveals regular rhythm rate. S1-S2 normal. No S3 or S4. No discernible murmur noted. Heart rate 53 bpm. Lungs reveal mild scattered rhonchi. No wheezes. No crackles. Breath sounds equal bilaterally. Room air saturation 95%. Abdomen soft bowel sounds are heard. No masses or tenderness. Extremities are intact. No cyanosis clubbing or edema. Skin is without rash or lesion. Neurologic examination is brief but nonfocal. - Labs CBC & Chem 7: 10/04/21 07:04 10/04/21 07:04 Labs: Abnormal Lab Results - Last 24 Hours (Table) 10/03/21 10/03/21 10/04/21 Range/Units 16:34 20:07 06:00 WBC (3.8-10.6) k/uL Neutrophils # (1.3-7.7) k/uL APTT (22.0-30.0) sec BUN (7-17) mg/dL POC Glucose (mg/dL) 124 H 202 H 136 H (75-99) mg/dL AST (14-36) U/L ALT (4-34) U/L Crossmatch 10/04/21 10/04/21 10/04/21 Range/Units 07:04 07:04 07:04 WBC 14.2 H (3.8-10.6) k/uL Neutrophils # 10.1 H (1.3-7.7) k/uL APTT 68.8 H (22.0-30.0) sec BUN (7-17) mg/dL POC Glucose (mg/dL) (75-99) mg/dL AST (14-36) U/L ALT (4-34) U/L Crossmatch See Detail 10/04/21 10/04/21 Range/Units 07:04 11:41 WBC (3.8-10.6) k/uL Neutrophils # (1.3-7.7) k/uL APTT (22.0-30.0) sec BUN 31 H (7-17) mg/dL POC Glucose (mg/dL) 104 H (75-99) mg/dL AST 37 H (14-36) U/L ALT 68 H (4-34) U/L Crossmatch Assessment and Plan Assessment: Acute coronary syndrome, acute non-ST segment elevation myocardial infarction. Severe triple-vessel coronary disease, currently being evaluated for bypass grafting. Stage III COPD, with a preoperative FEV1 of 1.09 L or 44% of predicted, an MVV of 40 L/m, consistent with a moderate increased operative risk. Repeat lung function were much improved, with the use of bronchodilators, and corticosteroids. Right carotid stenosis, 70%. History of abdominal aortic aneurysm. Daily alcohol use. Chronic and ongoing tobacco dependence. History of hypertension. Plan: Plan dated 10/02/2021. The patient will have a repeat breathing test tomorrow. Additional recommendations and suggestions are forthcoming. I'm hoping that her lung function are improved with the treatments that we have been giving her. She certainly clinically feels much better. Additional recommendations and suggestions are forthcoming. We will communicate with the surgeons after the test tomorrow. Plan dated 10/03/2021. The patient's repeat lung function much improved. The patient's operative risk category went from moderately increased operative risk, to low increased operative risk, based on the changes in the FEV1, and MVV. The patient is clinically feeling much better. We will continue to follow make recommendations were appropriate. Surgery will decide when in if to do the surgery. We will continue to follow. Prognosis is guarded. Plan dated 10/04/2021. I believe the plan for the patient to undergo open heart surgery tomorrow. She apparently is going to have a right carotid stent placed today. Lung function are much improved. She continues on bronchodilators. Corticosteroids were discontinued. Additional recommendations and suggestions are forthcoming. Prognosis is guarded. We will continue to follow make recommendations where appropriate. Labs, and x-rays are all reviewed. Time with Patient: Less than 30
[2021-10-04] MEDS ORDERED: SODIUM CHLORIDE 0.9% 1,000 ML in EMPTY BAG 1 BAG IV ONE (14:55)
[2021-10-04] MEDS ORDERED: ALPRAZolam 0.5 MG TAB PO PRN (14:55)
[2021-10-04] MEDS ORDERED: ALPRAZolam 0.25 MG TAB PO PRN (14:55)
[2021-10-04] MEDS ORDERED: NITROGLYCERIN SL TABS 0.4 MG TAB SUBLINGUAL PRN (14:55)
[2021-10-04 16:35] LABS: Glucose,Whole Blood 103 mg/dL (75-99)
[2021-10-04 20:09] LABS: Glucose,Whole Blood 110 mg/dL (75-99)
[2021-10-04] MEDS: ATORVASTATIN 80 MG TAB PO SCH (20:30)
[2021-10-05] MEDS ORDERED: PHENYLEPHRINE 10 MG/ML VIAL IV ONE (05:00)
[2021-10-05] MEDS ORDERED: DILTIAZEM 125 MG in SODIUM CHLORIDE 0.9% 100 ML IV SCH (05:00)
[2021-10-05] MEDS ORDERED: METOPROLOL TARTRATE 12.5 MG TAB PO ONE (05:00)
[2021-10-05] MEDS ORDERED: TRANEXAMIC ACID 2,000 MG in SODIUM CHLORIDE 0.9% 80 ML IV ONE ×2 (05:00→06:00)
[2021-10-05] MEDS ORDERED: MAGNESIUM SULFATE 16.24 MEQ in EMPTY SYRINGE 1 SYR IV ONE (05:00)
[2021-10-05] MEDS ORDERED: PROTAMINE SULFATE 250 MG in EMPTY BAG 1 BAG IV ONE (05:00)
[2021-10-05] MEDS ORDERED: NITROGLYCERIN-D5W PMX 50 MG in DEXTROSE/WATER 1 250ML.BAG IV SCH ×2 (05:00→17:00)
[2021-10-05] MEDS ORDERED: PHENYLEPHRINE 40 MG in SODIUM CHLORIDE 0.9% 250 ML IV ONE (05:00)
[2021-10-05] MEDS ORDERED: NOREPINEPHRINE 4 MG in SODIUM CHLORIDE 0.9% 250 ML IV SCH (05:00)
[2021-10-05] MEDS ORDERED: HEPARIN SODIUM,PORCINE 5,000 UNIT in SODIUM CHLORIDE 0.9% 500 ML 500 ML IV ONE (05:00)
[2021-10-05] MEDS ORDERED: ceFAZolin 1,000 MG in SODIUM CHLORIDE 0.9% IRRIGATIO 1,000 ML IRRIGATION ONE (05:00)
[2021-10-05] MEDS ORDERED: LACTATED RINGERS 1,000 ML IV SCH (05:00)
[2021-10-05] MEDS ORDERED: ELECTROLYTE-A SOLUTION 1,000 ML with POTASSIUM CHLORIDE 100 MEQ, MAGNESIUM SULFATE 16 M... IV SCH ×5 (05:00)
[2021-10-05] MEDS ORDERED: MANNITOL 25% 12.5 GM/50 ML VIAL IV ONE ×2 (05:00)
[2021-10-05] MEDS ORDERED: ASPIRIN 325 MG TAB PO ONE (05:00)
[2021-10-05] MEDS ORDERED: CLEVIDIPINE BUTYRATE 25 MG in EMPTY BAG 1 BAG IV SCH ×2 (05:00→16:41)
[2021-10-05] MEDS ORDERED: PAPAVERINE 360 MG in SODIUM CHLORIDE 0.9% 90 ML IV ONE ×2 (05:00→11:33)
[2021-10-05] MEDS ORDERED: SODIUM BICARB 8.4% 50 ML SYR (1 MEQ/ML) IV ONE (05:00)
[2021-10-05] MEDS ORDERED: HEPARIN SODIUM 1,000 UN/ML (10ML VL) IV ONE ×2 (05:00→07:55)
[2021-10-05] MEDS ORDERED: NITROGLYCERIN-D5W PMX 25 MG/250 ML BTL IV ONE (05:00)
[2021-10-05] MEDS ORDERED: CALCIUM CHLORIDE 100 MG/ML 10 ML SYRINGE IVP ONE (05:00)
[2021-10-05] MEDS ORDERED: INSULIN REGULAR 100 UNIT in SODIUM CHLORIDE 0.9% 100 ML IV SCH ×2 (05:00→17:15)
[2021-10-05] MEDS ORDERED: ALBUMIN HUMAN 25% 50 ML in EMPTY BAG 1 BAG IVPB ONE (05:00)
[2021-10-05] MEDS ORDERED: ATORVASTATIN 10 MG TAB PO ONE (05:00)
[2021-10-05] MEDS ORDERED: CHLORHEXIDINE GLUCONATE 15 ML CUP MUCOUS MEM ONE (05:00)
[2021-10-05] MEDS ORDERED: ALBUMIN HUMAN 5% 500 ML in EMPTY BAG 1 BAG IVPB ONE ×6 (05:00)
[2021-10-05] MEDS ORDERED: PROTAMINE SULFATE 10 MG/ML 25 ML VIAL IV ONE ×2 (05:00→10:20)
[2021-10-05] MEDS ORDERED: ELECTROLYTE-A SOLUTION 1,000 ML with POTASSIUM CHLORIDE 40 MEQ, MAGNESIUM SULFATE 16 ME... IV SCH ×5 (05:00)
[2021-10-05 05:33] LABS: Glucose,Whole Blood 110 mg/dL (75-99)
[2021-10-05] MEDS: ISOSORBIDE MONONITRATE ER 30 MG TAB.ER.24H PO SCH (05:34)
[2021-10-05] MEDS: FAMOTIDINE 20 MG TAB PO SCH (05:34)
[2021-10-05] MEDS: hydroCHLOROthiazide 25 MG TAB PO SCH (05:34)
[2021-10-05] MEDS: lisinopriL 20 MG TAB PO SCH (05:35)
[2021-10-05] MEDS: hydrALAZINE HCL 50 MG TAB PO SCH (05:35)
[2021-10-05] MEDS: MUPIROCIN 2% OINT 22 GM TUBE NASAL SCH (05:36)
[2021-10-05] MEDS ORDERED: IV FLUID CONTINUATION 1,000 ML IV ONE ×2 (07:37→09:30)
[2021-10-05] MEDS ORDERED: LIDOCAINE 1% INJ 10MG/ML (5 ML VIAL-PF) SQ ONE (07:39)
[2021-10-05] MEDS ORDERED: HEPARIN SODIUM 1,000 UN/ML (10ML VL) ONE (07:41)
[2021-10-05] MEDS: BUDESONIDE 1 MG/2 ML NEBU INHALATION SCH ×2 (07:51→18:31)
[2021-10-05] MEDS: FORMOTEROL FUMARATE 20 MCG/2 ML NEBU INHALATION SCH (07:51)
[2021-10-05] MEDS: IPRATROPIUM-ALBUTEROL 3 ML NEB INHALATION SCH ×2 (07:51→12:12)
[2021-10-05] MEDS ORDERED: ATROPINE SULFATE 0.1 MG/ML 10ML SYRINGE IV ONE (08:35)
[2021-10-05] MEDS ORDERED: CLOPIDOGREL 75 MG TAB ONE ×2 (08:38→08:39)
[2021-10-05] MEDS ORDERED: CLOPIDOGREL 75 MG TAB PO ONE (08:45)
[2021-10-05] MEDS ORDERED: PHENYLEPHRINE-0.9% NACL SYG 1,000 MCG/10 ML SYRINGE IV ONE (08:45)
[2021-10-05] MEDS ORDERED: NOREPINEPHRINE 4 MG in SODIUM CHLORIDE 0.9% 250 ML IV ONE (09:00)
[2021-10-05] MEDS ORDERED: IOPAMIDOL-370 100ML BTL INJ ONE (09:11)
--- NOTE | 2021-10-05 09:26 | IR ---
EXAMINATION TYPE: IR angio carotid cereb RT DATE OF EXAM: 10/05/2021 CLINICAL HISTORY: Carotid stenosis. TECHNIQUE: Fluoroscopy. COMPARISON: None. FINDINGS: Fluoroscopic guidance was provided during carotid angiogram procedure performed by Dr. Celine camacho. A total of 26.8 minutes of fluoroscopic time was utilized during the procedure and 234 spot image s was acquired. Please refer to procedure note for further details as I was not present nor performed procedure. IMPRESSION: As Above.
[2021-10-05 10:05] LABS: Glucose,Whole Blood 109 mg/dL (75-99)
[2021-10-05] MEDS ORDERED: SODIUM CHLORIDE 0.9% 100 ML BAG ONE (10:20)
[2021-10-05] MEDS ORDERED: MAGNESIUM SULFATE 4 MEQ/ML 10ML VIAL ONE (10:20)
[2021-10-05] MEDS ORDERED: LIDOCAINE 2% SYG (PF) 100 MG/5 ML ONE (10:20)
[2021-10-05] MEDS ORDERED: TRANEXAMIC ACID IN NACL,ISO-OS 1,000 MG/100 ML BAG ONE (10:20)
[2021-10-05] MEDS ORDERED: VECURONIUM 10 MG VIAL IV ONE (10:20)
[2021-10-05] MEDS ORDERED: SODIUM CHLORIDE 0.9% IRRIG 1,000 ML BTL IRRIGATION ONE (10:20)
[2021-10-05] MEDS ORDERED: ALBUMIN HUMAN 5% (25gm) 500 ML VIAL IVPB ONE (10:20)
[2021-10-05] MEDS ORDERED: INSULIN REGULAR 100 UNIT/ML VIAL (IV) ONE (10:20)
[2021-10-05] MEDS ORDERED: SUCCINYLCHOLINE CHLORIDE 100 MG/5 ML SYR IV ONE (10:20)
[2021-10-05] MEDS ORDERED: WATER FOR INJECTION, STERILE 10 ML VIAL IV ONE (10:20)
[2021-10-05] MEDS ORDERED: fentaNYL (PF) 50 MCG/ML 50 ML VIAL ONE (10:20)
[2021-10-05] MEDS ORDERED: ETOMIDATE 2 MG/ML 10 ML VIAL ONE (10:20)
[2021-10-05] MEDS ORDERED: PHENYLEPHRINE-0.9% NACL SYG 1,000 MCG/10 ML SYRINGE ONE (10:20)
[2021-10-05] MEDS ORDERED: ELECTROLYTE-R (PH 7.4) 1,000 ML IV.SOLN IV ONE (10:20)
[2021-10-05] MEDS ORDERED: ceFAZolin 1,000 MG VIAL ONE (10:20)
[2021-10-05] MEDS ORDERED: HEPARIN SODIUM,PORCINE 10,000 UNIT/ML 1 ML VIAL ONE (10:20)
[2021-10-05] MEDS ORDERED: MIDAZOLAM HCL 10 MG/10 ML VIAL ONE (10:20)
[2021-10-05] MEDS ORDERED: CALCIUM CHLORIDE 100 MG/ML 10 ML SYRINGE ONE (10:20)
[2021-10-05] MEDS ORDERED: ePHEDrine 50 MG/ML 1 ML VIAL ONE (10:20)
[2021-10-05 10:55] LABS: ABG Glucose Whole Blood 104 mg/dL (75-99); ABG Hematocrit 40 % (34.0-46.0); ABG Ionized Calcium 4.7 mg/dL (4.5-5.3); ABG Lactic Acid Whole Blood 1.8 mmol/L (0.5-1.6); ABG Oxygen Saturation 99.8 % (94-97); ABG PCO2 41 mmHg (35-45); ABG PO2 252 mmHg (83-108); ABG Potassium Whole Blood 4.8 mmol/L (3.4-4.5); ABG Sodium Whole Blood 138 mmol/L (135-146)
[2021-10-05] MEDS ORDERED: SODIUM CHLORIDE 0.9% 500 ML 500 ML with HEPARIN SODIUM,PORCINE 5,000 UNIT IV ONE ×2 (11:33)
[2021-10-05] MEDS ORDERED: ceFAZolin 1,000 MG in SODIUM CHLORIDE 0.9% 1,000 ML IRRIGATION ONE (11:33)
--- NOTE | 2021-10-05 11:49 | P.PN ---
Subjective 61-year-old female patient with a past medical history significant for coronary artery disease and prior angioplasty and stenting multiple times with the last one in 2013 the details on that are unavailable at this point and also she does have history of smoking where she continues to smoke as well as hypertension and dyslipidemia presented to the emergency department complaining of chest discomfort. The symptoms started about a week ago where she is describing a pressure kind of discomfort in the middle of the chest with radiation to both a avelina associated with shortness of breath and sweating. No dizziness or lightheadedness and no presyncope or syncope. Lab review shows a WBC of 11.0, hemoglobin of 14.2). Count of 183, sodium 139, potassium 3.9, BUN/creatinine of 13/0.6; troponin is elevated at 1.55 trending up to 2.02 She had a transthoracic echocardiogram demonstrating EF 50-55% with mild aortic insufficiency. Yesterday she underwent heart catheterization demonstrating right dominant system with mid RCA 90-95% occluded, distal RCA with chronic total occlusion with previous stent present, obtuse marginal branch of the circ umflex coronary artery with 90-95% stenosis, and proximal LAD stenosis 80%. Due to these findings consultation was placed to Dr. Morse from cardiothoracic surgery for surgical revascularization recommendations. 10/01/2021 Apparently patient with none STEMI and cardiac catheterization showing triple coronary artery disease. Patient has been evaluated by cardiothoracic surgery with planned to undergo bypass surgery later on during this admission. Also cartilage and pulmonary team of the case. Patient currently on heparin drip, Solu-Medrol 60 mg, inhaled steroids. Aspirin. Hydralazine, Imdur, lisinopril and metoprolol and hydrochlorothiazide. Also she tells abdomen showing increased aortic aneurysm 4 cm up to 5.3 cm. While CTA of the head and neck showing severe stenosis of the right internal carotid artery 10/02/2021 Patient is a started on steroids and breathing treatment. She is sitting in chair fully awake and oriented, no chest pain or dyspnea at rest. 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 Currently she is chest pain-free. Continue with heparin drip. Also she is on aspirin. Plan for bypass by surgery team 10/03/2021 Patient with no chest pain or dyspnea today. No other complaints. She feels little congested with little headache and flushing to the face. Patient remains on heparin drip and IV Solu-Medrol Patient planned to get cardiac bypass surgery We will check for viral testing included an influenza , Covid and SVT 10/04/2021 Patient still with no chest pain or dyspnea. Sitting in bed with no distress. She remains on heparin drip Sinusitis symptoms improving. Patient is getting a workup by surgery team, with planned to undergo bypass surgery. We will follow up with surgery team about when to do surgery 10/04/2021 Patient is going for bypass surgery today. Her Vitas looks stable with temperature 97.3, heart rate 64, blood pressure 96/51, she is saturating 92% on 2 L oxygen. Glucose is controlled. WBC is 14.2, hemoglobin 14.8. Creatinine 0.9, AST 37 and ALT 68, bilirubin is normal at 0.7. Most likely patient will be moved to the ICU after the procedure, we will follow up Objective - Vital Signs Vital signs: Vital Signs Temp 97.3 F L 10/05/21 09:37 Pulse 58 L 10/05/21 10:10 Resp 16 10/05/21 09:37 BP 113/55 10/05/21 10:10 Pulse Ox 92 L 10/05/21 09:37 Intake & Output 10/04/21 10/05/21 10/05/21 18:59 06:59 18:59 Intake Total 820 255 Balance 820 255 Weight 108 kg Intake: IV 255 Oral 820 Other: Voiding Method Toilet Toilet - Exam - GENERAL: The patient is alert and oriented x3, not in any acute distress. Morbidly obese HEENT: Pupils are round and equally reacting to light. EOMI. No scleral icterus. No conjunctival pallor. Normocephalic, atraumatic. No pharyngeal erythema. No thyromegaly. CARDIOVASCULAR: S1 and S2 present. No murmurs, rubs, or gallops. PULMONARY: Chest is clear to auscultation, no wheezing or crackles. ABDOMEN: Soft, nontender, nondistended, normoactive bowel sounds. No palpable organomegaly. MUSCULOSKELETAL: No joint swelling or deformity. EXTREMITIES: No cyanosis, clubbing, or pedal edema. NEUROLOGICAL: Gross neurological examination did not reveal any focal deficits. SKIN: No rashes. no petechiae. - Labs CBC & Chem 7: 10/04/21 07:04 10/04/21 07:04 Labs: Abnormal Lab Results - Last 24 Hours (Table) 10/04/21 10/04/21 10/04/21 Range/Units 07:04 11:41 16:33 POC Glucose (mg/dL) 104 H 103 H (75-99) mg/dL Crossmatch See Detail 10/04/21 10/05/21 10/05/21 Range/Units 20:08 05:26 10:03 POC Glucose (mg/dL) 110 H 110 H 109 H (75-99) mg/dL Crossmatch Assessment and Plan Assessment: Non-ST elevation myocardial infarction secondary to severe triple coronary artery disease on cardiac cath planned for bypass surgery Right internal carotid artery stenosis A large aortic abdominal aneurysm 4 cm up to 5.3 cm COPD exacerbation Hypertensive urgency, breast on admission improved Morbid obesity Plan: This is a pleasant 61 years old female with triple coronary artery disease, COPD. Patient is going for bypass surgery on 10/05 Continue with steroids Continue with heparin drip Continue with aspirin and other blood pressure medication. Rippler on the case Cardiology and pulmonary team on the case. Cardiothoracic surgery team planned for bypass surgery Labs and medication were reviewed.. Continue same treatment. Continue with symptomatic treatment. Resume home medication. Monitor lytes and vitals. DVT and GI prophylaxis. Further recommendations as per clinical course of the patient DVT prophylaxis: Subcutaneous heparin GI Prophylaxis: pepcid Prognosis is guarded
[2021-10-05 12:12] LABS: ABG Glucose Whole Blood 117 mg/dL (75-99); ABG Hematocrit 37 % (34.0-46.0); ABG Ionized Calcium 4.7 mg/dL (4.5-5.3); ABG Lactic Acid Whole Blood 1.7 mmol/L (0.5-1.6); ABG Oxygen Saturation 94.5 % (94-97); ABG PCO2 42 mmHg (35-45); ABG PO2 73 mmHg (83-108); ABG Potassium Whole Blood 4.4 mmol/L (3.4-4.5); ABG Sodium Whole Blood 139 mmol/L (135-146)
[2021-10-05 12:37] LABS: ABG Glucose Whole Blood 115 mg/dL (75-99); ABG Hematocrit 26 % (34.0-46.0); ABG Ionized Calcium 4.1 mg/dL (4.5-5.3); ABG Lactic Acid Whole Blood 1.6 mmol/L (0.5-1.6); ABG Oxygen Saturation 99.8 % (94-97); ABG PCO2 41 mmHg (35-45); ABG PH 7.39 (7.35-7.45); ABG PO2 304 mmHg (83-108); ABG Potassium Whole Blood 4.2 mmol/L (3.4-4.5); ABG Sodium Whole Blood 135 mmol/L (135-146)
[2021-10-05] MEDS: HEPARIN SOD,PORK IN 0.45% NACL 25,000 UNIT in 0.45% NACL 1 250ML.BAG IV SCH (12:59)
[2021-10-05 13:27] LABS: ABG Glucose Whole Blood 165 mg/dL (75-99); ABG Hematocrit 25 % (34.0-46.0); ABG Ionized Calcium 4.1 mg/dL (4.5-5.3); ABG Oxygen Saturation 99.8 % (94-97); ABG PCO2 41 mmHg (35-45); ABG PH 7.38 (7.35-7.45); ABG PO2 303 mmHg (83-108); ABG Potassium Whole Blood 5.6 mmol/L (3.4-4.5); ABG Sodium Whole Blood 136 mmol/L (135-146)
[2021-10-05 14:06] LABS: ABG Glucose Whole Blood 203 mg/dL (75-99); ABG Hematocrit 25 % (34.0-46.0); ABG Ionized Calcium 4.1 mg/dL (4.5-5.3); ABG Oxygen Saturation 99.9 % (94-97); ABG PCO2 39 mmHg (35-45); ABG PH 7.38 (7.35-7.45); ABG PO2 359 mmHg (83-108); ABG Potassium Whole Blood 5.5 mmol/L (3.4-4.5); ABG Sodium Whole Blood 136 mmol/L (135-146)
[2021-10-05 14:43] LABS: ABG Glucose Whole Blood 204 mg/dL (75-99); ABG Ionized Calcium 4.1 mg/dL (4.5-5.3); ABG Oxygen Saturation 99.7 % (94-97); ABG PCO2 40 mmHg (35-45); ABG PH 7.35 (7.35-7.45); ABG PO2 355 mmHg (83-108); ABG Potassium Whole Blood 5.4 mmol/L (3.4-4.5); ABG Sodium Whole Blood 136 mmol/L (135-146)
[2021-10-05] MEDS ORDERED: ALBUMIN HUMAN 5% 250 ML IVPB ONE (15:05)
[2021-10-05 15:19] LABS: ABG Glucose Whole Blood 190 mg/dL (75-99); ABG Oxygen Saturation 99.5 % (94-97); ABG PCO2 45 mmHg (35-45); ABG PH 7.31 (7.35-7.45); ABG PO2 241 mmHg (83-108); ABG Potassium Whole Blood 4.9 mmol/L (3.4-4.5); ABG Sodium Whole Blood 138 mmol/L (135-146)
[2021-10-05 16:02] LABS: ABG Base Excess 0.8 mmol/L; ABG HCO3 25 mmol/L (21-25)
[2021-10-05 16:03] LABS: ABG Base Excess 0.9 mmol/L; ABG HCO3 25 mmol/L (21-25); ABG TCO2 42 mmol/L (19-24)
[2021-10-05 16:04] LABS: ABG Base Excess -0.5 mmol/L; ABG HCO3 24 mmol/L (21-25); ABG TCO2 41 mmol/L (19-24)
[2021-10-05 16:05] LABS: ABG Base Excess -0.4 mmol/L; ABG HCO3 24 mmol/L (21-25); ABG TCO2 41 mmol/L (19-24)
[2021-10-05 16:06] LABS: ABG Base Excess -1.8 mmol/L; ABG HCO3 23 mmol/L (21-25); ABG Lactic Acid Whole Blood 3.7 mmol/L (0.5-1.6); ABG TCO2 39 mmol/L (19-24)
[2021-10-05 16:07] LABS: ABG Base Excess -3.1 mmol/L; ABG HCO3 22 mmol/L (21-25); ABG Hematocrit 24 % (34.0-46.0); ABG Lactic Acid Whole Blood 4.5 mmol/L (0.5-1.6); ABG TCO2 40 mmol/L (19-24)
[2021-10-05 16:08] LABS: ABG Base Excess -3.3 mmol/L; ABG HCO3 22 mmol/L (21-25); ABG Hematocrit 22 % (34.0-46.0); ABG Lactic Acid Whole Blood 5.2 mmol/L (0.5-1.6); ABG TCO2 45 mmol/L (19-24)
[2021-10-05 16:11] LABS: ABG Glucose Whole Blood 186 mg/dL (75-99); ABG Hematocrit 29 % (34.0-46.0); ABG Ionized Calcium 4.5 mg/dL (4.5-5.3); ABG Oxygen Saturation 98.2 % (94-97); ABG PCO2 53 mmHg (35-45); ABG PH 7.25 (7.35-7.45); ABG PO2 128 mmHg (83-108); ABG Potassium Whole Blood 4.1 mmol/L (3.4-4.5); ABG Sodium Whole Blood 141 mmol/L (135-146)
[2021-10-05 16:27] LABS: ABG Glucose Whole Blood 152 mg/dL (75-99); ABG Hematocrit 30 % (34.0-46.0); ABG Ionized Calcium 4.6 mg/dL (4.5-5.3); ABG PCO2 47 mmHg (35-45); ABG PH 7.34 (7.35-7.45); ABG PO2 104 mmHg (83-108); ABG Potassium Whole Blood 3.8 mmol/L (3.4-4.5); ABG Sodium Whole Blood 142 mmol/L (135-146)
[2021-10-05 16:34] LABS: ABG Lactic Acid Whole Blood 5.2 mmol/L (0.5-1.6)
[2021-10-05 16:35] LABS: ABG HCO3 21 mmol/L (21-25); ABG TCO2 53 mmol/L (19-24)
[2021-10-05 16:36] LABS: ABG Base Excess -0.6 mmol/L; ABG HCO3 24 mmol/L (21-25); ABG Lactic Acid Whole Blood 4.9 mmol/L (0.5-1.6); ABG TCO2 47 mmol/L (19-24)
[2021-10-05] MEDS ORDERED: METOCLOPRAMIDE 5 MG/ML 2 ML VIAL IVP PRN (16:41)
[2021-10-05] MEDS ORDERED: AMIODARONE 360 MG in DEXTROSE 5% IN WATER 200 ML IV PRN ×2 (16:41)
[2021-10-05] MEDS ORDERED: Magnesium Replacement Protocol 1 EACH MISC MISCELLANE PRN (16:41)
[2021-10-05] MEDS ORDERED: hydrALAZINE HCL 20 MG/ML 1 ML VIAL IVP PRN (16:41)
[2021-10-05] MEDS ORDERED: Phosphorus Replacement Protoco 1 EACH MISC MISCELLANE PRN (16:41)
[2021-10-05] MEDS ORDERED: BENZOCAINE/MENTHOL LOZENG 1 EACH LOZENGE MUCOUS MEM PRN (16:41)
[2021-10-05] MEDS ORDERED: Potassium Replacement Protocol 1 EACH MISC MISCELLANE PRN ×2 (16:41→19:24)
[2021-10-05] MEDS ORDERED: DEXTROSE 5% IN WATER 100 ML with AMIODARONE 150 MG IV PRN (16:41)
[2021-10-05] MEDS ORDERED: ONDANSETRON 4 MG/2 ML VIAL IVP PRN (16:41)
[2021-10-05] MEDS ORDERED: DEXMEDETOMIDINE/0.9% NACL(PMX) 400 MCG in EMPTY BAG 1 BAG IV SCH (16:41)
[2021-10-05] MEDS ORDERED: MORPHINE SULFATE 2 MG/ML SYRINGE IVP PRN (16:41)
[2021-10-05] MEDS ORDERED: CALCIUM GLUCONATE IN NACL 2 GM in SALINE 1 100ML.BAG IVPB PRN (16:41)
[2021-10-05] MEDS ORDERED: AMIODARONE 450 MG in DEXTROSE 5% IN WATER 250 ML IV PRN ×2 (16:41)
[2021-10-05] MEDS: NICOTINE 14MG/24HR PATCH TRANSDERM SCH (16:56)
[2021-10-05] MEDS ORDERED: SODIUM CHLORIDE 0.9% 1,000 ML IV SCH (17:00)
[2021-10-05] MEDS: NOREPINEPHRINE 4 MG in SODIUM CHLORIDE 0.9% 250 ML IV SCH (17:30)
[2021-10-05 17:46] LABS: Glucose,Whole Blood 99 mg/dL (75-99)
[2021-10-05 17:57] LABS: Ionized Calcium 5.2 mg/dL (4.5-5.3)
--- NOTE | 2021-10-05 18:05 | XR ---
EXAMINATION TYPE: XR chest 1V portable DATE OF EXAM: 10/05/2021 COMPARISON: 10/03/2021 HISTORY: Postop heart surgery TECHNIQUE: FINDINGS: The endotracheal tube is 3 cm from the pretty. There is nasogastric tube and the tip is not well seen. Tip is probably at the gastroesophageal junction. There is right central venous catheter and tip is probably in the right ventricle. There is patchy at electasis in the lower lung ibarra. No pneumothorax. There are chest leads. IMPRESSION: There is some mild atelectasis in the lower lung ibarra. No obvious heart failure.
[2021-10-05 18:14] LABS: Basophils % (A) 0 %; Eosinophils # (A) 0.1 k/uL (0-0.7); Eosinophils % (A) 1 %; HCT 26.1 % (34.0-46.0); Lymphocytes % (A) 21 %; MCHC 32.1 g/dL (31.0-37.0); MCV 93.3 fL (80.0-100.0); Mean Platelet Volume 10.6; Monocytes # (A) 0.4 k/uL (0-1.0); Monocytes % (A) 3 %; Neutrophils # (A) 10.5 k/uL (1.3-7.7); Neutrophils % (A) 75 %; RDW 15.5 % (11.5-15.5)
[2021-10-05 18:17] LABS: HGB 8.4 gm/dL (11.4-16.0)
[2021-10-05 18:19] LABS: Glucose,Whole Blood 77 mg/dL (75-99)
[2021-10-05 18:20] LABS: ABG Base Excess 0.7 mmol/L; ABG HCO3 28 mmol/L (21-25); ABG PCO2 60 mmHg (35-45); ABG PH 7.27 (7.35-7.45); ABG PO2 181 mmHg (83-108); ABG TCO2 29 mmol/L (19-24); Allen Test Performed? Yes
[2021-10-05 18:20] LABS: INR 1.7 (<1.2); Prothrombin Time 17.7 sec (9.0-12.0)
[2021-10-05 18:22] LABS: Albumin 2.6 g/dL (3.5-5.0); Calcium 8.4 mg/dL (8.4-10.2); Magnesium 2.6 mg/dL (1.6-2.3); Partial Thromboplastin Time 117.7 sec (22.0-30.0); Platelet Count 92 k/uL (150-450); Total Bilirubin 1.1 mg/dL (0.2-1.3); Total Protein 4.2 g/dL (6.3-8.2)
[2021-10-05 18:24] LABS: Potassium 3.8 mmol/L (3.5-5.1)
[2021-10-05] MEDS: ACETAMINOPHEN IV (For NPO) 1,000 MG in EMPTY BAG 1 BAG IVPB SCH (18:50)
[2021-10-05 18:59] LABS: Glucose,Whole Blood 78 mg/dL (75-99)
[2021-10-05] MEDS: ALBUMIN HUMAN 5% 250 ML in EMPTY BAG 1 BAG IVPB PRN ×2 (19:32→20:39)
[2021-10-05] MEDS ORDERED: IPRATROPIUM-ALBUTEROL 3 ML NEB INHALATION SCH (20:00)
[2021-10-05 20:26] LABS: Glucose,Whole Blood 102 mg/dL (75-99)
--- NOTE | 2021-10-05 20:28 | OP ---
OPERATIVE REPORT DATE OF SURGERY: 10/05/2021. SURGEON: Dr. Huang Morse. TUBE INSPECTOR: 1. Bhanu Mello, Physician Nascar Racer. 2. Yamini Dawn, Nurse Practitioner. PREOPERATIVE DIAGNOSIS: 1. Triple-vessel coronary artery disease with [id number] myocardial infarction. 2. Severe right internal carotid artery stenosis. 3. Known abdominal aortic aneurysm. 4. Obesity. 5. Tobacco abuse. 6. Hypertension. 7. Hyperlipidemia. POSTOPERATIVE DIAGNOSIS: 1. Triple-vessel coronary artery disease with [id number]-FV-brpihbdym myocardial infarction. 2. Severe right internal carotid artery stenosis. 3. Known abdominal aortic aneurysm. 4. Obesity. 5. Tobacco abuse. 6. Hypertension. 7. Hyperlipidemia. 8. Diffuse coronary artery disease. PROCEDURE: 1. Triple-vessel coronary artery bypass grafting using the left internal mammary artery to the left anterior descending artery, reverse saphenous vein graft from the aorta to the first diagonal artery, reverse saphenous vein graft from the aorta to the ramus intermedius artery. 2. Exclusion of the left atrial appendage using a 35 mm AtriClip. 3. Endoscopic harvesting of the right greater saphenous vein. 4. Intraoperative graft flow measurements using the Carmolex,stim system. 5. Intraoperative transesophageal echocardiogram and epiaortic scanning. INDICATION FOR SURGERY: Patient is a 61-year-old lady who has not been seeking medical attention for a couple of years now. She had a known abdominal aortic aneurysm, being followed last in the [facility]. She was admitted and ruled in for wmg-ZS-pdzxojijj myocardial infarction. Cardiac catheterization followed and that showed a totally occluded right coronary artery that had been stented in the past as well as severe disease of left anterior descending artery, ramus and diagonal arteries. Her EF fraction was abnormality. Carotid duplex followed by a CTA of the neck showed severe stenosis of the right internal carotid artery. A CT scan of the abdomen and pelvis showed a known intrarenal abdominal aortic aneurysm that is around 5 to 5.2 cm with a calcific rim. Extensive discussion followed with Cardiology and decision was made to proceed with a plan of stenting of the right internal carotid artery stenosis followed by Plavix load and immediate coronary artery bypass grafting to follow. The increased STS risk was discussed with her. She understood it and agreed to proceed. DESCRIPTION OF THE PROCEDURE: The patient underwent right internal carotid artery stenosis stenting by Dr. Maxwell via the right femoral arterial approach. The patient neurologically remained intact. We identified severe stenosis of the common femoral artery distal to the insertion of the sheath that was left in place in view of the open-heart surgery that was going to follow. The patient was loaded with 600 mg of Plavix in the laboratory cureman and was brought to the recovery room, where she underwent insertion of a right radial arterial line and right internal jugular [place]-Magda catheter. PA pressure was 40/20. Cardiac index was 2.3. Subsequently general endotracheal anesthesia was induced uneventfully. A Alston catheter was inserted. The chest, abdomen and both lower extremities were prepped and draped using ChloraPrep. Ioban was used to cover the skin. The patient had a positive modified Nuno's test on the left side and the radial artery would not be used. Transesophageal echocardiogram confirmed the preoperative finding of mild left ventricular dysfunction with inferior hypokinesia. No significant valvular abnormality. Midline sternotomy was performed and the bone was reasonably dense. No bone wax was used. There was perfuse bleeding and Ostene was used along with Fibrillar to control it. Both pleura were opened and a 19-[place] Arthur drain was used on either side. The left hemisternum was elevated and the left internal mammary artery was harvested in a somewhat skeletonized fashion. The patient was given 5000 units of heparin. The mammary artery was double-clipped distally and transected. It had an excellent pulsatile flow in it and was around 1.75 mm in diameter. In the same setting, the right greater saphenous vein was harvested endoscopically from groin to above-ankle level after administration of 1000 units of heparin, as the patient's baseline ACT was 180 seconds. The branches were tied. The leg incisions were closed over a drain. Ankeney retractor was used. Mediastinal fat was transected between two ties and epiaortic scanning revealed a soft proximal and mid ascending aorta with no plaques. There was a known plaque posteriorly in the distal ascending aorta seen on CT scan and we would be clamping below that. There were no protruding atheromas. Pericardium was opened in an inverted T-fashion and a pericardial cradle was created. Findings included a normal soft aorta with good length in it and a normal-sized heart. There was palpable and visible diffuse sclerotic disease on a fatty heart. After systemic heparinization, after placement of respective pledgeted pursestrings, aortic cannulation with a 21-Tanz[place] Softflow cannula and venous cannulation with a three-stage transcannula via the right atrial appendage were performed. Antegrade as well as retrograde cardioplegia strategies were implemented via respective catheters in the ascending aorta and in the coronary sinus. Cardiopulmonary bypass was initiated, and with the heart empty and beating we looked at the target. Initially the atrial wall was exposed and the right coronary artery which was totally occluded and stented could not be directly bypassed. We looked at the tributaries and it appeared that the PDA as well as the posterolateral branch were very small, less than 1 mm in diameter, and non-bypassable. The posterior wall had a distal circumflex artery that also was less than 1 mm and non-bypassable. The high diagonal artery as well as ramus intermedius artery were identified. The ramus had a stent up to its mid aspect and beyond it. There was a second diagonal artery that was smaller, not seen on cath and non-bypassable. It took us a while to find the LAD. We were helped with the epiaortic ultrasound and I was able to locate the LAD, which was of good size, intramyocardially below a deep layer of fat in its mid aspect. At this point the aorta was clamped and myocardial protection was achieved with an initial dose of 1 liter of antegrade cold blood cardioplegia followed by 400 mL of retrograde cold blood cardioplegia. All subsequent doses were given retrograde at 15- minute intervals. We started first by excluding the left atrial appendage with a 35 mm AtriClip deployed at its base. The first distal anastomosis was between a segment of vein and the ramus intermedius artery beyond the stent where it was around 1.5 cm in diameter after insertion of 1 mm using a running Prolene 7-0 in continuous fashion. The second distal anastomosis was between another segment of vein, and both were of good quality and the 1.4 mm first diagonal artery after insertion of a 1 mm shunt using Prolene 7-0 in continuous fashion. Evidently the shunt was removed before completing the respective anastomosis. The third and last distal anastomosis was between the left internal mammary artery and the mid aspect of the left anterior descending artery, which again was an intramyocardial vessel in diameter using Prolene 7-0 in continuous fashion. Satisfied with the distal anastomoses, rewarming was started as we punched out two buttons of the ascending aorta. The ascending aorta had a thickened wall. We performed the two proximal anastomoses using running Prolene 6-0, taking care to include the whole wall in each bite. The patient was given lidocaine and magnesium. De-airing maneuvers were followed before unclamping the aorta with the aortic vent on maximum and the patient in Trendelenburg position. The patient regained spontaneous sinus rhythm. After around 15 to 20 minutes of reperfusion, we were able to wean off cardiopulmonary bypass with the need of Levophed, which had been started after the carotid stenting in view of ic reaction to the stenting. The cardiac index was 2.4, and the URMILA showed reasonable LV function and we did not need inotropes. Two monopolar atrial pacing wires were affixed to the respective pursestrings of the right atrium and one bipolar ventricular pacing wire was driven via the inferior aspect of the right ventricle. The deep trench made to find a left anterior descending artery intramyocardially required several 6-0 sutures to control venous bleeds, and we placed FloSeal with good results. We proceeded at this point with graft flow measurements, and all three grafts had excellent flow in them and parameters. With that, test-dose then full-dose protamine was given. Decannulation followed. The venous cannulation site was reinforced with a running 4-0 Prolene. Two 19-T[place] Arthur drains were left substernally. Pericardial fat and mediastinal fat were approximated over the aorta and the grafts. That was done after achieving hemostasis, which took a while in view of the patient's Plavix load. However, we did not need to infuse any platelets or blood. After ensuring adequate hemostasis and hemodynamics and after correct sponge, instrument and needle counts, the sternum was closed using 5 [id number]-pt-[id number] [place] cables after interposing Fibrillar between the sternal edges. Thorough irrigation with cefazolin followed. The rest of the closure proceeded in layers. Skin glue was applied. Patient did not receive any blood bank products but received around 600 mL of Cell Saver blood. She was transferred to the ICU, atrially paced at 84 with good conduction on Levophed low-dose with a mean arterial pressure of 75, PA pressure of 30/17, and a cardiac index of 2.2. MMODL / IJN: [id number] /
[2021-10-05 20:55] LABS: Basophils # (A) 0.1 k/uL (0-0.2); Basophils % (A) 0 %; Eosinophils # (A) 0.1 k/uL (0-0.7); Eosinophils % (A) 1 %; HCT 24.2 % (34.0-46.0); HGB 7.7 gm/dL (11.4-16.0); Lymphocytes # (A) 2.4 k/uL (1.0-4.8); Lymphocytes % (A) 16 %; MCH 29.3 pg (25.0-35.0); MCHC 31.8 g/dL (31.0-37.0); MCV 92.4 fL (80.0-100.0); Mean Platelet Volume 10.6; Monocytes # (A) 0.8 k/uL (0-1.0); Monocytes % (A) 5 %; Neutrophils # (A) 12.1 k/uL (1.3-7.7); Neutrophils % (A) 78 %; RBC 2.61 m/uL (3.80-5.40); RDW 15.1 % (11.5-15.5); WBC 15.6 k/uL (3.8-10.6)
[2021-10-05 20:56] LABS: Platelet Count 64 k/uL (150-450)
[2021-10-05 21:04] LABS: Glucose,Whole Blood 107 mg/dL (75-99)
[2021-10-05 21:14] LABS: ABG Base Excess -0.1 mmol/L; ABG HCO3 26 mmol/L (21-25); ABG Oxygen Saturation 97.1 % (94-97); ABG PCO2 52 mmHg (35-45); ABG PH 7.31 (7.35-7.45); ABG PO2 98 mmHg (83-108); ABG TCO2 28 mmol/L (19-24)
[2021-10-05 21:16] LABS: Allen Test Performed? No
[2021-10-05] MEDS: ATORVASTATIN 80 MG TAB PO SCH (21:34)
[2021-10-05] MEDS: POTASSIUM CHLORIDE 10 MEQ in WATER FOR INJECTION 1 100ML.BAG IVPB SCH ×2 (21:35→22:41)
[2021-10-05 22:26] LABS: Glucose,Whole Blood 116 mg/dL (75-99)
[2021-10-05 22:38] LABS: Basophils % (A) 0 %; Eosinophils % (A) 0 %; HCT 22.2 % (34.0-46.0); HGB 7.3 gm/dL (11.4-16.0); Lymphocytes # (A) 2.1 k/uL (1.0-4.8); Lymphocytes % (A) 15 %; MCH 30.5 pg (25.0-35.0); MCHC 32.8 g/dL (31.0-37.0); MCV 93.1 fL (80.0-100.0); Mean Platelet Volume 11.6; Monocytes # (A) 0.5 k/uL (0-1.0); Monocytes % (A) 4 %; Neutrophils # (A) 11.2 k/uL (1.3-7.7); Neutrophils % (A) 80 %; RBC 2.39 m/uL (3.80-5.40); RDW 15.6 % (11.5-15.5); WBC 13.9 k/uL (3.8-10.6)
[2021-10-05 22:44] LABS: ABG Base Excess -1.5 mmol/L; ABG HCO3 25 mmol/L (21-25); ABG Oxygen Saturation 92.7 % (94-97); ABG PCO2 47 mmHg (35-45); ABG PH 7.33 (7.35-7.45); ABG PO2 69 mmHg (83-108); ABG TCO2 26 mmol/L (19-24)
[2021-10-05 22:47] LABS: Platelet Count 66 k/uL (150-450)
[2021-10-05 22:48] LABS: Allen Test Performed? No
[2021-10-05] MEDS: IPRATROPIUM-ALBUTEROL 3 ML NEB INHALATION PRN (22:58)
[2021-10-05 23:02] LABS: Glucose,Whole Blood 123 mg/dL (75-99)
[2021-10-05 23:20] LABS: INR 1.8 (<1.2); Prothrombin Time 18.6 sec (9.0-12.0)
[2021-10-05 23:35] LABS: Partial Thromboplastin Time >200.0 sec (22.0-30.0)
[2021-10-05 23:36] LABS: Fibrinogen 83 mg/dL (200-500)
[2021-10-05] MEDS ORDERED: PROTAMINE SULFATE 10 MG/ML 5 ML VIAL IV STA (23:42)
[2021-10-06] MEDS ORDERED: HEPARIN SODIUM,PORCINE/PF 5,000 UNIT/0.5 ML SYRINGE SQ SCH
[2021-10-06 00:24] LABS: Glucose,Whole Blood 114 mg/dL (75-99)
[2021-10-06] MEDS: ACETAMINOPHEN IV (For NPO) 1,000 MG in EMPTY BAG 1 BAG IVPB SCH (00:44)
[2021-10-06] MEDS ORDERED: CALCIUM GLUCONATE IN NACL 2 GM in SALINE 1 100ML.BAG IVPB ONE (01:00)
[2021-10-06] MEDS: NOREPINEPHRINE 4 MG in SODIUM CHLORIDE 0.9% 250 ML IV SCH ×5 (01:13→23:38)
[2021-10-06 01:28] LABS: Glucose,Whole Blood 97 mg/dL (75-99)
[2021-10-06] MEDS: SODIUM CHLORIDE 0.9% 50 ML with VASOPRESSIN 20 UNIT IVPB SCH ×6 (01:32→15:33)
[2021-10-06 02:23] LABS: Glucose,Whole Blood 92 mg/dL (75-99)
[2021-10-06 03:08] LABS: Glucose,Whole Blood 78 mg/dL (75-99)
[2021-10-06] MEDS ORDERED: PHENYLEPHRINE 1 MG in SODIUM CHLORIDE 0.9% 100 ML IV ONE (03:30)
[2021-10-06 03:58] LABS: Basophils # (A) 0.1 k/uL (0-0.2); Basophils % (A) 0 %; Eosinophils % (A) 0 %; HCT 23.8 % (34.0-46.0); HGB 7.1 gm/dL (11.4-16.0); Hypochromasia Moderate; Lymphocytes # (A) 1.7 k/uL (1.0-4.8); Lymphocytes % (A) 10 %; MCH 28.7 pg (25.0-35.0); MCHC 29.8 g/dL (31.0-37.0); MCV 96.2 fL (80.0-100.0); Mean Platelet Volume 11.3; Monocytes # (A) 0.8 k/uL (0-1.0); Monocytes % (A) 5 %; Neutrophils # (A) 13.9 k/uL (1.3-7.7); Neutrophils % (A) 84 %; Platelet Count 80 k/uL (150-450); RBC 2.48 m/uL (3.80-5.40); WBC 16.5 k/uL (3.8-10.6)
[2021-10-06 03:58] LABS: ABG Base Excess -15.8 mmol/L; ABG HCO3 13 mmol/L (21-25); ABG Oxygen Saturation 90.7 % (94-97); ABG PCO2 38 mmHg (35-45); ABG PO2 74 mmHg (83-108); ABG TCO2 14 mmol/L (19-24)
[2021-10-06] MEDS: ALBUMIN HUMAN 5% 250 ML in EMPTY BAG 1 BAG IVPB PRN ×4 (03:58→12:00)
[2021-10-06 04:04] LABS: ABG PH 7.15 (7.35-7.45); Allen Test Performed? No
[2021-10-06 04:11] LABS: Glucose,Whole Blood 60 mg/dL (75-99)
[2021-10-06 04:12] LABS: ABG Base Excess -15.9 mmol/L; ABG HCO3 14 mmol/L (21-25); ABG Oxygen Saturation 51.2 % (94-97); ABG PCO2 47 mmHg (35-45); ABG TCO2 16 mmol/L (19-24)
[2021-10-06] MEDS ORDERED: DEXTROSE 50% SYRINGE 50 ML IVP STA (04:12)
[2021-10-06] MEDS: IPRATROPIUM-ALBUTEROL 3 ML NEB INHALATION PRN (04:19)
[2021-10-06 04:21] LABS: ABG PH 7.08 (7.35-7.45); ABG PO2 37 mmHg (83-108); Allen Test Performed? No
[2021-10-06] MEDS ORDERED: SODIUM BICARB 8.4% 50 ML SYR (1 MEQ/ML) ONE (04:22)
[2021-10-06 04:25] LABS: INR 2.1 (<1.2); Prothrombin Time 20.8 sec (9.0-12.0)
[2021-10-06] MEDS ORDERED: HYDROcodone/APAP 5-325MG 1 EACH TAB PO PRN ×2 (04:26)
[2021-10-06] MEDS: DEXTROSE 50% SYRINGE 50 ML IVP ONE ×2 (04:27→06:17)
[2021-10-06 04:36] LABS: Partial Thromboplastin Time 123.8 sec (22.0-30.0)
[2021-10-06 04:52] LABS: Ionized Calcium 4.8 mg/dL (4.5-5.3)
[2021-10-06 05:03] LABS: Glucose,Whole Blood 85 mg/dL (75-99)
[2021-10-06 05:04] LABS: Albumin 2.6 g/dL (3.5-5.0); Calcium 8.2 mg/dL (8.4-10.2); Magnesium 2.6 mg/dL (1.6-2.3); Total Bilirubin 1.6 mg/dL (0.2-1.3); Total Protein 3.9 g/dL (6.3-8.2)
[2021-10-06] MEDS ORDERED: FUROSEMIDE 10 MG/ML 2 ML VIAL IV PRN (05:31)
[2021-10-06 05:36] LABS: ABG Oxygen Saturation 92.3 % (94-97); ABG PCO2 25 mmHg (35-45); ABG PO2 77 mmHg (83-108); ABG TCO2 9 mmol/L (19-24)
[2021-10-06 05:38] LABS: ABG HCO3 8 mmol/L (21-25); ABG PH 7.12 (7.35-7.45); Allen Test Performed? No
[2021-10-06] MEDS ORDERED: SODIUM BICARB 8.4% 50 ML SYR (1 MEQ/ML) IV STA ×16 (05:38→22:36)
[2021-10-06 05:49] LABS: Potassium 6.7 mmol/L (3.5-5.1)
[2021-10-06 06:15] LABS: Glucose,Whole Blood 59 mg/dL (75-99)
[2021-10-06 06:24] LABS: ABG Base Excess -15.2 mmol/L; ABG HCO3 14 mmol/L (21-25); ABG Oxygen Saturation 91.2 % (94-97); ABG PCO2 40 mmHg (35-45); ABG PO2 75 mmHg (83-108); ABG TCO2 15 mmol/L (19-24)
[2021-10-06 06:26] LABS: ABG PH 7.14 (7.35-7.45); Allen Test Performed? No
[2021-10-06 06:32] LABS: Glucose,Whole Blood 108 mg/dL (75-99)
[2021-10-06] MEDS ORDERED: CALCIUM GLUCONATE IN NACL 1 GM in SALINE 1 100ML.BAG IVPB ONE (06:44)
[2021-10-06 07:24] LABS: Glucose,Whole Blood 78 mg/dL (75-99)
[2021-10-06] MEDS: IPRATROPIUM-ALBUTEROL 3 ML NEB INHALATION SCH ×5 (07:24→19:45)
[2021-10-06] MEDS: BUDESONIDE 1 MG/2 ML NEBU INHALATION SCH ×2 (07:24→19:45)
[2021-10-06 07:34] LABS: ABG Base Excess -2.9 mmol/L; ABG HCO3 23 mmol/L (21-25); ABG Oxygen Saturation 93.4 % (94-97); ABG PCO2 45 mmHg (35-45); ABG PH 7.32 (7.35-7.45); ABG PO2 70 mmHg (83-108); ABG TCO2 25 mmol/L (19-24)
[2021-10-06 07:35] LABS: Allen Test Performed? no
[2021-10-06 07:52] LABS: ABG HCO3 13 mmol/L (21-25); ABG Oxygen Saturation 54.1 % (94-97); ABG PCO2 35 mmHg (35-45); ABG TCO2 14 mmol/L (19-24); Allen Test Performed? Yes
[2021-10-06 07:54] LABS: ABG PH 7.17 (7.35-7.45); ABG PO2 33 mmHg (83-108)
[2021-10-06 08:05] LABS: Glucose,Whole Blood 62 mg/dL (75-99)
[2021-10-06] MEDS ORDERED: traMADol 50 MG TAB PO PRN (08:12)
--- NOTE | 2021-10-06 08:25 | XR ---
EXAMINATION TYPE: XR chest 1V portable DATE OF EXAM: 10/06/2021 Comparison: 10/05/2021 Clinical History: 61-year-old female Post Operative Cardiac Surgery Findings: Median sternotomy wires are present with postoperative clips in the mediastinum. Mediastinal drains. Right IJ [place]-Magda catheter tip in the main pulmonary outflow tract. NG tube is short. The tip is at the GE junction, the sidehole is at the mid chest level. ET tube satisfactory. Bilateral chest tubes in place without appreciable pneumothorax. Interstitial changes show some improvement. Mild patchy op acity remains at the periphery of the left base and also shows some improvement. Impression: 1. Note that the NG tube is short. The tip is at the GE junction. It will require further advancement by at least 10 cm. 2. Mild cardiomegaly with improving pulmonary vascular congestion. Improving patchy left lower lung o pacity, likely improving postoperative atelectasis.
[2021-10-06 08:31] LABS: ABG Base Excess -14.4 mmol/L; ABG HCO3 14 mmol/L (21-25); ABG Oxygen Saturation 91.9 % (94-97); ABG PCO2 37 mmHg (35-45); ABG PO2 71 mmHg (83-108); ABG TCO2 15 mmol/L (19-24)
[2021-10-06 08:36] LABS: ABG PH 7.18 (7.35-7.45); Allen Test Performed? no
[2021-10-06] MEDS: DEXTROSE 5% IN WATER 1,000 ML with SODIUM BICARB (1 MEQ/ML) 150 ML IV SCH ×2 (08:49→18:36)
[2021-10-06] MEDS: DEXTROSE 10% IN WATER 500 ML in EMPTY BAG 1 BAG IV SCH ×2 (08:49→20:02)
[2021-10-06] MEDS: NICOTINE 14MG/24HR PATCH TRANSDERM SCH (08:50)
[2021-10-06] MEDS ORDERED: bisacodyL 10 MG SUPP RECTAL PRN (09:00)
[2021-10-06] MEDS ORDERED: METOPROLOL TARTRATE 12.5 MG TAB PO SCH (09:00)
[2021-10-06] MEDS ORDERED: CLOPIDOGREL 75 MG TAB PO SCH (09:00)
[2021-10-06] MEDS ORDERED: PANTOPRAZOLE 40 MG/10 ML VIAL IVP SCH (09:00)
[2021-10-06] MEDS ORDERED: ASPIRIN 325 MG TAB PO SCH (09:00)
[2021-10-06] MEDS ORDERED: MAGNESIUM HYDROXIDE 2,400 MG/10 ML CUP PO PRN (09:00)
[2021-10-06 09:08] LABS: Glucose,Whole Blood 105 mg/dL (75-99)
--- NOTE | 2021-10-06 09:25 | P.PN ---
Subjective Progress Note Date: 10/06/21 Principal diagnosis: Triple-vessel diffuse coronary artery disease, NSTEMI, hypertensive urgency. History of previous myocardial infarction and stent placement to the distal RCA in 2007, hypertension, hyperlipidemia, obesity, AAA, daily EtOH use, current tobacco dependence, COPD, right internal carotid stenosis POD #1 right carotid angiogram with placement of right carotid stent by Dr. Maxwell POD #1 triple vessel coronary artery bypass grafting using the left internal mammary artery to the left anterior descending artery, reverse saphenous vein graft from the aorta to the first diagonal artery, reverse saphenous vein graft from the aorta to the ramus intermedius artery, exclusion of the left atrial appendage using a 35 mm AtriClip, endoscopic harvesting of the right greater saphenous vein, intraoperative graft flow measurements using the [employer] system, intraoperative transesophageal echocardiogram and epi-aortic scanning. Postoperative acute blood loss anemia and thrombocytopenia, expected given hemodilution and cardiopulmonary bypass pump Hypotension requiring pressor use, unexpected, likely due to vasoplegia [place], elevated transaminases, likely due to hypoperfusion from hypotension Respiratory acidosis, lactic acidosis, unexpected The patient was seen and examined bedside this morning in the intensive care unit, remains on mechanical ventilation. Patient has had a very meagan recovery with hourly updates and interventions by Dr. Morse. Patient has remained acidotic and hypotensive throughout the night, requiring levo and vaso-as well as multiple doses of sodium bicarb. She received 1 unit packed red blood cells this morning. Remains mechanically ventilated with FiO2 75% in PEEP 10. Currently sinus tach in the low 100s. Urine output marginal. Right internal jugular [place], right radial and right femoral arterial lines, mediastin al/left/right pleural chest tubes all remain. Hourly ABGs being completed, patient remains acidotic. Mixed venous gases also completed with pH 7.167, pCO2 34.8, HCO3 12.6, and oxygen saturation 54%. Objective - Vital Signs Vital signs: Vital Signs Temp 96.8 F L 10/06/21 06:54 Pulse 108 H 10/06/21 07:57 Resp 28 H 10/06/21 07:15 BP 75/28 10/06/21 07:15 Pulse Ox 96 10/06/21 07:15 Intake & Output 10/05/21 10/06/21 10/06/21 18:59 06:59 18:59 Intake Total 489.168 5184.157 90.5 Output Total 2485 1824 155 Balance -1957.196 -78.843 -64.5 Weight 122.1 kg Intake: IV 499.0 1026.0 90.5 0.9 Sodium Chloride 100 600 50 0.9 Sodium Chloride for 20 250 30 Cardiac Output Albumin Human 5% 250 ml @ 50 50 0 mls/hr IVPB .[facility] Rx#:[id number] Nitroglycerin-D5w Pmx 50 3.0 18.0 1.5 mg In Dextrose/Water 1 250ml.bag @ 5 MCG/MIN 1.5 mls/hr IV .Q24H [facility] Rx#: [id number] Pressure Bag (0.9 Sodium 18 108 9 Chloride Intake, IV Titration 28.804 719.157 Amount Calcium Gluconate in NaCl 100 2 gm In Saline 1 100ml. bag @ 100 mls/hr IVPB ONCE ONE Rx#:[id number] Insulin Regular 100 unit 1.027 In Sodium Chloride 0.9% 100 ml @ Per Protocol IV .Q0M [facility] Rx#:[id number] Norepinephrine 4 mg In 28.804 225.196 Sodium Chloride 0.9% 250 ml @ 0.02 MCG/KG/MIN 8.23 mls/hr IV .Q24H [facility] Rx#: [id number] Phenylephrine 1 mg In 100 Sodium Chloride 0.9% 100 ml @ 400.4 mls/hr IV ONCE ONE Rx#:[id number] Potassium Chloride 10 meq 200 In Water For Injection 1 100ml.bag @ 100 mls/hr IVPB Q1H [facility] Rx#: [id number] propofoL 1,000 mg In 92.934 Empty Bag 1 bag @ Titrate IV .Q0M [facility] Rx#: [id number] Blood Product 0 Rc As-1 Unit 0 [id number] Output: Chest Tube Drainage 500 1114 75 Chest Tube Left Lateral 220 470 20 Chest Chest Tube Mediastinal 240 584 40 Right Lateral Chest 40 60 15 Drainage 80 70 Right Calf 80 70 Urine 985 630 10 Estimated Blood Loss 1000 Other: Voiding Method Indwelling Catheter Indwelling Catheter ABP, PAP, CO, CI - Last Documented Arterial Blood Pressure 100/58 Pulmonary Artery Pressure 38/24 Cardiac Output 5.2 Cardiac Index 2.5 - Exam CONSTITUTIONAL: Remains intubated and sedated on pressors for blood pressure support RESPIRATORY: Lungs sounds diminished bilaterally. Respirations even, nonlabored on mechanical ventilation. Current ventilator settings assist control mode, FiO2 75%, tidal volume 450, respiratory rate 18, PEEP 10. 8.0 ET tube present, 24 at the lip CARDIOVASCULAR: S1, S2 present. Tachy but regular rate and rhythm, sinus tach on telemetry with rate in the low 100s. Sternum stable. Palpable peripheral pulses bilaterally. No edema present. Surgical binder, antiembolism stockings, SCDs present. GASTROINTESTINAL: Abdomen soft, nontender, nondistended. Hypoactive bowel sounds present 4 quadrants, tympanic to percussion in the right upper quadrant. OG tube present to low intermittent suction with minimal output GENITOURINARY: [place] present draining clear, yellow urine. Output overnight 10-30 mL per hour INTEGUMENTARY: Skin is warm and dry. Anterior chest incision well approximated and covered with dry intact dressing. Right lower extremity EVH site well approximated, INGRID drain present with 150 mL serosanguineous drainage overnight NEUROLOGIC: Sedated on mechanical ventilation INVASIVE LINES AND TUBES: Mediastinal/left/right pleural chest tubes present and connected to wall suction, no air leaks present. Mediastinal tube with 410 mL serosanguineous drainage overnight, 800 mL since surgery. Left pleural chest tube with 270 mL serosanguineous drainage overnight, 750 mL since surgery. Right pleural chest tube with 45 mL serosanguineous drainage overnight, 110 mL since surgery. A/V epicardial pacemaker wires present, connected to generator, AAI mode with backup rate 60 bpm. Right internal jugular [place], right radial and femoral arterial lines present. Last CO/CI 5.2/2.5, PA 40/26, CVP 16. - Allied health notes Allied health notes reviewed: nursing - Labs CBC & Chem 7: 10/06/21 03:50 10/06/21 03:55 Labs: Abnormal Lab Results - Last 24 Hours (Table) 10/04/21 10/05/21 10/05/21 Range/Units 07:04 10:03 10:56 WBC (3.8-10.6) k/uL RBC (3.80-5.40) m/uL Hgb (11.4-16.0) gm/dL Hct (34.0-46.0) % MCHC (31.0-37.0) g/dL RDW (11.5-15.5) % Plt Count (150-450) k/uL Neutrophils # (1.3-7.7) k/uL PT (9.0-12.0) sec INR (<1.2) APTT (22.0-30.0) sec Fibrinogen (200-500) mg/dL ABG pH (7.35-7.45) ABG pCO2 (35-45) mmHg ABG pO2 252 H (83-108) mmHg ABG HCO3 (21-25) mmol/L ABG Total CO2 (19-24) mmol/L ABG O2 Saturation 99.8 H (94-97) % ABG Hematocrit (34.0-46.0) % ABG Potassium 4.8 H (3.4-4.5) mmol/L ABG Ionized Calcium (4.5-5.3) mg/dL ABG Glucose 104 H (75-99) mg/dL ABG Lactic Acid 1.8 H (0.5-1.6) mmol/L Hemoglobin (11.4-16.0) gm/dL Potassium (3.5-5.1) mmol/L Chloride (98-107) mmol/L Carbon Dioxide (22-30) mmol/L BUN (7-17) mg/dL Creatinine (0.52-1.04) mg/dL Glucose (74-99) mg/dL POC Glucose (mg/dL) 109 H (75-99) mg/dL Calcium (8.4-10.2) mg/dL Magnesium (1.6-2.3) mg/dL Total Bilirubin (0.2-1.3) mg/dL AST (14-36) U/L ALT (4-34) U/L Alkaline Phosphatase (38-126) U/L Total Protein (6.3-8.2) g/dL Albumin (3.5-5.0) g/dL Arterial Blood Potassium 4.8 H (3.4-4.5) mmol/L Arterial Blood Glucose 104 H (75-99) mg/dL Crossmatch See Detail 10/05/21 10/05/21 10/05/21 Range/Units 12:13 12:38 13:27 WBC (3.8-10.6) k/uL RBC (3.80-5.40) m/uL Hgb (11.4-16.0) gm/dL Hct (34.0-46.0) % MCHC (31.0-37.0) g/dL RDW (11.5-15.5) % Plt Count (150-450) k/uL Neutrophils # (1.3-7.7) k/uL PT (9.0-12.0) sec INR (<1.2) APTT (22.0-30.0) sec Fibrinogen (200-500) mg/dL ABG pH (7.35-7.45) ABG pCO2 (35-45) mmHg ABG pO2 73 L 304 H 303 H (83-108) mmHg ABG HCO3 (21-25) mmol/L ABG Total CO2 42 H 41 H 41 H (19-24) mmol/L ABG O2 Saturation 99.8 H 99.8 H (94-97) % ABG Hematocrit 26 L 25 L (34.0-46.0) % ABG Potassium 5.6 H (3.4-4.5) mmol/L ABG Ionized Calcium 4.1 L 4.1 L (4.5-5.3) mg/dL ABG Glucose 117 H 115 H 165 H (75-99) mg/dL ABG Lactic Acid 1.7 H 3.0 H* (0.5-1.6) mmol/L Hemoglobin 8.5 L 8.2 L (11.4-16.0) gm/dL Potassium (3.5-5.1) mmol/L Chloride (98-107) mmol/L Carbon Dioxide (22-30) mmol/L BUN (7-17) mg/dL Creatinine (0.52-1.04) mg/dL Glucose (74-99) mg/dL POC Glucose (mg/dL) (75-99) mg/dL Calcium (8.4-10.2) mg/dL Magnesium (1.6-2.3) mg/dL Total Bilirubin (0.2-1.3) mg/dL AST (14-36) U/L ALT (4-34) U/L Alkaline Phosphatase (38-126) U/L Total Protein (6.3-8.2) g/dL Albumin (3.5-5.0) g/dL Arterial Blood Potassium 5.6 H (3.4-4.5) mmol/L Arterial Blood Glucose 117 H 115 H 165 H (75-99) mg/dL Crossmatch 10/05/21 10/05/21 10/05/21 Range/Units 14:07 14:43 15:20 WBC (3.8-10.6) k/uL RBC (3.80-5.40) m/uL Hgb (11.4-16.0) gm/dL Hct (34.0-46.0) % MCHC (31.0-37.0) g/dL RDW (11.5-15.5) % Plt Count (150-450) k/uL Neutrophils # (1.3-7.7) k/uL PT (9.0-12.0) sec INR (<1.2) APTT (22.0-30.0) sec Fibrinogen (200-500) mg/dL ABG pH 7.31 L (7.35-7.45) ABG pCO2 (35-45) mmHg ABG pO2 359 H 355 H 241 H (83-108) mmHg ABG HCO3 (21-25) mmol/L ABG Total CO2 39 H 40 H 45 H (19-24) mmol/L ABG O2 Saturation 99.9 H 99.7 H 99.5 H (94-97) % ABG Hematocrit 25 L 24 L 22 L (34.0-46.0) % ABG Potassium 5.5 H 5.4 H 4.9 H (3.4-4.5) mmol/L ABG Ionized Calcium 4.1 L 4.1 L 4.0 L (4.5-5.3) mg/dL ABG Glucose 203 H 204 H 190 H (75-99) mg/dL ABG Lactic Acid 3.7 H* 4.5 H* 5.2 H* (0.5-1.6) mmol/L Hemoglobin 8.2 L 7.7 L 7.2 L (11.4-16.0) gm/dL Potassium (3.5-5.1) mmol/L Chloride (98-107) mmol/L Carbon Dioxide (22-30) mmol/L BUN (7-17) mg/dL Creatinine (0.52-1.04) mg/dL Glucose (74-99) mg/dL POC Glucose (mg/dL) (75-99) mg/dL Calcium (8.4-10.2) mg/dL Magnesium (1.6-2.3) mg/dL Total Bilirubin (0.2-1.3) mg/dL AST (14-36) U/L ALT (4-34) U/L Alkaline Phosphatase (38-126) U/L Total Protein (6.3-8.2) g/dL Albumin (3.5-5.0) g/dL Arterial Blood Potassium 5.5 H 5.4 H 4.9 H (3.4-4.5) mmol/L Arterial Blood Glucose 203 H 204 H 190 H (75-99) mg/dL Crossmatch 10/05/21 10/05/21 10/05/21 Range/Units 16:12 16:28 17:43 WBC 14.0 H (3.8-10.6) k/uL RBC 2.80 L (3.80-5.40) m/uL Hgb 8.4 L D (11.4-16.0) gm/dL Hct 26.1 L (34.0-46.0) % MCHC (31.0-37.0) g/dL RDW (11.5-15.5) % Plt Count 92 L D (150-450) k/uL Neutrophils # 10.5 H (1.3-7.7) k/uL PT (9.0-12.0) sec INR (<1.2) APTT (22.0-30.0) sec Fibrinogen (200-500) mg/dL ABG pH 7.25 L 7.34 L (7.35-7.45) ABG pCO2 53 H 47 H (35-45) mmHg ABG pO2 128 H (83-108) mmHg ABG HCO3 (21-25) mmol/L ABG Total CO2 53 H 47 H (19-24) mmol/L ABG O2 Saturation 98.2 H 98.0 H (94-97) % ABG Hematocrit 29 L 30 L (34.0-46.0) % ABG Potassium (3.4-4.5) mmol/L ABG Ionized Calcium (4.5-5.3) mg/dL ABG Glucose 186 H 152 H (75-99) mg/dL ABG Lactic Acid 5.2 H* 4.9 H* (0.5-1.6) mmol/L Hemoglobin 9.3 L 9.7 L (11.4-16.0) gm/dL Potassium (3.5-5.1) mmol/L Chloride (98-107) mmol/L Carbon Dioxide (22-30) mmol/L BUN (7-17) mg/dL Creatinine (0.52-1.04) mg/dL Glucose (74-99) mg/dL POC Glucose (mg/dL) (75-99) mg/dL Calcium (8.4-10.2) mg/dL Magnesium (1.6-2.3) mg/dL Total Bilirubin (0.2-1.3) mg/dL AST (14-36) U/L ALT (4-34) U/L Alkaline Phosphatase (38-126) U/L Total Protein (6.3-8.2) g/dL Albumin (3.5-5.0) g/dL Arterial Blood Potassium (3.4-4.5) mmol/L Arterial Blood Glucose 186 H 152 H (75-99) mg/dL Crossmatch 10/05/21 10/05/21 10/05/21 Range/Units 17:43 17:43 18:20 WBC (3.8-10.6) k/uL RBC (3.80-5.40) m/uL Hgb (11.4-16.0) gm/dL Hct (34.0-46.0) % MCHC (31.0-37.0) g/dL RDW (11.5-15.5) % Plt Count (150-450) k/uL Neutrophils # (1.3-7.7) k/uL PT 17.7 H (9.0-12.0) sec INR 1.7 H (<1.2) APTT 117.7 H* (22.0-30.0) sec Fibrinogen 84 L (200-500) mg/dL ABG pH 7.27 L (7.35-7.45) ABG pCO2 60 H (35-45) mmHg ABG pO2 181 H (83-108) mmHg ABG HCO3 28 H (21-25) mmol/L ABG Total CO2 29 H (19-24) mmol/L ABG O2 Saturation 99.0 H (94-97) % ABG Hematocrit (34.0-46.0) % ABG Potassium (3.4-4.5) mmol/L ABG Ionized Calcium (4.5-5.3) mg/dL ABG Glucose (75-99) mg/dL ABG Lactic Acid (0.5-1.6) mmol/L Hemoglobin (11.4-16.0) gm/dL Potassium (3.5-5.1) mmol/L Chloride 109 H (98-107) mmol/L Carbon Dioxide (22-30) mmol/L BUN 25 H (7-17) mg/dL Creatinine (0.52-1.04) mg/dL Glucose (74-99) mg/dL POC Glucose (mg/dL) (75-99) mg/dL Calcium (8.4-10.2) mg/dL Magnesium 2.6 H (1.6-2.3) mg/dL Total Bilirubin (0.2-1.3) mg/dL AST 283 H (14-36) U/L ALT 309 H (4-34) U/L Alkaline Phosphatase 24 L (38-126) U/L Total Protein 4.2 L (6.3-8.2) g/dL Albumin 2.6 L (3.5-5.0) g/dL Arterial Blood Potassium (3.4-4.5) mmol/L Arterial Blood Glucose (75-99) mg/dL Crossmatch 10/05/21 10/05/21 10/05/21 Range/Units 20:24 20:25 21:02 WBC 15.6 H (3.8-10.6) k/uL RBC 2.61 L (3.80-5.40) m/uL Hgb 7.7 L (11.4-16.0) gm/dL Hct 24.2 L (34.0-46.0) % MCHC (31.0-37.0) g/dL RDW (11.5-15.5) % Plt Count 64 L (150-450) k/uL Neutrophils # 12.1 H (1.3-7.7) k/uL PT (9.0-12.0) sec INR (<1.2) APTT (22.0-30.0) sec Fibrinogen (200-500) mg/dL ABG pH (7.35-7.45) ABG pCO2 (35-45) mmHg ABG pO2 (83-108) mmHg ABG HCO3 (21-25) mmol/L ABG Total CO2 (19-24) mmol/L ABG O2 Saturation (94-97) % ABG Hematocrit (34.0-46.0) % ABG Potassium (3.4-4.5) mmol/L ABG Ionized Calcium (4.5-5.3) mg/dL ABG Glucose (75-99) mg/dL ABG Lactic Acid (0.5-1.6) mmol/L Hemoglobin (11.4-16.0) gm/dL Potassium (3.5-5.1) mmol/L Chloride (98-107) mmol/L Carbon Dioxide (22-30) mmol/L BUN (7-17) mg/dL Creatinine (0.52-1.04) mg/dL Glucose (74-99) mg/dL POC Glucose (mg/dL) 102 H 107 H (75-99) mg/dL Calcium (8.4-10.2) mg/dL Magnesium (1.6-2.3) mg/dL Total Bilirubin (0.2-1.3) mg/dL AST (14-36) U/L ALT (4-34) U/L Alkaline Phosphatase (38-126) U/L Total Protein (6.3-8.2) g/dL Albumin (3.5-5.0) g/dL Arterial Blood Potassium (3.4-4.5) mmol/L Arterial Blood Glucose (75-99) mg/dL Crossmatch 10/05/21 10/05/21 10/05/21 Range/Units 21:10 22:13 22:30 WBC 13.9 H (3.8-10.6) k/uL RBC 2.39 L (3.80-5.40) m/uL Hgb 7.3 L (11.4-16.0) gm/dL Hct 22.2 L (34.0-46.0) % MCHC (31.0-37.0) g/dL RDW 15.6 H (11.5-15.5) % Plt Count 66 L (150-450) k/uL Neutrophils # 11.2 H (1.3-7.7) k/uL PT (9.0-12.0) sec INR (<1.2) APTT (22.0-30.0) sec Fibrinogen (200-500) mg/dL ABG pH 7.31 L (7.35-7.45) ABG pCO2 52 H (35-45) mmHg ABG pO2 (83-108) mmHg ABG HCO3 26 H (21-25) mmol/L ABG Total CO2 28 H (19-24) mmol/L ABG O2 Saturation 97.1 H (94-97) % ABG Hematocrit (34.0-46.0) % ABG Potassium (3.4-4.5) mmol/L ABG Ionized Calcium (4.5-5.3) mg/dL ABG Glucose (75-99) mg/dL ABG Lactic Acid (0.5-1.6) mmol/L Hemoglobin (11.4-16.0) gm/dL Potassium (3.5-5.1) mmol/L Chloride (98-107) mmol/L Carbon Dioxide (22-30) mmol/L BUN (7-17) mg/dL Creatinine (0.52-1.04) mg/dL Glucose (74-99) mg/dL POC Glucose (mg/dL) 116 H (75-99) mg/dL Calcium (8.4-10.2) mg/dL Magnesium (1.6-2.3) mg/dL Total Bilirubin (0.2-1.3) mg/dL AST (14-36) U/L ALT (4-34) U/L Alkaline Phosphatase (38-126) U/L Total Protein (6.3-8.2) g/dL Albumin (3.5-5.0) g/dL Arterial Blood Potassium (3.4-4.5) mmol/L Arterial Blood Glucose (75-99) mg/dL Crossmatch 10/05/21 10/05/21 10/05/21 Range/Units 22:30 22:40 23:01 WBC (3.8-10.6) k/uL RBC (3.80-5.40) m/uL Hgb (11.4-16.0) gm/dL Hct (34.0-46.0) % MCHC (31.0-37.0) g/dL RDW (11.5-15.5) % Plt Count (150-450) k/uL Neutrophils # (1.3-7.7) k/uL PT 18.6 H (9.0-12.0) sec INR 1.8 H (<1.2) APTT >200.0 H* (22.0-30.0) sec Fibrinogen 83 L (200-500) mg/dL ABG pH 7.33 L (7.35-7.45) ABG pCO2 47 H (35-45) mmHg ABG pO2 69 L (83-108) mmHg ABG HCO3 (21-25) mmol/L ABG Total CO2 26 H (19-24) mmol/L ABG O2 Saturation 92.7 L (94-97) % ABG Hematocrit (34.0-46.0) % ABG Potassium (3.4-4.5) mmol/L ABG Ionized Calcium (4.5-5.3) mg/dL ABG Glucose (75-99) mg/dL ABG Lactic Acid (0.5-1.6) mmol/L Hemoglobin (11.4-16.0) gm/dL Potassium (3.5-5.1) mmol/L Chloride (98-107) mmol/L Carbon Dioxide (22-30) mmol/L BUN (7-17) mg/dL Creatinine (0.52-1.04) mg/dL Glucose (74-99) mg/dL POC Glucose (mg/dL) 123 H (75-99) mg/dL Calcium (8.4-10.2) mg/dL Magnesium (1.6-2.3) mg/dL Total Bilirubin (0.2-1.3) mg/dL AST (14-36) U/L ALT (4-34) U/L Alkaline Phosphatase (38-126) U/L Total Protein (6.3-8.2) g/dL Albumin (3.5-5.0) g/dL Arterial Blood Potassium (3.4-4.5) mmol/L Arterial Blood Glucose (75-99) mg/dL Crossmatch 10/06/21 10/06/21 10/06/21 Range/Units 00:13 03:50 03:50 WBC 16.5 H (3.8-10.6) k/uL RBC 2.48 L (3.80-5.40) m/uL Hgb 7.1 L (11.4-16.0) gm/dL Hct 23.8 L (34.0-46.0) % MCHC 29.8 L (31.0-37.0) g/dL RDW (11.5-15.5) % Plt Count 80 L (150-450) k/uL Neutrophils # 13.9 H (1.3-7.7) k/uL PT 20.8 H (9.0-12.0) sec INR 2.1 H (<1.2) APTT 123.8 H* (22.0-30.0) sec Fibrinogen 94 L (200-500) mg/dL ABG pH (7.35-7.45) ABG pCO2 (35-45) mmHg ABG pO2 (83-108) mmHg ABG HCO3 (21-25) mmol/L ABG Total CO2 (19-24) mmol/L ABG O2 Saturation (94-97) % ABG Hematocrit (34.0-46.0) % ABG Potassium (3.4-4.5) mmol/L ABG Ionized Calcium (4.5-5.3) mg/dL ABG Glucose (75-99) mg/dL ABG Lactic Acid (0.5-1.6) mmol/L Hemoglobin (11.4-16.0) gm/dL Potassium (3.5-5.1) mmol/L Chloride (98-107) mmol/L Carbon Dioxide (22-30) mmol/L BUN (7-17) mg/dL Creatinine (0.52-1.04) mg/dL Glucose (74-99) mg/dL POC Glucose (mg/dL) 114 H (75-99) mg/dL Calcium (8.4-10.2) mg/dL Magnesium (1.6-2.3) mg/dL Total Bilirubin (0.2-1.3) mg/dL AST (14-36) U/L ALT (4-34) U/L Alkaline Phosphatase (38-126) U/L Total Protein (6.3-8.2) g/dL Albumin (3.5-5.0) g/dL Arterial Blood Potassium (3.4-4.5) mmol/L Arterial Blood Glucose (75-99) mg/dL Crossmatch 10/06/21 10/06/21 10/06/21 Range/Units 03:55 03:55 04:09 WBC (3.8-10.6) k/uL RBC (3.80-5.40) m/uL Hgb (11.4-16.0) gm/dL Hct (34.0-46.0) % MCHC (31.0-37.0) g/dL RDW (11.5-15.5) % Plt Count (150-450) k/uL Neutrophils # (1.3-7.7) k/uL PT (9.0-12.0) sec INR (<1.2) APTT (22.0-30.0) sec Fibrinogen (200-500) mg/dL ABG pH 7.15 L* (7.35-7.45) ABG pCO2 (35-45) mmHg ABG pO2 74 L (83-108) mmHg ABG HCO3 13 L (21-25) mmol/L ABG Total CO2 14 L (19-24) mmol/L ABG O2 Saturation 90.7 L (94-97) % ABG Hematocrit (34.0-46.0) % ABG Potassium (3.4-4.5) mmol/L ABG Ionized Calcium (4.5-5.3) mg/dL ABG Glucose (75-99) mg/dL ABG Lactic Acid (0.5-1.6) mmol/L Hemoglobin (11.4-16.0) gm/dL Potassium 6.7 H* (3.5-5.1) mmol/L Chloride 109 H (98-107) mmol/L Carbon Dioxide 14 L (22-30) mmol/L BUN 29 H (7-17) mg/dL Creatinine 1.50 H (0.52-1.04) mg/dL Glucose 55 L (74-99) mg/dL POC Glucose (mg/dL) 60 L (75-99) mg/dL Calcium 8.2 L (8.4-10.2) mg/dL Magnesium 2.6 H (1.6-2.3) mg/dL Total Bilirubin 1.6 H (0.2-1.3) mg/dL AST 2582 H (14-36) U/L ALT 3021 H (4-34) U/L Alkaline Phosphatase (38-126) U/L Total Protein 3.9 L (6.3-8.2) g/dL Albumin 2.6 L (3.5-5.0) g/dL Arterial Blood Potassium (3.4-4.5) mmol/L Arterial Blood Glucose (75-99) mg/dL Crossmatch 10/06/21 10/06/21 10/06/21 Range/Units 04:10 05:31 06:03 WBC (3.8-10.6) k/uL RBC (3.80-5.40) m/uL Hgb (11.4-16.0) gm/dL Hct (34.0-46.0) % MCHC (31.0-37.0) g/dL RDW (11.5-15.5) % Plt Count (150-450) k/uL Neutrophils # (1.3-7.7) k/uL PT (9.0-12.0) sec INR (<1.2) APTT (22.0-30.0) sec Fibrinogen (200-500) mg/dL ABG pH 7.08 L* 7.12 L* (7.35-7.45) ABG pCO2 47 H 25 L (35-45) mmHg ABG pO2 37 L* 77 L (83-108) mmHg ABG HCO3 14 L 8 L* (21-25) mmol/L ABG Total CO2 16 L 9 L (19-24) mmol/L ABG O2 Saturation 51.2 L 92.3 L (94-97) % ABG Hematocrit (34.0-46.0) % ABG Potassium (3.4-4.5) mmol/L ABG Ionized Calcium (4.5-5.3) mg/dL ABG Glucose (75-99) mg/dL ABG Lactic Acid (0.5-1.6) mmol/L Hemoglobin (11.4-16.0) gm/dL Potassium (3.5-5.1) mmol/L Chloride (98-107) mmol/L Carbon Dioxide (22-30) mmol/L BUN (7-17) mg/dL Creatinine (0.52-1.04) mg/dL Glucose (74-99) mg/dL POC Glucose (mg/dL) 59 L (75-99) mg/dL Calcium (8.4-10.2) mg/dL Magnesium (1.6-2.3) mg/dL Total Bilirubin (0.2-1.3) mg/dL AST (14-36) U/L ALT (4-34) U/L Alkaline Phosphatase (38-126) U/L Total Protein (6.3-8.2) g/dL Albumin (3.5-5.0) g/dL Arterial Blood Potassium (3.4-4.5) mmol/L Arterial Blood Glucose (75-99) mg/dL Crossmatch 10/06/21 10/06/21 10/06/21 Range/Units 06:20 06:21 07:12 WBC (3.8-10.6) k/uL RBC (3.80-5.40) m/uL Hgb (11.4-16.0) gm/dL Hct (34.0-46.0) % MCHC (31.0-37.0) g/dL RDW (11.5-15.5) % Plt Count (150-450) k/uL Neutrophils # (1.3-7.7) k/uL PT (9.0-12.0) sec INR (<1.2) APTT (22.0-30.0) sec Fibrinogen (200-500) mg/dL ABG pH 7.14 L* (7.35-7.45) ABG pCO2 (35-45) mmHg ABG pO2 75 L (83-108) mmHg ABG HCO3 14 L (21-25) mmol/L ABG Total CO2 15 L (19-24) mmol/L ABG O2 Saturation 91.2 L (94-97) % ABG Hematocrit (34.0-46.0) % ABG Potassium (3.4-4.5) mmol/L ABG Ionized Calcium (4.5-5.3) mg/dL ABG Glucose (75-99) mg/dL ABG Lactic Acid 19.6 H* (0.5-1.6) mmol/L Hemoglobin (11.4-16.0) gm/dL Potassium (3.5-5.1) mmol/L Chloride (98-107) mmol/L Carbon Dioxide (22-30) mmol/L BUN (7-17) mg/dL Creatinine (0.52-1.04) mg/dL Glucose (74-99) mg/dL POC Glucose (mg/dL) 108 H (75-99) mg/dL Calcium (8.4-10.2) mg/dL Magnesium (1.6-2.3) mg/dL Total Bilirubin (0.2-1.3) mg/dL AST (14-36) U/L ALT (4-34) U/L Alkaline Phosphatase (38-126) U/L Total Protein (6.3-8.2) g/dL Albumin (3.5-5.0) g/dL Arterial Blood Potassium (3.4-4.5) mmol/L Arterial Blood Glucose (75-99) mg/dL Crossmatch 10/06/21 10/06/21 10/06/21 Range/Units 07:32 07:50 08:04 WBC (3.8-10.6) k/uL RBC (3.80-5.40) m/uL Hgb (11.4-16.0) gm/dL Hct (34.0-46.0) % MCHC (31.0-37.0) g/dL RDW (11.5-15.5) % Plt Count (150-450) k/uL Neutrophils # (1.3-7.7) k/uL PT (9.0-12.0) sec INR (<1.2) APTT (22.0-30.0) sec Fibrinogen (200-500) mg/dL ABG pH 7.32 L 7.17 L* (7.35-7.45) ABG pCO2 (35-45) mmHg ABG pO2 70 L 33 L* (83-108) mmHg ABG HCO3 13 L (21-25) mmol/L ABG Total CO2 25 H 14 L (19-24) mmol/L ABG O2 Saturation 93.4 L 54.1 L (94-97) % ABG Hematocrit (34.0-46.0) % ABG Potassium (3.4-4.5) mmol/L ABG Ionized Calcium (4.5-5.3) mg/dL ABG Glucose (75-99) mg/dL ABG Lactic Acid (0.5-1.6) mmol/L Hemoglobin (11.4-16.0) gm/dL Potassium (3.5-5.1) mmol/L Chloride (98-107) mmol/L Carbon Dioxide (22-30) mmol/L BUN (7-17) mg/dL Creatinine (0.52-1.04) mg/dL Glucose (74-99) mg/dL POC Glucose (mg/dL) 62 L (75-99) mg/dL Calcium (8.4-10.2) mg/dL Magnesium (1.6-2.3) mg/dL Total Bilirubin (0.2-1.3) mg/dL AST (14-36) U/L ALT (4-34) U/L Alkaline Phosphatase (38-126) U/L Total Protein (6.3-8.2) g/dL Albumin (3.5-5.0) g/dL Arterial Blood Potassium (3.4-4.5) mmol/L Arterial Blood Glucose (75-99) mg/dL Crossmatch - Imaging and Cardiology Chest x-ray: report reviewed, image reviewed Assessment and Plan Assessment: 1. Triple-vessel diffuse coronary artery disease, previous myocardial infarction and stent placement to the distal RCA in 2007, non-STEMI this admission, status post three-vessel CABG 2. Hypertension with hypertensive urgency upon admission, currently hypotensive on pressors 3. Hyperlipidemia, treated, cholesterol 174, LDL 102, triglycerides 175 4. Obesity 5. AAA last measured at 3.4 cm here in 2013, measured 4.8 cm with suspicion of impending rupture in 2020 according to [facility]'s report, measures 5.3 cm on CTA from 10/01/21 6. Daily EtOH use 7. Current tobacco dependence 8. COPD with initial FEV1 44% of predicted, improved to 64% of predicted 9. Right internal carotid stenosis greater than 70% by doppler, severe focal stenosis at the origin per CTA 10/01/21, status post right carotid stent 10. Postoperative acute blood loss anemia and thrombocytopenia 11. [place] 12. Elevated transaminases 13. Respiratory acidosis, lactic acidosis Plan: 1. Will hold aspirin, Plavix due to thrombocytopenia. Will hold beta tierney due to hypotension and pressor use. Will hold statin due to elevated tra nsaminases 2. Continue levo, vaso-, wean when able. Start and continue IV sodium bicarb drip 3. Ventilator management per pulmonology 4. Stat echo ordered and completed this morning, will review with cardiology 5. Will follow daily labs and x-rays. Electrolyte replacement per protocol 6. Will follow hourly ABGs until acidosis resolves. Lactic acid to be drawn every 6 hours until resolution 7. Protonix for GI prophylaxis, SCDs for DVT prophylaxis 8. Avoid nephrotoxins, hepatotoxins 9. Insulin management per primary care, patient is not diabetic with preoperative hemoglobin A1c 5.8% 10. More recommendations to follow based on patient's progress
[2021-10-06 09:29] LABS: ABG HCO3 14 mmol/L (21-25); ABG Oxygen Saturation 92.4 % (94-97); ABG PCO2 37 mmHg (35-45); ABG PO2 73 mmHg (83-108); ABG TCO2 15 mmol/L (19-24)
[2021-10-06 09:32] LABS: ABG PH 7.19 (7.35-7.45); Allen Test Performed? no
[2021-10-06 09:49] LABS: Potassium 5.7 mmol/L (3.5-5.1)
[2021-10-06 10:06] LABS: Glucose,Whole Blood 123 mg/dL (75-99)
[2021-10-06] MEDS ORDERED: METHYLENE BLUE 10 MG/ML (10 ML VIAL) IV ONE (10:14)
--- NOTE | 2021-10-06 10:22 | P.PN ---
Subjective Progress Note Date: 10/06/21 Principal diagnosis: Coronary artery disease. This is a very pleasant 61-year-old female patient who has a known history of chronic and ongoing tobacco dependence, daily alcohol use, abdominal aortic aneurysm, hypertension, hyperlipidemia, coronary artery disease with previous s tent placement to the RCA in 2007. She had presented to the emergency room on 09/28/2021 with complaints of increasing shortness of breath, chest discomfort and achy feeling with a pain of about a 3. She is also states her blood pressure was reading greater than 200 at home. She was using sublingual nitroglycerin without much improvement and presented here to the emergency room for the same. She was found to have an acute coronary syndrome and had undergone cardiac catheterization and was found to have a chronic total occlusion of the RCA distally with aneurysmal dilatation of the RCA in the midportion. Critical disease with a long tubular lesion involving the first OM of the left circumflex. Severe disease with a focal lesion involving the proximal LAD and elevated left-sided filling pressures. Echocardiogram revealed preserved left ventricular systolic function with ejection fraction 50-55%. No significant valvular disease. She was advised coronary artery bypass grafting. We're consulted for postop management. She is seen today in consultation on the selective care unit. She's been up ambulating in the hallway. No further chest discomfort. No worsening shortness of breath cough or congestion. Pulmonary function testing reveals an FEV1 value of 44% of predicted. She has been smoking a pack per day for 40 years. 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 Not on home oxygen. Not on any inhalers. Asked x-ray revealed opacities projecting over the hard/lingula may represent atelectasis. She is maintaining O2 saturation in the 90s on room air. She's been afebrile. Remains hypertensive. White count 8.3. Hemoglobin 14.4. Platelet count 167. INR 0.9. Sodium 140. Potassium 3.9. BUN 12. Creatinine 0.59. TSH 2.26. Urinalysis negative. Hepatitis screen negative. She remains on a heparin drip. She's been initiated on statins, aspirin, beta blockers. She was receiving Lasix 20 mg IV every [address] patch and place. On 10/01/2021 patient is seen in follow-up on selective care unit. Patient sitting up in bed, does not appear to be in any acute distress. She is on room air pulse ox of 91%, afebrile, breathing is nonlabored. Denies any chest discomfort, no cough, lung sounds are diminished. She is on heparin infusion. She is undergoing preop evaluation for triple-vessel coronary artery disease. Her preop FEV1 was 1.09 L or 44% of predicted, with MVV of 40.9, consistent with moderate surgical risk. Patient will be started on Pulmicort and Perforomist, she'll be started on IV steroids. CT of the chest, abdomen and pelvis showed interval progression of the abdominal aortic aneurysm with progressive atheromat ous plaque and calcifications with a recommendation of vascular surgery consultation. Patient was also found to have carotid artery stenosis that showed severe right ICA stenosis of greater than 70%, and mild less than 50% stenosis of the left ICA. Echocardiogram showed EF of 50-55%. There was mo derate concentric LVH, inferobasilar hypokinesia. Mild aortic regurgitation, normal mitral valve with mild MR Progress note dated 10/02/2021. The patient will have a repeat breathing test tomorrow. We placed the patient on DuoNeb, Pulmicort, formoterol, and corticosteroids. The hope is that her lung function are improved, and she can undergo surgery more safely. On her initial bedside spirometry, her FEV1 was 1.09 L which is 44% of predicted. Her MVV was 41 L/m. Clinically, she states that she's feeling much better. She continues on IV heparin. White count 14.5, hemoglobin 14.8, hematocrit 46.3, and platelet count 224,000. PTT is 57.3. Sodium 137, potassium 4.1, chlorides 103, CO2 20, anion gap 14, BUN 21, creatinine 0.83. Progress note dated 10/03/2021. The patient did much better on her repeat pulmonary function test. In my opinion, she has been optimized for surgery. I did discontinue the corticosteroids today. She remains on DuoNeb, Pulmicort, and formoterol. Her FEV1 was 1.57 L, compared to 1.09 L. In addition, her FEV1 and MVV, were much improved. Clinically, she's feeling much improved. No new laboratory data today other than a PTT of 61.2, and a glucose of 91. Chest x-ray shows some minimal atelectasis at the bases, right greater than left. Progress note dated 10/04/2021. 61-year-old female, who is planning to undergo surgery, possibly tomorrow. The patient is to have a right carotid artery stent placed. Her lung function is much improved. She's on room air. She's feeling much better. Breathing medications are continued. Corticosteroids were discontinued. Her white count was 14.2, hemoglobin 14.8, hematocrit 45.9, platelet count 232,000. Sodium 138, potassium 4.3, chlorides 103, CO2 29, BUN 31, and creatinine 0.91. Labs, x- rays, medications are all reviewed. Progress note dated 10/06/2021. 61-year-old female, postop day #1, that is post three-vessel bypass grafting. She had a FAGAN to LAD bypass, saphenous vein bypass to the diagonal and ramus. She also had left atrial appendage exclusion. She had an intraoperative URMILA as well. Currently, she is in the ICU on the ventilator. She is on the volume assist control mode, rate 18, tidal volume 450, FiO2 75%, and PEEP of 10. Blood gases show pO2 of 71, pCO2 37, and a pH is 7.18. The patient has received a total of 9 ampules of sodium bicarbonate thus far. She is currently on a sodium bicarbonate drip with 3 ampules of bicarbonate and D5W, at 100 mL an hour. In addition, the patient is on D10 at 40 mL an hour, norepinephrine at 13 minute, propofol at 15 mcg/kg/m, and vasopressin at 0.04 units per minute. White count 16.5, hemoglobin 7.1, hematocrit 23.8, and platelet count 80,000. PTT was 20.8, INR 2.1, and PTT is 124. Sodium 138, potassium 5.7, chlorides 109, CO2 18, anion gap 15, BUN 29, and creatinine 1.50. Calcium 8.2. Bilirubin 1.6. AST 2582, ALT 3021, and lipase 434. Chest x-ray shows mild cardiomegaly, postoperative atelectasis, and improving pulmonary vascular congestion. Objective - Vital Signs Vital signs: Vital Signs Temp 96.8 F L 10/06/21 08:45 Pulse 105 H 10/06/21 08:45 Resp 31 H 10/06/21 08:45 BP 90/58 10/06/21 08:45 Pulse Ox 88 L 10/06/21 08:45 Intake & Output 10/05/21 10/06/21 10/06/21 18:59 06:59 18:59 Intake Total 924.682 2544.157 908.5 Output Total 2485 1824 525 Balance -1957.196 -78.843 383.5 Weight 122.1 kg Intake: IV 499.0 1026.0 598.5 0.9 Sodium Chloride 100 600 110 0.9 Sodium Chloride for 20 250 70 Cardiac Output Albumin Human 5% 250 ml @ 50 50 250 0 mls/hr IVPB .STK-MED ONE Rx#:[id number] Dextrose 10% in Water 500 40 ml In Empty Bag 1 bag @ 40 mls/hr IV .[id number] [facility] Rx#:[id number] Dextrose 5% in Water 1, 100 000 ml @ 100 mls/hr IV . [id number] [facility] with Sodium Bicarb (1 Meq/ml) 150 ml Rx#:[id number] Nitroglycerin-D5w Pmx 50 3.0 18.0 1.5 mg In Dextrose/Water 1 250ml.bag @ 5 MCG/MIN 1.5 mls/hr IV .Q24H [facility] Rx#: [id number] Pressure Bag (0.9 Sodium 18 108 27 Chloride Intake, IV Titration 28.804 719.157 Amount Calcium Gluconate in NaCl 100 2 gm In Saline 1 100ml. bag @ 100 mls/hr IVPB ONCE ONE Rx#:[id number] Insulin Regular 100 unit 1.027 In Sodium Chloride 0.9% 100 ml @ Per Protocol IV .Q0M [facility] Rx#:[id number] Norepinephrine 4 mg In 28.804 225.196 Sodium Chloride 0.9% 250 ml @ 0.02 MCG/KG/MIN 8.23 mls/hr IV .Q24H [facility] Rx#: [id number] Phenylephrine 1 mg In 100 Sodium Chloride 0.9% 100 ml @ 400.4 mls/hr IV ONCE ONE Rx#:[id number] Potassium Chloride 10 meq 200 In Water For Injection 1 100ml.bag @ 100 mls/hr IVPB Q1H [facility] Rx#: [id number] propofoL 1,000 mg In 92.934 Empty Bag 1 bag @ Titrate IV .Q0M [facility] Rx#: [id number] Blood Product 0 310 Rc As-1 Unit 0 310 [id number] Output: Chest Tube Drainage 500 1114 275 Chest Tube Left Lateral 220 470 50 Chest Chest Tube Mediastinal 240 584 170 Right Lateral Chest 40 60 55 Drainage 80 220 Right Calf 80 220 Urine 985 630 30 Estimated Blood Loss 1000 Other: Voiding Method Indwelling Catheter Indwelling Catheter Indwelling Catheter ABP, PAP, CO, CI - Last Documented Arterial Blood Pressure 112/60 Pulmonary Artery Pressure 42/26 Cardiac Output 5.2 Cardiac Index 2.5 - Exam No acute distress, intubated and sedated, with an orally placed endotracheal tube and NG tube. HEENT examination is grossly unremarkable. Neck supple. Full range of motion. No adenopathy thyromegaly or neck vein distention. Cardiovascular examination reveals regular rhythm rate. S1-S2 normal. No S3 or S4. No discernible murmur noted. Heart rate 105 bpm. Heart sounds are distant. Lungs reveal scattered bilateral rhonchi. Breath sounds equal bilaterally. No wheezes. No crackles. Saturations are in the mid 90s. Abdomen soft, without bowel sounds. No masses. Extremities are intact. No cyanosis clubbing or edema. Skin is without rash or lesion. Neurologic examination cannot be adequately assessed. - Labs CBC & Chem 7: 10/06/21 03:50 10/06/21 09:14 Labs: Abnormal Lab Results - Last 24 Hours (Table) 10/04/21 10/05/21 10/05/21 Range/Units 07:04 10:56 12:13 WBC (3.8-10.6) k/uL RBC (3.80-5.40) m/uL Hgb (11.4-16.0) gm/dL Hct (34.0-46.0) % MCHC (31.0-37.0) g/dL RDW (11.5-15.5) % Plt Count (150-450) k/uL Neutrophils # (1.3-7.7) k/uL PT (9.0-12.0) sec INR (<1.2) APTT (22.0-30.0) sec Fibrinogen (200-500) mg/dL ABG pH (7.35-7.45) ABG pCO2 (35-45) mmHg ABG pO2 252 H 73 L (83-108) mmHg ABG HCO3 (21-25) mmol/L ABG Total CO2 42 H (19-24) mmol/L ABG O2 Saturation 99.8 H (94-97) % ABG Hematocrit (34.0-46.0) % ABG Potassium 4.8 H (3.4-4.5) mmol/L ABG Ionized Calcium (4.5-5.3) mg/dL ABG Glucose 104 H 117 H (75-99) mg/dL ABG Lactic Acid 1.8 H 1.7 H (0.5-1.6) mmol/L Hemoglobin (11.4-16.0) gm/dL Potassium (3.5-5.1) mmol/L Chloride (98-107) mmol/L Carbon Dioxide (22-30) mmol/L BUN (7-17) mg/dL Creatinine (0.52-1.04) mg/dL Glucose (74-99) mg/dL POC Glucose (mg/dL) (75-99) mg/dL Calcium (8.4-10.2) mg/dL Magnesium (1.6-2.3) mg/dL Total Bilirubin (0.2-1.3) mg/dL AST (14-36) U/L ALT (4-34) U/L Alkaline Phosphatase (38-126) U/L Creatine Kinase (30-135) U/L Total Protein (6.3-8.2) g/dL Albumin (3.5-5.0) g/dL Lipase (23-300) U/L Arterial Blood Potassium 4.8 H (3.4-4.5) mmol/L Arterial Blood Glucose 104 H 117 H (75-99) mg/dL Crossmatch See Detail 10/05/21 10/05/21 10/05/21 Range/Units 12:38 13:27 14:07 WBC (3.8-10.6) k/uL RBC (3.80-5.40) m/uL Hgb (11.4-16.0) gm/dL Hct (34.0-46.0) % MCHC (31.0-37.0) g/dL RDW (11.5-15.5) % Plt Count (150-450) k/uL Neutrophils # (1.3-7.7) k/uL PT (9.0-12.0) sec INR (<1.2) APTT (22.0-30.0) sec Fibrinogen (200-500) mg/dL ABG pH (7.35-7.45) ABG pCO2 (35-45) mmHg ABG pO2 304 H 303 H 359 H (83-108) mmHg ABG HCO3 (21-25) mmol/L ABG Total CO2 41 H 41 H 39 H (19-24) mmol/L ABG O2 Saturation 99.8 H 99.8 H 99.9 H (94-97) % ABG Hematocrit 26 L 25 L 25 L (34.0-46.0) % ABG Potassium 5.6 H 5.5 H (3.4-4.5) mmol/L ABG Ionized Calcium 4.1 L 4.1 L 4.1 L (4.5-5.3) mg/dL ABG Glucose 115 H 165 H 203 H (75-99) mg/dL ABG Lactic Acid 3.0 H* 3.7 H* (0.5-1.6) mmol/L Hemoglobin 8.5 L 8.2 L 8.2 L (11.4-16.0) gm/dL Potassium (3.5-5.1) mmol/L Chloride (98-107) mmol/L Carbon Dioxide (22-30) mmol/L BUN (7-17) mg/dL Creatinine (0.52-1.04) mg/dL Glucose (74-99) mg/dL POC Glucose (mg/dL) (75-99) mg/dL Calcium (8.4-10.2) mg/dL Magnesium (1.6-2.3) mg/dL Total Bilirubin (0.2-1.3) mg/dL AST (14-36) U/L ALT (4-34) U/L Alkaline Phosphatase (38-126) U/L Creatine Kinase (30-135) U/L Total Protein (6.3-8.2) g/dL Albumin (3.5-5.0) g/dL Lipase (23-300) U/L Arterial Blood Potassium 5.6 H 5.5 H (3.4-4.5) mmol/L Arterial Blood Glucose 115 H 165 H 203 H (75-99) mg/dL Crossmatch 10/05/21 10/05/21 10/05/21 Range/Units 14:43 15:20 16:12 WBC (3.8-10.6) k/uL RBC (3.80-5.40) m/uL Hgb (11.4-16.0) gm/dL Hct (34.0-46.0) % MCHC (31.0-37.0) g/dL RDW (11.5-15.5) % Plt Count (150-450) k/uL Neutrophils # (1.3-7.7) k/uL PT (9.0-12.0) sec INR (<1.2) APTT (22.0-30.0) sec Fibrinogen (200-500) mg/dL ABG pH 7.31 L 7.25 L (7.35-7.45) ABG pCO2 53 H (35-45) mmHg ABG pO2 355 H 241 H 128 H (83-108) mmHg ABG HCO3 (21-25) mmol/L ABG Total CO2 40 H 45 H 53 H (19-24) mmol/L ABG O2 Saturation 99.7 H 99.5 H 98.2 H (94-97) % ABG Hematocrit 24 L 22 L 29 L (34.0-46.0) % ABG Potassium 5.4 H 4.9 H (3.4-4.5) mmol/L ABG Ionized Calcium 4.1 L 4.0 L (4.5-5.3) mg/dL ABG Glucose 204 H 190 H 186 H (75-99) mg/dL ABG Lactic Acid 4.5 H* 5.2 H* 5.2 H* (0.5-1.6) mmol/L Hemoglobin 7.7 L 7.2 L 9.3 L (11.4-16.0) gm/dL Potassium (3.5-5.1) mmol/L Chloride (98-107) mmol/L Carbon Dioxide (22-30) mmol/L BUN (7-17) mg/dL Creatinine (0.52-1.04) mg/dL Glucose (74-99) mg/dL POC Glucose (mg/dL) (75-99) mg/dL Calcium (8.4-10.2) mg/dL Magnesium (1.6-2.3) mg/dL Total Bilirubin (0.2-1.3) mg/dL AST (14-36) U/L ALT (4-34) U/L Alkaline Phosphatase (38-126) U/L Creatine Kinase (30-135) U/L Total Protein (6.3-8.2) g/dL Albumin (3.5-5.0) g/dL Lipase (23-300) U/L Arterial Blood Potassium 5.4 H 4.9 H (3.4-4.5) mmol/L Arterial Blood Glucose 204 H 190 H 186 H (75-99) mg/dL Crossmatch 10/05/21 10/05/21 10/05/21 Range/Units 16:28 17:43 17:43 WBC 14.0 H (3.8-10.6) k/uL RBC 2.80 L (3.80-5.40) m/uL Hgb 8.4 L D (11.4-16.0) gm/dL Hct 26.1 L (34.0-46.0) % MCHC (31.0-37.0) g/dL RDW (11.5-15.5) % Plt Count 92 L D (150-450) k/uL Neutrophils # 10.5 H (1.3-7.7) k/uL PT 17.7 H (9.0-12.0) sec INR 1.7 H (<1.2) APTT 117.7 H* (22.0-30.0) sec Fibrinogen 84 L (200-500) mg/dL ABG pH 7.34 L (7.35-7.45) ABG pCO2 47 H (35-45) mmHg ABG pO2 (83-108) mmHg ABG HCO3 (21-25) mmol/L ABG Total CO2 47 H (19-24) mmol/L ABG O2 Saturation 98.0 H (94-97) % ABG Hematocrit 30 L (34.0-46.0) % ABG Potassium (3.4-4.5) mmol/L ABG Ionized Calcium (4.5-5.3) mg/dL ABG Glucose 152 H (75-99) mg/dL ABG Lactic Acid 4.9 H* (0.5-1.6) mmol/L Hemoglobin 9.7 L (11.4-16.0) gm/dL Potassium (3.5-5.1) mmol/L Chloride (98-107) mmol/L Carbon Dioxide (22-30) mmol/L BUN (7-17) mg/dL Creatinine (0.52-1.04) mg/dL Glucose (74-99) mg/dL POC Glucose (mg/dL) (75-99) mg/dL Calcium (8.4-10.2) mg/dL Magnesium (1.6-2.3) mg/dL Total Bilirubin (0.2-1.3) mg/dL AST (14-36) U/L ALT (4-34) U/L Alkaline Phosphatase (38-126) U/L Creatine Kinase (30-135) U/L Total Protein (6.3-8.2) g/dL Albumin (3.5-5.0) g/dL Lipase (23-300) U/L Arterial Blood Potassium (3.4-4.5) mmol/L Arterial Blood Glucose 152 H (75-99) mg/dL Crossmatch 10/05/21 10/05/21 10/05/21 Range/Units 17:43 18:20 20:24 WBC (3.8-10.6) k/uL RBC (3.80-5.40) m/uL Hgb (11.4-16.0) gm/dL Hct (34.0-46.0) % MCHC (31.0-37.0) g/dL RDW (11.5-15.5) % Plt Count (150-450) k/uL Neutrophils # (1.3-7.7) k/uL PT (9.0-12.0) sec INR (<1.2) APTT (22.0-30.0) sec Fibrinogen (200-500) mg/dL ABG pH 7.27 L (7.35-7.45) ABG pCO2 60 H (35-45) mmHg ABG pO2 181 H (83-108) mmHg ABG HCO3 28 H (21-25) mmol/L ABG Total CO2 29 H (19-24) mmol/L ABG O2 Saturation 99.0 H (94-97) % ABG Hematocrit (34.0-46.0) % ABG Potassium (3.4-4.5) mmol/L ABG Ionized Calcium (4.5-5.3) mg/dL ABG Glucose (75-99) mg/dL ABG Lactic Acid (0.5-1.6) mmol/L Hemoglobin (11.4-16.0) gm/dL Potassium (3.5-5.1) mmol/L Chloride 109 H (98-107) mmol/L Carbon Dioxide (22-30) mmol/L BUN 25 H (7-17) mg/dL Creatinine (0.52-1.04) mg/dL Glucose (74-99) mg/dL POC Glucose (mg/dL) 102 H (75-99) mg/dL Calcium (8.4-10.2) mg/dL Magnesium 2.6 H (1.6-2.3) mg/dL Total Bilirubin (0.2-1.3) mg/dL AST 283 H (14-36) U/L ALT 309 H (4-34) U/L Alkaline Phosphatase 24 L (38-126) U/L Creatine Kinase (30-135) U/L Total Protein 4.2 L (6.3-8.2) g/dL Albumin 2.6 L (3.5-5.0) g/dL Lipase (23-300) U/L Arterial Blood Potassium (3.4-4.5) mmol/L Arterial Blood Glucose (75-99) mg/dL Crossmatch 10/05/21 10/05/21 10/05/21 Range/Units 20:25 21:02 21:10 WBC 15.6 H (3.8-10.6) k/uL RBC 2.61 L (3.80-5.40) m/uL Hgb 7.7 L (11.4-16.0) gm/dL Hct 24.2 L (34.0-46.0) % MCHC (31.0-37.0) g/dL RDW (11.5-15.5) % Plt Count 64 L (150-450) k/uL Neutrophils # 12.1 H (1.3-7.7) k/uL PT (9.0-12.0) sec INR (<1.2) APTT (22.0-30.0) sec Fibrinogen (200-500) mg/dL ABG pH 7.31 L (7.35-7.45) ABG pCO2 52 H (35-45) mmHg ABG pO2 (83-108) mmHg ABG HCO3 26 H (21-25) mmol/L ABG Total CO2 28 H (19-24) mmol/L ABG O2 Saturation 97.1 H (94-97) % ABG Hematocrit (34.0-46.0) % ABG Potassium (3.4-4.5) mmol/L ABG Ionized Calcium (4.5-5.3) mg/dL ABG Glucose (75-99) mg/dL ABG Lactic Acid (0.5-1.6) mmol/L Hemoglobin (11.4-16.0) gm/dL Potassium (3.5-5.1) mmol/L Chloride (98-107) mmol/L Carbon Dioxide (22-30) mmol/L BUN (7-17) mg/dL Creatinine (0.52-1.04) mg/dL Glucose (74-99) mg/dL POC Glucose (mg/dL) 107 H (75-99) mg/dL Calcium (8.4-10.2) mg/dL Magnesium (1.6-2.3) mg/dL Total Bilirubin (0.2-1.3) mg/dL AST (14-36) U/L ALT (4-34) U/L Alkaline Phosphatase (38-126) U/L Creatine Kinase (30-135) U/L Total Protein (6.3-8.2) g/dL Albumin (3.5-5.0) g/dL Lipase (23-300) U/L Arterial Blood Potassium (3.4-4.5) mmol/L Arterial Blood Glucose (75-99) mg/dL Crossmatch 10/05/21 10/05/21 10/05/21 Range/Units 22:13 22:30 22:30 WBC 13.9 H (3.8-10.6) k/uL RBC 2.39 L (3.80-5.40) m/uL Hgb 7.3 L (11.4-16.0) gm/dL Hct 22.2 L (34.0-46.0) % MCHC (31.0-37.0) g/dL RDW 15.6 H (11.5-15.5) % Plt Count 66 L (150-450) k/uL Neutrophils # 11.2 H (1.3-7.7) k/uL PT 18.6 H (9.0-12.0) sec INR 1.8 H (<1.2) APTT >200.0 H* (22.0-30.0) sec Fibrinogen 83 L (200-500) mg/dL ABG pH (7.35-7.45) ABG pCO2 (35-45) mmHg ABG pO2 (83-108) mmHg ABG HCO3 (21-25) mmol/L ABG Total CO2 (19-24) mmol/L ABG O2 Saturation (94-97) % ABG Hematocrit (34.0-46.0) % ABG Potassium (3.4-4.5) mmol/L ABG Ionized Calcium (4.5-5.3) mg/dL ABG Glucose (75-99) mg/dL ABG Lactic Acid (0.5-1.6) mmol/L Hemoglobin (11.4-16.0) gm/dL Potassium (3.5-5.1) mmol/L Chloride (98-107) mmol/L Carbon Dioxide (22-30) mmol/L BUN (7-17) mg/dL Creatinine (0.52-1.04) mg/dL Glucose (74-99) mg/dL POC Glucose (mg/dL) 116 H (75-99) mg/dL Calcium (8.4-10.2) mg/dL Magnesium (1.6-2.3) mg/dL Total Bilirubin (0.2-1.3) mg/dL AST (14-36) U/L ALT (4-34) U/L Alkaline Phosphatase (38-126) U/L Creatine Kinase (30-135) U/L Total Protein (6.3-8.2) g/dL Albumin (3.5-5.0) g/dL Lipase (23-300) U/L Arterial Blood Potassium (3.4-4.5) mmol/L Arterial Blood Glucose (75-99) mg/dL Crossmatch 10/05/21 10/05/21 10/06/21 Range/Units 22:40 23:01 00:13 WBC (3.8-10.6) k/uL RBC (3.80-5.40) m/uL Hgb (11.4-16.0) gm/dL Hct (34.0-46.0) % MCHC (31.0-37.0) g/dL RDW (11.5-15.5) % Plt Count (150-450) k/uL Neutrophils # (1.3-7.7) k/uL PT (9.0-12.0) sec INR (<1.2) APTT (22.0-30.0) sec Fibrinogen (200-500) mg/dL ABG pH 7.33 L (7.35-7.45) ABG pCO2 47 H (35-45) mmHg ABG pO2 69 L (83-108) mmHg ABG HCO3 (21-25) mmol/L ABG Total CO2 26 H (19-24) mmol/L ABG O2 Saturation 92.7 L (94-97) % ABG Hematocrit (34.0-46.0) % ABG Potassium (3.4-4.5) mmol/L ABG Ionized Calcium (4.5-5.3) mg/dL ABG Glucose (75-99) mg/dL ABG Lactic Acid (0.5-1.6) mmol/L Hemoglobin (11.4-16.0) gm/dL Potassium (3.5-5.1) mmol/L Chloride (98-107) mmol/L Carbon Dioxide (22-30) mmol/L BUN (7-17) mg/dL Creatinine (0.52-1.04) mg/dL Glucose (74-99) mg/dL POC Glucose (mg/dL) 123 H 114 H (75-99) mg/dL Calcium (8.4-10.2) mg/dL Magnesium (1.6-2.3) mg/dL Total Bilirubin (0.2-1.3) mg/dL AST (14-36) U/L ALT (4-34) U/L Alkaline Phosphatase (38-126) U/L Creatine Kinase (30-135) U/L Total Protein (6.3-8.2) g/dL Albumin (3.5-5.0) g/dL Lipase (23-300) U/L Arterial Blood Potassium (3.4-4.5) mmol/L Arterial Blood Glucose (75-99) mg/dL Crossmatch 10/06/21 10/06/21 10/06/21 Range/Units 03:50 03:50 03:55 WBC 16.5 H (3.8-10.6) k/uL RBC 2.48 L (3.80-5.40) m/uL Hgb 7.1 L (11.4-16.0) gm/dL Hct 23.8 L (34.0-46.0) % MCHC 29.8 L (31.0-37.0) g/dL RDW (11.5-15.5) % Plt Count 80 L (150-450) k/uL Neutrophils # 13.9 H (1.3-7.7) k/uL PT 20.8 H (9.0-12.0) sec INR 2.1 H (<1.2) APTT 123.8 H* (22.0-30.0) sec Fibrinogen 94 L (200-500) mg/dL ABG pH (7.35-7.45) ABG pCO2 (35-45) mmHg ABG pO2 (83-108) mmHg ABG HCO3 (21-25) mmol/L ABG Total CO2 (19-24) mmol/L ABG O2 Saturation (94-97) % ABG Hematocrit (34.0-46.0) % ABG Potassium (3.4-4.5) mmol/L ABG Ionized Calcium (4.5-5.3) mg/dL ABG Glucose (75-99) mg/dL ABG Lactic Acid (0.5-1.6) mmol/L Hemoglobin (11.4-16.0) gm/dL Potassium 6.7 H* (3.5-5.1) mmol/L Chloride 109 H (98-107) mmol/L Carbon Dioxide 14 L (22-30) mmol/L BUN 29 H (7-17) mg/dL Creatinine 1.50 H (0.52-1.04) mg/dL Glucose 55 L (74-99) mg/dL POC Glucose (mg/dL) (75-99) mg/dL Calcium 8.2 L (8.4-10.2) mg/dL Magnesium 2.6 H (1.6-2.3) mg/dL Total Bilirubin 1.6 H (0.2-1.3) mg/dL AST 2582 H (14-36) U/L ALT 3021 H (4-34) U/L Alkaline Phosphatase (38-126) U/L Creatine Kinase (30-135) U/L Total Protein 3.9 L (6.3-8.2) g/dL Albumin 2.6 L (3.5-5.0) g/dL Lipase (23-300) U/L Arterial Blood Potassium (3.4-4.5) mmol/L Arterial Blood Glucose (75-99) mg/dL Crossmatch 10/06/21 10/06/21 10/06/21 Range/Units 03:55 04:09 04:10 WBC (3.8-10.6) k/uL RBC (3.80-5.40) m/uL Hgb (11.4-16.0) gm/dL Hct (34.0-46.0) % MCHC (31.0-37.0) g/dL RDW (11.5-15.5) % Plt Count (150-450) k/uL Neutrophils # (1.3-7.7) k/uL PT (9.0-12.0) sec INR (<1.2) APTT (22.0-30.0) sec Fibrinogen (200-500) mg/dL ABG pH 7.15 L* 7.08 L* (7.35-7.45) ABG pCO2 47 H (35-45) mmHg ABG pO2 74 L 37 L* (83-108) mmHg ABG HCO3 13 L 14 L (21-25) mmol/L ABG Total CO2 14 L 16 L (19-24) mmol/L ABG O2 Saturation 90.7 L 51.2 L (94-97) % ABG Hematocrit (34.0-46.0) % ABG Potassium (3.4-4.5) mmol/L ABG Ionized Calcium (4.5-5.3) mg/dL ABG Glucose (75-99) mg/dL ABG Lactic Acid (0.5-1.6) mmol/L Hemoglobin (11.4-16.0) gm/dL Potassium (3.5-5.1) mmol/L Chloride (98-107) mmol/L Carbon Dioxide (22-30) mmol/L BUN (7-17) mg/dL Creatinine (0.52-1.04) mg/dL Glucose (74-99) mg/dL POC Glucose (mg/dL) 60 L (75-99) mg/dL Calcium (8.4-10.2) mg/dL Magnesium (1.6-2.3) mg/dL Total Bilirubin (0.2-1.3) mg/dL AST (14-36) U/L ALT (4-34) U/L Alkaline Phosphatase (38-126) U/L Creatine Kinase (30-135) U/L Total Protein (6.3-8.2) g/dL Albumin (3.5-5.0) g/dL Lipase (23-300) U/L Arterial Blood Potassium (3.4-4.5) mmol/L Arterial Blood Glucose (75-99) mg/dL Crossmatch 10/06/21 10/06/21 10/06/21 Range/Units 05:31 06:03 06:20 WBC (3.8-10.6) k/uL RBC (3.80-5.40) m/uL Hgb (11.4-16.0) gm/dL Hct (34.0-46.0) % MCHC (31.0-37.0) g/dL RDW (11.5-15.5) % Plt Count (150-450) k/uL Neutrophils # (1.3-7.7) k/uL PT (9.0-12.0) sec INR (<1.2) APTT (22.0-30.0) sec Fibrinogen (200-500) mg/dL ABG pH 7.12 L* 7.14 L* (7.35-7.45) ABG pCO2 25 L (35-45) mmHg ABG pO2 77 L 75 L (83-108) mmHg ABG HCO3 8 L* 14 L (21-25) mmol/L ABG Total CO2 9 L 15 L (19-24) mmol/L ABG O2 Saturation 92.3 L 91.2 L (94-97) % ABG Hematocrit (34.0-46.0) % ABG Potassium (3.4-4.5) mmol/L ABG Ionized Calcium (4.5-5.3) mg/dL ABG Glucose (75-99) mg/dL ABG Lactic Acid (0.5-1.6) mmol/L Hemoglobin (11.4-16.0) gm/dL Potassium (3.5-5.1) mmol/L Chloride (98-107) mmol/L Carbon Dioxide (22-30) mmol/L BUN (7-17) mg/dL Creatinine (0.52-1.04) mg/dL Glucose (74-99) mg/dL POC Glucose (mg/dL) 59 L (75-99) mg/dL Calcium (8.4-10.2) mg/dL Magnesium (1.6-2.3) mg/dL Total Bilirubin (0.2-1.3) mg/dL AST (14-36) U/L ALT (4-34) U/L Alkaline Phosphatase (38-126) U/L Creatine Kinase (30-135) U/L Total Protein (6.3-8.2) g/dL Albumin (3.5-5.0) g/dL Lipase (23-300) U/L Arterial Blood Potassium (3.4-4.5) mmol/L Arterial Blood Glucose (75-99) mg/dL Crossmatch 10/06/21 10/06/21 10/06/21 Range/Units 06:21 07:12 07:32 WBC (3.8-10.6) k/uL RBC (3.80-5.40) m/uL Hgb (11.4-16.0) gm/dL Hct (34.0-46.0) % MCHC (31.0-37.0) g/dL RDW (11.5-15.5) % Plt Count (150-450) k/uL Neutrophils # (1.3-7.7) k/uL PT (9.0-12.0) sec INR (<1.2) APTT (22.0-30.0) sec Fibrinogen (200-500) mg/dL ABG pH 7.32 L (7.35-7.45) ABG pCO2 (35-45) mmHg ABG pO2 70 L (83-108) mmHg ABG HCO3 (21-25) mmol/L ABG Total CO2 25 H (19-24) mmol/L ABG O2 Saturation 93.4 L (94-97) % ABG Hematocrit (34.0-46.0) % ABG Potassium (3.4-4.5) mmol/L ABG Ionized Calcium (4.5-5.3) mg/dL ABG Glucose (75-99) mg/dL ABG Lactic Acid 19.6 H* (0.5-1.6) mmol/L Hemoglobin (11.4-16.0) gm/dL Potassium (3.5-5.1) mmol/L Chloride (98-107) mmol/L Carbon Dioxide (22-30) mmol/L BUN (7-17) mg/dL Creatinine (0.52-1.04) mg/dL Glucose (74-99) mg/dL POC Glucose (mg/dL) 108 H (75-99) mg/dL Calcium (8.4-10.2) mg/dL Magnesium (1.6-2.3) mg/dL Total Bilirubin (0.2-1.3) mg/dL AST (14-36) U/L ALT (4-34) U/L Alkaline Phosphatase (38-126) U/L Creatine Kinase (30-135) U/L Total Protein (6.3-8.2) g/dL Albumin (3.5-5.0) g/dL Lipase (23-300) U/L Arterial Blood Potassium (3.4-4.5) mmol/L Arterial Blood Glucose (75-99) mg/dL Crossmatch 10/06/21 10/06/21 10/06/21 Range/Units 07:50 08:04 08:29 WBC (3.8-10.6) k/uL RBC (3.80-5.40) m/uL Hgb (11.4-16.0) gm/dL Hct (34.0-46.0) % MCHC (31.0-37.0) g/dL RDW (11.5-15.5) % Plt Count (150-450) k/uL Neutrophils # (1.3-7.7) k/uL PT (9.0-12.0) sec INR (<1.2) APTT (22.0-30.0) sec Fibrinogen (200-500) mg/dL ABG pH 7.17 L* 7.18 L* (7.35-7.45) ABG pCO2 (35-45) mmHg ABG pO2 33 L* 71 L (83-108) mmHg ABG HCO3 13 L 14 L (21-25) mmol/L ABG Total CO2 14 L 15 L (19-24) mmol/L ABG O2 Saturation 54.1 L 91.9 L (94-97) % ABG Hematocrit (34.0-46.0) % ABG Potassium (3.4-4.5) mmol/L ABG Ionized Calcium (4.5-5.3) mg/dL ABG Glucose (75-99) mg/dL ABG Lactic Acid (0.5-1.6) mmol/L Hemoglobin (11.4-16.0) gm/dL Potassium (3.5-5.1) mmol/L Chloride (98-107) mmol/L Carbon Dioxide (22-30) mmol/L BUN (7-17) mg/dL Creatinine (0.52-1.04) mg/dL Glucose (74-99) mg/dL POC Glucose (mg/dL) 62 L (75-99) mg/dL Calcium (8.4-10.2) mg/dL Magnesium (1.6-2.3) mg/dL Total Bilirubin (0.2-1.3) mg/dL AST (14-36) U/L ALT (4-34) U/L Alkaline Phosphatase (38-126) U/L Creatine Kinase (30-135) U/L Total Protein (6.3-8.2) g/dL Albumin (3.5-5.0) g/dL Lipase (23-300) U/L Arterial Blood Potassium (3.4-4.5) mmol/L Arterial Blood Glucose (75-99) mg/dL Crossmatch 10/06/21 10/06/21 10/06/21 Range/Units 09:06 09:14 09:28 WBC (3.8-10.6) k/uL RBC (3.80-5.40) m/uL Hgb (11.4-16.0) gm/dL Hct (34.0-46.0) % MCHC (31.0-37.0) g/dL RDW (11.5-15.5) % Plt Count (150-450) k/uL Neutrophils # (1.3-7.7) k/uL PT (9.0-12.0) sec INR (<1.2) APTT (22.0-30.0) sec Fibrinogen (200-500) mg/dL ABG pH 7.19 L* (7.35-7.45) ABG pCO2 (35-45) mmHg ABG pO2 73 L (83-108) mmHg ABG HCO3 14 L (21-25) mmol/L ABG Total CO2 15 L (19-24) mmol/L ABG O2 Saturation 92.4 L (94-97) % ABG Hematocrit (34.0-46.0) % ABG Potassium (3.4-4.5) mmol/L ABG Ionized Calcium (4.5-5.3) mg/dL ABG Glucose (75-99) mg/dL ABG Lactic Acid (0.5-1.6) mmol/L Hemoglobin (11.4-16.0) gm/dL Potassium 5.7 H (3.5-5.1) mmol/L Chloride (98-107) mmol/L Carbon Dioxide (22-30) mmol/L BUN (7-17) mg/dL Creatinine (0.52-1.04) mg/dL Glucose (74-99) mg/dL POC Glucose (mg/dL) 105 H (75-99) mg/dL Calcium (8.4-10.2) mg/dL Magnesium (1.6-2.3) mg/dL Total Bilirubin (0.2-1.3) mg/dL AST (14-36) U/L ALT (4-34) U/L Alkaline Phosphatase (38-126) U/L Creatine Kinase 1548 H* (30-135) U/L Total Protein (6.3-8.2) g/dL Albumin (3.5-5.0) g/dL Lipase 434 H (23-300) U/L Arterial Blood Potassium (3.4-4.5) mmol/L Arterial Blood Glucose (75-99) mg/dL Crossmatch 10/06/21 Range/Units 10:04 WBC (3.8-10.6) k/uL RBC (3.80-5.40) m/uL Hgb (11.4-16.0) gm/dL Hct (34.0-46.0) % MCHC (31.0-37.0) g/dL RDW (11.5-15.5) % Plt Count (150-450) k/uL Neutrophils # (1.3-7.7) k/uL PT (9.0-12.0) sec INR (<1.2) APTT (22.0-30.0) sec Fibrinogen (200-500) mg/dL ABG pH (7.35-7.45) ABG pCO2 (35-45) mmHg ABG pO2 (83-108) mmHg ABG HCO3 (21-25) mmol/L ABG Total CO2 (19-24) mmol/L ABG O2 Saturation (94-97) % ABG Hematocrit (34.0-46.0) % ABG Potassium (3.4-4.5) mmol/L ABG Ionized Calcium (4.5-5.3) mg/dL ABG Glucose (75-99) mg/dL ABG Lactic Acid (0.5-1.6) mmol/L Hemoglobin (11.4-16.0) gm/dL Potassium (3.5-5.1) mmol/L Chloride (98-107) mmol/L Carbon Dioxide (22-30) mmol/L BUN (7-17) mg/dL Creatinine (0.52-1.04) mg/dL Glucose (74-99) mg/dL POC Glucose (mg/dL) 123 H (75-99) mg/dL Calcium (8.4-10.2) mg/dL Magnesium (1.6-2.3) mg/dL Total Bilirubin (0.2-1.3) mg/dL AST (14-36) U/L ALT (4-34) U/L Alkaline Phosphatase (38-126) U/L Creatine Kinase (30-135) U/L Total Protein (6.3-8.2) g/dL Albumin (3.5-5.0) g/dL Lipase (23-300) U/L Arterial Blood Potassium (3.4-4.5) mmol/L Arterial Blood Glucose (75-99) mg/dL Crossmatch Assessment and Plan Assessment: Acute non-ST segment elevation myocardial infarction. Severe triple-vessel coronary disease, postop day #1, status post three-vessel bypass grafting. Routine postoperative ventilator management. Anion gap metabolic acidosis. Postoperative hypotension. Postoperative anemia. Postoperative acute kidney injury. Stage III COPD, with a preoperative FEV1 of 1.09 L or 44% of predicted, an MVV of 40 L/m, consistent with a moderate increased operative risk. Repeat lung function were much improved, with the use of bronchodilators, and corticosteroids. Right carotid stenosis, 70%, status post right carotid stent, postop day #1. History of abdominal aortic aneurysm. Daily alcohol use. Chronic and ongoing tobacco dependence. History of hypertension. Plan: Plan dated 10/02/2021. The patient will have a repeat breathing test tomorrow. Additional recommendations and suggestions are forthcoming. I'm hoping that her lung function are improved with the treatments that we have been giving her. She cer tainly clinically feels much better. Additional recommendations and suggestions are forthcoming. We will communicate with the surgeons after the test tomorrow. Plan dated 10/03/2021. The patient's repeat lung function much improved. The patient's operative risk category went from moderately increased operative risk, to low increased operative risk, based on the changes in the FEV1, and MVV. The patient is clinically feeling much better. We will continue to follow make recommendations were appropriate. Surgery will decide when in if to do the surgery. We will continue to follow. Prognosis is guarded. Plan dated 10/04/2021. I believe the plan for the patient to undergo open heart surgery tomorrow. She apparently is going to have a right carotid stent placed today. Lung function are much improved. She continues on bronchodilators. Corticosteroids were discontinued. Additional recommendations and suggestions are forthcoming. Prognosis is guarded. We will continue to follow make recommendations where appropriate. Labs, and x-rays are all reviewed. Plan dated 10/06/2021. The patient was not seen yesterday, she was in the operating room. Today's postop day #1, status post three-vessel bypass grafting. It's also postop day #1, status post right carotid stent. The patient has a metabolic acidosis. He is an anion gap metabolic acidosis, and lactic acid should be checked. In addition, because of the low blood pressure, and the need for both vasopressin and norepinephrine, we will check a stat random cortisol level. In my opinion, we should increase the PEEP, to reduce the FiO2, and prevent any additional potential for lung injury. The patient's currently on a sodium bicarbonate drip which is appropriate given her pH. Tube feedings should be started as soon as possible. We will continue to follow make recommendations were appropriate. Prognosis is guarded. Time with Patient: Greater than 30
[2021-10-06 10:32] LABS: ABG Base Excess -13.7 mmol/L; ABG HCO3 14 mmol/L (21-25); ABG Oxygen Saturation 94.1 % (94-97); ABG PCO2 36 mmHg (35-45); ABG PH 7.21 (7.35-7.45); ABG PO2 76 mmHg (83-108); ABG TCO2 15 mmol/L (19-24)
[2021-10-06 10:34] LABS: Allen Test Performed? no
--- NOTE | 2021-10-06 10:41 | P.PN ---
Subjective This is a 61-year-old female with a past medical history of coronary artery disease with myocardial infarction, coronary artery disease status post prior PCI to the distal and proximal RCA in 2007, hypertension, hyperlipidemia, obesity, abdominal aortic aneurysm, daily EtOH use, and current tobacco dependence. She did fall in the office with Dr. Johnson, last seen in 2019. She presents to the emergency department with chest Discomfort and hypertension, Diagnosed with non-STEMI. 2D echocardiogram revealed EF 50-55% with mild aortic insufficiency. On 09/29/2021 She underwent cardiac catheterization with Dr. Maxwell which revealed right dominant system with mid RCA 90-95% occluded, distal RCA with chronic total occlusion with previous stent present, obtuse marginal branch of the circumflex coronary artery with 90-95% stenosis, and proximal LAD stenosis 80%. CT Surgery was consulted for surgical revascularization recommendations. 10/04/2021 Patient seen and examined at bedside, Sitting in the bedside chair. No acute distress. She denies chest pain or shortness of breath. BP has improved, Blood pressure 125/77, heart rate 53, afebrile, saturations 89-94% on room air. Telemetry reviewed, patient in sinus mechanism HR 50-60s, PVCs noted on 10/03. Labs WBC 14.2, hemoglobin 14.8, platelets 232, sodium 138, potassium 4.3, BUN 31, serum creatinine 0.9, AST 37, ALT 68 She's currently maintained on aspirin 81 mg daily, atorvastatin 80 mg nightly, IV heparin, hydralazine 50 mg QID, hydrochlorothiazide 25 mg daily, Imdur 30 mg daily, lisinopril 40 mg daily, metoprolol tartrate 50 mg twice a day 10/06 Seen and examined. Patient underwent carotid stenting yesterday was given aspirin as well as Plavix 600 mg and then underwent 3 vessel CABG. Patient did have a moderate amount of "oozing" and was noted to be more anemic this morning. Patient has received 2 total units of packed red blood cells. Unfortunately she has had shock liver, acute kidney injury, increased lactic acidosis up to 19. She has been requiring increasing pressor demand. Therefore echocardiogram was performed today with a limited and poor images obtained however no pericardial effusion with predominantly preserved EF 45-50% without any significant valvular disease noted. She remains intubated and sedated on ventilator with 10% PEEP and 75% FiO2. Map is in the 70 is 75 range however was increased on vasopressors overnight. Current ABG mildly improved to 7.2 however hemoglobin noted to still be low at 6.0 and another unit of packed red blood cells has been ordered. CVP noticeably elevated at 16 and therefore Lasix was a lso ordered. GENERAL: Ill-appearing, intubated and sedated NECK: Supple without JVD or thyromegaly. LUNGS: Breath sounds clear to auscultation bilaterally. Respiration equal and unlabored. No wheezes, rales or rhonchi. HEART: Regular rate and rhythm without murmurs, rubs or gallops. S1 and S2 hear d. EXTREMITIES: Normal range of motion, no edema. No clubbing or cyanosis. Peripheral pulses intact. ASSESSMENT NSTEMI Severe triple-vessel coronary artery disease, s/p CABG 10/05/2021 Prior PCI to distal and proximal RCA in 2007 Hypertension Hyperlipidemia Severe COPD Carotid disease, Right internal carotid stenosis >70% by doppler, severe focal stenosis seen on CTA, s/p right carotid stenting 10/05/2021 Infrarenal abdominal aortic aneurysm Daily alcohol use Chronic nicotine dependence Hypotension, shock Acute blood loss anemia Thrombocytopenia Lactic acidosis up to 19 Shock liver Acute on chronic respiratory failure Acute on chronic heart failure with preserved ejection fraction PLAN Patient is status post right carotid artery stenting as well as CABG 10/05/2021. Unfortunately patient has decompensated since surgery which appears mainly related to acute blood loss anemia. She is status post 2 units packed red blood cells and repeat hemoglobin noted on ABG still 6.0. Additional blood to be transfused and antiplatelets are being held. She did receive Plavix and still should be some degree of protection given recent stenting. Ideally minimum aspirin however appears to be have significant bleeding and we will continue to monitor. No significant effusion noted on echo. Does not appear to have any significant valvular disease noted on echo and no significant murmur. Continue with Lasix given elevated CVP. May consider URMILA if need of further assessment of wall motion or aortic pathology however main issue appears to be blood loss at this point. Continue supportive care. Prognosis guarded. Objective - Vital Signs Vital signs: Vital Signs Temp 96.8 F L 10/06/21 08:45 Pulse 105 H 10/06/21 08:45 Resp 31 H 10/06/21 08:45 BP 90/58 10/06/21 08:45 Pulse Ox 88 L 10/06/21 08:45 Intake & Output 10/05/21 10/06/21 10/06/21 18:59 06:59 18:59 Intake Total 777.662 1893.157 908.5 Output Total 2485 1824 525 Balance -1957.196 -78.843 383.5 Weight 122.1 kg Intake: IV 499.0 1026.0 598.5 0.9 Sodium Chloride 100 600 110 0.9 Sodium Chloride for 20 250 70 Cardiac Output Albumin Human 5% 250 ml @ 50 50 250 0 mls/hr IVPB .STK-MED ONE Rx#:[id number] Dextrose 10% in Water 500 40 ml In Empty Bag 1 bag @ 40 mls/hr IV .[id number] [facility] Rx#:[id number] Dextrose 5% in Water 1, 100 000 ml @ 100 mls/hr IV . [id number] [facility] with Sodium Bicarb (1 Meq/ml) 150 ml Rx#:[id number] Nitroglycerin-D5w Pmx 50 3.0 18.0 1.5 mg In Dextrose/Water 1 250ml.bag @ 5 MCG/MIN 1.5 mls/hr IV .Q24H [facility] Rx#: [id number] Pressure Bag (0.9 Sodium 18 108 27 Chloride Intake, IV Titration 28.804 719.157 Amount Calcium Gluconate in NaCl 100 2 gm In Saline 1 100ml. bag @ 100 mls/hr IVPB ONCE ONE Rx#:[id number] Insulin Regular 100 unit 1.027 In Sodium Chloride 0.9% 100 ml @ Per Protocol IV .Q0M [facility] Rx#:[id number] Norepinephrine 4 mg In 28.804 225.196 Sodium Chloride 0.9% 250 ml @ 0.02 MCG/KG/MIN 8.23 mls/hr IV .Q24H [facility] Rx#: [id number] Phenylephrine 1 mg In 100 Sodium Chloride 0.9% 100 ml @ 400.4 mls/hr IV ONCE ONE Rx#:[id number] Potassium Chloride 10 meq 200 In Water For Injection 1 100ml.bag @ 100 mls/hr IVPB Q1H [facility] Rx#: [id number] propofoL 1,000 mg In 92.934 Empty Bag 1 bag @ Titrate IV .Q0M [facility] Rx#: [id number] Blood Product 0 310 Rc As-1 Unit 0 310 [id number] Output: Chest Tube Drainage 500 1114 275 Chest Tube Left Lateral 220 470 50 Chest Chest Tube Mediastinal 240 584 170 Right Lateral Chest 40 60 55 Drainage 80 220 Right Calf 80 220 Urine 985 630 30 Estimated Blood Loss 1000 Other: Voiding Method Indwelling Catheter Indwelling Catheter Indwelling Catheter ABP, PAP, CO, CI - Last Documented Arterial Blood Pressure 112/60 Pulmonary Artery Pressure 42/26 Cardiac Output 5.2 Cardiac Index 2.5 - Labs CBC & Chem 7: 10/06/21 03:50 10/06/21 09:14 Labs: Abnormal Lab Results - Last 24 Hours (Table) 10/04/21 10/05/21 10/05/21 Range/Units 07:04 10:56 12:13 WBC (3.8-10.6) k/uL RBC (3.80-5.40) m/uL Hgb (11.4-16.0) gm/dL Hct (34.0-46.0) % MCHC (31.0-37.0) g/dL RDW (11.5-15.5) % Plt Count (150-450) k/uL Neutrophils # (1.3-7.7) k/uL PT (9.0-12.0) sec INR (<1.2) APTT (22.0-30.0) sec Fibrinogen (200-500) mg/dL ABG pH (7.35-7.45) ABG pCO2 (35-45) mmHg ABG pO2 252 H 73 L (83-108) mmHg ABG HCO3 (21-25) mmol/L ABG Total CO2 42 H (19-24) mmol/L ABG O2 Saturation 99.8 H (94-97) % ABG Hematocrit (34.0-46.0) % ABG Potassium 4.8 H (3.4-4.5) mmol/L ABG Ionized Calcium (4.5-5.3) mg/dL ABG Glucose 104 H 117 H (75-99) mg/dL ABG Lactic Acid 1.8 H 1.7 H (0.5-1.6) mmol/L Hemoglobin (11.4-16.0) gm/dL Potassium (3.5-5.1) mmol/L Chloride (98-107) mmol/L Carbon Dioxide (22-30) mmol/L BUN (7-17) mg/dL Creatinine (0.52-1.04) mg/dL Glucose (74-99) mg/dL POC Glucose (mg/dL) (75-99) mg/dL Calcium (8.4-10.2) mg/dL Magnesium (1.6-2.3) mg/dL Total Bilirubin (0.2-1.3) mg/dL AST (14-36) U/L ALT (4-34) U/L Alkaline Phosphatase (38-126) U/L Creatine Kinase (30-135) U/L Total Protein (6.3-8.2) g/dL Albumin (3.5-5.0) g/dL Lipase (23-300) U/L Arterial Blood Potassium 4.8 H (3.4-4.5) mmol/L Arterial Blood Glucose 104 H 117 H (75-99) mg/dL Crossmatch See Detail 10/05/21 10/05/21 10/05/21 Range/Units 12:38 13:27 14:07 WBC (3.8-10.6) k/uL RBC (3.80-5.40) m/uL Hgb (11.4-16.0) gm/dL Hct (34.0-46.0) % MCHC (31.0-37.0) g/dL RDW (11.5-15.5) % Plt Count (150-450) k/uL Neutrophils # (1.3-7.7) k/uL PT (9.0-12.0) sec INR (<1.2) APTT (22.0-30.0) sec Fibrinogen (200-500) mg/dL ABG pH (7.35-7.45) ABG pCO2 (35-45) mmHg ABG pO2 304 H 303 H 359 H (83-108) mmHg ABG HCO3 (21-25) mmol/L ABG Total CO2 41 H 41 H 39 H (19-24) mmol/L ABG O2 Saturation 99.8 H 99.8 H 99.9 H (94-97) % ABG Hematocrit 26 L 25 L 25 L (34.0-46.0) % ABG Potassium 5.6 H 5.5 H (3.4-4.5) mmol/L ABG Ionized Calcium 4.1 L 4.1 L 4.1 L (4.5-5.3) mg/dL ABG Glucose 115 H 165 H 203 H (75-99) mg/dL ABG Lactic Acid 3.0 H* 3.7 H* (0.5-1.6) mmol/L Hemoglobin 8.5 L 8.2 L 8.2 L (11.4-16.0) gm/dL Potassium (3.5-5.1) mmol/L Chloride (98-107) mmol/L Carbon Dioxide (22-30) mmol/L BUN (7-17) mg/dL Creatinine (0.52-1.04) mg/dL Glucose (74-99) mg/dL POC Glucose (mg/dL) (75-99) mg/dL Calcium (8.4-10.2) mg/dL Magnesium (1.6-2.3) mg/dL Total Bilirubin (0.2-1.3) mg/dL AST (14-36) U/L ALT (4-34) U/L Alkaline Phosphatase (38-126) U/L Creatine Kinase (30-135) U/L Total Protein (6.3-8.2) g/dL Albumin (3.5-5.0) g/dL Lipase (23-300) U/L Arterial Blood Potassium 5.6 H 5.5 H (3.4-4.5) mmol/L Arterial Blood Glucose 115 H 165 H 203 H (75-99) mg/dL Crossmatch 10/05/21 10/05/21 10/05/21 Range/Units 14:43 15:20 16:12 WBC (3.8-10.6) k/uL RBC (3.80-5.40) m/uL Hgb (11.4-16.0) gm/dL Hct (34.0-46.0) % MCHC (31.0-37.0) g/dL RDW (11.5-15.5) % Plt Count (150-450) k/uL Neutrophils # (1.3-7.7) k/uL PT (9.0-12.0) sec INR (<1.2) APTT (22.0-30.0) sec Fibrinogen (200-500) mg/dL ABG pH 7.31 L 7.25 L (7.35-7.45) ABG pCO2 53 H (35-45) mmHg ABG pO2 355 H 241 H 128 H (83-108) mmHg ABG HCO3 (21-25) mmol/L ABG Total CO2 40 H 45 H 53 H (19-24) mmol/L ABG O2 Saturation 99.7 H 99.5 H 98.2 H (94-97) % ABG Hematocrit 24 L 22 L 29 L (34.0-46.0) % ABG Potassium 5.4 H 4.9 H (3.4-4.5) mmol/L ABG Ionized Calcium 4.1 L 4.0 L (4.5-5.3) mg/dL ABG Glucose 204 H 190 H 186 H (75-99) mg/dL ABG Lactic Acid 4.5 H* 5.2 H* 5.2 H* (0.5-1.6) mmol/L Hemoglobin 7.7 L 7.2 L 9.3 L (11.4-16.0) gm/dL Potassium (3.5-5.1) mmol/L Chloride (98-107) mmol/L Carbon Dioxide (22-30) mmol/L BUN (7-17) mg/dL Creatinine (0.52-1.04) mg/dL Glucose (74-99) mg/dL POC Glucose (mg/dL) (75-99) mg/dL Calcium (8.4-10.2) mg/dL Magnesium (1.6-2.3) mg/dL Total Bilirubin (0.2-1.3) mg/dL AST (14-36) U/L ALT (4-34) U/L Alkaline Phosphatase (38-126) U/L Creatine Kinase (30-135) U/L Total Protein (6.3-8.2) g/dL Albumin (3.5-5.0) g/dL Lipase (23-300) U/L Arterial Blood Potassium 5.4 H 4.9 H (3.4-4.5) mmol/L Arterial Blood Glucose 204 H 190 H 186 H (75-99) mg/dL Crossmatch 05/13/22 05/13/22 05/13/22 Range/Units 16:28 17:43 17:43 WBC 14.0 H (3.8-10.6) k/uL RBC 2.80 L (3.80-5.40) m/uL Hgb 8.4 L D (11.4-16.0) gm/dL Hct 26.1 L (34.0-46.0) % MCHC (31.0-37.0) g/dL RDW (11.5-15.5) % Plt Count 92 L D (150-450) k/uL Neutrophils # 10.5 H (1.3-7.7) k/uL PT 17.7 H (9.0-12.0) sec INR 1.7 H (<1.2) APTT 117.7 H* (22.0-30.0) sec Fibrinogen 84 L (200-500) mg/dL ABG pH 7.34 L (7.35-7.45) ABG pCO2 47 H (35-45) mmHg ABG pO2 (83-108) mmHg ABG HCO3 (21-25) mmol/L ABG Total CO2 47 H (19-24) mmol/L ABG O2 Saturation 98.0 H (94-97) % ABG Hematocrit 30 L (34.0-46.0) % ABG Potassium (3.4-4.5) mmol/L ABG Ionized Calcium (4.5-5.3) mg/dL ABG Glucose 152 H (75-99) mg/dL ABG Lactic Acid 4.9 H* (0.5-1.6) mmol/L Hemoglobin 9.7 L (11.4-16.0) gm/dL Potassium (3.5-5.1) mmol/L Chloride (98-107) mmol/L Carbon Dioxide (22-30) mmol/L BUN (7-17) mg/dL Creatinine (0.52-1.04) mg/dL Glucose (74-99) mg/dL POC Glucose (mg/dL) (75-99) mg/dL Calcium (8.4-10.2) mg/dL Magnesium (1.6-2.3) mg/dL Total Bilirubin (0.2-1.3) mg/dL AST (14-36) U/L ALT (4-34) U/L Alkaline Phosphatase (38-126) U/L Creatine Kinase (30-135) U/L Total Protein (6.3-8.2) g/dL Albumin (3.5-5.0) g/dL Lipase (23-300) U/L Arterial Blood Potassium (3.4-4.5) mmol/L Arterial Blood Glucose 152 H (75-99) mg/dL Crossmatch 10/05/21 10/05/21 10/05/21 Range/Units 17:43 18:20 20:24 WBC (3.8-10.6) k/uL RBC (3.80-5.40) m/uL Hgb (11.4-16.0) gm/dL Hct (34.0-46.0) % MCHC (31.0-37.0) g/dL RDW (11.5-15.5) % Plt Count (150-450) k/uL Neutrophils # (1.3-7.7) k/uL PT (9.0-12.0) sec INR (<1.2) APTT (22.0-30.0) sec Fibrinogen (200-500) mg/dL ABG pH 7.27 L (7.35-7.45) ABG pCO2 60 H (35-45) mmHg ABG pO2 181 H (83-108) mmHg ABG HCO3 28 H (21-25) mmol/L ABG Total CO2 29 H (19-24) mmol/L ABG O2 Saturation 99.0 H (94-97) % ABG Hematocrit (34.0-46.0) % ABG Potassium (3.4-4.5) mmol/L ABG Ionized Calcium (4.5-5.3) mg/dL ABG Glucose (75-99) mg/dL ABG Lactic Acid (0.5-1.6) mmol/L Hemoglobin (11.4-16.0) gm/dL Potassium (3.5-5.1) mmol/L Chloride 109 H (98-107) mmol/L Carbon Dioxide (22-30) mmol/L BUN 25 H (7-17) mg/dL Creatinine (0.52-1.04) mg/dL Glucose (74-99) mg/dL POC Glucose (mg/dL) 102 H (75-99) mg/dL Calcium (8.4-10.2) mg/dL Magnesium 2.6 H (1.6-2.3) mg/dL Total Bilirubin (0.2-1.3) mg/dL AST 283 H (14-36) U/L ALT 309 H (4-34) U/L Alkaline Phosphatase 24 L (38-126) U/L Creatine Kinase (30-135) U/L Total Protein 4.2 L (6.3-8.2) g/dL Albumin 2.6 L (3.5-5.0) g/dL Lipase (23-300) U/L Arterial Blood Potassium (3.4-4.5) mmol/L Arterial Blood Glucose (75-99) mg/dL Crossmatch 10/05/21 10/05/21 10/05/21 Range/Units 20:25 21:02 21:10 WBC 15.6 H (3.8-10.6) k/uL RBC 2.61 L (3.80-5.40) m/uL Hgb 7.7 L (11.4-16.0) gm/dL Hct 24.2 L (34.0-46.0) % MCHC (31.0-37.0) g/dL RDW (11.5-15.5) % Plt Count 64 L (150-450) k/uL Neutrophils # 12.1 H (1.3-7.7) k/uL PT (9.0-12.0) sec INR (<1.2) APTT (22.0-30.0) sec Fibrinogen (200-500) mg/dL ABG pH 7.31 L (7.35-7.45) ABG pCO2 52 H (35-45) mmHg ABG pO2 (83-108) mmHg ABG HCO3 26 H (21-25) mmol/L ABG Total CO2 28 H (19-24) mmol/L ABG O2 Saturation 97.1 H (94-97) % ABG Hematocrit (34.0-46.0) % ABG Potassium (3.4-4.5) mmol/L ABG Ionized Calcium (4.5-5.3) mg/dL ABG Glucose (75-99) mg/dL ABG Lactic Acid (0.5-1.6) mmol/L Hemoglobin (11.4-16.0) gm/dL Potassium (3.5-5.1) mmol/L Chloride (98-107) mmol/L Carbon Dioxide (22-30) mmol/L BUN (7-17) mg/dL Creatinine (0.52-1.04) mg/dL Glucose (74-99) mg/dL POC Glucose (mg/dL) 107 H (75-99) mg/dL Calcium (8.4-10.2) mg/dL Magnesium (1.6-2.3) mg/dL Total Bilirubin (0.2-1.3) mg/dL AST (14-36) U/L ALT (4-34) U/L Alkaline Phosphatase (38-126) U/L Creatine Kinase (30-135) U/L Total Protein (6.3-8.2) g/dL Albumin (3.5-5.0) g/dL Lipase (23-300) U/L Arterial Blood Potassium (3.4-4.5) mmol/L Arterial Blood Glucose (75-99) mg/dL Crossmatch 10/05/21 10/05/21 10/05/21 Range/Units 22:13 22:30 22:30 WBC 13.9 H (3.8-10.6) k/uL RBC 2.39 L (3.80-5.40) m/uL Hgb 7.3 L (11.4-16.0) gm/dL Hct 22.2 L (34.0-46.0) % MCHC (31.0-37.0) g/dL RDW 15.6 H (11.5-15.5) % Plt Count 66 L (150-450) k/uL Neutrophils # 11.2 H (1.3-7.7) k/uL PT 18.6 H (9.0-12.0) sec INR 1.8 H (<1.2) APTT >200.0 H* (22.0-30.0) sec Fibrinogen 83 L (200-500) mg/dL ABG pH (7.35-7.45) ABG pCO2 (35-45) mmHg ABG pO2 (83-108) mmHg ABG HCO3 (21-25) mmol/L ABG Total CO2 (19-24) mmol/L ABG O2 Saturation (94-97) % ABG Hematocrit (34.0-46.0) % ABG Potassium (3.4-4.5) mmol/L ABG Ionized Calcium (4.5-5.3) mg/dL ABG Glucose (75-99) mg/dL ABG Lactic Acid (0.5-1.6) mmol/L Hemoglobin (11.4-16.0) gm/dL Potassium (3.5-5.1) mmol/L Chloride (98-107) mmol/L Carbon Dioxide (22-30) mmol/L BUN (7-17) mg/dL Creatinine (0.52-1.04) mg/dL Glucose (74-99) mg/dL POC Glucose (mg/dL) 116 H (75-99) mg/dL Calcium (8.4-10.2) mg/dL Magnesium (1.6-2.3) mg/dL Total Bilirubin (0.2-1.3) mg/dL AST (14-36) U/L ALT (4-34) U/L Alkaline Phosphatase (38-126) U/L Creatine Kinase (30-135) U/L Total Protein (6.3-8.2) g/dL Albumin (3.5-5.0) g/dL Lipase (23-300) U/L Arterial Blood Potassium (3.4-4.5) mmol/L Arterial Blood Glucose (75-99) mg/dL Crossmatch 10/05/21 10/05/21 10/06/21 Range/Units 22:40 23:01 00:13 WBC (3.8-10.6) k/uL RBC (3.80-5.40) m/uL Hgb (11.4-16.0) gm/dL Hct (34.0-46.0) % MCHC (31.0-37.0) g/dL RDW (11.5-15.5) % Plt Count (150-450) k/uL Neutrophils # (1.3-7.7) k/uL PT (9.0-12.0) sec INR (<1.2) APTT (22.0-30.0) sec Fibrinogen (200-500) mg/dL ABG pH 7.33 L (7.35-7.45) ABG pCO2 47 H (35-45) mmHg ABG pO2 69 L (83-108) mmHg ABG HCO3 (21-25) mmol/L ABG Total CO2 26 H (19-24) mmol/L ABG O2 Saturation 92.7 L (94-97) % ABG Hematocrit (34.0-46.0) % ABG Potassium (3.4-4.5) mmol/L ABG Ionized Calcium (4.5-5.3) mg/dL ABG Glucose (75-99) mg/dL ABG Lactic Acid (0.5-1.6) mmol/L Hemoglobin (11.4-16.0) gm/dL Potassium (3.5-5.1) mmol/L Chloride (98-107) mmol/L Carbon Dioxide (22-30) mmol/L BUN (7-17) mg/dL Creatinine (0.52-1.04) mg/dL Glucose (74-99) mg/dL POC Glucose (mg/dL) 123 H 114 H (75-99) mg/dL Calcium (8.4-10.2) mg/dL Magnesium (1.6-2.3) mg/dL Total Bilirubin (0.2-1.3) mg/dL AST (14-36) U/L ALT (4-34) U/L Alkaline Phosphatase (38-126) U/L Creatine Kinase (30-135) U/L Total Protein (6.3-8.2) g/dL Albumin (3.5-5.0) g/dL Lipase (23-300) U/L Arterial Blood Potassium (3.4-4.5) mmol/L Arterial Blood Glucose (75-99) mg/dL Crossmatch 10/06/21 10/06/21 10/06/21 Range/Units 03:50 03:50 03:55 WBC 16.5 H (3.8-10.6) k/uL RBC 2.48 L (3.80-5.40) m/uL Hgb 7.1 L (11.4-16.0) gm/dL Hct 23.8 L (34.0-46.0) % MCHC 29.8 L (31.0-37.0) g/dL RDW (11.5-15.5) % Plt Count 80 L (150-450) k/uL Neutrophils # 13.9 H (1.3-7.7) k/uL PT 20.8 H (9.0-12.0) sec INR 2.1 H (<1.2) APTT 123.8 H* (22.0-30.0) sec Fibrinogen 94 L (200-500) mg/dL ABG pH (7.35-7.45) ABG pCO2 (35-45) mmHg ABG pO2 (83-108) mmHg ABG HCO3 (21-25) mmol/L ABG Total CO2 (19-24) mmol/L ABG O2 Saturation (94-97) % ABG Hematocrit (34.0-46.0) % ABG Potassium (3.4-4.5) mmol/L ABG Ionized Calcium (4.5-5.3) mg/dL ABG Glucose (75-99) mg/dL ABG Lactic Acid (0.5-1.6) mmol/L Hemoglobin (11.4-16.0) gm/dL Potassium 6.7 H* (3.5-5.1) mmol/L Chloride 109 H (98-107) mmol/L Carbon Dioxide 14 L (22-30) mmol/L BUN 29 H (7-17) mg/dL Creatinine 1.50 H (0.52-1.04) mg/dL Glucose 55 L (74-99) mg/dL POC Glucose (mg/dL) (75-99) mg/dL Calcium 8.2 L (8.4-10.2) mg/dL Magnesium 2.6 H (1.6-2.3) mg/dL Total Bilirubin 1.6 H (0.2-1.3) mg/dL AST 2582 H (14-36) U/L ALT 3021 H (4-34) U/L Alkaline Phosphatase (38-126) U/L Creatine Kinase (30-135) U/L Total Protein 3.9 L (6.3-8.2) g/dL Albumin 2.6 L (3.5-5.0) g/dL Lipase (23-300) U/L Arterial Blood Potassium (3.4-4.5) mmol/L Arterial Blood Glucose (75-99) mg/dL Crossmatch 10/06/21 10/06/21 10/06/21 Range/Units 03:55 04:09 04:10 WBC (3.8-10.6) k/uL RBC (3.80-5.40) m/uL Hgb (11.4-16.0) gm/dL Hct (34.0-46.0) % MCHC (31.0-37.0) g/dL RDW (11.5-15.5) % Plt Count (150-450) k/uL Neutrophils # (1.3-7.7) k/uL PT (9.0-12.0) sec INR (<1.2) APTT (22.0-30.0) sec Fibrinogen (200-500) mg/dL ABG pH 7.15 L* 7.08 L* (7.35-7.45) ABG pCO2 47 H (35-45) mmHg ABG pO2 74 L 37 L* (83-108) mmHg ABG HCO3 13 L 14 L (21-25) mmol/L ABG Total CO2 14 L 16 L (19-24) mmol/L ABG O2 Saturation 90.7 L 51.2 L (94-97) % ABG Hematocrit (34.0-46.0) % ABG Potassium (3.4-4.5) mmol/L ABG Ionized Calcium (4.5-5.3) mg/dL ABG Glucose (75-99) mg/dL ABG Lactic Acid (0.5-1.6) mmol/L Hemoglobin (11.4-16.0) gm/dL Potassium (3.5-5.1) mmol/L Chloride (98-107) mmol/L Carbon Dioxide (22-30) mmol/L BUN (7-17) mg/dL Creatinine (0.52-1.04) mg/dL Glucose (74-99) mg/dL POC Glucose (mg/dL) 60 L (75-99) mg/dL Calcium (8.4-10.2) mg/dL Magnesium (1.6-2.3) mg/dL Total Bilirubin (0.2-1.3) mg/dL AST (14-36) U/L ALT (4-34) U/L Alkaline Phosphatase (38-126) U/L Creatine Kinase (30-135) U/L Total Protein (6.3-8.2) g/dL Albumin (3.5-5.0) g/dL Lipase (23-300) U/L Arterial Blood Potassium (3.4-4.5) mmol/L Arterial Blood Glucose (75-99) mg/dL Crossmatch 10/06/21 10/06/21 10/06/21 Range/Units 05:31 06:03 06:20 WBC (3.8-10.6) k/uL RBC (3.80-5.40) m/uL Hgb (11.4-16.0) gm/dL Hct (34.0-46.0) % MCHC (31.0-37.0) g/dL RDW (11.5-15.5) % Plt Count (150-450) k/uL Neutrophils # (1.3-7.7) k/uL PT (9.0-12.0) sec INR (<1.2) APTT (22.0-30.0) sec Fibrinogen (200-500) mg/dL ABG pH 7.12 L* 7.14 L* (7.35-7.45) ABG pCO2 25 L (35-45) mmHg ABG pO2 77 L 75 L (83-108) mmHg ABG HCO3 8 L* 14 L (21-25) mmol/L ABG Total CO2 9 L 15 L (19-24) mmol/L ABG O2 Saturation 92.3 L 91.2 L (94-97) % ABG Hematocrit (34.0-46.0) % ABG Potassium (3.4-4.5) mmol/L ABG Ionized Calcium (4.5-5.3) mg/dL ABG Glucose (75-99) mg/dL ABG Lactic Acid (0.5-1.6) mmol/L Hemoglobin (11.4-16.0) gm/dL Potassium (3.5-5.1) mmol/L Chloride (98-107) mmol/L Carbon Dioxide (22-30) mmol/L BUN (7-17) mg/dL Creatinine (0.52-1.04) mg/dL Glucose (74-99) mg/dL POC Glucose (mg/dL) 59 L (75-99) mg/dL Calcium (8.4-10.2) mg/dL Magnesium (1.6-2.3) mg/dL Total Bilirubin (0.2-1.3) mg/dL AST (14-36) U/L ALT (4-34) U/L Alkaline Phosphatase (38-126) U/L Creatine Kinase (30-135) U/L Total Protein (6.3-8.2) g/dL Albumin (3.5-5.0) g/dL Lipase (23-300) U/L Arterial Blood Potassium (3.4-4.5) mmol/L Arterial Blood Glucose (75-99) mg/dL Crossmatch 10/06/21 10/06/21 10/06/21 Range/Units 06:21 07:12 07:32 WBC (3.8-10.6) k/uL RBC (3.80-5.40) m/uL Hgb (11.4-16.0) gm/dL Hct (34.0-46.0) % MCHC (31.0-37.0) g/dL RDW (11.5-15.5) % Plt Count (150-450) k/uL Neutrophils # (1.3-7.7) k/uL PT (9.0-12.0) sec INR (<1.2) APTT (22.0-30.0) sec Fibrinogen (200-500) mg/dL ABG pH 7.32 L (7.35-7.45) ABG pCO2 (35-45) mmHg ABG pO2 70 L (83-108) mmHg ABG HCO3 (21-25) mmol/L ABG Total CO2 25 H (19-24) mmol/L ABG O2 Saturation 93.4 L (94-97) % ABG Hematocrit (34.0-46.0) % ABG Potassium (3.4-4.5) mmol/L ABG Ionized Calcium (4.5-5.3) mg/dL ABG Glucose (75-99) mg/dL ABG Lactic Acid 19.6 H* (0.5-1.6) mmol/L Hemoglobin (11.4-16.0) gm/dL Potassium (3.5-5.1) mmol/L Chloride (98-107) mmol/L Carbon Dioxide (22-30) mmol/L BUN (7-17) mg/dL Creatinine (0.52-1.04) mg/dL Glucose (74-99) mg/dL POC Glucose (mg/dL) 108 H (75-99) mg/dL Calcium (8.4-10.2) mg/dL Magnesium (1.6-2.3) mg/dL Total Bilirubin (0.2-1.3) mg/dL AST (14-36) U/L ALT (4-34) U/L Alkaline Phosphatase (38-126) U/L Creatine Kinase (30-135) U/L Total Protein (6.3-8.2) g/dL Albumin (3.5-5.0) g/dL Lipase (23-300) U/L Arterial Blood Potassium (3.4-4.5) mmol/L Arterial Blood Glucose (75-99) mg/dL Crossmatch 10/06/21 10/06/21 10/06/21 Range/Units 07:50 08:04 08:29 WBC (3.8-10.6) k/uL RBC (3.80-5.40) m/uL Hgb (11.4-16.0) gm/dL Hct (34.0-46.0) % MCHC (31.0-37.0) g/dL RDW (11.5-15.5) % Plt Count (150-450) k/uL Neutrophils # (1.3-7.7) k/uL PT (9.0-12.0) sec INR (<1.2) APTT (22.0-30.0) sec Fibrinogen (200-500) mg/dL ABG pH 7.17 L* 7.18 L* (7.35-7.45) ABG pCO2 (35-45) mmHg ABG pO2 33 L* 71 L (83-108) mmHg ABG HCO3 13 L 14 L (21-25) mmol/L ABG Total CO2 14 L 15 L (19-24) mmol/L ABG O2 Saturation 54.1 L 91.9 L (94-97) % ABG Hematocrit (34.0-46.0) % ABG Potassium (3.4-4.5) mmol/L ABG Ionized Calcium (4.5-5.3) mg/dL ABG Glucose (75-99) mg/dL ABG Lactic Acid (0.5-1.6) mmol/L Hemoglobin (11.4-16.0) gm/dL Potassium (3.5-5.1) mmol/L Chloride (98-107) mmol/L Carbon Dioxide (22-30) mmol/L BUN (7-17) mg/dL Creatinine (0.52-1.04) mg/dL Glucose (74-99) mg/dL POC Glucose (mg/dL) 62 L (75-99) mg/dL Calcium (8.4-10.2) mg/dL Magnesium (1.6-2.3) mg/dL Total Bilirubin (0.2-1.3) mg/dL AST (14-36) U/L ALT (4-34) U/L Alkaline Phosphatase (38-126) U/L Creatine Kinase (30-135) U/L Total Protein (6.3-8.2) g/dL Albumin (3.5-5.0) g/dL Lipase (23-300) U/L Arterial Blood Potassium (3.4-4.5) mmol/L Arterial Blood Glucose (75-99) mg/dL Crossmatch 10/06/21 10/06/21 10/06/21 Range/Units 09:06 09:14 09:28 WBC (3.8-10.6) k/uL RBC (3.80-5.40) m/uL Hgb (11.4-16.0) gm/dL Hct (34.0-46.0) % MCHC (31.0-37.0) g/dL RDW (11.5-15.5) % Plt Count (150-450) k/uL Neutrophils # (1.3-7.7) k/uL PT (9.0-12.0) sec INR (<1.2) APTT (22.0-30.0) sec Fibrinogen (200-500) mg/dL ABG pH 7.19 L* (7.35-7.45) ABG pCO2 (35-45) mmHg ABG pO2 73 L (83-108) mmHg ABG HCO3 14 L (21-25) mmol/L ABG Total CO2 15 L (19-24) mmol/L ABG O2 Saturation 92.4 L (94-97) % ABG Hematocrit (34.0-46.0) % ABG Potassium (3.4-4.5) mmol/L ABG Ionized Calcium (4.5-5.3) mg/dL ABG Glucose (75-99) mg/dL ABG Lactic Acid (0.5-1.6) mmol/L Hemoglobin (11.4-16.0) gm/dL Potassium 5.7 H (3.5-5.1) mmol/L Chloride (98-107) mmol/L Carbon Dioxide (22-30) mmol/L BUN (7-17) mg/dL Creatinine (0.52-1.04) mg/dL Glucose (74-99) mg/dL POC Glucose (mg/dL) 105 H (75-99) mg/dL Calcium (8.4-10.2) mg/dL Magnesium (1.6-2.3) mg/dL Total Bilirubin (0.2-1.3) mg/dL AST (14-36) U/L ALT (4-34) U/L Alkaline Phosphatase (38-126) U/L Creatine Kinase 1548 H* (30-135) U/L Total Protein (6.3-8.2) g/dL Albumin (3.5-5.0) g/dL Lipase 434 H (23-300) U/L Arterial Blood Potassium (3.4-4.5) mmol/L Arterial Blood Glucose (75-99) mg/dL Crossmatch 10/06/21 Range/Units 10:04 WBC (3.8-10.6) k/uL RBC (3.80-5.40) m/uL Hgb (11.4-16.0) gm/dL Hct (34.0-46.0) % MCHC (31.0-37.0) g/dL RDW (11.5-15.5) % Plt Count (150-450) k/uL Neutrophils # (1.3-7.7) k/uL PT (9.0-12.0) sec INR (<1.2) APTT (22.0-30.0) sec Fibrinogen (200-500) mg/dL ABG pH (7.35-7.45) ABG pCO2 (35-45) mmHg ABG pO2 (83-108) mmHg ABG HCO3 (21-25) mmol/L ABG Total CO2 (19-24) mmol/L ABG O2 Saturation (94-97) % ABG Hematocrit (34.0-46.0) % ABG Potassium (3.4-4.5) mmol/L ABG Ionized Calcium (4.5-5.3) mg/dL ABG Glucose (75-99) mg/dL ABG Lactic Acid (0.5-1.6) mmol/L Hemoglobin (11.4-16.0) gm/dL Potassium (3.5-5.1) mmol/L Chloride (98-107) mmol/L Carbon Dioxide (22-30) mmol/L BUN (7-17) mg/dL Creatinine (0.52-1.04) mg/dL Glucose (74-99) mg/dL POC Glucose (mg/dL) 123 H (75-99) mg/dL Calcium (8.4-10.2) mg/dL Magnesium (1.6-2.3) mg/dL Total Bilirubin (0.2-1.3) mg/dL AST (14-36) U/L ALT (4-34) U/L Alkaline Phosphatase (38-126) U/L Creatine Kinase (30-135) U/L Total Protein (6.3-8.2) g/dL Albumin (3.5-5.0) g/dL Lipase (23-300) U/L Arterial Blood Potassium (3.4-4.5) mmol/L Arterial Blood Glucose (75-99) mg/dL Crossmatch
[2021-10-06] MEDS: FUROSEMIDE 100 MG in SODIUM CHLORIDE 0.9% 90 ML IV SCH ×2 (10:51→18:44)
[2021-10-06 11:01] LABS: Glucose,Whole Blood 132 mg/dL (75-99)
[2021-10-06] MEDS ORDERED: DEXTROSE 5% IN WATER 50 ML BAG IVPB PRN (11:17)
[2021-10-06 11:32] LABS: ABG Base Excess -16.2 mmol/L; ABG HCO3 13 mmol/L (21-25); ABG Oxygen Saturation 92.8 % (94-97); ABG PCO2 36 mmHg (35-45); ABG PO2 73 mmHg (83-108); ABG TCO2 14 mmol/L (19-24)
[2021-10-06 11:36] LABS: ABG PH 7.15 (7.35-7.45); Allen Test Performed? no
[2021-10-06 12:07] LABS: Glucose,Whole Blood 122 mg/dL (75-99)
[2021-10-06 12:31] LABS: ABG Base Excess -16.1 mmol/L; ABG HCO3 13 mmol/L (21-25); ABG Oxygen Saturation 85.8 % (94-97); ABG PCO2 41 mmHg (35-45); ABG TCO2 15 mmol/L (19-24)
[2021-10-06 12:33] LABS: ABG PH 7.12 (7.35-7.45)
[2021-10-06 12:34] LABS: ABG PO2 59 mmHg (83-108); Allen Test Performed? no
[2021-10-06 13:04] LABS: Glucose,Whole Blood 140 mg/dL (75-99)
[2021-10-06 13:31] LABS: ABG Base Excess -16.2 mmol/L; ABG HCO3 14 mmol/L (21-25); ABG PCO2 47 mmHg (35-45); ABG PO2 82 mmHg (83-108); ABG TCO2 15 mmol/L (19-24)
[2021-10-06 13:32] LABS: ABG PH 7.08 (7.35-7.45); Allen Test Performed? no
[2021-10-06 13:37] LABS: Hypochromasia Marked; MCH 31.1 pg (25.0-35.0); MCHC 31.7 g/dL (31.0-37.0); MCV 98.2 fL (80.0-100.0); Mean Platelet Volume 12.3; RBC 2.24 m/uL (3.80-5.40); RDW 14.8 % (11.5-15.5); WBC 14.3 k/uL (3.8-10.6)
[2021-10-06 13:38] LABS: Platelet Count 61 k/uL (150-450)
[2021-10-06 14:06] LABS: Glucose,Whole Blood 123 mg/dL (75-99)
[2021-10-06 14:33] LABS: ABG Base Excess -12.2 mmol/L; ABG HCO3 17 mmol/L (21-25); ABG Oxygen Saturation 92.9 % (94-97); ABG PCO2 48 mmHg (35-45); ABG PO2 76 mmHg (83-108); ABG TCO2 18 mmol/L (19-24)
[2021-10-06 14:35] LABS: ABG PH 7.15 (7.35-7.45)
[2021-10-06 14:36] LABS: Allen Test Performed? no
--- NOTE | 2021-10-06 14:39 | XR ---
EXAMINATION TYPE: XR abdomen 1V DATE OF EXAM: 10/06/2021 COMPARISON: NONE HISTORY: Abdominal distention TECHNIQUE: 3 views FINDINGS: There is no sign of intestinal obstruction or pneumoperitoneum. Fecal pattern is normal. No evidence of a mass. Lung bases appear clear. IMPRESSION: Nonacute abdomen.
[2021-10-06] MEDS ORDERED: HYDROXOCOBALAMIN 5 GM in SODIUM CHLORIDE 0.9% 250 ML IVPB STA (14:40)
[2021-10-06] MEDS ORDERED: SODIUM CHLORIDE 0.9% IVPB STA ×2 (15:05→16:53)
[2021-10-06] MEDS ORDERED: HYDROXOCOBALAMIN IVPB STA ×2 (15:05→16:53)
[2021-10-06 15:08] LABS: Glucose,Whole Blood 121 mg/dL (75-99)
[2021-10-06 15:41] LABS: ABG HCO3 18 mmol/L (21-25); ABG Oxygen Saturation 94.6 % (94-97); ABG PCO2 48 mmHg (35-45); ABG PO2 88 mmHg (83-108); ABG TCO2 20 mmol/L (19-24)
[2021-10-06 15:43] LABS: ABG PH 7.19 (7.35-7.45); Allen Test Performed? no
[2021-10-06 16:00] LABS: Glucose,Whole Blood 117 mg/dL (75-99)
[2021-10-06 16:38] LABS: ABG HCO3 16 mmol/L (21-25); ABG Oxygen Saturation 95.4 % (94-97); ABG PCO2 40 mmHg (35-45); ABG PH 7.21 (7.35-7.45); ABG PO2 93 mmHg (83-108); ABG TCO2 17 mmol/L (19-24)
[2021-10-06 16:40] LABS: Allen Test Performed? no
[2021-10-06] MEDS: SODIUM BICARBONATE TAB 650 MG TAB PO SCH ×2 (16:59→21:30)
[2021-10-06 17:08] LABS: Glucose,Whole Blood 120 mg/dL (75-99)
[2021-10-06 17:33] LABS: ABG Base Excess -10.6 mmol/L; ABG HCO3 17 mmol/L (21-25); ABG Oxygen Saturation 93.4 % (94-97); ABG PCO2 44 mmHg (35-45); ABG PH 7.21 (7.35-7.45); ABG PO2 80 mmHg (83-108); ABG TCO2 19 mmol/L (19-24)
[2021-10-06 17:36] LABS: Allen Test Performed? no
--- NOTE | 2021-10-06 18:00 | P.NPCON ---
History of Present Illness - Reason for Consult metabolic acidosis - History of Present Illness Patient is a 61-year-old female with history of hypertension, hyperlipidemia, coronary artery disease. She is status post coronary artery bypass surgery. Postop day #1. Patient has been hypotensive. She is maintained on levo fed and vasopressin. She was also quite acidotic with pH of 7.0 and 7.1. Lactic acid was more than 24. Patient received a dose of hydroxycobalamine Urine output has been low at about 10 mL an hour Levo fed has been decreased over the last few hours. Potassium was elevated at 6.7 but currently down to 5.7. Patient is maintained on bicarb drip had 100 mL an hour. She has received multiple additional amps of sodium bicarb. FiO2 has been increased to 100%. Review of Systems As per HPI Past Medical History Past Medical History: Coronary Artery Disease (CAD), Chest Pain / Angina, Hyperlipidemia, Hypertension, Myocardial Infarction (AL) Additional Past Medical History / Comment(s): AAA 11/2013 measuring 3.4 cm Last Myocardial Infarction Date:: 07/2007 History of Any Multi-Drug Resistant Organisms: None Reported Past Surgical History: Appendectomy, Heart Catheterization With Stent, Tonsillectomy, Tubal Ligation Date of Last Stent Placement:: 2007 Past Psychological History: No Psychological Hx Reported Smoking Status: Current every day smoker Past Alcohol Use History: Daily Past Drug Use History: None Reported - Past Family History Father Family Medical History: Unable to Obtain Additional Family Medical History / Comment(s): pt was adopted Mother Family Medical History: Unable to Obtain Additional Family Medical History / Comment(s): pt was adopted Medications and Allergies Home Medications Medication Instructions Recorded Confirmed Type Atorvastatin [Lipitor] 80 mg PO HS 05/26/16 09/28/21 History Glucosam/Joe-Msm1/C/Eleazar/Bosw 1 tab PO DAILY 05/26/16 09/28/21 History [Glucosamine-Chondroitin Tablet] Loratadine [Claritin] 10 mg PO DAILY 05/26/16 09/28/21 History Metoprolol Tartrate [Lopressor] 25 mg PO HS 05/26/16 09/28/21 History Nitroglycerin Sl Tabs [Nitrostat] 0.4 mg SUBLINGUAL Q5M PRN 05/26/16 09/28/21 History Aspirin EC [Ecotrin Low Dose] 81 mg PO BID 09/28/21 09/28/21 History Ibuprofen [Motrin Ib] 400 mg PO BID 09/28/21 09/28/21 History Turmeric Root Extract [Turmeric] 500 mg PO DAILY 09/28/21 09/28/21 History lisinopriL [Zestril] 20 mg PO DAILY 09/28/21 09/28/21 History Allergies Allergy/AdvReac Type Severity Reaction Status Date / Time Penicillins Allergy Rash/Hives Verified 10/05/21 09:59 Physical Exam Vitals: Vital Signs Temp Pulse Resp BP Pulse Ox 10/06/21 17:15 111 H 26 H 123/55 88 L 10/06/21 17:00 103 H 26 H 130/80 92 L 10/06/21 16:45 104 H 26 H 130/80 91 L 10/06/21 16:30 105 H 26 H 130/80 93 L 10/06/21 16:15 105 H 26 H 130/80 92 L 10/06/21 16:00 97.7 F 110 H 26 H 143/86 90 L 10/06/21 15:45 110 H 22 89 L 10/06/21 15:30 105 H 22 94 L 10/06/21 15:24 114 H 10/06/21 15:15 113 H 22 89 L 10/06/21 15:13 110 H 10/06/21 15:00 112 H 25 H 96 10/06/21 14:45 105 H 22 92 L 10/06/21 14:30 106 H 24 92 L 10/06/21 14:15 112 H 26 H 119/84 91 L 10/06/21 14:00 109 H 24 84 L 10/06/21 13:45 105 H 22 95 10/06/21 13:30 105 H 22 93 L 10/06/21 13:15 105 H 18 112/90 92 L 10/06/21 13:00 106 H 18 91 L 10/06/21 12:45 111 H 25 H 89 L 10/06/21 12:30 111 H 23 84 L 10/06/21 12:15 103 H 23 87 L 10/06/21 12:00 97.3 F L 102 H 23 84 L 10/06/21 11:50 104 H 10/06/21 11:49 101 H 33 H 86 L 10/06/21 11:39 98 05/14/22 11:30 99 24 99 10/06/21 11:15 102 H 24 113/67 95 10/06/21 11:14 97.0 F L 101 H 28 H 118/68 95 10/06/21 11:12 97.0 F L 100 27 H 119/68 10/06/21 11:00 101 H 31 H 96 10/06/21 10:45 100 24 98 10/06/21 10:42 97.2 F L 101 H 30 H 115/67 96 10/06/21 10:32 97.0 F L 104 H 28 H 114/67 96 10/06/21 10:30 106 H 29 H 98 10/06/21 10:15 98 26 H 119/62 96 10/06/21 10:00 106 H 23 100 10/06/21 09:45 103 H 26 H 97 10/06/21 09:30 104 H 27 H 97 10/06/21 09:15 105 H 25 H 115/20 95 10/06/21 09:00 106 H 28 H 95 10/06/21 08:45 96.8 F L 107 H 29 H 90/58 88 L 10/06/21 08:30 108 H 27 H 95 10/06/21 08:19 106 H 10/06/21 08:15 105 H 18 94/56 95 10/06/21 08:00 96.6 F L 106 H 19 96 10/06/21 07:57 108 H 10/06/21 07:45 110 H 25 H 94 L 10/06/21 07:30 104 H 22 97 10/06/21 07:15 105 H 28 H 75/28 96 10/06/21 07:00 107 H 28 H 96 10/06/21 06:54 96.8 F L 105 H 26 H 79/54 10/06/21 06:45 99 26 H 83/32 97 10/06/21 06:30 105 H 24 83/32 94 L 10/06/21 06:24 97.0 F L 103 H 24 81/53 10/06/21 06:15 101 H 27 H 83/32 95 10/06/21 06:14 97.0 F L 105 H 18 95/55 10/06/21 06:00 100 29 H 95 10/06/21 05:45 104 H 22 93 L 05/14/22 05:30 105 H 24 91 L 10/06/21 05:15 102 H 24 98/69 92 L 10/06/21 05:00 104 H 30 H 93 L 10/06/21 04:45 100 29 H 92 L 10/06/21 04:35 101 H 10/06/21 04:30 104 H 29 H 92 L 10/06/21 04:19 91 10/06/21 04:15 94 24 96/78 96 10/06/21 04:00 98 28 H 97/41 92 L 10/06/21 03:45 95 30 H 96 10/06/21 03:30 108 H 26 H 95 10/06/21 03:15 96 28 H 84/31 94 L 10/06/21 03:00 98 27 H 97 10/06/21 02:45 105 H 30 H 95 10/06/21 02:30 96 23 97 10/06/21 02:15 105 H 27 H 73/37 94 L 10/06/21 02:00 102 H 24 94 L 10/06/21 01:45 93 29 H 97 10/06/21 01:30 96 23 98/59 97 10/06/21 01:15 89 25 H 98/59 96 10/06/21 01:00 92 24 95 10/06/21 00:45 98 21 10/06/21 00:30 99 23 93/23 90 L 10/06/21 00:15 102 H 25 H 88 L 10/06/21 00:00 105 H 22 90 L 10/05/21 23:45 90 20 93 L 10/05/21 23:30 96 20 96 10/05/21 23:15 89 18 79/53 98 10/05/21 23:14 91 10/05/21 23:00 93 18 98 10/05/21 22:58 88 10/05/21 22:45 88 19 91 L 10/05/21 22:30 92 18 90 L 10/05/21 22:15 90 20 109/56 94 L 10/05/21 22:00 85 21 96 10/05/21 21:45 86 20 96 10/05/21 21:30 85 19 119/71 97 10/05/21 21:15 85 18 119/71 99 10/05/21 21:00 97.0 F L 85 18 98 05/13/22 20:45 85 18 98 10/05/21 20:30 86 17 104/69 99 10/05/21 20:15 85 17 98 10/05/21 20:00 97.0 F L 85 19 100 10/05/21 19:45 85 10 L 125/101 100 10/05/21 19:30 85 21 99 10/05/21 19:15 86 17 99 10/05/21 19:00 85 18 99 10/05/21 18:48 60 10/05/21 18:45 85 18 100 10/05/21 18:30 85 18 100 10/05/21 18:15 85 12 100 10/05/21 18:00 85 13 100 Intake and Output 10/06/21 10/06/21 10/06/21 06:59 14:59 22:59 Intake Total 0669.811 4827.466 785.244 Output Total 1055 1080 328 Balance 75.798 1921.466 457.244 Intake: IV 684.0 1993.5 657 0.9 Sodium Chloride 400 160 30 0.9 Sodium Chloride for 200 170 80 Cardiac Output Albumin Human 5% 250 ml @ 750 0 mls/hr IVPB .STK-[facility] Rx#:[id number] Dextrose 10% in Water 500 240 120 ml In Empty Bag 1 bag @ 40 mls/hr IV .[id number] [facility] Rx#:[id number] Dextrose 5% in Water 1, 600 400 000 ml @ 150 mls/hr IV . Q7H40M [facility] with Sodium Bicarb (1 Meq/ml) 150 ml Rx#:[id number] Nitroglycerin-D5w Pmx 50 12.0 1.5 mg In Dextrose/Water 1 250ml.bag @ 5 MCG/MIN 1.5 mls/hr IV .Q24H [facility] Rx#: [id number] Pressure Bag (0.9 Sodium 72 72 27 Chloride Intake, IV Titration 446.798 387.966 128.244 Amount Calcium Gluconate in NaCl 100 2 gm In Saline 1 100ml. bag @ 100 mls/hr IVPB ONCE ONE Rx#:[id number] Insulin Regular 100 unit 1.027 1.827 0 In Sodium Chloride 0.9% 100 ml @ Per Protocol IV .Q0M [facility] Rx#:[id number] Norepinephrine 4 mg In 99.763 324.363 128.244 Sodium Chloride 0.9% 250 ml @ 0.02 MCG/KG/MIN 8.23 mls/hr IV .Q24H [facility] Rx#: [id number] Phenylephrine 1 mg In 100 Sodium Chloride 0.9% 100 ml @ 400.4 mls/hr IV ONCE ONE Rx#:[id number] Potassium Chloride 10 meq 100 In Water For Injection 1 100ml.bag @ 100 mls/hr IVPB Q1H [facility] Rx#: [id number] propofoL 1,000 mg In 46.008 61.776 Empty Bag 1 bag @ Titrate IV .Q0M [facility] Rx#: [id number] Blood Product 0 620 Rc As-1 Unit 0 310 [id number] Rc As-1 Unit 310 [id number] Output: Chest Tube Drainage 725 725 260 Chest Tube Left Lateral 270 120 30 Chest Chest Tube Mediastinal 410 490 170 Right Lateral Chest 45 115 60 Drainage 80 260 50 Right Calf 80 260 50 Urine 250 95 18 Other: Voiding Method Indwelling Catheter Indwelling Catheter Indwelling Catheter Weight 122.1 kg ABP, PAP, CO, CI - Last 8 Hours Arterial Blood Pressure 92/54 Arterial Blood Pressure 84/56 Arterial Blood Pressure 108/66 Arterial Blood Pressure 117/69 Arterial Blood Pressure 90/57 Arterial Blood Pressure 89/57 Arterial Blood Pressure 132/72 Arterial Blood Pressure 116/65 Arterial Blood Pressure 89/55 Arterial Blood Pressure 112/69 Arterial Blood Pressure 130/69 Arterial Blood Pressure 91/59 Arterial Blood Pressure 129/68 Arterial Blood Pressure 75/48 Arterial Blood Pressure 93/57 Arterial Blood Pressure 94/56 Arterial Blood Pressure 96/56 Arterial Blood Pressure 105/58 Arterial Blood Pressure 119/62 Arterial Blood Pressure 106/58 Arterial Blood Pressure 90/53 Arterial Blood Pressure 75/48 Arterial Blood Pressure 62/46 Arterial Blood Pressure 92/60 Arterial Blood Pressure 111/66 Arterial Blood Pressure 107/63 Arterial Blood Pressure 103/62 Arterial Blood Pressure 107/62 Arterial Blood Pressure 103/61 Arterial Blood Pressure 114/62 Pulmonary Artery Pressure 38/28 Pulmonary Artery Pressure 39/27 Pulmonary Artery Pressure 39/28 Pulmonary Artery Pressure 42/29 Pulmonary Artery Pressure 39/27 Pulmonary Artery Pressure 37/27 Pulmonary Artery Pressure 43/28 Pulmonary Artery Pressure 41/27 Pulmonary Artery Pressure 39/27 Pulmonary Artery Pressure 39/27 Pulmonary Artery Pressure 41/28 Pulmonary Artery Pressure 44/29 Pulmonary Artery Pressure 45/30 Pulmonary Artery Pressure 40/28 Pulmonary Artery Pressure 39/27 Pulmonary Artery Pressure 42/27 Pulmonary Artery Pressure 42/27 Pulmonary Artery Pressure 44/28 Pulmonary Artery Pressure 44/28 Pulmonary Artery Pressure 41/27 Pulmonary Artery Pressure 43/28 Pulmonary Artery Pressure 35/22 Pulmonary Artery Pressure 34/22 Pulmonary Artery Pressure 43/27 Pulmonary Artery Pressure 46/28 Pulmonary Artery Pressure 44/27 Pulmonary Artery Pressure 42/27 Pulmonary Artery Pressure 42/27 Pulmonary Artery Pressure 37/24 Pulmonary Artery Pressure 41/25 Cardiac Output 5.7 Cardiac Output 5.1 Cardiac Output 5.1 Cardiac Output 5.1 Cardiac Output 5.1 Cardiac Output 6.6 Cardiac Output 6.6 Cardiac Output 6.6 Cardiac Output 6.6 Cardiac Output 6 Cardiac Output 6 Cardiac Output 6 Cardiac Output 6 Cardiac Output 5.7 Cardiac Output 5.7 Cardiac Output 5.7 Cardiac Output 5.7 Cardiac Output 5.2 Cardiac Output 5.2 Cardiac Output 5.2 Cardiac Output 5.2 Cardiac Output 5 Cardiac Output 5 Cardiac Output 5 Cardiac Output 5 Cardiac Output 5.4 Cardiac Output 5.4 Cardiac Output 5.4 Cardiac Output 5.6 Cardiac Index 2.7 Cardiac Index 2.5 Cardiac Index 2.5 Cardiac Index 2.5 Cardiac Index 2.5 Cardiac Index 3.2 Cardiac Index 3.2 Cardiac Index 3.2 Cardiac Index 3.2 Cardiac Index 2.9 Cardiac Index 2.9 Cardiac Index 2.9 Cardiac Index 2.9 Cardiac Index 2.7 Cardiac Index 2.7 Cardiac Index 2.7 Cardiac Index 2.7 Cardiac Index 2.5 Cardiac Index 2.5 Cardiac Index 2.5 Cardiac Index 2.5 Cardiac Index 2.4 Cardiac Index 2.4 Cardiac Index 2.4 Cardiac Index 2.4 Cardiac Index 2.6 Cardiac Index 2.6 Cardiac Index 2.6 Cardiac Index 2.7 Patient is sedated. She is on the vent Patient heating blanket Examination of the heart S1 and S2 Bilateral breath sounds are heard Abdomen is soft distended Right lower extremity is wrapped, 1+ edema noted in the left lower extremity [employer] exam not examined as patient is sedated Chest tubes are noted Drain in the right lower extremity noted at site of harvest Results - Lab Results Most recent lab results ABG pH 7.21 (7.35-7.45) L 10/06/21 17:28 ABG pCO2 44 mmHg (35-45) 10/06/21 17:28 ABG pO2 80 mmHg (83-108) L 10/06/21 17:28 ABG HCO3 17 mmol/L (21-25) L 10/06/21 17:28 ABG O2 Saturation 93.4 % (94-97) L 10/06/21 17:28 Calcium 8.2 mg/dL (8.4-10.2) L 10/06/21 03:55 Magnesium 2.6 mg/dL (1.6-2.3) H 10/06/21 03:55 10/06/21 13:34 10/06/21 09:14 Assessment and Plan Assessment: 1. Severe anion gap metabolic acidosis, lactic acidosis slowly improving. Patient is maintained on bicarb drip. This will be increased to 150 ML per hour 2. Status post triple vessel coronary artery bypass, postop day #1 3. Status post acute non-ST elevation AL 4. Acute hypoxic respiratory failure 5. Hyperkalemia associated with acute kidney injury 6. Acute kidney injury, ATN currently oliguric secondary to hypotension and hypoperfusion Plan: Increase bicarb drip to 150 mL an hour. Patient will need renal replacement therapy if her acidosis is not improved over the next few hours. She will need sled procedure given the hypotension. Continue with the Lasix drip. Increase dose to 15 mg an hour Continue with serial ABGs Discussed with territory supervisor. Thank you for this consultation, we'll continue to follow the patient with you during her hospitalization
[2021-10-06 18:11] LABS: Glucose,Whole Blood 128 mg/dL (75-99)
[2021-10-06 18:19] LABS: Hypochromasia Marked; MCH 34.6 pg (25.0-35.0); MCHC 35.8 g/dL (31.0-37.0); MCV 96.5 fL (80.0-100.0); Mean Platelet Volume 12.8; Poikilocytosis Slight; RBC 1.73 m/uL (3.80-5.40); RDW 15.1 % (11.5-15.5)
[2021-10-06 18:21] LABS: African American GFR (CKD) 21 (>60 ml/min/1.73 sqM); Albumin 2.2 g/dL (3.5-5.0); Alkaline Phosphatase 64 U/L (38-126); Anion Gap 31 mmol/L; Blood Urea Nitrogen 32 mg/dL (7-17); Carbon Dioxide 18 mmol/L (22-30); Chloride 101 mmol/L (98-107); Glucose 116 mg/dL (74-99); Non-African American GFR(CKD) 18 (>60 ml/min/1.73 sqM); Potassium 5.9 mmol/L (3.5-5.1); Sodium 150 mmol/L (137-145); Total Bilirubin 2.6 mg/dL (0.2-1.3); Total Protein 3.9 g/dL (6.3-8.2)
[2021-10-06 18:29] LABS: HCT 16.7 % (34.0-46.0); Platelet Count 54 k/uL (150-450)
[2021-10-06 18:30] LABS: ABG Base Excess -11.1 mmol/L; ABG HCO3 17 mmol/L (21-25); ABG Oxygen Saturation 92.4 % (94-97); ABG PCO2 44 mmHg (35-45); ABG PO2 84 mmHg (83-108); ABG TCO2 18 mmol/L (19-24)
[2021-10-06 18:32] LABS: Allen Test Performed? no
[2021-10-06 19:03] LABS: Glucose,Whole Blood 102 mg/dL (75-99)
[2021-10-06 19:11] LABS: ALT 12632 U/L (4-34); AST >15000 U/L (14-36)
[2021-10-06 19:15] LABS: Band Neutrophils % 8 %; Metamyelocytes % 2 %; Myelocytes # (M) 0.11 k/uL (0); Myelocytes % 1 %; Neutrophils % (M) 69 %; Nucleated Red Blood Cells 2 /100 WBC (0-0); Total Cells Counted 200
[2021-10-06 19:16] LABS: Lymphocytes # (M) 1.59 k/uL (1.0-4.8); Metamyelocytes # (M) 0.21 k/uL (0); Monocytes # (M) 0.74 k/uL (0-1.0); WBC 10.6 k/uL (3.8-10.6)
[2021-10-06 19:39] LABS: ABG Base Excess -12.8 mmol/L; ABG HCO3 16 mmol/L (21-25); ABG PCO2 47 mmHg (35-45); ABG PO2 71 mmHg (83-108); ABG TCO2 18 mmol/L (19-24)
[2021-10-06 19:40] LABS: ABG PH 7.14 (7.35-7.45); Allen Test Performed? No
[2021-10-06 20:21] LABS: Glucose,Whole Blood 118 mg/dL (75-99)
[2021-10-06 20:46] LABS: ABG Base Excess -12.6 mmol/L; ABG HCO3 16 mmol/L (21-25); ABG Oxygen Saturation 83.9 % (94-97); ABG PCO2 47 mmHg (35-45); ABG TCO2 18 mmol/L (19-24)
[2021-10-06 20:47] LABS: ABG PH 7.15 (7.35-7.45); ABG PO2 57 mmHg (83-108); Allen Test Performed? No
[2021-10-06 20:48] LABS: Glucose,Whole Blood 117 mg/dL (75-99)
[2021-10-06] MEDS ORDERED: SENNOSIDES-DOCUSATE SODIUM 1 EACH TAB PO SCH (21:00)
[2021-10-06] MEDS ORDERED: LIDOCAINE 2% (PF) 20 MG/ML 5 ML VIAL ONE (21:00)
[2021-10-06 21:32] LABS: ABG Base Excess -12.2 mmol/L; ABG HCO3 16 mmol/L (21-25); ABG Oxygen Saturation 81.9 % (94-97); ABG PCO2 46 mmHg (35-45); ABG TCO2 18 mmol/L (19-24)
[2021-10-06 21:34] LABS: ABG PH 7.17 (7.35-7.45); ABG PO2 55 mmHg (83-108); Allen Test Performed? No
--- NOTE | 2021-10-06 22:13 | P.PN ---
Subjective 61-year-old female patient with a past medical history significant for coronary artery disease and prior angioplasty and stenting multiple times with the last one in 2013 the details on that are unavailable at this point and also she does have history of smoking where she continues to smoke as well as hypertension and dyslipidemia presented to the emergency department complaining of chest discomfort. The symptoms started about a week ago where she is describing a pressure kind of discomfort in the middle of the chest with radiation to both a avelina associated with shortness of breath and sweating. No dizziness or lightheadedness and no presyncope or syncope. Lab review shows a WBC of 11.0, hemoglobin of 14.2). Count of 183, sodium 139, potassium 3.9, BUN/creatinine of 13/0.6; troponin is elevated at 1.55 trending up to 2.02 She had a transthoracic echocardiogram demonstrating EF 50-55% with mild aortic insufficiency. Yesterday she underwent heart catheterization demonstrating right dominant system with mid RCA 90-95% occluded, distal RCA with chronic total occlusion with previous stent present, obtuse marginal branch of the circ umflex coronary artery with 90-95% stenosis, and proximal LAD stenosis 80%. Due to these findings consultation was placed to Dr. Morse from cardiothoracic surgery for surgical revascularization recommendations. 10/01/2021 Apparently patient with none STEMI and cardiac catheterization showing triple coronary artery disease. Patient has been evaluated by cardiothoracic surgery with planned to undergo bypass surgery later on during this admission. Also cartilage and pulmonary team of the case. Patient currently on heparin drip, Solu-Medrol 60 mg, inhaled steroids. Aspirin. Hydralazine, Imdur, lisinopril and metoprolol and hydrochlorothiazide. Also she tells abdomen showing increased aortic aneurysm 4 cm up to 5.3 cm. While CTA of the head and neck showing severe stenosis of the right internal carotid artery 10/02/2021 Patient is a started on steroids and breathing treatment. She is sitting in chair fully awake and oriented, no chest pain or dyspnea at rest. 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 Currently she is chest pain-free. Continue with heparin drip. Also she is on aspirin. Plan for bypass by surgery team 10/03/2021 Patient with no chest pain or dyspnea today. No other complaints. She feels little congested with little headache and flushing to the face. Patient remains on heparin drip and IV Solu-Medrol Patient planned to get cardiac bypass surgery We will check for viral testing included an influenza , Covid and SVT 10/04/2021 Patient still with no chest pain or dyspnea. Sitting in bed with no distress. She remains on heparin drip Sinusitis symptoms improving. Patient is getting a workup by surgery team, with planned to undergo bypass surgery. We will follow up with surgery team about when to do surgery 10/05/2021 Patient is going for bypass surgery today. Her Vitas looks stable with temperature 97.3, heart rate 64, blood pressure 96/51, she is saturating 92% on 2 L oxygen. Glucose is controlled. WBC is 14.2, hemoglobin 14.8. Creatinine 0.9, AST 37 and ALT 68, bilirubin is normal at 0.7. Most likely patient will be moved to the ICU after the procedure, we will follow up 10/06/2021 Patient status post bypass surgery. Today is postoperative day #1. She remains in the ICU in critical condition, she status post intubation and on mechanical ventilation requiring high PEEP of 10. Pulmonary/critical care team followed closely as well as other consultations. She is also on pressors and vasopressin/levophed, also patient is acidotic with high lactic acid 19.6. Blood pressure 100/66, she is tachypneic at 24, she is little hypothermic. WBC is 16.5, hemoglobin 7.1, INR 2.1, pH 7.2, creatinine 1.5, creatinine 6.7, liver enzymes elevated with AST 2582 and ALT 30-1. Chest x-ray is noted. Patient is on by A trip, Protonix, Lasix by primary team and pressors Review of system: N/a Active Medications Generic Name Dose Route Start Last Admin Trade Name Freq PRN Reason Stop Dose Admin Albuterol/Ipratropium 3 ml 10/05/21 16:41 10/06/21 04:19 Ipratropium-Albuterol 3 Ml Neb INHALATION 3 ml RT-Q2H PRN Administration Shortness Of Breath Or Wheezing Albuterol/Ipratropium 3 ml 10/06/21 08:00 10/06/21 19:45 Ipratropium-Albuterol 3 Ml Neb INHALATION 3 ml RT-QID BAY Administration Benzocaine/Menthol 1 each 10/05/21 16:41 Benzocaine/Menthol Lozeng 1 Each Lozenge MUCOUS MEM Q2H PRN Sore Throat Bisacodyl 10 mg 10/06/21 09:00 Bisacodyl 10 Mg Supp RECTAL DAILY PRN Constipation Budesonide 1 mg 10/01/21 20:00 10/06/21 19:45 Budesonide 1 Mg/2 Ml Nebu INHALATION 1 mg RT-BID BAY Administration Dextrose/Water 10 - 40 ml 10/06/21 11:17 Dextrose 5% In Water 50 Ml Bag IVPB 10/06/21 23:00 ONCE PRN FLUSH Furosemide 20 mg 10/06/21 05:31 Furosemide 10 Mg/Ml 2 Ml Vial IV 10/06/21 23:00 ONCE PRN Between Blood Transfusions Amiodarone HCl 150 mg/ 103 mls @ 618 mls/hr 10/05/21 16:41 Dextrose/Water IV .Q10M PRN A.FIB/FLUTTER Protocol Amiodarone HCl 360 mg/ 207.2 mls @ 34.533 mls/hr 10/05/21 16:41 Dextrose/Water IV .Q6H PRN A.FIB/FLUTTER Protocol 1 MG/MIN Amiodarone HCl 450 mg/ 250 mls @ 16.667 mls/hr 10/05/21 16:41 Dextrose/Water IV .Q15H PRN A.FIB/FLUTTER Protocol 0.5 MG/MIN Albumin Human 250 ml/ IV 250 mls @ 250 mls/hr 10/05/21 16:41 10/06/21 12:00 Solution IVPB 10/07/21 16:42 250 mls/hr Q1HR PRN Administration For Volume Protocol Propofol 1,000 mg/ IV Solution 100 mls @ 0 mls/hr 10/05/21 16:41 10/06/21 17:51 IV 15 mcg/kg/min .Q0M BAY 10.989 mls/hr Administration Protocol Titrate Calcium Gluconate/Sodium 100 mls @ 100 mls/hr 10/05/21 16:41 Chloride 2 gm/ IV Solution IVPB 10/15/21 16:42 ONCE PRN Ionized Calcium less than 4.4 Insulin Human Regular 100 unit 101 mls @ 0 mls/hr 10/05/21 17:15 10/06/21 17:12 / Sodium Chloride IV 0 units/hr .Q0M BAY 0 mls/hr Titration Protocol Per Protocol Norepinephrine Bitartrate 4 mg 254 mls @ 8.23 mls/hr 10/05/21 17:15 10/06/21 20:37 / Sodium Chloride IV 0.2 mcg/kg/min .Q24H BAY 82.296 mls/hr Administration Protocol 0.02 MCG/KG/MIN Vasopressin 20 unit/ Sodium 51 mls @ 4.59 mls/hr 10/06/21 00:45 10/06/21 15:33 Chloride IVPB 4.59 mls/hr .Q11H7M BAY Administration 0.03 UNITS/MIN Sodium Bicarbonate 150 ml/ 1,150 mls @ 150 mls/hr 10/06/21 07:00 10/06/21 18:36 Dextrose/Water IV 150 mls/hr .Q7H40M BAY Administration Dextrose/Water 500 ml/ IV 500 mls @ 40 mls/hr 10/06/21 07:30 10/06/21 20:02 Solution IV 40 mls/hr .[id number] BAY Administration Furosemide 100 mg/ Sodium 100 mls @ 15 mls/hr 10/06/21 10:15 10/06/21 18:44 Chloride IV 15 mg/hr .Q6H40M BAY 15 mls/hr Administration 15 MG/HR Magnesium Hydroxide 2,400 mg 10/06/21 09:00 Magnesium Hydroxide 2,400 Mg/10 Ml Cup PO BID PRN Constipation Metoclopramide HCl 10 mg 10/05/21 16:41 Metoclopramide 5 Mg/Ml 2 Ml Vial IVP Q4H PRN Nausea And Vomiting Miscellaneous Information 1 each 10/05/21 16:41 Potassium Replacement Protocol 1 Each Misc MISCELLANE DAILY PRN Per Protocol Protocol Miscellaneous Information 1 each 10/05/21 16:41 Magnesium Replacement Protocol 1 Each Misc MISCELLANE DAILY PRN Per Protocol Protocol Miscellaneous Information 1 each 10/05/21 16:41 Phosphorus Replacement Protoco 1 Each Misc MISCELLANE DAILY PRN Per Protocol Protocol Miscellaneous Information 1 each 10/05/21 19:24 Potassium Replacement Protocol 1 Each Misc MISCELLANE DAILY PRN Per Protocol Protocol Morphine Sulfate 2 mg 10/05/21 16:41 Morphine Sulfate 2 Mg/Ml Syringe IVP Q2H PRN Severe Pain Nicotine 1 patch 09/29/21 19:00 10/06/21 08:50 Nicotine 14mg/24hr Patch TRANSDERM Not Given DAILY [facility] Ondansetron HCl 4 mg 10/05/21 16:41 Ondansetron 4 Mg/2 Ml Vial IVP Q6HR PRN Nausea And Vomiting Pantoprazole Sodium 40 mg 10/06/21 09:00 10/06/21 10:40 Pantoprazole 40 Mg/10 Ml Vial IVP 40 mg DAILY BAY Administration Senna/Docusate Sodium 2 each 10/06/21 21:00 Sennosides-Docusate Sodium 1 Each Tab PO HS BAY Sodium Bicarbonate 650 mg 10/06/21 16:00 10/06/21 16:59 Sodium Bicarbonate Tab 650 Mg Tab PO 650 mg TID BAY Administration Sodium Chloride 10 ml 10/05/21 21:00 10/06/21 08:50 Sodium Chloride 0.9% Flush 10 Ml Syringe IV 10 ml BID BAY Administration Tramadol HCl 50 mg 10/06/21 08:12 Tramadol 50 Mg Tab PO Q6HR PRN Pain Objective - Vital Signs Vital signs: Vital Signs Temp 97.0 F L 10/06/21 10:32 Pulse 104 H 10/06/21 10:32 Resp 28 H 10/06/21 10:32 BP 114/67 10/06/21 10:32 Pulse Ox 96 10/06/21 10:32 Intake & Output 10/05/21 10/06/21 10/06/21 18:59 06:59 18:59 Intake Total 067.388 0693.157 970.276 Output Total 2485 1824 525 Balance -1957.196 -78.843 445.276 Weight 122.1 kg Intake: IV 499.0 1026.0 598.5 0.9 Sodium Chloride 100 600 110 0.9 Sodium Chloride for 20 250 70 Cardiac Output Albumin Human 5% 250 ml @ 50 50 250 0 mls/hr IVPB .STK-MED ONE Rx#:[id number] Dextrose 10% in Water 500 40 ml In Empty Bag 1 bag @ 40 mls/hr IV .[id number] [facility] Rx#:[id number] Dextrose 5% in Water 1, 100 000 ml @ 100 mls/hr IV . [id number] BAY with Sodium Bicarb (1 Meq/ml) 150 ml Rx#:[id number] Nitroglycerin-D5w Pmx 50 3.0 18.0 1.5 mg In Dextrose/Water 1 250ml.bag @ 5 MCG/MIN 1.5 mls/hr IV .Q24H [facility] Rx#: [id number] Pressure Bag (0.9 Sodium 18 108 27 Chloride Intake, IV Titration 28.804 719.157 61.776 Amount Calcium Gluconate in NaCl 100 2 gm In Saline 1 100ml. bag @ 100 mls/hr IVPB ONCE ONE Rx#:[id number] Insulin Regular 100 unit 1.027 In Sodium Chloride 0.9% 100 ml @ Per Protocol IV .Q0M [facility] Rx#:[id number] Norepinephrine 4 mg In 28.804 225.196 Sodium Chloride 0.9% 250 ml @ 0.02 MCG/KG/MIN 8.23 mls/hr IV .Q24H [facility] Rx#: [id number] Phenylephrine 1 mg In 100 Sodium Chloride 0.9% 100 ml @ 400.4 mls/hr IV ONCE ONE Rx#:[id number] Potassium Chloride 10 meq 200 In Water For Injection 1 100ml.bag @ 100 mls/hr IVPB Q1H [facility] Rx#: [id number] propofoL 1,000 mg In 92.934 61.776 Empty Bag 1 bag @ Titrate IV .Q0M [facility] Rx#: [id number] Blood Product 0 310 Rc As-1 Unit 0 310 [id number] Rc As-1 Unit 0 [id number] Output: Chest Tube Drainage 500 1114 275 Chest Tube Left Lateral 220 470 50 Chest Chest Tube Mediastinal 240 584 170 Right Lateral Chest 40 60 55 Drainage 80 220 Right Calf 80 220 Urine 985 630 30 Estimated Blood Loss 1000 Other: Voiding Method Indwelling Catheter Indwelling Catheter Indwelling Catheter ABP, PAP, CO, CI - Last Documented Arterial Blood Pressure 112/60 Pulmonary Artery Pressure 42/26 Cardiac Output 5.2 Cardiac Index 2.5 - Exam - GENERAL: The patient is intubated and sedated. Morbidly obese HEENT: Pupils are round and equally reacting to light. EOMI. No scleral icterus. No conjunctival pallor. Normocephalic, atraumatic. No pharyngeal erythema. No thyromegaly. -CARDIOVASCULAR: S1 and S2 present. No murmurs, rubs, or gallops. Surgical wound with dressing in place, rest of exam deferred to surgical team's -PULMONARY: Chest is clear to auscultation, bilateral crackles ABDOMEN: Soft, nontender, nondistended, normoactive bowel sounds. No palpable organomegaly. MUSCULOSKELETAL: No joint swelling or deformity. EXTREMITIES: No cyanosis, clubbing, or pedal edema. NEUROLOGICAL: Gross neurological examination did not reveal any focal deficits. SKIN: No rashes. no petechiae. - Labs CBC & Chem 7: 10/06/21 18:10 10/06/21 17:43 Labs: Abnormal Lab Results - Last 24 Hours (Table) 10/04/21 10/05/21 10/05/21 Range/Units 07:04 10:56 12:13 WBC (3.8-10.6) k/uL RBC (3.80-5.40) m/uL Hgb (11.4-16.0) gm/dL Hct (34.0-46.0) % MCHC (31.0-37.0) g/dL RDW (11.5-15.5) % Plt Count (150-450) k/uL Neutrophils # (1.3-7.7) k/uL PT (9.0-12.0) sec INR (<1.2) APTT (22.0-30.0) sec Fibrinogen (200-500) mg/dL ABG pH (7.35-7.45) ABG pCO2 (35-45) mmHg ABG pO2 252 H 73 L (83-108) mmHg ABG HCO3 (21-25) mmol/L ABG Total CO2 42 H (19-24) mmol/L ABG O2 Saturation 99.8 H (94-97) % ABG Hematocrit (34.0-46.0) % ABG Potassium 4.8 H (3.4-4.5) mmol/L ABG Ionized Calcium (4.5-5.3) mg/dL ABG Glucose 104 H 117 H (75-99) mg/dL ABG Lactic Acid 1.8 H 1.7 H (0.5-1.6) mmol/L Hemoglobin (11.4-16.0) gm/dL Potassium (3.5-5.1) mmol/L Chloride (98-107) mmol/L Carbon Dioxide (22-30) mmol/L BUN (7-17) mg/dL Creatinine (0.52-1.04) mg/dL Glucose (74-99) mg/dL POC Glucose (mg/dL) (75-99) mg/dL Calcium (8.4-10.2) mg/dL Magnesium (1.6-2.3) mg/dL Total Bilirubin (0.2-1.3) mg/dL AST (14-36) U/L ALT (4-34) U/L Alkaline Phosphatase (38-126) U/L Creatine Kinase (30-135) U/L Total Protein (6.3-8.2) g/dL Albumin (3.5-5.0) g/dL Lipase (23-300) U/L Arterial Blood Potassium 4.8 H (3.4-4.5) mmol/L Arterial Blood Glucose 104 H 117 H (75-99) mg/dL Crossmatch See Detail 10/05/21 10/05/21 10/05/21 Range/Units 12:38 13:27 14:07 WBC (3.8-10.6) k/uL RBC (3.80-5.40) m/uL Hgb (11.4-16.0) gm/dL Hct (34.0-46.0) % MCHC (31.0-37.0) g/dL RDW (11.5-15.5) % Plt Count (150-450) k/uL Neutrophils # (1.3-7.7) k/uL PT (9.0-12.0) sec INR (<1.2) APTT (22.0-30.0) sec Fibrinogen (200-500) mg/dL ABG pH (7.35-7.45) ABG pCO2 (35-45) mmHg ABG pO2 304 H 303 H 359 H (83-108) mmHg ABG HCO3 (21-25) mmol/L ABG Total CO2 41 H 41 H 39 H (19-24) mmol/L ABG O2 Saturation 99.8 H 99.8 H 99.9 H (94-97) % ABG Hematocrit 26 L 25 L 25 L (34.0-46.0) % ABG Potassium 5.6 H 5.5 H (3.4-4.5) mmol/L ABG Ionized Calcium 4.1 L 4.1 L 4.1 L (4.5-5.3) mg/dL ABG Glucose 115 H 165 H 203 H (75-99) mg/dL ABG Lactic Acid 3.0 H* 3.7 H* (0.5-1.6) mmol/L Hemoglobin 8.5 L 8.2 L 8.2 L (11.4-16.0) gm/dL Potassium (3.5-5.1) mmol/L Chloride (98-107) mmol/L Carbon Dioxide (22-30) mmol/L BUN (7-17) mg/dL Creatinine (0.52-1.04) mg/dL Glucose (74-99) mg/dL POC Glucose (mg/dL) (75-99) mg/dL Calcium (8.4-10.2) mg/dL Magnesium (1.6-2.3) mg/dL Total Bilirubin (0.2-1.3) mg/dL AST (14-36) U/L ALT (4-34) U/L Alkaline Phosphatase (38-126) U/L Creatine Kinase (30-135) U/L Total Protein (6.3-8.2) g/dL Albumin (3.5-5.0) g/dL Lipase (23-300) U/L Arterial Blood Potassium 5.6 H 5.5 H (3.4-4.5) mmol/L Arterial Blood Glucose 115 H 165 H 203 H (75-99) mg/dL Crossmatch 10/05/21 10/05/21 10/05/21 Range/Units 14:43 15:20 16:12 WBC (3.8-10.6) k/uL RBC (3.80-5.40) m/uL Hgb (11.4-16.0) gm/dL Hct (34.0-46.0) % MCHC (31.0-37.0) g/dL RDW (11.5-15.5) % Plt Count (150-450) k/uL Neutrophils # (1.3-7.7) k/uL PT (9.0-12.0) sec INR (<1.2) APTT (22.0-30.0) sec Fibrinogen (200-500) mg/dL ABG pH 7.31 L 7.25 L (7.35-7.45) ABG pCO2 53 H (35-45) mmHg ABG pO2 355 H 241 H 128 H (83-108) mmHg ABG HCO3 (21-25) mmol/L ABG Total CO2 40 H 45 H 53 H (19-24) mmol/L ABG O2 Saturation 99.7 H 99.5 H 98.2 H (94-97) % ABG Hematocrit 24 L 22 L 29 L (34.0-46.0) % ABG Potassium 5.4 H 4.9 H (3.4-4.5) mmol/L ABG Ionized Calcium 4.1 L 4.0 L (4.5-5.3) mg/dL ABG Glucose 204 H 190 H 186 H (75-99) mg/dL ABG Lactic Acid 4.5 H* 5.2 H* 5.2 H* (0.5-1.6) mmol/L Hemoglobin 7.7 L 7.2 L 9.3 L (11.4-16.0) gm/dL Potassium (3.5-5.1) mmol/L Chloride (98-107) mmol/L Carbon Dioxide (22-30) mmol/L BUN (7-17) mg/dL Creatinine (0.52-1.04) mg/dL Glucose (74-99) mg/dL POC Glucose (mg/dL) (75-99) mg/dL Calcium (8.4-10.2) mg/dL Magnesium (1.6-2.3) mg/dL Total Bilirubin (0.2-1.3) mg/dL AST (14-36) U/L ALT (4-34) U/L Alkaline Phosphatase (38-126) U/L Creatine Kinase (30-135) U/L Total Protein (6.3-8.2) g/dL Albumin (3.5-5.0) g/dL Lipase (23-300) U/L Arterial Blood Potassium 5.4 H 4.9 H (3.4-4.5) mmol/L Arterial Blood Glucose 204 H 190 H 186 H (75-99) mg/dL Crossmatch 10/05/21 10/05/21 10/05/21 Range/Units 16:28 17:43 17:43 WBC 14.0 H (3.8-10.6) k/uL RBC 2.80 L (3.80-5.40) m/uL Hgb 8.4 L D (11.4-16.0) gm/dL Hct 26.1 L (34.0-46.0) % MCHC (31.0-37.0) g/dL RDW (11.5-15.5) % Plt Count 92 L D (150-450) k/uL Neutrophils # 10.5 H (1.3-7.7) k/uL PT 17.7 H (9.0-12.0) sec INR 1.7 H (<1.2) APTT 117.7 H* (22.0-30.0) sec Fibrinogen 84 L (200-500) mg/dL ABG pH 7.34 L (7.35-7.45) ABG pCO2 47 H (35-45) mmHg ABG pO2 (83-108) mmHg ABG HCO3 (21-25) mmol/L ABG Total CO2 47 H (19-24) mmol/L ABG O2 Saturation 98.0 H (94-97) % ABG Hematocrit 30 L (34.0-46.0) % ABG Potassium (3.4-4.5) mmol/L ABG Ionized Calcium (4.5-5.3) mg/dL ABG Glucose 152 H (75-99) mg/dL ABG Lactic Acid 4.9 H* (0.5-1.6) mmol/L Hemoglobin 9.7 L (11.4-16.0) gm/dL Potassium (3.5-5.1) mmol/L Chloride (98-107) mmol/L Carbon Dioxide (22-30) mmol/L BUN (7-17) mg/dL Creatinine (0.52-1.04) mg/dL Glucose (74-99) mg/dL POC Glucose (mg/dL) (75-99) mg/dL Calcium (8.4-10.2) mg/dL Magnesium (1.6-2.3) mg/dL Total Bilirubin (0.2-1.3) mg/dL AST (14-36) U/L ALT (4-34) U/L Alkaline Phosphatase (38-126) U/L Creatine Kinase (30-135) U/L Total Protein (6.3-8.2) g/dL Albumin (3.5-5.0) g/dL Lipase (23-300) U/L Arterial Blood Potassium (3.4-4.5) mmol/L Arterial Blood Glucose 152 H (75-99) mg/dL Crossmatch 10/05/21 10/05/21 10/05/21 Range/Units 17:43 18:20 20:24 WBC (3.8-10.6) k/uL RBC (3.80-5.40) m/uL Hgb (11.4-16.0) gm/dL Hct (34.0-46.0) % MCHC (31.0-37.0) g/dL RDW (11.5-15.5) % Plt Count (150-450) k/uL Neutrophils # (1.3-7.7) k/uL PT (9.0-12.0) sec INR (<1.2) APTT (22.0-30.0) sec Fibrinogen (200-500) mg/dL ABG pH 7.27 L (7.35-7.45) ABG pCO2 60 H (35-45) mmHg ABG pO2 181 H (83-108) mmHg ABG HCO3 28 H (21-25) mmol/L ABG Total CO2 29 H (19-24) mmol/L ABG O2 Saturation 99.0 H (94-97) % ABG Hematocrit (34.0-46.0) % ABG Potassium (3.4-4.5) mmol/L ABG Ionized Calcium (4.5-5.3) mg/dL ABG Glucose (75-99) mg/dL ABG Lactic Acid (0.5-1.6) mmol/L Hemoglobin (11.4-16.0) gm/dL Potassium (3.5-5.1) mmol/L Chloride 109 H (98-107) mmol/L Carbon Dioxide (22-30) mmol/L BUN 25 H (7-17) mg/dL Creatinine (0.52-1.04) mg/dL Glucose (74-99) mg/dL POC Glucose (mg/dL) 102 H (75-99) mg/dL Calcium (8.4-10.2) mg/dL Magnesium 2.6 H (1.6-2.3) mg/dL Total Bilirubin (0.2-1.3) mg/dL AST 283 H (14-36) U/L ALT 309 H (4-34) U/L Alkaline Phosphatase 24 L (38-126) U/L Creatine Kinase (30-135) U/L Total Protein 4.2 L (6.3-8.2) g/dL Albumin 2.6 L (3.5-5.0) g/dL Lipase (23-300) U/L Arterial Blood Potassium (3.4-4.5) mmol/L Arterial Blood Glucose (75-99) mg/dL Crossmatch 10/05/21 10/05/21 10/05/21 Range/Units 20:25 21:02 21:10 WBC 15.6 H (3.8-10.6) k/uL RBC 2.61 L (3.80-5.40) m/uL Hgb 7.7 L (11.4-16.0) gm/dL Hct 24.2 L (34.0-46.0) % MCHC (31.0-37.0) g/dL RDW (11.5-15.5) % Plt Count 64 L (150-450) k/uL Neutrophils # 12.1 H (1.3-7.7) k/uL PT (9.0-12.0) sec INR (<1.2) APTT (22.0-30.0) sec Fibrinogen (200-500) mg/dL ABG pH 7.31 L (7.35-7.45) ABG pCO2 52 H (35-45) mmHg ABG pO2 (83-108) mmHg ABG HCO3 26 H (21-25) mmol/L ABG Total CO2 28 H (19-24) mmol/L ABG O2 Saturation 97.1 H (94-97) % ABG Hematocrit (34.0-46.0) % ABG Potassium (3.4-4.5) mmol/L ABG Ionized Calcium (4.5-5.3) mg/dL ABG Glucose (75-99) mg/dL ABG Lactic Acid (0.5-1.6) mmol/L Hemoglobin (11.4-16.0) gm/dL Potassium (3.5-5.1) mmol/L Chloride (98-107) mmol/L Carbon Dioxide (22-30) mmol/L BUN (7-17) mg/dL Creatinine (0.52-1.04) mg/dL Glucose (74-99) mg/dL POC Glucose (mg/dL) 107 H (75-99) mg/dL Calcium (8.4-10.2) mg/dL Magnesium (1.6-2.3) mg/dL Total Bilirubin (0.2-1.3) mg/dL AST (14-36) U/L ALT (4-34) U/L Alkaline Phosphatase (38-126) U/L Creatine Kinase (30-135) U/L Total Protein (6.3-8.2) g/dL Albumin (3.5-5.0) g/dL Lipase (23-300) U/L Arterial Blood Potassium (3.4-4.5) mmol/L Arterial Blood Glucose (75-99) mg/dL Crossmatch 10/05/21 10/05/21 10/05/21 Range/Units 22:13 22:30 22:30 WBC 13.9 H (3.8-10.6) k/uL RBC 2.39 L (3.80-5.40) m/uL Hgb 7.3 L (11.4-16.0) gm/dL Hct 22.2 L (34.0-46.0) % MCHC (31.0-37.0) g/dL RDW 15.6 H (11.5-15.5) % Plt Count 66 L (150-450) k/uL Neutrophils # 11.2 H (1.3-7.7) k/uL PT 18.6 H (9.0-12.0) sec INR 1.8 H (<1.2) APTT >200.0 H* (22.0-30.0) sec Fibrinogen 83 L (200-500) mg/dL ABG pH (7.35-7.45) ABG pCO2 (35-45) mmHg ABG pO2 (83-108) mmHg ABG HCO3 (21-25) mmol/L ABG Total CO2 (19-24) mmol/L ABG O2 Saturation (94-97) % ABG Hematocrit (34.0-46.0) % ABG Potassium (3.4-4.5) mmol/L ABG Ionized Calcium (4.5-5.3) mg/dL ABG Glucose (75-99) mg/dL ABG Lactic Acid (0.5-1.6) mmol/L Hemoglobin (11.4-16.0) gm/dL Potassium (3.5-5.1) mmol/L Chloride (98-107) mmol/L Carbon Dioxide (22-30) mmol/L BUN (7-17) mg/dL Creatinine (0.52-1.04) mg/dL Glucose (74-99) mg/dL POC Glucose (mg/dL) 116 H (75-99) mg/dL Calcium (8.4-10.2) mg/dL Magnesium (1.6-2.3) mg/dL Total Bilirubin (0.2-1.3) mg/dL AST (14-36) U/L ALT (4-34) U/L Alkaline Phosphatase (38-126) U/L Creatine Kinase (30-135) U/L Total Protein (6.3-8.2) g/dL Albumin (3.5-5.0) g/dL Lipase (23-300) U/L Arterial Blood Potassium (3.4-4.5) mmol/L Arterial Blood Glucose (75-99) mg/dL Crossmatch 10/05/21 10/05/21 10/06/21 Range/Units 22:40 23:01 00:13 WBC (3.8-10.6) k/uL RBC (3.80-5.40) m/uL Hgb (11.4-16.0) gm/dL Hct (34.0-46.0) % MCHC (31.0-37.0) g/dL RDW (11.5-15.5) % Plt Count (150-450) k/uL Neutrophils # (1.3-7.7) k/uL PT (9.0-12.0) sec INR (<1.2) APTT (22.0-30.0) sec Fibrinogen (200-500) mg/dL ABG pH 7.33 L (7.35-7.45) ABG pCO2 47 H (35-45) mmHg ABG pO2 69 L (83-108) mmHg ABG HCO3 (21-25) mmol/L ABG Total CO2 26 H (19-24) mmol/L ABG O2 Saturation 92.7 L (94-97) % ABG Hematocrit (34.0-46.0) % ABG Potassium (3.4-4.5) mmol/L ABG Ionized Calcium (4.5-5.3) mg/dL ABG Glucose (75-99) mg/dL ABG Lactic Acid (0.5-1.6) mmol/L Hemoglobin (11.4-16.0) gm/dL Potassium (3.5-5.1) mmol/L Chloride (98-107) mmol/L Carbon Dioxide (22-30) mmol/L BUN (7-17) mg/dL Creatinine (0.52-1.04) mg/dL Glucose (74-99) mg/dL POC Glucose (mg/dL) 123 H 114 H (75-99) mg/dL Calcium (8.4-10.2) mg/dL Magnesium (1.6-2.3) mg/dL Total Bilirubin (0.2-1.3) mg/dL AST (14-36) U/L ALT (4-34) U/L Alkaline Phosphatase (38-126) U/L Creatine Kinase (30-135) U/L Total Protein (6.3-8.2) g/dL Albumin (3.5-5.0) g/dL Lipase (23-300) U/L Arterial Blood Potassium (3.4-4.5) mmol/L Arterial Blood Glucose (75-99) mg/dL Crossmatch 10/06/21 10/06/21 10/06/21 Range/Units 03:50 03:50 03:55 WBC 16.5 H (3.8-10.6) k/uL RBC 2.48 L (3.80-5.40) m/uL Hgb 7.1 L (11.4-16.0) gm/dL Hct 23.8 L (34.0-46.0) % MCHC 29.8 L (31.0-37.0) g/dL RDW (11.5-15.5) % Plt Count 80 L (150-450) k/uL Neutrophils # 13.9 H (1.3-7.7) k/uL PT 20.8 H (9.0-12.0) sec INR 2.1 H (<1.2) APTT 123.8 H* (22.0-30.0) sec Fibrinogen 94 L (200-500) mg/dL ABG pH (7.35-7.45) ABG pCO2 (35-45) mmHg ABG pO2 (83-108) mmHg ABG HCO3 (21-25) mmol/L ABG Total CO2 (19-24) mmol/L ABG O2 Saturation (94-97) % ABG Hematocrit (34.0-46.0) % ABG Potassium (3.4-4.5) mmol/L ABG Ionized Calcium (4.5-5.3) mg/dL ABG Glucose (75-99) mg/dL ABG Lactic Acid (0.5-1.6) mmol/L Hemoglobin (11.4-16.0) gm/dL Potassium 6.7 H* (3.5-5.1) mmol/L Chloride 109 H (98-107) mmol/L Carbon Dioxide 14 L (22-30) mmol/L BUN 29 H (7-17) mg/dL Creatinine 1.50 H (0.52-1.04) mg/dL Glucose 55 L (74-99) mg/dL POC Glucose (mg/dL) (75-99) mg/dL Calcium 8.2 L (8.4-10.2) mg/dL Magnesium 2.6 H (1.6-2.3) mg/dL Total Bilirubin 1.6 H (0.2-1.3) mg/dL AST 2582 H (14-36) U/L ALT 3021 H (4-34) U/L Alkaline Phosphatase (38-126) U/L Creatine Kinase (30-135) U/L Total Protein 3.9 L (6.3-8.2) g/dL Albumin 2.6 L (3.5-5.0) g/dL Lipase (23-300) U/L Arterial Blood Potassium (3.4-4.5) mmol/L Arterial Blood Glucose (75-99) mg/dL Crossmatch 10/06/21 10/06/21 10/06/21 Range/Units 03:55 04:09 04:10 WBC (3.8-10.6) k/uL RBC (3.80-5.40) m/uL Hgb (11.4-16.0) gm/dL Hct (34.0-46.0) % MCHC (31.0-37.0) g/dL RDW (11.5-15.5) % Plt Count (150-450) k/uL Neutrophils # (1.3-7.7) k/uL PT (9.0-12.0) sec INR (<1.2) APTT (22.0-30.0) sec Fibrinogen (200-500) mg/dL ABG pH 7.15 L* 7.08 L* (7.35-7.45) ABG pCO2 47 H (35-45) mmHg ABG pO2 74 L 37 L* (83-108) mmHg ABG HCO3 13 L 14 L (21-25) mmol/L ABG Total CO2 14 L 16 L (19-24) mmol/L ABG O2 Saturation 90.7 L 51.2 L (94-97) % ABG Hematocrit (34.0-46.0) % ABG Potassium (3.4-4.5) mmol/L ABG Ionized Calcium (4.5-5.3) mg/dL ABG Glucose (75-99) mg/dL ABG Lactic Acid (0.5-1.6) mmol/L Hemoglobin (11.4-16.0) gm/dL Potassium (3.5-5.1) mmol/L Chloride (98-107) mmol/L Carbon Dioxide (22-30) mmol/L BUN (7-17) mg/dL Creatinine (0.52-1.04) mg/dL Glucose (74-99) mg/dL POC Glucose (mg/dL) 60 L (75-99) mg/dL Calcium (8.4-10.2) mg/dL Magnesium (1.6-2.3) mg/dL Total Bilirubin (0.2-1.3) mg/dL AST (14-36) U/L ALT (4-34) U/L Alkaline Phosphatase (38-126) U/L Creatine Kinase (30-135) U/L Total Protein (6.3-8.2) g/dL Albumin (3.5-5.0) g/dL Lipase (23-300) U/L Arterial Blood Potassium (3.4-4.5) mmol/L Arterial Blood Glucose (75-99) mg/dL Crossmatch 10/06/21 10/06/21 10/06/21 Range/Units 05:31 06:03 06:20 WBC (3.8-10.6) k/uL RBC (3.80-5.40) m/uL Hgb (11.4-16.0) gm/dL Hct (34.0-46.0) % MCHC (31.0-37.0) g/dL RDW (11.5-15.5) % Plt Count (150-450) k/uL Neutrophils # (1.3-7.7) k/uL PT (9.0-12.0) sec INR (<1.2) APTT (22.0-30.0) sec Fibrinogen (200-500) mg/dL ABG pH 7.12 L* 7.14 L* (7.35-7.45) ABG pCO2 25 L (35-45) mmHg ABG pO2 77 L 75 L (83-108) mmHg ABG HCO3 8 L* 14 L (21-25) mmol/L ABG Total CO2 9 L 15 L (19-24) mmol/L ABG O2 Saturation 92.3 L 91.2 L (94-97) % ABG Hematocrit (34.0-46.0) % ABG Potassium (3.4-4.5) mmol/L ABG Ionized Calcium (4.5-5.3) mg/dL ABG Glucose (75-99) mg/dL ABG Lactic Acid (0.5-1.6) mmol/L Hemoglobin (11.4-16.0) gm/dL Potassium (3.5-5.1) mmol/L Chloride (98-107) mmol/L Carbon Dioxide (22-30) mmol/L BUN (7-17) mg/dL Creatinine (0.52-1.04) mg/dL Glucose (74-99) mg/dL POC Glucose (mg/dL) 59 L (75-99) mg/dL Calcium (8.4-10.2) mg/dL Magnesium (1.6-2.3) mg/dL Total Bilirubin (0.2-1.3) mg/dL AST (14-36) U/L ALT (4-34) U/L Alkaline Phosphatase (38-126) U/L Creatine Kinase (30-135) U/L Total Protein (6.3-8.2) g/dL Albumin (3.5-5.0) g/dL Lipase (23-300) U/L Arterial Blood Potassium (3.4-4.5) mmol/L Arterial Blood Glucose (75-99) mg/dL Crossmatch 10/06/21 10/06/21 10/06/21 Range/Units 06:21 07:12 07:32 WBC (3.8-10.6) k/uL RBC (3.80-5.40) m/uL Hgb (11.4-16.0) gm/dL Hct (34.0-46.0) % MCHC (31.0-37.0) g/dL RDW (11.5-15.5) % Plt Count (150-450) k/uL Neutrophils # (1.3-7.7) k/uL PT (9.0-12.0) sec INR (<1.2) APTT (22.0-30.0) sec Fibrinogen (200-500) mg/dL ABG pH 7.32 L (7.35-7.45) ABG pCO2 (35-45) mmHg ABG pO2 70 L (83-108) mmHg ABG HCO3 (21-25) mmol/L ABG Total CO2 25 H (19-24) mmol/L ABG O2 Saturation 93.4 L (94-97) % ABG Hematocrit (34.0-46.0) % ABG Potassium (3.4-4.5) mmol/L ABG Ionized Calcium (4.5-5.3) mg/dL ABG Glucose (75-99) mg/dL ABG Lactic Acid 19.6 H* (0.5-1.6) mmol/L Hemoglobin (11.4-16.0) gm/dL Potassium (3.5-5.1) mmol/L Chloride (98-107) mmol/L Carbon Dioxide (22-30) mmol/L BUN (7-17) mg/dL Creatinine (0.52-1.04) mg/dL Glucose (74-99) mg/dL POC Glucose (mg/dL) 108 H (75-99) mg/dL Calcium (8.4-10.2) mg/dL Magnesium (1.6-2.3) mg/dL Total Bilirubin (0.2-1.3) mg/dL AST (14-36) U/L ALT (4-34) U/L Alkaline Phosphatase (38-126) U/L Creatine Kinase (30-135) U/L Total Protein (6.3-8.2) g/dL Albumin (3.5-5.0) g/dL Lipase (23-300) U/L Arterial Blood Potassium (3.4-4.5) mmol/L Arterial Blood Glucose (75-99) mg/dL Crossmatch 10/06/21 10/06/21 10/06/21 Range/Units 07:50 08:04 08:29 WBC (3.8-10.6) k/uL RBC (3.80-5.40) m/uL Hgb (11.4-16.0) gm/dL Hct (34.0-46.0) % MCHC (31.0-37.0) g/dL RDW (11.5-15.5) % Plt Count (150-450) k/uL Neutrophils # (1.3-7.7) k/uL PT (9.0-12.0) sec INR (<1.2) APTT (22.0-30.0) sec Fibrinogen (200-500) mg/dL ABG pH 7.17 L* 7.18 L* (7.35-7.45) ABG pCO2 (35-45) mmHg ABG pO2 33 L* 71 L (83-108) mmHg ABG HCO3 13 L 14 L (21-25) mmol/L ABG Total CO2 14 L 15 L (19-24) mmol/L ABG O2 Saturation 54.1 L 91.9 L (94-97) % ABG Hematocrit (34.0-46.0) % ABG Potassium (3.4-4.5) mmol/L ABG Ionized Calcium (4.5-5.3) mg/dL ABG Glucose (75-99) mg/dL ABG Lactic Acid (0.5-1.6) mmol/L Hemoglobin (11.4-16.0) gm/dL Potassium (3.5-5.1) mmol/L Chloride (98-107) mmol/L Carbon Dioxide (22-30) mmol/L BUN (7-17) mg/dL Creatinine (0.52-1.04) mg/dL Glucose (74-99) mg/dL POC Glucose (mg/dL) 62 L (75-99) mg/dL Calcium (8.4-10.2) mg/dL Magnesium (1.6-2.3) mg/dL Total Bilirubin (0.2-1.3) mg/dL AST (14-36) U/L ALT (4-34) U/L Alkaline Phosphatase (38-126) U/L Creatine Kinase (30-135) U/L Total Protein (6.3-8.2) g/dL Albumin (3.5-5.0) g/dL Lipase (23-300) U/L Arterial Blood Potassium (3.4-4.5) mmol/L Arterial Blood Glucose (75-99) mg/dL Crossmatch 10/06/21 10/06/21 10/06/21 Range/Units 09:06 09:14 09:28 WBC (3.8-10.6) k/uL RBC (3.80-5.40) m/uL Hgb (11.4-16.0) gm/dL Hct (34.0-46.0) % MCHC (31.0-37.0) g/dL RDW (11.5-15.5) % Plt Count (150-450) k/uL Neutrophils # (1.3-7.7) k/uL PT (9.0-12.0) sec INR (<1.2) APTT (22.0-30.0) sec Fibrinogen (200-500) mg/dL ABG pH 7.19 L* (7.35-7.45) ABG pCO2 (35-45) mmHg ABG pO2 73 L (83-108) mmHg ABG HCO3 14 L (21-25) mmol/L ABG Total CO2 15 L (19-24) mmol/L ABG O2 Saturation 92.4 L (94-97) % ABG Hematocrit (34.0-46.0) % ABG Potassium (3.4-4.5) mmol/L ABG Ionized Calcium (4.5-5.3) mg/dL ABG Glucose (75-99) mg/dL ABG Lactic Acid (0.5-1.6) mmol/L Hemoglobin (11.4-16.0) gm/dL Potassium 5.7 H (3.5-5.1) mmol/L Chloride (98-107) mmol/L Carbon Dioxide (22-30) mmol/L BUN (7-17) mg/dL Creatinine (0.52-1.04) mg/dL Glucose (74-99) mg/dL POC Glucose (mg/dL) 105 H (75-99) mg/dL Calcium (8.4-10.2) mg/dL Magnesium (1.6-2.3) mg/dL Total Bilirubin (0.2-1.3) mg/dL AST (14-36) U/L ALT (4-34) U/L Alkaline Phosphatase (38-126) U/L Creatine Kinase 1548 H* (30-135) U/L Total Protein (6.3-8.2) g/dL Albumin (3.5-5.0) g/dL Lipase 434 H (23-300) U/L Arterial Blood Potassium (3.4-4.5) mmol/L Arterial Blood Glucose (75-99) mg/dL Crossmatch 10/06/21 10/06/21 Range/Units 10:04 10:31 WBC (3.8-10.6) k/uL RBC (3.80-5.40) m/uL Hgb (11.4-16.0) gm/dL Hct (34.0-46.0) % MCHC (31.0-37.0) g/dL RDW (11.5-15.5) % Plt Count (150-450) k/uL Neutrophils # (1.3-7.7) k/uL PT (9.0-12.0) sec INR (<1.2) APTT (22.0-30.0) sec Fibrinogen (200-500) mg/dL ABG pH 7.21 L (7.35-7.45) ABG pCO2 (35-45) mmHg ABG pO2 76 L (83-108) mmHg ABG HCO3 14 L (21-25) mmol/L ABG Total CO2 15 L (19-24) mmol/L ABG O2 Saturation (94-97) % ABG Hematocrit (34.0-46.0) % ABG Potassium (3.4-4.5) mmol/L ABG Ionized Calcium (4.5-5.3) mg/dL ABG Glucose (75-99) mg/dL ABG Lactic Acid (0.5-1.6) mmol/L Hemoglobin (11.4-16.0) gm/dL Potassium (3.5-5.1) mmol/L Chloride (98-107) mmol/L Carbon Dioxide (22-30) mmol/L BUN (7-17) mg/dL Creatinine (0.52-1.04) mg/dL Glucose (74-99) mg/dL POC Glucose (mg/dL) 123 H (75-99) mg/dL Calcium (8.4-10.2) mg/dL Magnesium (1.6-2.3) mg/dL Total Bilirubin (0.2-1.3) mg/dL AST (14-36) U/L ALT (4-34) U/L Alkaline Phosphatase (38-126) U/L Creatine Kinase (30-135) U/L Total Protein (6.3-8.2) g/dL Albumin (3.5-5.0) g/dL Lipase (23-300) U/L Arterial Blood Potassium (3.4-4.5) mmol/L Arterial Blood Glucose (75-99) mg/dL Crossmatch Assessment and Plan Assessment: Non-ST elevation myocardial infarction secondary to severe triple coronary artery disease on cardiac cath, status post bypass surgery on 10/05. Acute kidney injury Acute hypotension requiring pressors Metabolic acidosis Acute kidney injury with hyperkalemia Lactic acidosis Right internal carotid artery stenosis A large aortic abdominal aneurysm 4 cm up to 5.3 cm COPD exacerbation Hypertensive urgency, breast on admission improved Morbid obesity Plan: This is a pleasant 61 years old female with triple coronary artery disease, COPD. 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 We'll follow up consultants recommendation Labs and medication were reviewed.. Continue same treatment. Continue with symptomatic treatment. Resume home medication. Monitor lytes and vitals. DVT and GI prophylaxis. Further recommendations as per clinical course of the patient DVT prophylaxis: Deferred to surgery team GI Prophylaxis: ppi Prognosis is guarded
[2021-10-06 22:19] LABS: Glucose,Whole Blood 104 mg/dL (75-99)
[2021-10-06 22:32] LABS: ABG Base Excess -10.6 mmol/L; ABG HCO3 17 mmol/L (21-25); ABG Oxygen Saturation 81.1 % (94-97); ABG PCO2 44 mmHg (35-45); ABG TCO2 19 mmol/L (19-24)
[2021-10-06 22:33] VITALS: RESP 36
[2021-10-06 22:34] LABS: ABG PO2 54 mmHg (83-108); Allen Test Performed? No
[2021-10-06 23:11] LABS: Glucose,Whole Blood 100 mg/dL (75-99)
[2021-10-07 00:04] LABS: Glucose,Whole Blood 97 mg/dL (75-99)
[2021-10-07] MEDS ORDERED: EPINEPHrine 4 MG in DEXTROSE 5% IN WATER 250 ML IV SCH ×2 (00:30)
[2021-10-07 00:34] VITALS: BP 108/30; TEMP 99.7
[2021-10-07] MEDS: FUROSEMIDE 100 MG in SODIUM CHLORIDE 0.9% 90 ML IV SCH (00:36)
[2021-10-07 00:42] LABS: Hypochromasia Marked; MCH 32.2 pg (25.0-35.0); MCHC 32.9 g/dL (31.0-37.0); MCV 97.7 fL (80.0-100.0); Macrocytosis Slight; Mean Platelet Volume 12.6; Poikilocytosis Slight; RBC 2.35 m/uL (3.80-5.40); RDW 15.2 % (11.5-15.5); WBC 11.7 k/uL (3.8-10.6)
[2021-10-07] MEDS: IPRATROPIUM-ALBUTEROL 3 ML NEB INHALATION PRN (00:44)
[2021-10-07 00:48] LABS: HGB 7.6 gm/dL (11.4-16.0)
[2021-10-07 00:49] LABS: Platelet Count 54 k/uL (150-450)
[2021-10-07 00:59] LABS: Glucose,Whole Blood 118 mg/dL (75-99)
[2021-10-07 01:00] VITALS: PULSE 75
--- NOTE | 2021-10-07 11:34 | HP ---
HISTORY AND PHYSICAL This is a 61-year-old white female patient, status post coronary artery bypass. The patient has a history of acute chronic renal failure with metabolic and lactic acidosis. Patient is hyp tensive. She has been intubated. We are consulted for placement of urgent dialysis catheter. MEDICAL HISTORY: Patient has super obesity, coronary artery bypass graft, postoperative day number 1. Hypertension, hyperlipidemia. SURGICAL HISTORY: Patient had appendectomy and heart catheterization and stent placement in the past. Tubal ligation. PHYSICAL EXAMINATION: Patient has been intubated. Patient is hyp tensive. Chest has a few crackles at the lung bases. Abdomen is protuberant. PLAN: Placement of dialysis catheter. Risks and complications discussed. MMODL / IJN: [id number] /
--- NOTE | 2021-10-07 11:41 | PCN ---
PROCEDURE NOTE PREOPERATIVE DIAGNOSIS: 1. Acute chronic renal failure. 2. Status post coronary artery bypass, postoperative day number 1. 3. Metabolic acidosis. 4. Lactic acidosis. POSTOPERATIVE DIAGNOSIS: 1. Acute chronic renal failure. 2. Status post coronary artery bypass, postoperative day number 1. 3. Metabolic acidosis. 4. Lactic acidosis. PROCEDURE PERFORMED: Placement of dialysis catheter 20 cm, right femoral approach. PROCEDURE DESCRIPTION: This patient was seen in the intensive care unit. Both groins were prepped and draped in the usual sterile manner. We attempted to put the catheter in the left groin, ultrasound-guided. I could not advance it; a few attempts were made. Then we prepped the right groin. We used a micropuncture needle, introduced it into the common femoral vein. Micropuncture guidewire was passed and a 4-Sami dilator was advanced on top of the guidewire. Then we passed a regular guidewire without any resistance. Dilator was advanced. Then a 20 cm dialysis catheter was placed on the top of the guidewire. The guidewire was removed. Secured with 3-0 nylon and flushed with heparin saline and hep- locked. The patient tolerated the procedure well. MMODL / IJN: [id number] /
--- NOTE | 2021-10-07 19:52 | P.PCN ---
Date of Procedure: 10/05/21 Operative Findings: CAROTID ARTERY INTERVENTION Performing physician Carl Maxwell M.D. Procedure performed #1 Successful stenting of the right internal carotid artery using 6-8 mm x 30 mm Acculink carotid stent with adjunctive use of filter wire with excellent result #2 Selective right common and right internal carotid artery angiogram #3 An aortic arch angiogram #4 Intracranial angiogram with arterial and venous phase #5 Ultrasound-guided access of the right common femoral artery #6 Selective right common femoral artery angiogram Indication This is a 61-year-old female patient was admitted to the hospital with ACS. She underwent a cath and was found to have severe triple vessels CAD. She was referred for CABG, and was found critical right ICA dx. The plan to undergo stenting of the right ICA and immediately proceed to the OR for CABG. Approach Right common femoral artery Complication None Level of sedation No sedation was given during the procedure Procedure description After obtaining an informed consent the patient was brought to the cardiac cathode washer. The right common femoral artery was cannulated using puncture technique under ultrasound guidance, the micropuncture wire passed easily then replace 90 cm 6- [place] shuttle sheath in the right common femoral artery over an 035 stiff Glidewire. That point anticoagulation was initiated and the patient was given 6000 use of heparin at the beginning of the procedure with continuous ACT monitoring throughout the procedure Subsequently I did aortic arch angiogram using 5-[place] pigtail catheter. The angiogram revealed type II-III aortic arch Attending engaging the a dominant using a JB2 catheter was unsuccessful. Finally I was able engaging it using PTK catheter with supra core wire and I used multipurpose catheter as a dilator. Right common and right internal carotid artery angiogram was performed and revealed critical lesion involving the right common carotid artery right after the takeoff from the left common carotid artery. At that point and after prepping the filter wire and that was [employer] ALEXANDER filter wire I did advance the wire through the lesion in the right common carotid artery and subsequently I deployed the filter under fluoroscopy guidance. Predilatation of the lesion was performed using 4 mm balloon. Subsequently I deployed a 6-8 mm x 30 mm Acculink stent under fluoroscopy guidance after the stent was positioned under fluoroscopy guidance. Postdilatation was performed using 5 mm balloon. The following angiogram showed an excellent angiographic results and the procedure was completed without any complication Postprocedure management #1 Loading dose of Plavix at 600 mg #2 Immediatly to the OR for CABG
--- NOTE | 2021-10-09 12:59 | CA ---
Transthoracic Echo Report Name: Leti Lacy Age: 61 Gender: F : 1960 Exam Date: 10/06/2021 07:31 Exam Location: [facility] Ht (in): 63 Wt (lb): 269 Ordering Physician: Babita Miranda Attending/Referring Phys: [id number], Ruth Data Processing Specialist CK Procedure CPT: Indications: tamponade Technical Quality: Technically difficult study Contrast 1: Total Dose (mL): Contrast 2: Total Dose (mL): MEASUREMENTS (Male / Female) Normal Values FINDINGS Left Ventricle Left ventricular ejection fraction is estimated at 40-45 %. Right Ventricle Right ventricle not well visualized.: NOT ABLE TO COMMENT ON RV. Right Atrium Left Atrium Mitral Valve Aortic Valve Tricuspid Valve Pulmonic Valve Pericardium Aorta CONCLUSIONS Limited images however appears to be left ventricular ejection fraction 45-50%. Does not appear to be any significant mitral regurgitation, aortic regurgitation. If clinical concern may consider URMILA for better imaging. Previewed by: Dr. Joseph Khan DO (Electronically Signed) Final Date: 06 Oct 2021 10:12
== END 2021-10-07 04:15 | disposition expired | DRG 233 ==
LOC: EC 21:01 → 3SCARD 22:15 → 2SICU 10-05 09:23
PROVIDERS: ADMIT Surgery; ATTEND Surgery
PROC: 4A023N7 Measurement of Cardiac Sampling and Pressure, Left Heart, Percutaneous Approach (ICD-10-PCS; 2021-09-29)
PROC: B2111ZZ Fluoroscopy of Multiple Coronary Arteries using Low Osmolar Contrast (ICD-10-PCS; 2021-09-29)
PROC: 05HF33Z Insertion of Infusion Device into Left Cephalic Vein, Percutaneous Approach (ICD-10-PCS; 2021-10-04)
PROC: 5A1945Z Respiratory Ventilation, 24-96 Consecutive Hours (ICD-10-PCS; 2021-10-05)
PROC: 3E033XZ Introduction of Vasopressor into Peripheral Vein, Percutaneous Approach (ICD-10-PCS; 2021-10-05)
PROC: 0D9670Z Drainage of Stomach with Drainage Device, Via Natural or Artificial Opening (ICD-10-PCS; principal; 2021-10-05 07:30)
PROC: 06BP4ZZ Excision of Right Saphenous Vein, Percutaneous Endoscopic Approach (ICD-10-PCS; principal; 2021-10-05 07:30)
PROC: 5A1221Z Performance of Cardiac Output, Continuous (ICD-10-PCS; principal; 2021-10-05 07:30)
PROC: 02100Z9 Bypass Coronary Artery, One Artery from Left Internal Mammary, Open Approach (ICD-10-PCS; principal; 2021-10-05 07:30)
PROC: B246ZZ4 Ultrasonography of Right and Left Heart, Transesophageal (ICD-10-PCS; principal; 2021-10-05 07:30)
PROC: 02L70CK Occlusion of Left Atrial Appendage with Extraluminal Device, Open Approach (ICD-10-PCS; principal; 2021-10-05 07:30)
PROC: 4A0305C Measurement of Arterial Flow, Coronary, Open Approach (ICD-10-PCS; principal; 2021-10-05 07:30)
PROC: 021109W Bypass Coronary Artery, Two Arteries from Aorta with Autologous Venous Tissue, Open Approach (ICD-10-PCS; principal; 2021-10-05 07:30)
PROC: B41D1ZZ Fluoroscopy of Aorta and Bilateral Lower Extremity Arteries using Low Osmolar Contrast (ICD-10-PCS; 2021-10-05 08:00)
PROC: B31R1ZZ Fluoroscopy of Intracranial Arteries using Low Osmolar Contrast (ICD-10-PCS; 2021-10-05 08:00)
PROC: B3131ZZ Fluoroscopy of Right Common Carotid Artery using Low Osmolar Contrast (ICD-10-PCS; 2021-10-05 08:00)
PROC: 037K3DZ Dilation of Right Internal Carotid Artery with Intraluminal Device, Percutaneous Approach (ICD-10-PCS; 2021-10-05 08:00)
PROC: 06HY33Z Insertion of Infusion Device into Lower Vein, Percutaneous Approach (ICD-10-PCS; 2021-10-06)
PROC: 30243N1 Transfusion of Nonautologous Red Blood Cells into Central Vein, Percutaneous Approach (ICD-10-PCS; 2021-10-06)
PROC: 5A1D70Z Performance of Urinary Filtration, Intermittent, Less than 6 Hours Per Day (ICD-10-PCS; 2021-10-06)
PROC: 5A12012 Performance of Cardiac Output, Single, Manual (ICD-10-PCS; 2021-10-07)
DX: I21.4 Non-ST elevation (NSTEMI) myocardial infarction (principal); N17.0 Acute kidney failure with tubular necrosis; I50.33 Acute on chronic diastolic (congestive) heart failure; J96.21 Acute and chronic respiratory failure with hypoxia; K72.00 Acute and subacute hepatic failure without coma; R57.9 Shock, unspecified; Z68.42 Body mass index [BMI] 45.0-49.9, adult; J44.1 Chronic obstructive pulmonary disease with (acute) exacerbation; E87.2 Acidosis; I16.1 Hypertensive emergency; J98.11 Atelectasis; D62 Acute posthemorrhagic anemia; D69.6 Thrombocytopenia, unspecified; E66.01 Morbid (severe) obesity due to excess calories; I11.0 Hypertensive heart disease with heart failure; I71.4 Abdominal aortic aneurysm, without rupture; I46.2 Cardiac arrest due to underlying cardiac condition; Z20.822 Contact with and (suspected) exposure to COVID-19; I95.81 Postprocedural hypotension; N99.0 Postprocedural (acute) (chronic) kidney failure; I25.10 Atherosclerotic heart disease of native coronary artery without angina pectoris; I65.21 Occlusion and stenosis of right carotid artery; I35.1 Nonrheumatic aortic (valve) insufficiency; I49.3 Ventricular premature depolarization; E78.5 Hyperlipidemia, unspecified; E87.5 Hyperkalemia; E78.00 Pure hypercholesterolemia, unspecified; I25.2 Old myocardial infarction; J30.2 Other seasonal allergic rhinitis; K59.00 Constipation, unspecified; F17.210 Nicotine dependence, cigarettes, uncomplicated; Z71.6 Tobacco abuse counseling; Z79.82 Long term (current) use of aspirin; Z79.1 Long term (current) use of non-steroidal anti-inflammatories (NSAID); Z79.899 Other long term (current) drug therapy; Z95.5 Presence of coronary angioplasty implant and graft; Z90.49 Acquired absence of other specified parts of digestive tract; Z87.19 Personal history of other diseases of the digestive system; Z90.89 Acquired absence of other organs; Z98.51 Tubal ligation status; Z72.89 Other problems related to lifestyle; Z98.890 Other specified postprocedural states; Z71.3 Dietary counseling and surveillance; Z88.0 Allergy status to penicillin
CPT/HCPCS: 36410; 36415; 37215; 70496; 70498; 71045; 71046; 71260; 74018; 74177; 76937; 80048; 80053; 80061; 80074; 81003; 82150; 82330; 82533; 82550; 82805; 83036; 83605; 83690; 83735; 84132; 84443; 84484; 85025; 85027; 85384; 85520; 85610; 85730; 86850; 86891; 86900; 86901; 86920; 87070; 87502; 87634; 87635; 93005; 93306; 93308; 93458; 93880; 93970; 94002; 94003; 94060; 94150; 94640; 94729; 94760; 96374; 99285